=== PATIENT | male | born 1950 | race Caucasian/White ===

== ENCOUNTER 2020-04-11 11:45 | Outpatient (REF) | payer MEDICARE, MEDICAID, SELFPAY ==
[2020-04-11 12:30] LABS: Basophils Percent Auto 0.5 % (0-2); Eosinophils Absolute Auto 0.2 X10*3/uL (0.0-0.4); Eosinophils Percent Auto 2.4 % (0-4); Hematocrit 37.4 % (42-52); Hemoglobin 12.5 g/dl (14.0-18.0); Imm Gran Abs Auto 0.02 X10*3/uL (0.00-0.03); Imm Gran Pct Auto 0.2 % (0.0-0.4); Lymphocytes Absolute Auto 2.6 X10*3/uL (1.2-4.9); Lymphocytes Percent Auto 32.6 % (20-40); MANUAL DIFF FLAG NO; Mean Corpuscular HGB Conc 33.4 g/dl (31.0-36.0); Mean Corpuscular Hemoglobin 33.6 pg (27.0-33.0); Mean Corpuscular Volume 100.5 fL (80-98); Mean Platelet Volume 9.5 fL (9.4-12.4); Monocytes Percent Auto 12.5 % (2-11); Neutrophils Absolute Auto 4.2 X10*3/uL (2.0-8.3); Neutrophils Percent Auto 51.8 % (45-73); Platelet Count 375 X10*3/uL (160-400); Red Blood Count 3.72 X10*6/uL (4.60-5.80); White Blood Count 8.1 X10*3/uL (4.8-10.8)
[2020-04-11 12:36] LABS: Glucose Urine UA NEG (NEG); Leukocyte Esterase Urine NEG (NEG); Nitrite Urine NEG (NEG); Specific Gravity - Urine 1.015 (1.005-1.025); Urine Blood NEG (NEG); Urine Ketones NEG (NEG); Urine Protein TRACE MG/DL (NEG-TRACE)
[2020-04-11 12:46] LABS: Appearance Urine CLEAR; Color Urine YELLOW
[2020-04-11 13:17] LABS: Protein/Creatinine Ratio, Ur 0.09 (<0.2); Total Protein Urine Random 26 mg/dL (<12)
[2020-04-11 13:22] LABS: Albumin Level 4.5 g/dL (3.5-5.0); Anion Gap 14 (12-20); Blood Urea Nitrogen 27 mg/dL (9-16); Calcium 9.9 mg/dL (8.4-10.2); Chloride 103 mmol/L (96-108); Estimated Glomerular Filt Rate 31; Magnesium 1.7 mg/dL (1.6-2.6); Phosphorus 3.3 mg/dL (2.7-4.5); Potassium 4.8 mmol/l (3.3-5.1); Sodium 141 mmol/L (135-145)
[2020-04-11 13:24] LABS: Carbon Dioxide 29 mmol/L (22-29)
[2020-04-11 13:24] LABS: Creatinine Urine 276.47 mg/dL; Total Protein Urine Random 25 mg/dL (<12)
[2020-04-11 13:38] LABS: Vitamin D 25-OH Total 37.7 ng/mL (>30)
[2020-04-11 13:43] LABS: Microalbum/Creatinine Ratio Ur 35.8 ug/mg cr
[2020-04-11 13:45] LABS: Creatinine Urine 276.78 mg/dL
[2020-04-11 15:43] LABS: Renal w Reflex Lab Use Only Order verified
[2020-04-12 23:12] LABS: Calcium (PTHI) 9.8 mg/dL (8.6-10.3); PTHI 20 pg/mL (14-64)
== END 2020-04-11 11:46 | disposition home or self-care (01) ==
LOC: HO.LAB 11:45
PROVIDERS: PCP Emergency Medicine; Visit Provider Internal Medicine Nephrology
DX: I12.9 Hypertensive chronic kidney disease with stage 1 through stage 4 chronic kidney disease, or unspecified chronic kidney disease (principal); N18.30 Chronic kidney disease, stage 3 unspecified
CPT/HCPCS: 36415; 80051; 81003; 82040; 82043; 82306; 82310; 82565; 83735; 83970; 84100; 84156; 84520; 85025

== ENCOUNTER 2020-05-30 09:42 | Outpatient (REF) | payer MEDICARE, MEDICAID, SELFPAY | END 2020-05-30 09:43 | disposition home or self-care (01) | LOC: HO.HOSX 09:42 | PROVIDERS: Visit Provider Orthopaedic Surgery | DX: Z13.89 Encounter for screening for other disorder (principal) ==

== ENCOUNTER 2020-06-01 10:32 | Emergency (ER) | payer MEDICARE, MEDICAID, SELFPAY ==
[2020-06-01 11:19] VITALS: BP 110/64; PULSE 95; RESP 16; TEMP 36.9; O2SAT 99; BMI 21.7
--- NOTE | 2020-06-01 11:37 | ED.SKABFB ---
HPI - Skin/Abscess/Foreign Bdy General Chief complaint: Skin/Abscess/Foreign Body Stated complaint: rash Time Seen by Provider: 06/01/20 11:37 Source: patient Mode of arrival: ambulatory Limitations: no limitations History of Present Illness HPI narrative: 69 yo male presenting with itchy reddened rash to left buttock, back and right upper extremity that started about 1 week ago. He has been using Calamine lotion to the area but it spread from buttock to back to arm. He now noticed that the skin around the area on his right arm is reddened and warm. He denies fever, chills. No new detergents, lotions or creams. MD complaint: rash Onset (ago): week(s) (1) Tetanus up to date: yes Location: back, RUE and buttocks Severity: moderate Quality: burning and pruritic Pain Consistency: intermittent Relieving factors: cold therapy Exacerbating factors: palpation Context: none Associated symptoms: itching Treatments prior to arrival: none Related Data Previous Rx's Medication Instructions Recorded cephalexin [Keflex] 500 mg PO QID #28 cap 06/01/20 doxycycline monohydrate 100 mg PO BID #14 cap 06/01/20 mupirocin 1 appl TOPICAL BID #22 g 06/01/20 Allergies Allergy/AdvReac Type Severity Reaction Status Date / Time No Known Allergies Allergy Unverified 01/26/20 15:11 Review of Systems Review of Systems: Constitutional: No Fever, No Chills Cardiovascular: No Chest Pain, No SOB Respiratory: No Cough, No Sputum Gastrointestinal: No Nausea, No Vomiting Musculoskeletal: No joint pain, No Myalgias Skin: + Skin Lesions, N+rash Neuro: No Weakness, No Numbness, No Dizziness, No Headache Heme/Lymph: No Bruising, No Lymphadenopathy PMFSH Past Medical History Attestation statement: The following information was validated with the patient. Medical History High cholesterol HTN (hypertension) Macular degeneration Surgical History (Updated 06/01/20 @ 11:24 by Madhuri Kaba) History of lung surgery Social History Social History Smoking Status: Current every day smoker Smoked in Last 30 Days: Yes Use of substances other than those prescribed or required for medical reasons: No Advance Directives: No Advance Directives Information Provided: No Physical Exam Vital Signs: Vital Signs: Last Vital Signs Temp 98.4 F 06/01/20 11:19 Pulse 95 06/01/20 11:19 Resp 16 06/01/20 11:19 BP 110/64 06/01/20 11:19 Pulse Ox 99 06/01/20 11:19 Body Mass Index 21.7 Appearance: Alert. Oriented X3. No acute distress. Eyes: normal inspection ENT: Pharynx normal. No facial swelling Neck: Normal inspection. Respiratory: No respiratory distress. Breath sounds normal. Abdomen: Soft and nontender. +BS x4 Skin: Skin warm and dry. Normal skin color. Normal skin turgor. Ertythematous papular rash to right forearm with surroundign ertythema and warmth. No edema. Compartments are soft and compressible. NV intact distally. Central areas of yellowish crusting and bullae. Similar appearance in rash to left buttock without surrounging erythema. Small area also on left middle back. Extremities: No lower extremity edema. Neuro: Oriented X 3. Non-focal. Course Course Course Narrative: 69 y/o male presenting with rash to right arm, left buttock and back. Appears to be consistent with a dermatitis that is now infected. Arm is mildly cellulitic. Not septic appearing. Will treat with topical and oral antiobiotic regimen and have him follow up with his PCP next week. He was counseled on management and signs/symptoms to prompt return to the ER. Patient agrees with plan and is stable for dischaarge. MDM - Skin/Abscess/Foreign Bdy Differential Diagnosis Differential diagnosis: Likely abscess of skin or subcutaneous tissue, viral exanthem, urticaria, herpes zoster, allergic reaction to drug, cellulitis, eczema, impetigo and contact dermatitis Critical Care Time Critical Care Time Critical Care Time: No Discharge Plan Discharge Clinical Impression: Cellulitis Qualifiers: Site of cellulitis: extremity Site of cellulitis of extremity: upper extremity Laterality: right Qualified Code(s): L03.113 - Cellulitis of right upper limb Contact dermatitis Qualifiers: Contact dermatitis type: unspecified Contact dermatitis trigger: unspecified trigger Qualified Code(s): L25.9 - Unspecified contact dermatitis, unspecified cause Patient Disposition: Home, Self-Care Instructions: Cellulitis (ED), Dermatitis (ED) Additional Instructions: Take Benadryl as needed for itchin-50 mg every 6 hours. Use ice to the area to help with itching. Take the prescribed antibiotics and use the prescribed antibiotic ointment as directed. Follow up with your doctor next week. If you develop worsening redness, swelling, pain or fever come back to the ER for further evaluation. Prescriptions: New doxycycline monohydrate 100 mg capsule 100 mg PO BID Qty: 14 RF: 0 cephalexin [Keflex] 500 mg capsule 500 mg PO QID Qty: 28 RF: 0 mupirocin 2 % ointment 1 appl topical BID Qty: 22 RF: 0
== END 2020-06-01 11:59 | disposition home or self-care (01) ==
PROVIDERS: Emergency Provider Internal Medicine; PCP Internal Medicine
DX: L03.113 Cellulitis of right upper limb (principal); L25.9 Unspecified contact dermatitis, unspecified cause; I10 Essential (primary) hypertension; F17.200 Nicotine dependence, unspecified, uncomplicated
CPT/HCPCS: 99283

== ENCOUNTER 2020-07-02 09:00 | Outpatient (RCR) | payer MEDICARE, MEDICAID, SELFPAY | END 2020-07-04 09:04 | disposition other institution (70) | LOC: HO.OT 09:00 | PROVIDERS: PCP Registered Nurse Community Health; Visit Provider Registered Nurse Community Health | DX: M25.531 Pain in right wrist (principal) | CPT/HCPCS: 97110; 97165 ==

== ENCOUNTER 2020-07-11 06:42 | Emergency (ER) | payer MEDICARE, MEDICAID, SELFPAY ==
--- NOTE | ~2020-07-11 | CT_ITS ---
EXAMINATION: CT CHEST WITHOUT CONTRAST CLINICAL INFORMATION: Evaluate for mass. COMPARISON: Chest x-ray 11/03/2016 TECHNIQUE: Multidetector volumetric CT imaging of the chest was done. Axial MIP volume rendering provided. Sagittal and coronal reformatted images were obtained. This CT examination was performed using dose optimization techniques as appropriate, variously including the following: *Automated exposure control *Adjustment of mA and/or kV according to patient size (this includes techniques or standardized protocols for targeted exams where dose is matched to indication/reason for exam; i.e. 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 LUNGS: There is centrilobular emphysema without acute pneumonic process. There is mild left lower lobe bronchiectasis with fine interstitial thickening. Patchy groundglass changes as subpleural cystic parenchymal changes in both upper lobes anterior segment. Hyperinflated right upper lobe predominance right hemithorax with mild thickening of right lower major fissure. There is a right upper lobe posterior pleural-based partially calcified nodule measuring 1.6 x 1.4 x 0.9 cm. There are punctate 2 mm calcified granuloma right upper lobe, axial image 124/9. No noncalcified nodules seen. MEDIASTINUM: The heart size and the great vessels are normal caliber. There are coronary artery calcifications present. The thyroid lobes are symmetrical and normal. The central trachea and the bronchi widely patent. No pericardial effusion seen. PLEURA: There is no pleural effusion or thickening. Focal subpleural partially calcified lesion in the right upper lobe as described above. AXILLA: Small shotty lymph nodes are seen in bilateral axilla. UPPER ABDOMEN: Visualized liver, spleen, pancreas and bilateral adrenal glands are unremarkable. No radiopaque gallstones seen. OSSEOUS STRUCTURES: No lytic or sclerotic process seen. There are superior endplate deformities T11, L1 and inferior endplate T8 vertebra. CT/CT chest wo con IMPRESSION: Emphysema with subpleural cysts and fine interstitial subpleural thickening both upper lobes. The right upper lobe dominates the right hemithorax. There are chronic interstitial changes with bronchiectasis in the left lower lobe. There are scattered groundglass attenuation changes in both lungs. There is a right upper lobe pleural-based partially calcified nodular thickening measuring 1.6 cm. Differential diagnoses includes partially calcified pleural plaque or nodule. Recommend short-term 3-6 month follow-up.
[2020-07-11 06:49] VITALS: BP 157/72; PULSE 109; RESP 15; TEMP 36.5; O2SAT 100; BMI 21.5
--- NOTE | 2020-07-11 07:07 | ED_ITS ---
HPI - Skin/Abscess/Foreign Bdy General Chief complaint: Allergic Reaction Stated complaint: Rash Time Seen by Provider: 07/11/20 07:04 Source: patient Mode of arrival: ambulatory Limitations: no limitations History of Present Illness MD complaint: rash and lesion Onset (ago): month(s) (on and on May) Tetanus up to date: yes Location: back, LUE, RUE and buttocks Severity: moderate Quality: burning and pruritic Pain Consistency: constant Relieving factors: none Exacerbating factors: none Context: none Associated symptoms: denies other symptoms Treatments prior to arrival: corticosteroid and antibiotic Related Data Previous Rx's Medication Instructions Recorded cephalexin [Keflex] 500 mg PO QID #28 cap 06/01/20 doxycycline monohydrate 100 mg PO BID #14 cap 06/01/20 mupirocin 1 appl TOPICAL BID #22 g 06/01/20 mupirocin 1 appl TOPICAL BID 7 Days #15 g 07/11/20 prednisone 40 mg PO DAILY 4 Days #8 tab 07/11/20 valacyclovir 1,000 mg PO TID 10 Days #30 tab 07/11/20 Allergies Allergy/AdvReac Type Severity Reaction Status Date / Time No Known Allergies Allergy Unverified 01/26/20 15:11 Review of Systems Review of Systems: Constitutional : No Fever, No Chills ENT/Mouth : No sore throat, No Rhinorrhea Eyes: No Eye Pain, No Swelling, No Redness Cardiovascular : No Chest Pain, No SOB Respiratory : No Cough, No Sputum Gastrointestinal : No Nausea, No Vomiting, No Diarrhea, No abdominal Pain Genitourinary : No Dysuria, No Hematuria Musculoskeletal : No joint pain, No Myalgias, No Joint Swelling Skin : pos Skin Lesions, positive skin rash Neuro : No Weakness, No Numbness, No Headache Psych : No Anxiety, No Depression Heme/Lymph: No Bruising, No Bleeding,No Lymphadenopathy Endocrine : No Polyuria, No Polydipsia All other systems reviewed and are negative [facility] Past Medical History Attestation statement: The following information was validated with the patient. Medical History High cholesterol HTN (hypertension) Macular degeneration Surgical History History of lung surgery Social History Social History Smoking Status: Current every day smoker Advance Directives: Yes Advance Directives Information Provided: Yes Advance Directives on File: No Physical Exam Vital Signs: Vital Signs: Last Vital Signs Temp 97.7 F 07/11/20 06:49 Pulse 90 07/11/20 08:30 Resp 18 07/11/20 08:30 BP 137/67 07/11/20 08:30 Pulse Ox 99 07/11/20 08:30 Body Mass Index 21.5 Appearance: Alert. Oriented X3. No acute distress. Eyes: Pupils equal, round and reactive to light. ENT: Pharynx normal. Neck: Normal inspection. Neck supple. CVS: Normal heart rate and rhythm. Pulses normal. Respiratory: No respiratory distress. Breath sounds normal. Abdomen: Soft and nontender. Skin: Skin warm and dry. diffuse areas on forearms of red scaling patches no signs of cellulitis, R low back large raised scabbed patch no signs of infection, R buttock area more vesicular rash noted no abscess/no signs of infection Extremities: No lower extremity edema. No calf ttp Neuro: Oriented X 3. No motor deficit. No sensory deficit. Course Course Course Narrative: stable chest CT MDM - Skin/Abscess/Foreign Bdy MDM Narrative Medical decision making narrative: 69 yo male with hx of recurrent rash has tried oral antibiotics and topical steroids no relief, has not seen a vascular technologist - at this time looks like dermatitis vs shingles in one patch and that patch is burning, will start on oral prednisone, valacyclovir, mupirocin and refer to dermatology, he has a hx of lung cancer will obtain CT chest to make sure rash is not a paraneoplastic syndrome. Discharge Plan Discharge Clinical Impression: Contact dermatitis Qualifiers: Contact dermatitis type: unspecified Contact dermatitis trigger: unspecified trigger Qualified Code(s): L25.9 - Unspecified contact dermatitis, unspecified cause Shingles Qualifiers: Herpes zoster complications: without complications Qualified Code(s): B02.9 - Zoster without complications Patient Disposition: Home, Self-Care Instructions: Shingles (ED), Dermatitis (ED) Additional Instructions: Emphysema with subpleural cysts and fine interstitial subpleural thickening both upper lobes. The right upper lobe dominates the right hemithorax. There are chronic interstitial changes with bronchiectasis in the left lower lobe. There are scattered groundglass attenuation changes in both lungs. There is a right upper lobe pleural-based partially calcified nodular thickening measuring 1.6 cm. Differential diagnoses includes partially calcified pleural plaque or nodule. Recommend short-term 3-6 month follow-up. YOU NEED TO SEE A AERIAL SPRAYER Prescriptions: New prednisone 20 mg tablet 40 mg PO DAILY 4 Days Qty: 8 RF: 0 mupirocin 2 % ointment 1 appl topical BID 7 Days Qty: 15 RF: 0 valacyclovir 1 gram tablet 1,000 mg PO TID 10 Days Qty: 30 RF: 0 No Action doxycycline monohydrate 100 mg capsule 100 mg PO BID Qty: 14 RF: 0 cephalexin [Keflex] 500 mg capsule 500 mg PO QID Qty: 28 RF: 0 mupirocin 2 % ointment 1 appl topical BID Qty: 22 RF: 0 Referrals: Luis Tierney MD [Primary Care Provider] - 2 days
[2020-07-11] MEDS: predniSONE 20 MG TABLET 60 MG PO (07:16)
[2020-07-11 08:30] VITALS: BP 137/67; PULSE 90; RESP 18; O2SAT 99
== END 2020-07-11 10:13 | disposition home or self-care (01) ==
PROVIDERS: Emergency Provider Emergency Medicine; PCP Internal Medicine
DX: L25.9 Unspecified contact dermatitis, unspecified cause (principal); B02.9 Zoster without complications; F17.200 Nicotine dependence, unspecified, uncomplicated; Z71.6 Tobacco abuse counseling; Z79.899 Other long term (current) drug therapy
CPT/HCPCS: 71250; 99284

== ENCOUNTER 2020-10-09 12:44 | Outpatient (REF) | payer MEDICARE, MEDICAID, SELFPAY ==
[2020-10-09 13:28] LABS: MANUAL DIFF FLAG NO
[2020-10-09 13:36] LABS: Basophils Absolute Auto 0.1 X10*3/uL (0.0-0.2); Basophils Percent Auto 0.7 % (0-2); Eosinophils Absolute Auto 0.1 X10*3/uL (0.0-0.4); Eosinophils Percent Auto 1.3 % (0-4); Hematocrit 37.7 % (42-52); Hemoglobin 13.2 g/dl (14.0-18.0); Imm Gran Abs Auto 0.04 X10*3/uL (0.00-0.03); Imm Gran Pct Auto 0.4 % (0.0-0.4); Lymphocytes Absolute Auto 2.7 X10*3/uL (1.2-4.9); Lymphocytes Percent Auto 26.3 % (20-40); Mean Corpuscular Hemoglobin 33.4 pg (27.0-33.0); Mean Corpuscular Volume 95.4 fL (80-98); Mean Platelet Volume 9.8 fL (9.4-12.4); Monocytes Absolute Auto 1.2 X10*3/uL (0.1-1.2); Monocytes Percent Auto 11.8 % (2-11); Neutrophils Percent Auto 59.5 % (45-73); Platelet Count 368 X10*3/uL (160-400); Red Blood Count 3.95 X10*6/uL (4.60-5.80); Red Cell Distribution Width 13.1 % (11.0-16.0); White Blood Count 10.1 X10*3/uL (4.8-10.8)
[2020-10-09 13:39] LABS: Glucose Urine UA NEG (NEG); Leukocyte Esterase Urine NEG (NEG); Nitrite Urine NEG (NEG); Specific Gravity - Urine 1.015 (1.005-1.025); Urine Blood NEG (NEG); Urine Ketones 5 MG/DL (NEG); Urine Protein NEG (NEG-TRACE)
[2020-10-09 13:41] LABS: Appearance Urine CLEAR; Color Urine YELLOW
[2020-10-09 13:57] LABS: Creatinine Urine 252.03 mg/dL; Microalbum/Creatinine Ratio Ur 20.2 ug/mg cr; Protein/Creatinine Ratio, Ur 0.07 (<0.2); Total Protein Urine Random 18 mg/dL (<12)
[2020-10-09 14:04] LABS: Albumin Level 4.6 g/dL (3.5-5.0); Anion Gap 17 (12-20); Blood Urea Nitrogen 36 mg/dL (9-16); Calcium 10.5 mg/dL (8.4-10.2); Carbon Dioxide 25 mmol/L (22-29); Chloride 101 mmol/L (96-108); Estimated Glomerular Filt Rate 26; Magnesium 1.7 mg/dL (1.6-2.6); Phosphorus 3.7 mg/dL (2.7-4.5); Potassium 4.6 mmol/L (3.3-5.1); Sodium 138 mmol/L (135-145)
[2020-10-09 14:21] LABS: Vitamin D 25-OH Total 36.6 ng/mL (>30)
[2020-10-11 09:21] LABS: Calcium (PTHI) 10.2 mg/dL (8.6-10.3); PTHI 19 pg/mL (14-64)
== END 2020-10-09 12:45 | disposition home or self-care (01) ==
LOC: HO.LAB 12:44
PROVIDERS: Visit Provider Internal Medicine Nephrology
DX: I12.9 Hypertensive chronic kidney disease with stage 1 through stage 4 chronic kidney disease, or unspecified chronic kidney disease (principal); N18.30 Chronic kidney disease, stage 3 unspecified
CPT/HCPCS: 36415; 80051; 81003; 82040; 82043; 82306; 82310; 82565; 83735; 83970; 84100; 84156; 84520; 85025

== ENCOUNTER 2021-05-29 12:42 | Outpatient (REF) | payer MEDICARE, MEDICAID, SELFPAY ==
[2021-05-29 13:15] LABS: MANUAL DIFF FLAG NO
[2021-05-29 14:20] LABS: Basophils Absolute Auto 0.1 X10*3/uL (0.0-0.2); Basophils Percent Auto 0.6 % (0-2); Eosinophils Absolute Auto 0.2 X10*3/uL (0.0-0.4); Eosinophils Percent Auto 1.9 % (0-4); Hematocrit 36.3 % (42.0-52.0); Hemoglobin 12.4 g/dl (14.0-18.0); Imm Gran Abs Auto 0.02 X10*3/uL (0.00-0.03); Imm Gran Pct Auto 0.2 % (0.0-0.4); Lymphocytes Absolute Auto 2.7 X10*3/uL (1.2-4.9); Lymphocytes Percent Auto 26.4 % (20-40); Mean Corpuscular HGB Conc 34.2 g/dl (31.0-36.0); Mean Corpuscular Hemoglobin 33.4 pg (27.0-33.0); Mean Corpuscular Volume 97.8 fL (80.0-98.0); Mean Platelet Volume 10.3 fL (9.4-12.4); Monocytes Percent Auto 9.5 % (2-11); Neutrophils Absolute Auto 6.2 x10*3/uL (2.0-8.3); Neutrophils Percent Auto 61.4 % (45-73); Platelet Count 323 X10*3/uL (160-400); Red Blood Count 3.71 X10*6/uL (4.60-5.80); Red Cell Distribution Width 12.9 % (11.0-16.0)
[2021-05-29 14:23] LABS: Appearance Urine CLEAR; Color Urine YELLOW; Glucose Urine UA NEG (NEG); Leukocyte Esterase Urine NEG (NEG); Nitrite Urine NEG (NEG); Specific Gravity - Urine 1.015 (1.005-1.025); Urine Blood NEG (NEG); Urine Ketones NEG (NEG); Urine Protein NEG (NEG-TRACE)
[2021-05-29 14:43] LABS: Creatinine Urine 146.96 mg/dL; Microalbum/Creatinine Ratio Ur 7.4 ug/mg cr; Protein/Creatinine Ratio, Ur 0.05 (<0.2); Total Protein Urine Random 8 mg/dL (<12)
[2021-05-29 14:48] LABS: Albumin Level 4.4 g/dL (3.5-5.0); Anion Gap 16 (12-20); Blood Urea Nitrogen 28 mg/dL (9-16); Calcium 10.2 mg/dL (8.4-10.2); Carbon Dioxide 26 mmol/L (22-29); Chloride 103 mmol/L (96-108); Estimated Glomerular Filt Rate 30; Magnesium 1.6 mg/dL (1.6-2.6); Phosphorus 3.9 mg/dL (2.7-4.5); Potassium 4.8 mmol/L (3.3-5.1); Sodium 140 mmol/L (135-145)
[2021-05-29 14:48] LABS: RBC Urine 0 /HPF (0); WBC Urine 0 /HPF (0-4)
[2021-05-29 15:09] LABS: Vitamin D 25-OH Total 36.6 ng/mL (>30)
[2021-05-30 16:16] LABS: Calcium (PTHI) 10.1 mg/dL (8.6-10.3); PTHI 21 pg/mL (14-64)
== END 2021-05-29 12:43 | disposition home or self-care (01) ==
LOC: HO.LAB 12:42
PROVIDERS: Visit Provider Internal Medicine Nephrology
DX: I12.9 Hypertensive chronic kidney disease with stage 1 through stage 4 chronic kidney disease, or unspecified chronic kidney disease (principal); N18.4 Chronic kidney disease, stage 4 (severe); N25.0 Renal osteodystrophy
CPT/HCPCS: 36415; 80051; 81001; 82040; 82043; 82306; 82310; 82565; 83735; 83970; 84100; 84156; 84520; 85025; 87086

== ENCOUNTER 2022-02-03 10:42 | Outpatient (REF) | payer MEDICARE, MEDICAID, SELFPAY ==
[2022-02-03 10:57] LABS: MANUAL DIFF FLAG NO
[2022-02-03 11:39] LABS: Appearance Urine Clear; Color Urine Yellow; Glucose Urine UA Negative (Negative); Leukocyte Esterase Urine Negative (Negative); Nitrite Urine Negative (Negative); Urine Blood Negative (Negative); Urine Ketones Negative (Negative); Urine Protein Negative (Neg-Trace)
[2022-02-03 11:42] LABS: Bacteria Urine None Seen (None Seen); Hyaline Casts Urine 0-2 /LPF (0-2); RBC Urine 0-2 /HPF (0-2); Squamous Epithelial Cell Urine 0-2 /HPF (0-2); WBC Urine 0-5 /HPF (0-5)
[2022-02-03 12:19] LABS: Basophils Absolute Auto 0.1 X10*3/uL (0.0-0.2); Basophils Percent Auto 0.7 % (0-2); Eosinophils Absolute Auto 0.2 X10*3/uL (0.0-0.4); Eosinophils Percent Auto 2.3 % (0-4); Hematocrit 37.5 % (42.0-52.0); Hemoglobin 12.6 g/dl (14.0-18.0); Imm Gran Abs Auto 0.02 X10*3/uL (0.00-0.03); Imm Gran Pct Auto 0.2 % (0.0-0.4); Lymphocytes Percent Auto 33.8 % (20-40); Mean Corpuscular HGB Conc 33.6 g/dl (31.0-36.0); Mean Corpuscular Hemoglobin 32.7 pg (27.0-33.0); Mean Corpuscular Volume 97.4 fL (80.0-98.0); Monocytes Absolute Auto 1.1 X10*3/uL (0.1-1.2); Monocytes Percent Auto 12.3 % (2-11); Neutrophils Absolute Auto 4.4 x10*3/uL (2.0-8.3); Neutrophils Percent Auto 50.7 % (45-73); Platelet Count 347 X10*3/uL (160-400); Red Blood Count 3.85 X10*6/uL (4.60-5.80); Red Cell Distribution Width 13.3 % (11.0-16.0); White Blood Count 8.7 X10*3/uL (4.8-10.8)
[2022-02-03 12:45] LABS: Creatinine Urine 101.46 mg/dL; Microalbum/Creatinine Ratio Ur 34.4 ug/mg cr; Protein/Creatinine Ratio, Ur 0.09 (<0.2); Total Protein Urine Random 9 mg/dL (<12)
[2022-02-03 12:56] LABS: Albumin Level 4.6 g/dL (3.5-5.0); Anion Gap 19 (12-20); Blood Urea Nitrogen 33 mg/dL (9-16); Calcium 9.7 mg/dL (8.4-10.2); Carbon Dioxide 22 mmol/L (22-29); Chloride 103 mmol/L (96-108); Estimated Glomerular Filt Rate 30; Magnesium 1.8 mg/dL (1.6-2.6); Phosphorus 2.9 mg/dL (2.7-4.5); Potassium 4.6 mmol/L (3.3-5.1); Sodium 139 mmol/L (135-145)
[2022-02-03 13:06] LABS: Vitamin D 25-OH Total 41.9 ng/mL (>30)
[2022-02-04 11:02] LABS: Calcium (PTHI) 9.7 mg/dL (8.6-10.3); PTHI 50 pg/mL (16-77)
== END 2022-02-03 10:43 | disposition home or self-care (01) ==
LOC: HO.LAB 10:42
PROVIDERS: Visit Provider Internal Medicine Nephrology
DX: I12.9 Hypertensive chronic kidney disease with stage 1 through stage 4 chronic kidney disease, or unspecified chronic kidney disease (principal); N18.4 Chronic kidney disease, stage 4 (severe); N25.0 Renal osteodystrophy
CPT/HCPCS: 36415; 80051; 81001; 82040; 82043; 82306; 82310; 82565; 83735; 83970; 84100; 84156; 84520; 85025; 87086

== ENCOUNTER → 2022-02-07 07:47 | Outpatient (REF) | payer OTHER, SELFPAY ==
--- NOTE | ~2022-02-07 | NM_ITS ---
Lexiscan Myocardial perfusion study Indication: Chest pain, assess for coronary disease and ischemia Technique: The patient was brought in for a Lexiscan perfusion study on 02/07/2022 and was injected 0.4 mg of Lexiscan intravenously. Within a minute of this injection 25 mCi of sestamibi was given intravenously. Images were obtained using the SPECT gamma camera interlaced with the gating device. Images were obtained in supine position. Resting perfusion study was performed on 02/11/2022. Patient was administered 25 mCi of sestamibi intravenously at rest. Images were then obtained in supine position. Total DLP 73mGy-cm. Images were processed with the software and compared side to side in short axis, horizontal long axis and vertical long axis views. Findings: Raw acquisition reviewed. No significant perfusion abnormality. Both uncorrected as well as CT attenuation corrected images were reviewed. The stress perfusion study showed no significant perfusion abnormality. Both uncorrected as well as CT attenuation corrected images were reviewed. The gated study shows normal LV systolic function with calculated LVEF of 62%. LV cavity is normal in size. The gated study shows normal wall thickening and contraction of segments. Resting study shows no significant perfusion abnormality.. Gating at rest reveals normal wall motion with ejection fraction at 61%. The findings are consistent with no significant reversible or fixed perfusion defects. NM/NM stephanie perf SPECT rest & str Impression: 1. Myocardial perfusion imaging study shows normal myocardial perfusion. No evidence of any ischemia or infarction. 2. Gated LVEF is 62% during stress and 61% during rest. 3. Transient ischemic dilatation not present. EKG component of the test reported separately.
--- NOTE | 2022-02-07 07:51 | CA_ITS ---
Acquisition Time: 2022-02-07 08:07:01 Total Exercise Time: 00:02:00 Test Indications: Chest Pain Medications: ASA ATENOLOL ATORVASTATIN FOSINOPRIL AMLODIPINE Protocol: LEXISCAN Max HR: 110 BPM 72% of Pred: 151 BPM Max BP: 142/064 mmHG Max Work Load: 1.6 METS Pharmacological stress test with Lexiscan injection, while walking slow on treadmill, without anginal symptoms, with rare isolated PVC, with normotensive response to injection, with nondiagnostic EKG for ischemia. Nuclear images pending. Test reviewed with Dr Traylor Referred By: Arthur Segura Overread By: KENYA BENTON
== END ==
LOC: HO.CARD 07:47
PROVIDERS: Visit Provider Physician Assistant Medical
DX: I25.10 Atherosclerotic heart disease of native coronary artery without angina pectoris (principal)
CPT/HCPCS: 78452; 93017; A9500; J0280; J2785

== ENCOUNTER 2022-04-07 05:42 | Emergency (ER) | payer MEDICARE, MEDICAID, SELFPAY ==
[2022-04-07 05:44] VITALS: BP 145/62; PULSE 67; RESP 18; TEMP 36.6; O2SAT 100; BMI 22.4
--- NOTE | 2022-04-07 06:35 | PC.NURSE ---
Patient c/o swelling of L eye accompanied by itching, source unknown. L eye discomfort began yesterday evening. Patient states eye has continued to itch and swell as time has gone by.
--- NOTE | 2022-04-07 06:47 | ED.GENADULT ---
HPI - General Adult General Chief complaint: Extremity Problem Stated complaint: swollen eye Time Seen by Provider: 04/07/22 06:47 Source: patient Limitations: no limitations History of Present Illness HPI narrative: yesterday noticed that his eye was irritated with slight drainage now with swollen left eye. This morning his eye was swollen shut. Denies trauma or fever, does not wear contacts. No change in vision Onset (ago): day(s) Location: eyes (left ) Severity: moderate Relieving factors: none Associated symptoms: denies other symptoms Related Data Previous Rx's Medication Instructions Recorded cephalexin 500 mg capsule (Keflex) 500 mg PO QID #28 caps 06/01/20 doxycycline monohydrate 100 mg 100 mg PO BID #14 caps 06/01/20 capsule mupirocin 2 % topical ointment 1 appl topical BID #22 grams 06/01/20 mupirocin 2 % topical ointment 1 appl topical BID 7 days #15 grams 07/11/20 prednisone 20 mg tablet 40 mg PO DAILY 4 days #8 tabs 07/11/20 valacyclovir 1 gram tablet 1,000 mg PO TID 10 days #30 tabs 07/11/20 besifloxacin 0.6 % eye 1 drp ophthalmic-Left TID 7 days 04/07/22 drops,suspension (Besivance) #5 mL cephalexin 500 mg capsule 500 mg PO Q6H 10 days #40 caps 04/07/22 Allergies Allergy/AdvReac Type Severity Reaction Status Date / Time No Known Allergies Allergy Unverified 01/26/20 15:11 Review of Systems Review of Systems: Yes all other systems are reviewed and are negative PMFSH Past Medical History Medical History High cholesterol HTN (hypertension) Macular degeneration Surgical History History of lung surgery Social History Social History Smoked in Last 30 Days: Yes Use of substances other than those prescribed or required for medical reasons: No Advance Directives: No Advance Directives Information Provided: Yes Physical Exam ED Vital Signs: Vital Signs - 24 hr 04/07/22 05:44 Temperature 97.8 F Pulse Rate 67 Respiratory Rate 18 Blood Pressure 145/62 H Pulse Oximetry 100 Oxygen Delivery Method Room Air BMI result Body Mass Index 22.4 Const General: healthy appearing Nutritional Appearance: average body habitus Orientation/consciousness: oriented to person and patient oriented x3 Limitations: no limitations HENMT Head: Yes normal to inspection Ears: external ears normal General nose exam: Normal external nose present Mouth: Normal oral and palatal mucosa present and oropharynx normal Throat: Yes posterior oropharynx normal Eyes Other: slight left eye injection, no pain with range of motion, periorbital cellulitis Neck Neck: Yes normal visual inspection Chest Chest palpation & inspection: normal inspection of the chest Resp Auscultation: clear to auscultation bilaterally Cardio Jugular venous distension: no JVD Rate: regular rate Rhythm: regular rhythm Heart sounds: S1 normal heart sound present and S2 normal heart sound present GI Inspection: Yes normal to inspection Palpation (GI): Soft to palpation, nontender and No hepatosplenomegaly present Auscultation: normal bowel sounds General: Yes no CVA tenderness Back/Spine/Pelvis Back: no CVA tenderness Skin Other: periorbital erythema, no lesions on his skin consistent with shingles Neuro General: oriented to person and patient oriented x3 Cranial nerves: Yes CN's II-XII intact bilaterally Motor exam (neuro): 5/5 motor strength present throughout Extrem General: Yes normal to inspection Psych Appearance: grossly normal Course Reevaluation(s) Reevaluation #1: will place patient on besivance for the eye, and keflex for the surrounding cellulitis Time: 06:54 Discharge Plan Discharge Clinical Impression: Cellulitis, periorbital, Conjunctivitis Patient Disposition: Home, Self-Care Instructions: Periorbital Cellulitis in Adults (ED), Conjunctivitis (ED) Prescriptions: New cephalexin 500 mg capsule 500 mg PO Q6H 10 Days Qty: 40 0RF Besivance 0.6 % drops,suspension 1 drp ophthalmic-Left TID 7 Days Qty: 5 0RF Rx Instructions: administer doses at least 4 hours apart No Action prednisone 20 mg tablet 40 mg PO DAILY 4 Days Qty: 8 0RF mupirocin 2 % ointment 1 appl topical BID 7 Days Qty: 15 0RF valacyclovir 1 gram tablet 1,000 mg PO TID 10 Days Qty: 30 0RF doxycycline monohydrate 100 mg capsule 100 mg PO BID Qty: 14 0RF cephalexin [Keflex] 500 mg capsule 500 mg PO QID Qty: 28 0RF mupirocin 2 % ointment 1 appl topical BID Qty: 22 0RF Referrals: Physician,Nonstaff [Primary Care Provider] - 5 days
== END 2022-04-07 07:07 | disposition home or self-care (01) ==
PROVIDERS: Emergency Provider Emergency Medicine
DX: L03.213 Periorbital cellulitis (principal); H10.89 Other conjunctivitis
CPT/HCPCS: 99283; 99284

== ENCOUNTER 2022-11-04 07:46 | Outpatient (REF) | payer MEDICARE, MEDICAID, SELFPAY ==
[2022-11-04 08:03] LABS: MANUAL DIFF FLAG NO
[2022-11-04 08:17] LABS: Basophils Absolute Auto 0.1 X10*3/uL (0.0-0.2); Basophils Percent Auto 0.7 % (0-2); Eosinophils Absolute Auto 0.2 X10*3/uL (0.0-0.4); Eosinophils Percent Auto 2.8 % (0-4); Hematocrit 35.1 % (42.0-52.0); Hemoglobin 11.8 g/dl (14.0-18.0); Imm Gran Abs Auto 0.03 X10*3/uL (0.00-0.03); Imm Gran Pct Auto 0.4 % (0.0-0.4); Lymphocytes Absolute Auto 2.5 X10*3/uL (1.2-4.9); Lymphocytes Percent Auto 29.9 % (20-40); Mean Corpuscular HGB Conc 33.6 g/dl (31.0-36.0); Mean Corpuscular Hemoglobin 31.7 pg (27.0-33.0); Mean Corpuscular Volume 94.4 fL (80.0-98.0); Mean Platelet Volume 9.5 fL (9.4-12.4); Monocytes Absolute Auto 0.9 X10*3/uL (0.1-1.2); Monocytes Percent Auto 11.2 % (2-11); Neutrophils Absolute Auto 4.6 x10*3/uL (2.0-8.3); Platelet Count 374 X10*3/uL (160-400); Red Blood Count 3.72 X10*6/uL (4.60-5.80); White Blood Count 8.3 X10*3/uL (4.8-10.8)
[2022-11-04 09:04] LABS: Appearance Urine Clear; Color Urine Yellow; Glucose Urine UA Negative (Negative); Leukocyte Esterase Urine Negative (Negative); Nitrite Urine Negative (Negative); Specific Gravity - Urine 1.015 (1.005-1.025); Urine Blood Negative (Negative); Urine Ketones Negative (Negative); Urine Protein Negative (Neg-Trace)
[2022-11-04 09:20] LABS: Albumin Level 4.3 g/dL (3.5-5.0); Anion Gap 14 (12-20); Blood Urea Nitrogen 31 mg/dL (9-16); Calcium 9.5 mg/dL (8.4-10.2); Carbon Dioxide 21 mmol/L (22-29); Chloride 107 mmol/L (96-108); Estimated Glomerular Filt Rate 25; Magnesium 1.9 mg/dL (1.6-2.6); Phosphorus 3.3 mg/dL (2.7-4.5); Sodium 137 mmol/L (135-145)
[2022-11-04 09:29] LABS: Vitamin D 25-OH Total 39.7 ng/mL (>30)
[2022-11-04 09:57] LABS: Creatinine Urine 128.84 mg/dL; Microalbum/Creatinine Ratio Ur 8.5 ug/mg cr; Protein/Creatinine Ratio, Ur 0.07 (<0.2); Total Protein Urine Random 9 mg/dL (<12)
[2022-11-05 16:29] LABS: Calcium (PTHI) 9.1 mg/dL (8.6-10.3); PTHI 86 pg/mL (16-77)
== END 2022-11-04 07:47 | disposition home or self-care (01) ==
LOC: HO.LAB 07:46
PROVIDERS: Visit Provider Internal Medicine Nephrology
DX: I12.9 Hypertensive chronic kidney disease with stage 1 through stage 4 chronic kidney disease, or unspecified chronic kidney disease (principal); N18.4 Chronic kidney disease, stage 4 (severe); N25.0 Renal osteodystrophy
CPT/HCPCS: 36415; 80051; 81003; 82040; 82043; 82306; 82310; 82565; 83735; 83970; 84100; 84156; 84520; 85025; 87086

== ENCOUNTER 2022-12-08 09:45 | Emergency (ER) | payer MEDICARE, MEDICAID, SELFPAY ==
--- NOTE | ~2022-12-08 | XR_ITS ---
EXAMINATION: XR KNEE, LEFT CLINICAL INFORMATION: Left knee pain COMPARISON: March 2019. TECHNIQUE: Four views of the left knee. FINDINGS: There is an old healed fracture of the proximal left fibula. No evidence for acute fracture or dislocation. No osteochondral lesions or erosions seen. There is no significant joint effusion. XR/XR knee LT 3V IMPRESSION: No acute process. Old healed fracture of the proximal left fibula.
[2022-12-08 09:53] VITALS: BP 138/59; PULSE 67; RESP 16; TEMP 36.6; O2SAT 99; BMI 22.6
--- NOTE | 2022-12-08 10:12 | ED.LOWEXIN ---
HPI - Extremity Injury (Lower) General Chief Complaint: Extremity Injury, Lower Stated Complaint: l leg pain Time Seen by Provider: 12/08/22 09:55 Source: patient, RN notes reviewed and old records reviewed Mode of arrival: ambulatory History of Present Illness HPI Narrative: 72-year-old male with a past medical history of HLD, HTN, macular degeneration, presenting to the ED complaining of left leg pain > left knee x2 weeks. Denies known injury/trauma or fall. Reports intermittent paresthesias. Reports pain worse with ambulation/movement. Denies neck/back pain, weakness, urinary incontinence/retention, fever, swelling. Has been taking Tylenol without relief Related Data Previous Rx's Medication Instructions Recorded cephalexin 500 mg capsule (Keflex) 500 mg PO QID #28 caps 06/01/20 doxycycline monohydrate 100 mg 100 mg PO BID #14 caps 06/01/20 capsule mupirocin 2 % topical ointment 1 appl topical BID #22 grams 06/01/20 mupirocin 2 % topical ointment 1 appl topical BID 7 days #15 grams 07/11/20 prednisone 20 mg tablet 40 mg PO DAILY 4 days #8 tabs 07/11/20 valacyclovir 1 gram tablet 1,000 mg PO TID 10 days #30 tabs 07/11/20 besifloxacin 0.6 % eye 1 drp ophthalmic-Left TID 7 days 04/07/22 drops,suspension (Besivance) #5 mL cephalexin 500 mg capsule 500 mg PO Q6H 10 days #40 caps 04/07/22 diclofenac sodium 1 % topical gel 4 g topical QID #100 grams 12/08/22 (Arthritis Pain (diclofenac)) Allergies Allergy/AdvReac Type Severity Reaction Status Date / Time No Known Allergies Allergy Unverified 01/26/20 15:11 Review of Systems Review of Systems: Constitutional: No Fever, No Chills ENT/Mouth: No Ear Pain, No Nasal Congestion, No sore throat, No Rhinorrhea, No Swallowing Difficulty Cardiovascular: No Chest Pain, No SOB Respiratory: No Cough, No Sputum, No Wheezing Gastrointestinal: No Nausea, No Vomiting, No Abdominal pain Genitourinary: No Urinary Incontinence/retention, No Urgency, No Flank Pain Musculoskeletal: + joint pain, No Myalgias, No Joint Swelling Skin: No Skin Lesions, No rash Neuro: No Weakness, No Numbness, + Paresthesias Yes all other systems are reviewed and are negative Constitutional: Constitutional: Reports as per [facility] Past Medical History Attestation statement: The following information was validated with the patient. Source: old records reviewed Medical History High cholesterol HTN (hypertension) Macular degeneration Surgical History History of lung surgery Social History Social History Advance Directives: No Advance Directives Information Provided: No Physical Exam Vital Signs: Vital Signs: Last Vital Signs Temp 98 F 12/08/22 09:53 Pulse 67 12/08/22 09:53 Resp 16 12/08/22 09:53 BP 138/59 L 12/08/22 09:53 Pulse Ox 99 12/08/22 09:53 BMI result Body Mass Index 22.6 Const: General: cooperative, healthy appearing and no acute distress Orientation/consciousness: patient oriented x3 Limitations: no limitations HEENT: Head: Yes normal to inspection and Yes atraumatic Ears: hearing grossly normal bilaterally General nose exam: Normal external nose present Face and sinus: Yes normal facial exam Eyes: General: appearance normal, both eyes and all related structures EOM: EOMs intact bilaterally Neck: Neck: Yes normal visual inspection and Yes no meningeal signs Resp: Effort & Inspection: normal respiratory effort and no respiratory distress Cardio: Rate: regular rate Peripheral pulses: Peripheral pulses 2+ throughout Back/Spine/Pelvis: Other: No midline cervical/thoracic/lumbar spinous tenderness/step-off or deformity Skin: Rashes: no rashes Wounds: no wounds Neuro: General: patient oriented x3, gait normal (Baseline with walker, antalgic ), tone normal, moves all extremities, no meningeal signs and no focal motor deficits Gait exam (Neuro): Normal gait present Motor exam (neuro): 5/5 motor strength present throughout Extrem: Other: Left knee without noted deformity, no erythema/swelling. Mild tenderness to bilateral lateral aspects. No pitting edema. Thigh/tib-fib/ankle and foot nontender with full range of motion intact. Pelvis stable General: Yes normal to inspection Course Course Course Narrative: XR knee LT 3V IMPRESSION: No acute process. Old healed fracture of the proximal left fibula. > Results discussed with patient including worrisome signs and symptoms and strict return precautions, and when to return to the emergency department. They verbalized understanding and feel safe for discharge at this time. Medications Administered Discontinued Medications Generic Name Dose Route Start Last Admin Trade Name Demarco PRN Reason Stop Dose Admin Ketorolac Tromethamine 30 mg 12/08/22 11:21 12/08/22 11:33 Ketorolac Tromethamine 30 Mg/Ml Vial IM 12/08/22 11:22 Not Given ONCE ONE Medical Decision Making Medical Decision Making MDM Narrative: 72-year-old male with a past medical history of HLD, HTN, macular degeneration, presenting to the ED complaining of left leg pain > left knee x2 weeks. On exam vital signs stable, NAD, nontoxic appearing, physical exam as noted above. No midline spinous tenderness or red flag symptoms, ambulating at baseline with walker with antalgic gait. Concern for tendon/ligamental vs meniscal injury vs osteoporosis/arthritic flare vs occult fracture. Low suspicion for DVT, no evidence of septic joint/arthritis, unlikely sciatica Plan: X-ray Please refer to course for remaining clinical decision making, interpretation of labs/imaging results, and discussions with consultants and/or family members. Differential Diagnosis Differential Diagnoses: The differential diagnosis associated with the presentation includes As above Independent Interpretation I performed an independent interpretation of an: Plain X-Ray Radiology Impression Discussion of test interpretation with radiology: I have reviewed the radiologist's reading. External Record Review External record reviewed: Inpatient record, Office record, Outpatient record, Prior outpatient labs, Prior outpatient radiology, Primary care record and Outside ED record Tests considered The following testing was considered but not selected: As above Prescription Management I considered prescription management with: Pain Medication Discharge Plan Discharge Clinical Impression: Left knee pain Patient Disposition: Home, Self-Care Instructions: Knee Pain (ED) Additional Instructions: Your x-ray did not show any new injury or fracture continue to wear brace for stability/comfort Take Tylenol, in addition use topical diclofenac which is an anti-inflammatory/pain gel Please follow-up with her doctor and Orthopedics as needed If pain persist or worsen/becomes unbearable return to the emergency department Pruitt radiograf?a no mostr? ninguna lesi?n o fractura nueva Contin?e usando el aparato ortop?dico para mayor estabilidad/comodidad. Gaines Tylenol, adem?s use diclofenaco t?bernard que es un gel antiinflamatorio/analg?sico Lisbet un seguimiento con pruitt m?dico y ortopedia seg?n sea necesario. Si el dolor persiste o empeora/se vuelve insoportable, regrese al servicio de urgencias. Prescriptions: New diclofenac sodium [Arthritis Pain (diclofenac)] 1 % gel 4 g topical QID Qty: 100 0RF Rx Instructions: apply to single knee, ankle, foot; for foot includes sole/toes/top of foot No Action prednisone 20 mg tablet 40 mg PO DAILY 4 Days Qty: 8 0RF mupirocin 2 % ointment 1 appl topical BID 7 Days Qty: 15 0RF valacyclovir 1 gram tablet 1,000 mg PO TID 10 Days Qty: 30 0RF doxycycline monohydrate 100 mg capsule 100 mg PO BID Qty: 14 0RF cephalexin [Keflex] 500 mg capsule 500 mg PO QID Qty: 28 0RF mupirocin 2 % ointment 1 appl topical BID Qty: 22 0RF cephalexin 500 mg capsule 500 mg PO Q6H 10 Days Qty: 40 0RF Besivance 0.6 % drops,suspension 1 drp ophthalmic-Left TID 7 Days Qty: 5 0RF Rx Instructions: administer doses at least 4 hours apart [place] [facility] [place] [place] [facility] [place]Provider Group] Physician,Unknown J [Primary Care Provider] - 5 days Interventions: ED Discharge Assessment Last Done: 12/08/22 12:34 Discharge Date/Time: 12/08/22 12:35
== END 2022-12-08 12:35 | disposition home or self-care (01) ==
PROVIDERS: Emergency Provider Emergency Medicine
DX: M25.562 Pain in left knee (principal); I10 Essential (primary) hypertension; E78.5 Hyperlipidemia, unspecified; Z79.899 Other long term (current) drug therapy
CPT/HCPCS: 73562; 99282; 99283

== ENCOUNTER 2023-01-02 06:44 | Day surgery (SDC) | payer OTHER, SELFPAY ==
--- NOTE | 2023-01-01 09:00 | HO.ANESPROP2 ---
Documented by User: Mandi Orozco NP 01/01/23 09:03 HPI - Anesthesia Eval Consult details Narrative: 72yo M for Colonoscopy Renal disease with last creat = 2.55 10/2022 [facility] Past Medical History Medical History High cholesterol HTN (hypertension) Kidney disease Macular degeneration Stroke Surgical History Surgical History History of lobectomy of lung History of lung surgery Social History Social History Are you a primary healthcare administrative assistant to a significant other at home: No Do you presently have visiting nurse or other home services: No Patient Tobacco Use Status: Current everyday Tobacco user Tobacco use type: Cigar Cigarettes Per Day: 2 Years Smoked: 40 Have you been hit, kicked, punched, or otherwise hurt by someone within the past year? If so, by whom?: No Are you DNR?: No Advance Directives: No Advance Directives Information Provided: Yes Recently lost weight without trying: No Eating poorly because of decreased appetite: No Nutrition Risks: No Nutritional Risk Poor oral hygiene: No Meds Allergies Allergy/AdvReac Type Severity Reaction Status Date / Time No Known Allergies Allergy Unverified 01/26/20 15:11 Exam Exam Date and Time: January 01, 2023 0900 Pertinent Lab Results Pertinent Lab Results: Laboratory Tests 11/04/22 11/04/22 08:01 08:01 WBC 8.3 Hgb 11.8 L Hct 35.1 L Plt Count 374 Sodium 137 Potassium 5.0 Chloride 107 Carbon Dioxide 21 L BUN 31 H Creatinine 2.55 H Narrative Narrative: NM stephanie perf SPECT rest & str 2021 Impression: ? 1.? Myocardial perfusion imaging study shows normal myocardial perfusion. No evidence of any ischemia or infarction. 2.? Gated LVEF is 62% during stress and 61% during rest. 3. Transient ischemic dilatation not present. ? EKG component of the test reported separately. Documented by User: Paco Sorenson MD 01/02/23 07:34 [facility] [place] Past Medical History Medical History High cholesterol HTN (hypertension) Kidney disease Macular degeneration Stroke Family History Family history of problems with anesthesia: No Surgical History Surgical History History of lobectomy of lung History of lung surgery History of Problems with Anesthesia: No Social History Social History Are you a primary healthcare administrative assistant to a significant other at home: No Do you presently have visiting nurse or other home services: No Patient Tobacco Use Status: Current everyday Tobacco user Tobacco use type: Cigar Cigarettes Per Day: 2 Years Smoked: 40 Have you been hit, kicked, punched, or otherwise hurt by someone within the past year? If so, by whom?: No Are you DNR?: No Advance Directives: No Advance Directives Information Provided: Yes Recently lost weight without trying: No Eating poorly because of decreased appetite: No Nutrition Risks: No Nutritional Risk Poor oral hygiene: No Meds Allergies Allergy/AdvReac Type Severity Reaction Status Date / Time No Known Allergies Allergy Unverified 01/26/20 15:11 Exam Airway Mallampati Class: II TM Dist: >3cm Neck ROM: Limited Heart: rrr Lungs: scattered wheezing Assessment and Plan Assessment Anesthesia Assessment: Anesthesia Plan Discussed and Chart Reviewed Final Anesthetic Review Family History of Problems with Anesthesia: No History of Problems with Anesthesia: No NPO: Yes ASA Class: IV Final Preanesthetic Review: No Changes in Pt Med Stat, Meds/Allgs Chart Reviewed, Consent Obtained/Reviewed and Anes Risks/Benef Reviewed Patient Risk: High Procedure Risk: Low Anesthetic Plan Anesthetic Plan: MAC: and Agree w/ Assess. and Plan Disposition: Standard PACU
[2023-01-02 06:50] VITALS: BMI 23.0
[2023-01-02 08:01] LABS: INTERNATIONAL NORM RATIO 1.1 (0.9-1.1); Prothrombin Time 13.2 SEC (11.1-13.3)
[2023-01-02 08:15] VITALS: BP 138/60; PULSE 80; RESP 18; TEMP 36.9; O2SAT 100
[2023-01-02 08:29] LABS: Blood Urea Nitrogen 29 mg/dL (9-16); Creatinine Clr Calc Pharmacy 33.2; Estimated Glomerular Filt Rate 28
[2023-01-02] MEDS: 0.9 % Sodium Chloride 1,000 ML 100 ML IVCONT (08:43)
[2023-01-02 09:45] VITALS: BP 100/45; PULSE 72; RESP 12; TEMP 36.4; O2SAT 99
--- NOTE | 2023-01-02 09:45 | PM.OP ---
Brief Operative Note Date of Service: 01/02/23 Pre-op diagnosis: Screening Post-op diagnosis: other (Colon polyp) Procedure: Colonoscopy to the cecum and TI with cold snare polypectomy Surgeon: Narciso Rose Anesthesia: MAC Was an Electrical Assembly Supervisor used for this Procedure?: No Estimated blood loss (mL): 2.0 Pathology: other (A. Polyp at 40cm) Condition: stable Disposition: PACU
[2023-01-02 09:59] VITALS: BP 113/55; PULSE 70; RESP 16; TEMP 36.4; O2SAT 99
--- NOTE | 2023-01-02 10:51 | OP_ITS ---
DATE OF SERVICE: 01/02/2023 SURGEON: Narciso Rose MD INDICATIONS: The patient presents for evaluation of personal history of colon polyps and colorectal cancer screening. Full consent has been obtained from him for this, including risks of bleeding and perforation. PREOPERATIVE DIAGNOSIS: POSTOPERATIVE DIAGNOSIS: PROCEDURE PERFORMED: Colonoscopy to cecum and terminal ileum with cold snare polypectomy x1. ESTIMATED BLOOD LOSS: COMPLICATIONS: ANESTHESIA: Monitored anesthesia care. ASSISTANTS: SPECIMENS: PREOPERATIVE DIAGNOSES: Personal history of colon polyps and colorectal cancer screening. POSTOPERATIVE DIAGNOSES: Personal history of colon polyps and colorectal cancer screening, colon polyp, diverticulosis, and internal hemorrhoids. DESCRIPTION OF PROCEDURE: The patient was placed in the left lateral decubitus position. The digital rectal exam revealed no abnormalities. The Olympus video pediatric colonoscope was entered into the rectum and advanced easily to the cecum. Once in the cecum, I did identify normal-appearing cecal pouch with appendiceal orifice and a normal-appearing ileocecal valve. The terminal ileum was cannulated and appeared normal. The scope was withdrawn back in the colon. The entire cecum and ileocecal valve appeared normal. The scope was slowly withdrawn assessing all mucosal surfaces carefully. Preparation was excellent. At 40 cm was an approximately 5 mm polyp noted, which was removed by cold snare polypectomy and recovered by suction. The polypectomy site appeared clean, without any sign of residual polyp nor significant bleeding. I did not visualize any other polyps, colitis, nor angiodysplasia. There was a mild amount of diverticulosis in the ascending colon and a moderate amount of diverticulosis in the descending and sigmoid colon. In the rectum, scope was retroflexed visualizing internal hemorrhoids, but no other pathology. The rectal mucosa appeared normal. Scope was straightened and withdrawn from the patient. He tolerated the procedure well and was returned to the recovery area in stable condition. IMPRESSION: 1. Colon polyp. 2. Diverticulosis. 3. Internal hemorrhoids. PLAN: The results of the pathology will be checked. I would recommend a repeat colonoscopy in 5 years for further screening. He was advised not to use any aspirin or NSAIDs for 1 week. MD VERONICA Martins/GARTH / [phone] MTDEricka
== END 2023-01-02 10:42 | disposition home or self-care (01) ==
PROVIDERS: Nurse Practitioner; Visit Provider Internal Medicine
PROC: 0DJD8ZZ Inspection of Lower Intestinal Tract, Via Natural or Artificial Opening Endoscopic (ICD-10-PCS; CPT 45378; principal; 2023-01-02 08:30)
DX: Z12.11 Encounter for screening for malignant neoplasm of colon (principal); Z86.010 Personal history of colon polyps; D12.4 Benign neoplasm of descending colon; K57.30 Diverticulosis of large intestine without perforation or abscess without bleeding; K64.8 Other hemorrhoids; E78.00 Pure hypercholesterolemia, unspecified; N28.9 Disorder of kidney and ureter, unspecified; I10 Essential (primary) hypertension; Z86.73 Personal history of transient ischemic attack (TIA), and cerebral infarction without residual deficits; Z79.899 Other long term (current) drug therapy; F17.290 Nicotine dependence, other tobacco product, uncomplicated
CPT/HCPCS: 45385; 36415; 82565; 84520; 85610; 88305

== ENCOUNTER 2023-01-20 09:47 | Outpatient (AMB) | payer MEDICARE, MEDICAID, SELFPAY ==
--- NOTE | 2023-01-20 10:05 | A.OFFVIS_ITS ---
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 Patient states he recalls he fractured his wrist about 2x as a child. Reports no surgery was needed. Currently states he is having pain by base of thumb with writing and pinching. Denies numbness or tingling in hands. Hx of O.A. Patient Recalls he has a cortisone many years ago in his right hand. 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 ?At the time he made the appointment he was having pain by base of his right thumb with writing and pinching.? He is demonstrating radial sided wrist pain extending from the thumb down to the radial forearm.? Again, he says this has resolved.?? He denies numbness or tingling in hands.? ?He recalls having a cortisone many years ago in his right hand. He has a wrist brace at home. He states that his pain in the hand resolved when his knee pain started. He states that he recalls he fractured his wrist about two times, once as a child in once about 10-15 years ago. He reports surgery was recommended for his last fracture, but he declined. Sounds like all in all he has done pretty well with his wrist since then. [facility] Medical History (Updated 01/20/23 @ 11:45 by Vivienne Mendez MD) Kidney disease Stroke Macular degeneration High cholesterol HTN (hypertension) Surgical History History of lobectomy of lung History of lung surgery Social History (Updated 01/20/23 @ 10:12 by HÉCTOR Solitario) Are you a primary wound care nurse to a significant other at home: No Do you presently have visiting nurse or other home services: No Patient Tobacco Use Status: Current everyday Tobacco user Tobacco use type: Cigar Cigarettes Per Day: 2 Years Smoked: 40 Current occupational status: 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 Review of Systems Const All systems reviewed & are unremarkable except as noted in HPI and below Physical Exam Vital Signs: BMI result Body Mass Index 23.0 Const General: cooperative, healthy appearing and no acute distress Orientation/consciousness: patient oriented x3 HEENT Head: Yes normocephalic and Yes atraumatic Eyes EOM: EOMs intact bilaterally Resp Effort & Inspection: normal respiratory effort and able to speak in complete sentences Cardio Jugular venous distension: no JVD Skin General skin exam: turgor normal, ecchymosis (No) and erythema (No) Rashes: no rashes Trauma: no lacerations or abrasions Neuro Other: Vascular: Cap refill brisk General: patient oriented x3 Extrem Other: Evaluation of right Upper Extremity: Neuro: Median, ulnar, radial nerves motor and sensory grossly intact. Vascular: Cap refill brisk. ROM: Can bring fingers closed to a fist and back out to full or nearly full extension. Can oppose thumb to fingertips Skin: No lacerations or abrasions. General: No eccymosis. No erythema or evidence of infection. He does have a bit of a right wrist deformity with some radial deviation and ext ension. His right wrist is nontender to palpation today. He has nearly symmetrical prono-supination. Right wrist extension of about 65-70 degrees. Right wrist flexion to about 50 degrees Radiographs: Three views of the right hand were reviewed today by me in clinic. The radiographs show a right distal radial malunion with some shortening and loss of inclination. He is at about 10-15 degrees of dorsal tilt on the lateral view. He also appears to possibly have some abutment against the distal ulna, and has significant radioscaphoid arthritis with narrowing of the joint space. The basal joint of the thumb actually looks like it is in pretty good condition with only mild joint space narrowing. Psych Appearance: grossly normal Affect: normal affect Attitude: cooperative Assessment & Plan Assessment & Plan (1) Fracture of distal end of right radius with malunion: Code(s): S52.501P - Unspecified fracture of the lower end of right radius, subsequent encounter for closed fracture with malunion (2) Post-traumatic arthritis of right wrist: Code(s): M19.131 - Post-traumatic osteoarthritis, right wrist Plan Assessment and plan: 1. Right distal radius malunion He had a childhood wrist fracture, as well as a fracture 10-15 years ago where he declined surgery. Despite a mild wrist deformity, he appears to be doing quite well. No pain today. Very good right wrist range of motion without discomfort. 2. Right radioscaphoid arthritic changes 3. He has got some possible right ulnar abutment secondary to the shortening of the radius. I educated him about his condition. Fortunately, his wrist and hand are not painful today. I did talked about steroid injections. He has had 1 in the past. If he develops some persistent wrist pain, we may want to consider steroid injection for his right wrist arthritis. I do not see much in the way of basal joint arthritis at this point. Scribed for Dr. Vivienne Mendez by Luis Gustafson, medical health researcher, on 01/20/2023. I, Dr. Vivienne Mendez, have personally reviewed and agree with the information entered by the scribe. Orders: Orders XR hand RT min 3V Today M79.641 - Pain in right hand Coding Level of Care Code New Pt Level 3 (05044) Diagnoses Fracture of distal end of right radius with malunion S52.501P Post-traumatic arthritis of right wrist M19.131
[2023-01-20 10:06] VITALS: BMI 23.0
== END 2023-01-20 11:05 | disposition home or self-care (01) ==
PROVIDERS: Visit Provider Orthopaedic Surgery
DX: M19.131 Post-traumatic osteoarthritis, right wrist (principal); S52.501P Unspecified fracture of the lower end of right radius, subsequent encounter for closed fracture with malunion
CPT/HCPCS: 99203

== ENCOUNTER 2023-01-20 09:47 | Outpatient (REF) | payer MEDICARE, MEDICAID, SELFPAY ==
--- NOTE | ~2023-01-20 | XR_ITS ---
EXAMINATION: XR HAND, RIGHT CLINICAL INFORMATION: Right hand pain. COMPARISON: X-ray 05/20/2022. TECHNIQUE: 5 views of the right hand. FINDINGS: Severe radiocarpal arthritis, marked joint space loss, osteophytes. There is ulnar positive variance. There is ulnocarpal arthritis. There are cystic changes in the distal ulna. Severe triscaphe joint arthritis. Severe 1st CMC arthritis. There is intercarpal joint space loss and CMC joint space loss. Mild arthritis in the 1st MCP joint. No acute fracture or dislocation. No erosions. No abnormal soft tissue calcification. XR/XR hand RT min 3V IMPRESSION: Prominent arthritic changes as detailed above. This includes severe radiocarpal and triscaphe joint arthritis.
== END 2023-01-20 09:48 | disposition home or self-care (01) ==
LOC: HO.HOSX 09:47
PROVIDERS: Visit Provider Orthopaedic Surgery
DX: M19.131 Post-traumatic osteoarthritis, right wrist (principal); S52.501P Unspecified fracture of the lower end of right radius, subsequent encounter for closed fracture with malunion; X58.XXXD Exposure to other specified factors, subsequent encounter
CPT/HCPCS: 73130

== ENCOUNTER 2023-03-10 10:48 | Outpatient (REF) | payer MEDICARE, MEDICAID, SELFPAY ==
[2023-03-10 11:10] LABS: MANUAL DIFF FLAG NO
[2023-03-10 11:55] LABS: Basophils Absolute Auto 0.1 X10*3/uL (0.0-0.2); Basophils Percent Auto 0.9 % (0-2); Eosinophils Absolute Auto 0.3 X10*3/uL (0.0-0.4); Eosinophils Percent Auto 3.2 % (0-4); Hematocrit 29.7 % (42.0-52.0); Hemoglobin 9.5 g/dl (14.0-18.0); Imm Gran Abs Auto 0.02 X10*3/uL (0.00-0.03); Imm Gran Pct Auto 0.2 % (0.0-0.4); Lymphocytes Absolute Auto 2.2 X10*3/uL (1.2-4.9); Lymphocytes Percent Auto 24.8 % (20-40); Mean Corpuscular Hemoglobin 30.1 pg (27.0-33.0); Mean Platelet Volume 9.5 fL (9.4-12.4); Monocytes Absolute Auto 1.1 X10*3/uL (0.1-1.2); Neutrophils Absolute Auto 5.3 x10*3/uL (2.0-8.3); Neutrophils Percent Auto 58.9 % (45-73); Platelet Count 508 X10*3/uL (160-400); Red Blood Count 3.16 X10*6/uL (4.60-5.80); Red Cell Distribution Width 14.8 % (11.0-16.0)
[2023-03-10 12:00] LABS: Appearance Urine Clear; Color Urine Yellow; Glucose Urine UA Negative (Negative); Leukocyte Esterase Urine Negative (Negative); Nitrite Urine Negative (Negative); Specific Gravity - Urine 1.015 (1.005-1.025); UMIC TRIGGER UA YES; Urine Blood Negative (Negative); Urine Ketones Negative (Negative); Urine Protein 30 (1+) mg/dL (Neg-Trace)
[2023-03-10 12:06] LABS: Bacteria Urine None Seen (None Seen); Hyaline Casts Urine 0-2 /LPF (0-2); RBC Urine 0-2 /HPF (0-2); Squamous Epithelial Cell Urine 0-2 /HPF (0-2); WBC Urine 0-5 /HPF (0-5)
[2023-03-10 12:32] LABS: Albumin Level 4.1 g/dL (3.5-5.0); Anion Gap 16 (12-20); Blood Urea Nitrogen 24 mg/dL (9-16); Calcium 9.6 mg/dL (8.4-10.2); Carbon Dioxide 22 mmol/L (22-29); Chloride 105 mmol/L (96-108); Estimated Glomerular Filt Rate 29; Magnesium 1.6 mg/dL (1.6-2.6); Sodium 138 mmol/L (135-145)
[2023-03-10 12:38] LABS: Creatinine Urine 192.46 mg/dL; Microalbum/Creatinine Ratio Ur 49.3 ug/mg cr (<30)
[2023-03-10 12:54] LABS: Vitamin D 25-OH Total 37.3 ng/mL (>30)
[2023-03-11 16:39] LABS: Calcium (PTHI) 9.1 mg/dL (8.6-10.3); PTHI 50 pg/mL (16-77)
== END 2023-03-10 10:49 | disposition home or self-care (01) ==
LOC: HO.LAB 10:48
PROVIDERS: Visit Provider Internal Medicine Nephrology
DX: I12.9 Hypertensive chronic kidney disease with stage 1 through stage 4 chronic kidney disease, or unspecified chronic kidney disease (principal); N18.4 Chronic kidney disease, stage 4 (severe); N25.0 Renal osteodystrophy
CPT/HCPCS: 36415; 80051; 81001; 82040; 82043; 82306; 82310; 82565; 82570; 83735; 83970; 84100; 84520; 85025

== ENCOUNTER 2023-05-25 08:19 | Inpatient (IN) | payer OTHER, MEDICARE, MEDICAID, SELFPAY ==
[2023-05-25] VITALS (23 sets, daily range): BP systolic 107–162; BP diastolic 34–72; PULSE 83–100; RESP 14–22; TEMP 36.4–36.7; O2SAT 94–100; BMI 21.4
--- NOTE | ~2023-05-25 | US_ITS ---
EXAMINATION: US ABDOMEN LIMITED CLINICAL INFORMATION: Ascites check. COMPARISON: CT abdomen and pelvis 05/27/2013. TECHNIQUE: Real-time imaging of all 4 quadrants of the abdomen. FINDINGS: Evaluation performed possible ascites. 4 quadrant evaluated and revealed no evidence of ascites. Partially visualized gallbladder with multiple small stones. US/US abdomen limited IMPRESSION: No evidence of ascites
--- NOTE | ~2023-05-25 | CT_ITS ---
EXAMINATION: CT ABDOMEN AND PELVIS WITHOUT CONTRAST CLINICAL INFORMATION: Seizure abdominal pain. Diastases. Question perforation. COMPARISON: CT chest 331 07/11/2020 TECHNIQUE: Multidetector volumetric imaging was performed from the superior aspect of the liver through the pubic symphysis. Sagittal and coronal reformatted images were obtained on the technologist's workstation. This CT examination was performed using dose optimization techniques as appropriate, variously including the following: *Automated exposure control *Adjustment of mA and/or kV according to patient size (this includes techniques or standardized protocols for targeted exams where dose is matched to indication/reason for exam; i.e. extremities or head) *Use of iterative reconstruction technique DLP: 451 mGy-cm FINDINGS: LUNG BASES: Focal linear atelectasis right lung base. Heart size is normal. Moderate atherosclerotic valvular calcifications. No pericardial effusion. LIVER, GALLBLADDER, AND BILIARY TREE: There is a soft tissue mass abutting the left hepatic lobe and kelli hepatis new since the previous study. Question enlarged caudate and quadrate lobes versus extrinsic masses such as lymph nodes or pancreas. There is small hypodense area in the right hepatic lobe posterior segment, indeterminate measuring 2.1 cm axial image 28/3. There is hyperdense sludge or small radiopaque calculi in the dependent segment. No gallbladder wall thickening. There is mild right perihepatic fluid collection and haziness. There is punctate free gas seen in the right upper quadrant and epigastric region. PANCREAS: Visualized body and the tail of pancreas is unremarkable. The head of the pancreas is not visualized. A soft tissue mass seen inferior to the margin of liver could be arising from proximal body and the head of the pancreas as these are not distinctively visualized. There is small calcification or calculi in the uncinate process of the pancreas SPLEEN: Unremarkable. ADRENAL GLANDS: Unremarkable. KIDNEYS AND URETERS: The kidneys are normal in size, shape, and attenuation. No hydronephrosis, hydroureter, or calculi seen. No perinephric stranding. Multiple hypodense bilateral renal lesions probable cyst. Punctate calcification is seen in the midpole right kidney. Lack of a IV contrast restricts evaluation. BLADDER: Unremarkable. GASTROINTESTINAL TRACT: There is scattered stool, gas and extensive diverticula seen throughout the colon without distention. There is mild mural thickening and pericolic fat stranding ascending colon suspicious for diverticulitis and likely perforation resulting in punctate free air in the upper abdomen. ABDOMINAL WALL: No significant hernia is appreciated. LYMPH NODES: Normal. VASCULAR: Unremarkable. PELVIC VISCERA: There is small amount of free fluid in the pelvis. The prostate gland is normal size. No abnormal pelvic or inguinal lymph nodes seen.. OSSEOUS STRUCTURES: Mild degenerative disc changes L5-S1 disc level. No aggressive lytic or sclerotic process seen. CT/CT abdomen pelvis wo IV con IMPRESSION: Bilobed soft tissue mass arising from the inferior margin of left hepatic lobe and extending to the kelli hepatis. Differential diagnosis includes a caudate/quadrant lobe mass, pancreatic head and body mass or metastatic lymphadenopathy. Gallstones or hyperdense gravel. 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 The mass inferior to the left hepatic lobe is most likely metastatic lymph nodes. There is free gas seen in the right upper quadrant and epigastric region. Exact etiology is not known. However there is diverticuli, mild mural thickening of ascending colon and pericolic fat stranding. This could represent acute diverticulitis of ascending colon has punctate free gas. The free gas could also be from surgical intervention or biopsy. Correlate with clinical exam. Colonic diverticulosis without diverticulitis Small amount of free fluid in the right perihepatic space and pelvis. Bilateral renal hypodense lesions question complex and simple cysts. There is a punctate calcification in the midpole right kidney as well. Lack of IV contrast restricts evaluation. Fleischner guidelines were followed.
--- NOTE | ~2023-05-25 | XR_ITS ---
EXAMINATION: XR CHEST CLINICAL INFORMATION: Nasogastric tube insertion COMPARISON: CT chest from 07/11/2020, chest radiograph from 06/05/2016 TECHNIQUE: Frontal view of the chest was obtained. FINDINGS: Bilateral lung apices are not included in the [id number] limiting evaluation. Single lumen chest port with its distal tip terminating at the atrial caval junction. Enteric tube courses below left hemidiaphragm entering the stomach, with its distal tip out of the [id number]. Bilateral low lung volumes. Elevation the right hemidiaphragm. Right basilar atelectasis versus scarring. Interstitial prominence. No pneumothorax though evaluation is limited secondary to the [id number]. Trachea is midline. Cardiac mediastinal silhouette is not enlarged. No large pleural effusion. Osseous structures are intact. Soft tissues are unremarkable. XR/XR chest 1V IMPRESSION: 1. Bilateral lung apices are not included in the [id number] limiting evaluation. 2. Single lumen chest port with its distal tip terminating at the atrial caval junction. 3. Enteric tube courses below left hemidiaphragm entering the stomach, with its distal tip out of the [id number]. 4. Bilateral low lung volumes. 5. Elevation the right hemidiaphragm. 6. Right basilar atelectasis versus scarring. 7. Interstitial prominence.
--- NOTE | ~2023-05-25 | CT_ITS ---
EXAMINATION: CT ABDOMEN AND PELVIS WITHOUT CONTRAST CLINICAL INFORMATION: Follow-up perforated ulcer repair COMPARISON: 03/25/2024 TECHNIQUE: Multidetector volumetric imaging was performed from the superior aspect of the liver through the pubic symphysis. Sagittal and coronal reformatted images were obtained on the technologist's workstation. This CT examination was performed using dose optimization techniques as appropriate, variously including the following: *Automated exposure control *Adjustment of mA and/or kV according to patient size (this includes techniques or standardized protocols for targeted exams where dose is matched to indication/reason for exam; i.e. 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 Interval anterior abdominal surgical skin nicholas. Vascular calcifications. L5-S1 disc space narrowing. LUNG BASES: Increasing by basilar atelectasis and development of small pleural effusions. Nonenlarged heart. No pericardial effusion. LIVER, GALLBLADDER, AND BILIARY TREE: Large ill-defined mass(es) with central hypodensity again identified in the region of the left hepatic and caudate lobes extending into the kelli hepatis. Gallbladder is distended with dependent layering gallstones. No wall thickening or pericholecystic fluid. PANCREAS: Pancreatic head cannot be adequately evaluated due to large right upper abdominal mass. Possible pancreatic calcifications indicative of previous pancreatitis. No ductal dilatation. SPLEEN: Unremarkable. ADRENAL GLANDS: No change, no definite lesions. KIDNEYS AND URETERS: Nonspecific perinephric stranding. No hydronephrosis, hydroureter, renal or ureteral calculi. No change hypo and hyper dense renal lesions, likely complex and simple cysts. BLADDER: Well distended with air, likely due to recent instrumentation. GASTROINTESTINAL TRACT: NG tube identified within the proximal stomach. Mildly prominent air-filled small bowel loops. Diverticulosis. ABDOMINAL WALL: Postsurgical changes. Fat filled left inguinal hernia. Small air droplets left anterior abdominal soft tissues. PERITONEUM: Small amount of subdiaphragmatic free air, overall free air in the right upper quadrant has decreased since previous study. A drainage catheter is now in place with tip in the epigastrium. Slight increase in free fluid in the left upper quadrant from previous. Stable to decreasing free pelvic fluid. LYMPH NODES: Multiple pathologically enlarged para-aortic/retroperitoneal lymph nodes. Possible perigastric/peripancreatic lymph nodes. VASCULAR: Atherosclerotic calcifications nonaneurysmal aorta. Normal caliber inferior vena cava. PELVIC VISCERA: Unremarkable. OSSEOUS/SOFT TISSUE STRUCTURES: Gynecomastia. Stable compression deformities T11 and L1. Stable degenerative type changes and L5-S1 disc space narrowing. CT/CT abdomen pelvis wo IV con IMPRESSION: Anticipated postsurgical changes associated with perforated ulcer repair. No change large upper abdominal/epigastric mass(es) in intimate association/involvement with the liver, exact origin unclear as study is limited due to lack of IV and oral contrast. Associated pathologic retroperitoneal and possibly epigastric lymphadenopathy. 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 Cholelithiasis without other sonographic evidence of acute cholecystitis. Diverticulosis without diverticulitis. Increasing bibasilar atelectasis and development of small bilateral pleural effusions.
--- NOTE | ~2023-05-25 | FL_ITS ---
EXAMINATION: FLUOROSCOPY UPPER GI CLINICAL INFORMATION: Status post duodenal ulcer repair. Evaluate for leak . COMPARISON: Correlation made with CT abdomen and pelvis 05/27/2023. TECHNIQUE: Dilute Gastrografin was administered through the nasogastric tube. Numerous spot images were obtained. FINDINGS: A nasogastric tube is present in the stomach. A total of 120 mL of dilute Gastrografin was administered via the nasogastric tube. Contrast flows freely into the duodenal bulb and into the duodenal sweep. There is a small pooling of contrast in the second/third portion of the duodenum that continuously empties and fills. This likely represents a duodenal diverticulum. No extravasation of contrast contrast is noted. Contrast passes into the proximal jejunum. FLUOROSCOPY TIME: 7 minutes 18 seconds Number of Spot Images: 16 Number of Cine: 5 DOSE AREA PRODUCT: 5144 uGy-m2 (microgray-meter squared) FL/FL upper GI w gastrografin IMPRESSION: 1. Small pooling of contrast in the second/third portion of the duodenum that continuously empties and fills. If this portion of the duodenum was not the site of perforation, this likely represents a duodenal diverticulum. This procedure was performed by Olvin Holland PA-C, and supervised by Dr. Villela
--- NOTE | ~2023-05-25 | XR_ITS ---
EXAMINATION: XR CHEST CLINICAL INFORMATION: Tachypnea. COMPARISON: Chest 05/25/2023 TECHNIQUE: Frontal view of the chest was obtained. FINDINGS: The lungs are hypoexpanded but clear of acute process. The heart size and pulmonary vascularity is normal. There is a right central venous port with its tip in the distal SVC. No gross bony abnormality seen. XR/XR chest 1V IMPRESSION: Hypoexpanded lungs without acute process. No change in right central venous port.
--- NOTE | 2023-05-25 08:53 | ED_ITS ---
HPI - General Adult General Chief complaint: Abdominal Pain Stated complaint: ABD PAIN,CA NECK & ABD PER EMS Time Seen by Provider: 05/25/23 08:32 Source: patient, family (Sister) and EMS Mode of arrival: EMS Limitations: no limitations History of Present Illness HPI narrative: A 72-year-old male came in by ambulance for evaluation of abdominal pain. Pain started 3-4 days ago but becoming very severe since 06:00, last bowel movement was 3 days ago, passing flatus, no fever, no chills. Never had intra- abdominal surgery in the past, patient is a limited historian stated that he was recently diagnosed with metastatic disease at [facility] patient do not have enough information about the record was requested from [facility]. 10 am: Record from [facility] is now available patient with history of lung cancer s/p right lobectomy, patient had a PET scan on 02/19/2023 which showed involvement of multiple lymph nodes in the neck, chest, abdomen, patient had a port a cath placement on the right chest preparing for chemotherapy that will start next week. Related Data Previous Rx's Medication Instructions Recorded mupirocin 2 % topical ointment 1 appl topical BID #22 grams 06/01/20 mupirocin 2 % topical ointment 1 appl topical BID 7 days #15 grams 07/11/20 valacyclovir 1 gram tablet 1,000 mg PO TID 10 days #30 tabs 07/11/20 besifloxacin 0.6 % eye 1 drp ophthalmic-Left TID 7 days 04/07/22 drops,suspension ([place]) #5 mL diclofenac sodium 1 % topical gel 4 g topical QID #100 grams 12/08/22 (Arthritis Pain (diclofenac)) Allergies Allergy/AdvReac Type Severity Reaction Status Date / Time No Known Allergies Allergy Unverified 01/20/23 10:11 Review of Systems 2 Review of Systems: All other systems are reviewed and are negative Constitutional: Reports as per HPI and Reports no additional constitutional complaints Eyes: Reports as per HPI and Reports no additional eye complaints Reports system reviewed and no additional complaints, except as documented Cardiovascular: Reports as per HPI and Reports no additional cardiovascular complaints Respiratory: Reports as per HPI and Reports no additional respiratory complaints Gastrointestinal: Reports as per HPI and Reports no additional gastrointestinal complaints Genitourinary: Reports no additional female genitourinary complaints Musculoskeletal: Reports no additional musculoskeletal complaints Skin/Breast: Reports system reviewed and no additional complaints, except as docu Psychiatric: Reports no additional psychiatric complaints Endocrine: Reports no additional endocrine complaints Hematologic/Lymphatic: Reports no additional hematologic/lymphatic complaints Allergic/Immunologic: Reports no additional allergic/immunologic complaints Reports system reviewed and no additional complaints, except as documented and Reports Abnormal speech present PMFSH Past Medical History Onset Date is defined in the Problem List Problems that require an onset date and time if occurred within 24 hrs of arrival to the ED Aortic Dissection and Rupture; Neurologic impairment; Cardiopulmonary Arrest; Endotracheal Intubation; Insertion or Replacement of Mechanical Circulatory Assist Device Medical History Kidney disease Stroke Macular degeneration High cholesterol HTN (hypertension) Surgical History History of lobectomy of lung History of lung surgery Social History Social History Are you a primary physician assistant primary care to a significant other at home: No Do you presently have visiting nurse or other home services: No Patient Tobacco Use Status: Current everyday Tobacco user Tobacco use type: Cigar Cigarettes Per Day: 2 Years Smoked: 40 Advance Directives: No 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 Blood pressure elevated. Heart rate normal. Respiratory rate normal. Temperature normal. Oxygen saturation normal. Appearance: Alert. Oriented X3. No acute distress. Head: Normal external exam. Normocephalic. Atraumatic. No Gama signs noted. No raccoon eyes noted Eyes: PERRLA. EOMI. Conjunctiva and sclera normal. Eyelids normal. ENT: TM's Normal. Pharynx normal. Uvula midline. Moist mucous membranes. No trismus noted. No drooling noted. No muffled voice noted. Neck: Normal inspection. Neck supple. FROM. No adenopathy. Thyroid Normal. No meningeal signs. No neck mass noted. CVS: Normal heart rate and rhythm. Heart sound normal. No murmurs noted. Pulses normal throughout. Respiratory: No respiratory distress. Painless inspiration. Breath sounds normal. No wheezes/rales/rhonchi noted. Chest nontender. No accessory muscle usage noted or decreased air movement noted. Abdomen: Soft and nontender. Bowel sounds normal in all 4 quadrants. No distention noted. No organomegaly noted. No visible injury noted. Back: No CVA tenderness. Full range of motion noted. Skin: Skin warm and dry. Normal skin color. Normal skin turgor. No rashes/lesions/lacerations noted. Extremities: No lower extremity edema. Extremities exhibit normal range of motion. Extremities nontender. Neuro: Oriented X 3. Cranial nerve exam: II-XII are grossly intact No motor deficit. No sensory deficit. Reflexes normal. Course Reevaluation(s) Reevaluation #1: A 72-year-old male with past history is significant for metastatic lung disease came in with severe abdominal pain, CT is showing perforated viscus indefinite if is due to diverticular disease, the case was discussed with Dr. Ken who reviewed the CT and examined the patient patient will need to go for emergency surgery, patient found to be anemic will transfuse a unit of blood pre OR. Time: 10:44 Medications Administered Discontinued Medications Generic Name Dose Route Start Last Admin Trade Name Freq PRN Reason Stop Dose Admin Hydromorphone HCl 1 mg 05/25/23 08:49 05/25/23 09:15 Hydromorphone Hcl 1 Mg/Ml Syringe IVPUSH 05/25/23 08:50 1 mg ONCE ONE Administration Protocol Hydromorphone HCl 1 mg 05/25/23 10:01 05/25/23 10:08 Hydromorphone Hcl 1 Mg/Ml Syringe IVPUSH 05/25/23 10:02 1 mg ONCE ONE Administration Protocol Sodium Chloride 1,000 mls @ 999 mls/hr 05/25/23 08:49 05/25/23 10:15 Ns IV 05/25/23 09:49 Infused .Q1H1M ONE Infusion Medical Decision Making Differential Diagnosis Differential Diagnoses: The differential diagnosis associated with the presentation includes (Perforated viscus, colitis, diverticulitis, small-bowel obstruction, severe anemia, electrolyte abnormality.) Admission/Observation Consideration of admission/observation: Escalation of care including admission/observation considered Consult Healthcare Provider Management of the patient was discussed with: Sports Equipment Supervisor (Dr. Ken) Lab Data MDM Lab Attestation statement: I reviewed the patient's lab results. 05/25/23 09:19 05/25/23 09:19 Labs: Lab Results 05/25/23 05/25/23 Range/Units 09:19 10:02 WBC 13.7 H (4.8-10.8) X10*3/uL RBC 2.81 L (4.60-5.80) X10*6/uL Hgb 7.9 L (14.0-18.0) g/dl Hct 24.7 L (42.0-52.0) % MCV 87.9 (80.0-98.0) fL MCH 28.1 (27.0-33.0) pg MCHC 32.0 (31.0-36.0) g/dl RDW 14.7 (11.0-16.0) % Plt Count 742 H D (160-400) X10*3/uL MPV 8.5 L (9.4-12.4) fL Immature Gran % (Auto) 0.7 H (0.0-0.4) % Neut % (Auto) 78.7 H (45-73) % Lymph % (Auto) 10.6 L (20-40) % Mayes % (Auto) 9.3 (2-11) % Eos % (Auto) 0.4 (0-4) % Baso % (Auto) 0.3 (0-2) % Lymph # (Auto) 1.5 (1.2-4.9) X10*3/uL Mayes # (Auto) 1.3 H (0.1-1.2) X10*3/uL Eos # (Auto) 0.1 (0.0-0.4) X10*3/uL Baso # (Auto) 0.0 (0.0-0.2) X10*3/uL Abs Immat Gran (auto) 0.10 H (0.00-0.03) X10*3/uL Absolute Neuts (auto) 10.8 H (2.0-8.3) x10*3/uL Absolute Nucleated RBC 0.000 (0.0-0.012) X10*3/uL Nucleated RBC % (auto) 0.0 (0.0-0.2) /100WBC Sodium 132 L (135-145) mmol/L Potassium 5.1 (3.3-5.1) mmol/L Chloride 105 (96-108) mmol/L Carbon Dioxide 15 L (22-29) mmol/L Anion Gap 17 (12-20) BUN 48 H (9-16) mg/dL Creatinine 2.59 H (0.5-1.4) mg/dL Estim Creat Clear Calc 27.6 Estimated GFR 25 Random Glucose 111 (60-115) mg/dL Lactic Acid 1.2 (0.5-2.0) mmol/L Calcium 8.8 D (8.4-10.2) mg/dL Total Bilirubin 0.4 (0.0-1.0) mg/dL Direct Bilirubin 0.3 (0.0-0.5) mg/dL AST 37 (5-37) U/L ALT 31 (0-40) U/L Alkaline Phosphatase 707 H (39-117) U/L Troponin I High Sens < 2.7 (<3.5-35.0) ng/L B-Natriuretic Peptide 127 H (<100) pg/mL Total Protein 7.4 (6.5-8.0) g/dL Albumin 3.5 (3.5-5.0) g/dL Lipase 33 (8-78) U/L COVID-19 ([facility]) Negative (Negative) COVID-19 Clin Com See Note Independent Interpretation I performed an independent interpretation of an: CT Scan (Abdomen and pelvis:Bilobed soft tissue mass arising from the inferior margin of left hepatic lobe and extending to the kelli hepatis. Differential diagnosis includes a caudate/quadrant lobe mass, pancreatic head and body mass or metastatic lymphadenopathy. Gallstones or hyperdense gravel. Accordingl) Radiology Impression Discussion of test interpretation with radiology: I have reviewed the radiologist's reading. (Bilobed soft tissue mass arising from the inferior margin of left hepatic lobe and extending to the kelli hepatis. Differential diagnosis includes a caudate/quadrant lobe mass, pancreatic head and body mass or metastatic lymphadenopathy. Gallstones or hyperdense gravel. Accordingly to latest history) Chronic Conditions Patient?s care impacted by: Cancer Critical Care Time Critical Care Time Critical Care Time: Yes Total Critical Care Time: 60 Attestation: I spent 60 minutes providing critical care service to the patient, this including time spent at the bedside to evaluate the patient, reassess the patient, monitoring vital signs, review labs, and radiographic studies, counseling the patient/family, discussing the case with consultants, disposition the patient. Discharge Plan Discharge Clinical Impression: Perforated abdominal viscus, Anemia, CKD (chronic kidney disease) Patient Disposition: Admitted As Inpatient
[2023-05-25] MEDS: HYDROmorphone HCl 1 MG/ML SYRINGE IVPUSH ×2 (09:15→10:08)
[2023-05-25] MEDS: 0.9 % Sodium Chloride 1,000 ML 999 ML IV (09:16)
[2023-05-25 09:24] LABS: MANUAL DIFF FLAG NO
[2023-05-25 09:27] LABS: Basophils Percent Auto 0.3 % (0-2); Eosinophils Absolute Auto 0.1 X10*3/uL (0.0-0.4); Eosinophils Percent Auto 0.4 % (0-4); Hematocrit 24.7 % (42.0-52.0); Hemoglobin 7.9 g/dl (14.0-18.0); Imm Gran Pct Auto 0.7 % (0.0-0.4); Lymphocytes Absolute Auto 1.5 X10*3/uL (1.2-4.9); Lymphocytes Percent Auto 10.6 % (20-40); Mean Corpuscular Hemoglobin 28.1 pg (27.0-33.0); Mean Corpuscular Volume 87.9 fL (80.0-98.0); Mean Platelet Volume 8.5 fL (9.4-12.4); Monocytes Absolute Auto 1.3 X10*3/uL (0.1-1.2); Monocytes Percent Auto 9.3 % (2-11); Neutrophils Absolute Auto 10.8 x10*3/uL (2.0-8.3); Neutrophils Percent Auto 78.7 % (45-73); Platelet Count 742 X10*3/uL (160-400); Red Blood Count 2.81 X10*6/uL (4.60-5.80); Red Cell Distribution Width 14.7 % (11.0-16.0); White Blood Count 13.7 X10*3/uL (4.8-10.8)
[2023-05-25 09:46] LABS: Alanine Aminotransferase 31 U/L (0-40); Albumin Level 3.5 g/dL (3.5-5.0); Alkaline Phosphatase 707 U/L (39-117); Anion Gap 17 (12-20); Aspartate Amino Transferase 37 U/L (5-37); Bilirubin Direct 0.3 mg/dL (0.0-0.5); Bilirubin Total 0.4 mg/dL (0.0-1.0); Blood Urea Nitrogen 48 mg/dL (9-16); Calcium 8.8 mg/dL (8.4-10.2); Carbon Dioxide 15 mmol/L (22-29); Chloride 105 mmol/L (96-108); Creatinine Clr Calc Pharmacy 27.6; Estimated Glomerular Filt Rate 25; Glucose Random 111 mg/dL (60-115); Lipase 33 U/L (8-78); Potassium 5.1 mmol/L (3.3-5.1); Sodium 132 mmol/L (135-145); Total Protein 7.4 g/dL (6.5-8.0)
[2023-05-25 09:48] LABS: B Type Natriuretic Peptide 127 pg/mL (<100)
[2023-05-25 09:53] LABS: Troponin-I High Sensitivity < 2.7 ng/L (<3.5-35.0)
[2023-05-25 10:19] LABS: Lactic Acid 1.2 mmol/L (0.5-2.0)
[2023-05-25 10:21] LABS: COVID-19 Test Negative (Negative); IDNOW Serial# 152EDE1D
[2023-05-25] MEDS: Piperacillin Sodium/Tazobactam 3.375 GM in 0.9 % Sodium Chloride 50 ML IV ×3 (10:54→22:57)
--- NOTE | 2023-05-25 10:55 | PM.HPGS ---
History of Present Illness History of Present Illness Date of Service: 05/26/23 Chief complaint: Perforated viscus Narrative: Oleksandr Martell is a 72 year old male here in the ED severe abdominal pain. He said this started about 06:00 o'clock in the morning. This persisted so he went to the emergency room. He did mention that he has had some low grade epigastric pain for severeal weeks now on and off. He continues to have severe pain although this to have eased up a little bit with pain medications. He has a history of lung cancer and had undergone right lower lobe lobectomy about 16 years ago in [facility]. He said he had been doing well since then. He is being followed in [facility] and apparently had a PET scan recently showing multiple lymph nodes in the neck, chest and abdomen. He describes some constipation as well. He denies any diarrhea. He denies any nausea or vomiting. He mentions that he is supposed to start chemotherapy in [facility] this week. Review of Systems Constitutional: Constitutional: Denies chills and Denies fever(s) Cardiovascular: Cardiovascular: Denies chest pain, Denies dyspnea and Denies dyspnea on exertion Respiratory: Respiratory: Denies cough, Denies dyspnea and Denies dyspnea on exertion Gastrointestinal: Gastrointestinal: Denies hematochezia and Denies change in bowel habits Genitourinary: Genitourinary: Denies hematuria and Denies difficulty urinating Musculoskeletal: Musculoskeletal: Denies back pain and Denies limited range of motion Neurologic: Denies focal weakness and Denies convulsions Psychiatric: Psychiatric: Denies depression and Denies mood swings PMFSH Past Medical History Medical History History of lung cancer Kidney disease Stroke Macular degeneration High cholesterol HTN (hypertension) Surgical History Surgical History History of lobectomy of lung History of lung surgery Social History Social History Household Members: None Housing: House Are you a primary healthcare corporate account director to a significant other at home: No Do you presently have visiting nurse or other home services: No Patient Tobacco Use Status: Former Tobacco user Quit Date: 1 month ago Tobacco use type: Cigarette Cigarettes Per Day: 2 Years Smoked: 40 Smoked in Last 30 Days: No Use of substances other than those prescribed or required for medical reasons: No Currently Displaying Signs/Symptoms of Drug Intoxication Withdrawal: No Have you been hit, kicked, punched, or otherwise hurt by someone within the past year? If so, by whom?: No Do you feel safe in your current relationship?: No Current Relationship Is there a partner from a previous relationship who is making you feel unsafe now?: No Are you made to feel afraid or neglected: No Are you DNR?: No Advance Directives: No Advance Directives Information Provided: No (declined) Advance Directives on File: No Do you have thoughts of harming others: None Do you have a plan to hurt others: No Plan Recently lost weight without trying: Yes How much weight loss: Unsure Eating poorly because of decreased appetite: Yes Nutrition screen score: 5 Nutrition Risks: No Nutritional Risk Poor oral hygiene: No service: Yes Current occupational status: 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 Meds Allergies Allergy/AdvReac Type Severity Reaction Status Date / Time No Known Allergies Allergy Unverified 01/20/23 10:11 Active Medications: Current Medications Piperacillin Sod/Tazobactam (Sod 3.375 gm/ Sodium Chloride) 50 mls @ 100 mls/hr IV ONCE ONE Stop: 05/25/23 11:01 Last Admin: 05/25/23 10:54 Dose: 100 mls/hr Sodium Chloride (Ns) 100 mls @ 100 mls/hr IV ONCE ONE Stop: 05/25/23 11:40 Home Medications Medication Instructions Recorded Confirmed Last Taken Type amlodipine 2.5 mg tablet 2.5 mg PO DAILY 05/25/23 05/25/23 Unknown History atenolol 25 mg tablet 25 mg PO DAILY 05/25/23 05/25/23 Unknown History atorvastatin 40 mg tablet 20 mg PO BEDTIME 05/25/23 05/25/23 Unknown History calcium carbonate 500 mg calcium 1,000 mg PO DAILY 05/25/23 05/25/23 Unknown History (1,250 mg) tablet cholecalciferol (vitamin D3) 25 12.5 mcg PO DAILY 05/25/23 05/25/23 Unknown History mcg (1,000 unit) tablet cyanocobalamin (vitamin B-12) 500 500 mcg PO DAILY 05/25/23 05/25/23 Unknown History mcg tablet ferrous sulfate 325 mg (65 mg 325 mg PO DAILY 05/25/23 05/25/23 Unknown History iron) tablet fosinopril 10 mg tablet 10 mg PO DAILY 05/25/23 05/25/23 Unknown History lidocaine-prilocaine 2.5 %-2.5 % 1 appl topical DAILY PRN Pain 05/25/23 05/25/23 Unknown History topical cream multivitamin 1 tab PO DAILY 05/25/23 05/25/23 Unknown History ondansetron 4 mg disintegrating 4 mg PO Q8H PRN Nausea 05/25/23 05/25/23 Unknown History tablet prochlorperazine maleate 5 mg 5 mg PO QID PRN nasuea 05/25/23 05/25/23 Unknown History tablet thiamine HCl (vitamin B1) 100 mg 100 mg PO DAILY 05/25/23 05/25/23 Unknown History tablet triamcinolone acetonide 0.5 % 1 appl topical TID PRN Rash 05/25/23 05/25/23 Unknown History topical cream Physical Exam Vital Signs: Vital Signs: Last Vital Signs Temp 97.5 F 05/25/23 08:28 Pulse 100 05/25/23 08:28 Resp 16 05/25/23 08:28 BP 107/34 L 05/25/23 08:28 Pulse Ox 100 05/25/23 08:28 O2 Del Method Room Air 05/25/23 08:28 BMI result Body Mass Index 21.4 Const: General: comfortable and no acute distress Orientation/consciousness: patient oriented x3 Neck: Neck: Yes no lymphadenopathy Resp: Auscultation: clear to auscultation bilaterally Cardio: Rhythm: regular rhythm GI: Other: Very tender mostly on the right side with a little bit of guarding Palpation (GI): Soft to palpation, Tenderness to palpation present (GI) and no guarding Neuro: General: patient oriented x3 Results Results Labs: Short CBC 05/25/23 Range/Units 09:19 WBC 13.7 H (4.8-10.8) X10*3/uL Hgb 7.9 L (14.0-18.0) g/dl Hct 24.7 L (42.0-52.0) % Plt Count 742 H D (160-400) X10*3/uL BMP 05/25/23 09:19 Sodium 132 L Potassium 5.1 Chloride 105 Carbon Dioxide 15 L BUN 48 H Creatinine 2.59 H Calcium 8.8 D Liver Function 05/25/23 Range/Units 09:19 Total Bilirubin 0.4 (0.0-1.0) mg/dL Direct Bilirubin 0.3 (0.0-0.5) mg/dL AST 37 (5-37) U/L ALT 31 (0-40) U/L Alkaline Phosphatase 707 H (39-117) U/L Albumin 3.5 (3.5-5.0) g/dL Laboratory Results WBC 13.7 X10*3/uL (4.8-10.8) H 05/25/23 09:19 RBC 2.81 X10*6/uL (4.60-5.80) L 05/25/23 09:19 Hgb 7.9 g/dl (14.0-18.0) L 05/25/23 09:19 Hct 24.7 % (42.0-52.0) L 05/25/23 09:19 MCV 87.9 fL (80.0-98.0) 05/25/23 09:19 MCH 28.1 pg (27.0-33.0) 05/25/23 09:19 MCHC 32.0 g/dl (31.0-36.0) 05/25/23 09:19 RDW 14.7 % (11.0-16.0) 05/25/23 09:19 Plt Count 742 X10*3/uL (160-400) H D 05/25/23 09:19 MPV 8.5 fL (9.4-12.4) L 05/25/23 09:19 Immature Gran % (Auto) 0.7 % (0.0-0.4) H 05/25/23 09:19 Neut % (Auto) 78.7 % (45-73) H 05/25/23 09:19 Lymph % (Auto) 10.6 % (20-40) L 05/25/23 09:19 Loving % (Auto) 9.3 % (2-11) 05/25/23 09:19 Eos % (Auto) 0.4 % (0-4) 05/25/23 09:19 Baso % (Auto) 0.3 % (0-2) 05/25/23 09:19 Lymph # (Auto) 1.5 X10*3/uL (1.2-4.9) 05/25/23 09:19 Loving # (Auto) 1.3 X10*3/uL (0.1-1.2) H 05/25/23 09:19 Eos # (Auto) 0.1 X10*3/uL (0.0-0.4) 05/25/23 09:19 Baso # (Auto) 0.0 X10*3/uL (0.0-0.2) 05/25/23 09:19 Abs Immat Gran (auto) 0.10 X10*3/uL (0.00-0.03) H 05/25/23 09:19 Absolute Neuts (auto) 10.8 x10*3/uL (2.0-8.3) H 05/25/23 09:19 Absolute Nucleated RBC 0.000 X10*3/uL (0.0-0.012) 05/25/23 09:19 Nucleated RBC % (auto) 0.0 /100WBC (0.0-0.2) 05/25/23 09:19 Sodium 132 mmol/L (135-145) L 05/25/23 09:19 Potassium 5.1 mmol/L (3.3-5.1) 05/25/23 09:19 Chloride 105 mmol/L (96-108) 05/25/23 09:19 Carbon Dioxide 15 mmol/L (22-29) L 05/25/23 09:19 Anion Gap 17 (12-20) 05/25/23 09:19 BUN 48 mg/dL (9-16) H 05/25/23 09:19 Creatinine 2.59 mg/dL (0.5-1.4) H 05/25/23 09:19 Estim Creat Clear Calc 27.6 05/25/23 09:19 Estimated GFR 25 05/25/23 09:19 Random Glucose 111 mg/dL (60-115) 05/25/23 09:19 Lactic Acid 1.2 mmol/L (0.5-2.0) 05/25/23 10:02 Calcium 8.8 mg/dL (8.4-10.2) D 05/25/23 09:19 Total Bilirubin 0.4 mg/dL (0.0-1.0) 05/25/23 09:19 Direct Bilirubin 0.3 mg/dL (0.0-0.5) 05/25/23 09:19 AST 37 U/L (5-37) 05/25/23 09:19 ALT 31 U/L (0-40) 05/25/23 09:19 Alkaline Phosphatase 707 U/L (39-117) H 05/25/23 09:19 Troponin I High Sens < 2.7 ng/L (<3.5-35.0) 05/25/23 09:19 B-Natriuretic Peptide 127 pg/mL (<100) H 05/25/23 09:19 Total Protein 7.4 g/dL (6.5-8.0) 05/25/23 09:19 Albumin 3.5 g/dL (3.5-5.0) 05/25/23 09:19 Lipase 33 U/L (8-78) 05/25/23 09:19 COVID-19 ([facility]) Negative (Negative) 05/25/23 10:02 COVID-19 Clin Com See Note 05/25/23 10:02 Impressions Abdomen/Pelvis CT 05/25/23 09:38 IMPRESSION: Bilobed soft tissue mass arising from the inferior margin of left hepatic lobe and extending to the kelli hepatis. Differential diagnosis includes a caudate/quadrant lobe mass, pancreatic head and body mass or metastatic lymphadenopathy. Gallstones or hyperdense gravel. 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 The mass inferior to the left hepatic lobe is most likely metastatic lymph nodes. There is free gas seen in the right upper quadrant and epigastric region. Exact etiology is not known. However there is diverticuli, mild mural thickening of ascending colon and pericolic fat stranding. This could represent acute diverticulitis of ascending colon has punctate free gas. The free gas could also be from surgical intervention or biopsy. Correlate with clinical exam. Colonic diverticulosis without diverticulitis Small amount of free fluid in the right perihepatic space and pelvis. Bilateral renal hypodense lesions question complex and simple cysts. There is a punctate calcification in the midpole right kidney as well. Lack of IV contrast restricts evaluation. Fleischner guidelines were followed. Assessment and Plan (1) Perforated abdominal viscus: Status: Acute He has had severe abdominal pain mostly on the right side since 06:00 o'clock this morning. His CAT scan shows free air mostly on this area as well with note of inflammatory changes in the right colon. It appears he may have a mass as well in the liver and the into the kelli hepatis. This could represent lymph nodes from metastatic disease or a neoplastic process. He does have a history of lung cancer and a recent PET scan from [facility] she suggest metastatic disease in the lungs as well as the abdomen. He is tender to touch. I told him it will be best to proceed with laparotomy, likely bowel resection and stoma creation depending on intraop findings. I reviewed with him the technique of this procedure. I discussed the risks including but not limited to bleeding, infections, bowel injury, injury to other organs, respiratory failure, blood clots, pneumonia, as well as the benefits and alternatives. He has given consent His sister and brother in law were at bedside and they understand the planned procedure as well. He will be given packed RBC as well because of anemia. He has been anemic on previous blood tests as well. His anemia may be secondary to his chronic illness, and there is no evidence of acute blood loss at this time. His sister Haylee states he had a biopsy of the mass in the liver, and the LN in the neck which revealed metastates . He was scheduled to udnergo chemotherrapy starting this week. He had a port placed on the right chest 2 weeks ago. Quality Stroke Does the patient have a stroke diagnosis?: No VTE Prior VTE?: No VTE Risk Level:: Medical - moderate - high VTE Device Contraindication: N/A - Device Ordered VTE Drug Contraindication: Treatment Not Indicated Procedures Date of Service Date of Service: 05/26/23
--- NOTE | 2023-05-25 12:12 | P.CONAN_ITS ---
[facility] Active Problems Active Problems: All Active Problems (Updated 05/25/23 @ 10:58 by Saravanan Ken MD) History of lung cancer (Acute) CKD (chronic kidney disease) (Acute) Anemia (Acute) Perforated abdominal viscus (Acute) Post-traumatic arthritis of right wrist (Acute) Fracture of distal end of right radius with malunion (Acute) Past Medical History Medical History (Updated 05/25/23 @ 10:58 by Saravanan Ken MD) History of lung cancer Kidney disease Stroke Macular degeneration High cholesterol HTN (hypertension) Family History Family history of problems with anesthesia: No Surgical History Surgical History History of lobectomy of lung History of lung surgery History of Problems with Anesthesia: No Social History Social History Are you a primary home care nurse to a significant other at home: No Do you presently have visiting nurse or other home services: No Patient Tobacco Use Status: Former Tobacco user Quit Date: 1 month ago Tobacco use type: Cigarette Cigarettes Per Day: 2 Years Smoked: 40 Smoked in Last 30 Days: No Use of substances other than those prescribed or required for medical reasons: No Are you DNR?: No Advance Directives: No Advance Directives Information Provided: No (declined) Advance Directives on File: No 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 occupational status: 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 Allergies Allergy/AdvReac Type Severity Reaction Status Date / Time No Known Allergies Allergy Unverified 01/20/23 10:11 Active Medications: Current Medications Sodium Chloride (0.9 % Sodium Chloride Flush 3 Ml Syringe) 3 ml IVFLUSH QSHIFT CHEO Exam Height,Weight and Vital Signs: Height 6 ft 1 in Weight 73.6 kg Last Vital Signs Temp 97.9 F 05/25/23 11:58 Pulse 87 05/25/23 11:58 Resp 19 05/25/23 11:58 BP 117/50 L 05/25/23 11:58 Pulse Ox 97 05/25/23 11:01 O2 Del Method Room Air 05/25/23 11:01 Pertinent Lab Results Pertinent Lab Results: Laboratory Tests 05/25/23 05/25/23 05/25/23 09:19 10:02 10:57 WBC 13.7 H RBC 2.81 L Hgb 7.9 L Hct 24.7 L MCV 87.9 MCH 28.1 MCHC 32.0 RDW 14.7 Plt Count 742 H D MPV 8.5 L Immature Gran % (Auto) 0.7 H Neut % (Auto) 78.7 H Lymph % (Auto) 10.6 L Haines % (Auto) 9.3 Eos % (Auto) 0.4 Baso % (Auto) 0.3 Lymph # (Auto) 1.5 Haines # (Auto) 1.3 H Eos # (Auto) 0.1 Baso # (Auto) 0.0 Abs Immat Gran (auto) 0.10 H Absolute Neuts (auto) 10.8 H Absolute Nucleated RBC 0.000 Nucleated RBC % (auto) 0.0 Sodium 132 L Potassium 5.1 Chloride 105 Carbon Dioxide 15 L Anion Gap 17 BUN 48 H Creatinine 2.59 H Estim Creat Clear Calc 27.6 Estimated GFR 25 Random Glucose 111 Lactic Acid 1.2 Calcium 8.8 D Total Bilirubin 0.4 Direct Bilirubin 0.3 AST 37 ALT 31 Alkaline Phosphatase 707 H Troponin I High Sens < 2.7 B-Natriuretic Peptide 127 H Total Protein 7.4 Albumin 3.5 Lipase 33 COVID-19 ([facility]) Negative COVID-19 Clin Com See Note Blood Type A Positive Antibody Screen NEGATIVE Crossmatch See Detail Airway Mallampati Class: II TM Dist: >3cm Neck ROM: Limited Loose/Missing/Broken Teeth: Yes, Upper and Lower Heart: RRR Lungs: CTA Assessment and Plan Final Anesthetic Review Family History of Problems with Anesthesia: No History of Problems with Anesthesia: No NPO: Yes ASA Class: III and Emergency Final Preanesthetic Review: Meds/Allgs Chart Reviewed, Consent Obtained/Reviewed and Anes Risks/Benef Reviewed Patient Risk: High Procedure Risk: Intermediate Anesthetic Plan Anesthetic Plan: GA Disposition: Standard PACU
--- NOTE | 2023-05-25 12:13 | PC.NURSE ---
patient brought to OR at 1204, RN transported with OR tech
--- NOTE | 2023-05-25 14:20 | W.PM.OPN ---
Operative Note Operative Note Date of Service: 05/25/23 Narrative: Preop Diagnosis: Perforated viscus Postop diagnosis: Duodenal perforation Procedure: Laparotomy, mobilization of the hepatic flexure, omental patching of a perforated ulcer Surgeon: Saravanan Ken MD recruitment and outreach assistant: BRANNON Ayala The patient is a 72-year-old male admitted because of severe abdominal pain starting early this morning. A CT scan in the ER showed free air mostly on the right upper quadrant. There was note of inflammatory changes on the hepatic flexure. In view of the presence of free air, and significant tenderness, I explained to him it would be best to proceed with laparotomy to look for the perforation. I did explain to him that there has a possibility of bowel resection if the perforation was in the right colon He understood the planned procedure as well as the risks, benefits, and alternatives He was brought to the operating room. He was placed supine under general anesthesia via endotracheal tube. A Staton catheter was inserted. The abdomen was prepped and draped in the usual sterile fashion. A surgical time-out had been done. The patient received IV Zosyn earlier I made an incision on the skin starting from just the epigastric area to the infraumbilical level using blade 10. This carried down with electrocautery through the full-thickness of the skin subcutaneous fat down to the fascia. The fascia was incised. The peritoneum was entered. I proceeded to incise the fascia some more with electrocautery to optimize the length of the skin incision. Oleksandr retractors were then placed The abdomen was examined. There was no signs of any stool spillage. The omentum appeared to be stuck towards the right upper quadrant away from the hepatic flexure going towards the area under the liver. Furthermore, there was note of some inflammatory changes in the right colon. There were some noninflamed diverticula in the right colon. However, no obvious perforation was seen in the right colon. Since the omentum was ring the hepatic flexure, I decided to proceed with excision of this by dividing the omentum this area. I did this serially using the LigaSure. This took a little bit of time until was able to clearly see the entire hepatic flexure. I had to mobilize part of the happens flexure to allow this to move away from the right upper quadrant and the subhepatic space. I was doing so, I was able to eventually visualize the entire gallbladder as well as the subhepatic space. It was here that we noted murky fluid so I retracted the hepatic flexure and the transverse colon inferiorly to allow me to visualize the subhepatic space. I was able to see the duodenum and there was note of a perforation, probably about 5 mm in size, with inflammatory changes of the surrounding wall. This surrounding all appeared indurated. It therefore appeared that the etiology of his free air was this perforated duodenal ulcer with sympathetic inflammation of the adjacent hepatic flexure I proceeded to then expose this area of the perforation. I applied four rows of full-thickness Prolene 2-0 sutures from 1 side of the perforation to the other. I positioned the omentum as a patch entire area of the perforation. I tightened the Prolene 2 sutures create the omental patch on the area of the perforation. There were 4 of these to secure the omentum to the perforation itself . This appeared to have adequate coverage of the entire area of the perforation as a patch I copiously irrigated. I positioned a MACY drain in the subhepatic space adjacent to the area of the omental patch . This drain was brought out through a small stab incision on the lateral right upper quadrant and was secured to the skin with nylon 3-0 sutures. It did not appear that there were any other areas of inflammation I therefore released all the retractors. I closed the fascia with a running Maxon wants stitch. Skin closure was achieved with skin nicholas. The patient had undergone a VALERIANO block earlier with the anesthesiologist. Dressings were applied. The procedure was then completed. NG tube was inserted. The patient tolerated procedure well. There were no immediate complications. Initial and final counts of sponges and instruments were correct. Estimated blood loss was about 25 cc . The patient was extubated without difficulty and transferred to the recovery room with stable vital signs
[2023-05-25] MEDS: HYDROmorphone HCl 0.5 MG/0.5 ML SYRINGE IVPUSH (14:50)
--- NOTE | 2023-05-25 15:22 | P.CONHOSP_ITS ---
History of Present Illness Data of Consult Service Date: 05/25/23 Requesting physician: Saravanan Ken Primary Care Provider: Unknown Physician HPI Reason for consult: medical management 72 year old male with history of Rsided lung cancer s/p RLL resection and chemotherapy, ckd stage 4, htn, hld, hx cva, and macular degeneration admitted for general surgery for management of duodenal performation s/o laparotomy with omental patching of a perforated ulcer with consult placed to hospitalist service for medical management. In the ED, pt was acutely anemic with h/h 7.9/24.7%. He was transfused 1 unit packed red blood cells and taken to the OR. He is currently resting comfortably in bed. Still reports some epigastric pain, worse with movement. Has ng tube in place. No n/v. No sob, cp. He is a former cigarette smoker (quit one month ago). no etoh use or illicit drug use. Review of Systems 2 Review of Systems: General: No fevers, malaise, unintentional weight loss HEENT: No blurred vision, diplopia. No sore throat, nasal congestion, rhinorrhea, sinus pain, ear pain Cardiovascular: No chest pain, palpitations, or leg edema Respiratory: No shortness of breath, wheezing, cough GI: +epigastric pain. No nausea, vomiting, diarrhea, constipation, melena, hematochezia : No dysuria, hematuria, increased urinary frequency, decreased urinary output MSK: No myalgia, back pain Neuro: No headaches, weakness, paresthesias Skin: No rashes or lesions [facility] Medical History History of lung cancer Kidney disease Stroke Macular degeneration High cholesterol HTN (hypertension) Surgical History History of lobectomy of lung History of lung surgery Social History Household Members: None Housing: House Are you a primary out of school hours care worker to a significant other at home: No Do you presently have visiting nurse or other home services: No Patient Tobacco Use Status: Former Tobacco user Quit Date: 1 month ago Tobacco use type: Cigarette Cigarettes Per Day: 2 Years Smoked: 40 Smoked in Last 30 Days: No Use of substances other than those prescribed or required for medical reasons: No Have you been hit, kicked, punched, or otherwise hurt by someone within the past year? If so, by whom?: No Do you feel safe in your current relationship?: No Current Relationship Is there a partner from a previous relationship who is making you feel unsafe now?: No Are you made to feel afraid or neglected: No Are you DNR?: No Advance Directives: No Advance Directives Information Provided: No (declined) Advance Directives on File: No Do you have thoughts of harming others: None Do you have a plan to hurt others: No Plan Recently lost weight without trying: Yes How much weight loss: Unsure Eating poorly because of decreased appetite: Yes Nutrition screen score: 5 Nutrition Risks: No Nutritional Risk Poor oral hygiene: No 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 occupational status: 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 Allergies Allergy/AdvReac Type Severity Reaction Status Date / Time No Known Allergies Allergy Unverified 01/20/23 10:11 Active Medications: Current Medications Albuterol Sulfate (Albuterol Sulfate (0.083%) 2.5 Mg/3 Ml Vial.Neb) 2.5 mg INHALE ONCE PRN PRN Reason: Wheezing Fentanyl (Fentanyl Citrate/Pf 100 Mcg/2 Ml Vial) 50 mcg IVPUSH Q5M PRN; Protocol PRN Reason: Pain, Severe (Pain Scale 7-10) Fentanyl (Fentanyl Citrate/Pf 100 Mcg/2 Ml Vial) 25 mcg IVPUSH Q5M PRN; Protocol PRN Reason: Pain, Moderate(Pain Scale 4-6) Heparin Sodium (Porcine) (Heparin Sodium,Porcine 5,000 Unit/Ml Vial) 5,000 unit SUBCUT Q8H CHEO Hydromorphone HCl (Hydromorphone Hcl 0.5 Mg/0.5 Ml Syringe) 0.5 mg IVPUSH Q5M PRN; Protocol PRN Reason: Pain, Severe (Pain Scale 7-10) Last Admin: 05/25/23 14:50 Dose: 0.5 mg Hydromorphone HCl (Hydromorphone Hcl 0.5 Mg/0.5 Ml Syringe) 0.25 mg IVPUSH Q5M PRN; Protocol PRN Reason: Pain, Severe (Pain Scale 7-10) Sodium Chloride (Ns) 1,000 mls @ 80 mls/hr IVCONT .[id number] [facility] Piperacillin Sod/Tazobactam (Sod 3.375 gm/ Sodium Chloride) 50 mls @ 100 mls/hr IV Q6H [facility] Acetaminophen (Ofirmev) 1,000 mg in 100 mls @ 400 mls/hr IV Q6H [facility] Morphine Sulfate (Morphine Sulfate 2 Mg/Ml Cartridge) 4 mg IVPUSH Q3H PRN; Protocol PRN Reason: Pain, Severe (Pain Scale 7-10) Ondansetron HCl (Ondansetron Hcl 4 Mg/2 Ml Vial) 4 mg IVPUSH Q8H PRN PRN Reason: Nausea and Vomiting Ondansetron HCl (Ondansetron Hcl 4 Mg/2 Ml Vial) 4 mg IVPUSH ONCE PRN PRN Reason: Nausea and Vomiting Pantoprazole Sodium (Pantoprazole Sodium 40 Mg/10 Ml Vial) 40 mg IVPUSH BID@0630,1630 [facility] Sodium Chloride (0.9 % Sodium Chloride Flush 3 Ml Syringe) 3 ml IVFLUSH QSHIFT [facility] Physical Exam 2 Vital Signs and Narrative: Vital Signs: Last Vital Signs Temp 98 F 05/25/23 14:36 Pulse 89 05/25/23 15:20 Resp 15 05/25/23 15:20 BP 135/58 L 05/25/23 15:20 Pulse Ox 95 05/25/23 15:20 O2 Del Method Nasal Cannula wit h Capnography 05/25/23 15:20 O2 Flow Rate 0 05/25/23 15:20 BMI result Body Mass Index 21.4 Constitutional - Awake and Alert, No apparent distress Eyes - PERRLA, EOMI Cardiovascular - S1S2, RRR, No edema Respiratory - Normal lung expansion, Normal respiratory effort, No respiratory distress, CTA bilaterally Gastrointestinal - NT / ND; +BS; No rebound or guarding. NG tube in place with serous brown/sanguinous drainage. MACY drain in place Extremities - no calf tenderness bilaterally, no swelling Skin - Warm/Dry Neurological - Alert & oriented x3 Psychological - Appropriate affect Results Labs 05/25/23 09:19 05/25/23 09:19 Labs: Laboratory Results - last 24 hr 05/25/23 05/25/23 05/25/23 09:19 10:02 10:57 MCV 87.9 MCH 28.1 MCHC 32.0 RDW 14.7 Plt Count 742 H D MPV 8.5 L Immature Gran % (Auto) 0.7 H Neut % (Auto) 78.7 H Lymph % (Auto) 10.6 L Holt % (Auto) 9.3 Eos % (Auto) 0.4 Baso % (Auto) 0.3 Lymph # (Auto) 1.5 Holt # (Auto) 1.3 H Eos # (Auto) 0.1 Baso # (Auto) 0.0 Abs Immat Gran (auto) 0.10 H Absolute Neuts (auto) 10.8 H Absolute Nucleated RBC 0.000 Nucleated RBC % (auto) 0.0 Anion Gap 17 Estim Creat Clear Calc 27.6 Estimated GFR 25 Random Glucose 111 Lactic Acid 1.2 Calcium 8.8 D Total Bilirubin 0.4 Direct Bilirubin 0.3 AST 37 ALT 31 Alkaline Phosphatase 707 H B-Natriuretic Peptide 127 H Total Protein 7.4 Albumin 3.5 Lipase 33 COVID-19 ([facility]) Negative COVID-19 Clin Com See Note Blood Type A Positive Antibody Screen NEGATIVE Crossmatch See Detail Imaging Radiologist's Impressions: Impressions Abdomen/Pelvis CT 05/25/23 09:38 IMPRESSION: Bilobed soft tissue mass arising from the inferior margin of left hepatic lobe and extending to the kelli hepatis. Differential diagnosis includes a caudate/quadrant lobe mass, pancreatic head and body mass or metastatic lymphadenopathy. Gallstones or hyperdense gravel. 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 The mass inferior to the left hepatic lobe is most likely metastatic lymph nodes. There is free gas seen in the right upper quadrant and epigastric region. Exact etiology is not known. However there is diverticuli, mild mural thickening of ascending colon and pericolic fat stranding. This could represent acute diverticulitis of ascending colon has punctate free gas. The free gas could also be from surgical intervention or biopsy. Correlate with clinical exam. Colonic diverticulosis without diverticulitis Small amount of free fluid in the right perihepatic space and pelvis. Bilateral renal hypodense lesions question complex and simple cysts. There is a punctate calcification in the midpole right kidney as well. Lack of IV contrast restricts evaluation. Fleischner guidelines were followed. Assessment and Plan (1) Perforated abdominal viscus: Status: Acute (2) Anemia: Status: Acute Plan 72 year old male with history of Rsided lung cancer s/p RLL resection and chemotherapy, ckd stage 4, htn, hld, hx cva, and macular degeneration admitted for general surgery for management of duodenal performation s/o laparotomy with omental patching of a perforated ulcer with consult placed to hospitalist service for medical management. #Perforated duodenal ulcer s/p li patch -ng tube in place -plan per general surgery -advancement of diet per general surgery -iv ppi, zosyn #acute blood blood anemia -2/2 above -transfused 1 unit prbc -follow h/h #HTN -bp reasonably controlled -not on home antihypertensives, montior bp #CKD stage 4 -renal function baseline -monitor #Hx lung cancer -s/p RLL resection, chemotherapy -follows with [facility] onc. Recent PET scan showed multiple lymph nodes in neck, chest, and abd -outpt follow up Thank you for allowing me to participate in this consult. Signing off at this time. Please do not hesitate to call for further questions or for any acute medical issues.
--- NOTE | 2023-05-25 15:55 | PM.EVENT ---
Event Note Date of Service: 05/26/23 Event Note: seen postop s/p omental patch for duodenal perf c/o incisional pain stable VS abd soft MACY - small amount of serosanguinous output NGT - CXR shows this to be in stomach pain mgt PPI NGT incentive spirometry Hospitalist consult Time Spent With Patient Time: Total time managing care of this patient today ____ minutes.
[2023-05-25] MEDS: 0.9 % Sodium Chloride 1,000 ML 80 ML IVCONT (16:56)
[2023-05-25] MEDS: Pantoprazole Sodium 40 MG/10 ML VIAL IVPUSH (16:57)
--- NOTE | 2023-05-25 19:57 | PHA.MEDREC ---
Pharmacy Consult ? Medication Reconciliation Pharmacy has completed the medication reconciliation. Patient reported sister brought home list of medications. Sister did not have list on here. [facility] Sister may bring in list tomorrow. Will update and inform the provider if list has any changes. Sheila Haynes, PharmD
[2023-05-25] MEDS: Acetaminophen 1,000 MG/100 ML PIGGYBACK 400 MG IV (20:32)
[2023-05-25] MEDS: Morphine Sulfate 2 MG/ML CARTRIDGE 4 MG IVPUSH (23:01)
[2023-05-26] VITALS (7 sets, daily range): BP systolic 129–147; BP diastolic 60–70; PULSE 82–95; RESP 14–20; TEMP 36.8–37.3; O2SAT 96–97
[2023-05-26] MEDS: Acetaminophen 1,000 MG/100 ML PIGGYBACK 400 MG IV ×4 (02:24→20:33)
[2023-05-26] MEDS: Morphine Sulfate 2 MG/ML CARTRIDGE 4 MG IVPUSH ×3 (02:40→13:51)
[2023-05-26] MEDS: Piperacillin Sodium/Tazobactam 3.375 GM in 0.9 % Sodium Chloride 50 ML IV ×4 (04:54→22:57)
[2023-05-26] MEDS: 0.9 % Sodium Chloride 1,000 ML 80 ML IVCONT ×2 (04:56→16:00)
[2023-05-26 05:36] LABS: MANUAL DIFF FLAG NO
[2023-05-26 05:44] LABS: Basophils Absolute Auto 0.1 X10*3/uL (0.0-0.2); Basophils Percent Auto 0.3 % (0-2); Hematocrit 24.6 % (42.0-52.0); Hemoglobin 8.1 g/dl (14.0-18.0); Imm Gran Abs Auto 0.17 X10*3/uL (0.00-0.03); Lymphocytes Absolute Auto 1.3 X10*3/uL (1.2-4.9); Lymphocytes Percent Auto 7.3 % (20-40); Mean Corpuscular HGB Conc 32.9 g/dl (31.0-36.0); Mean Corpuscular Hemoglobin 29.1 pg (27.0-33.0); Mean Corpuscular Volume 88.5 fL (80.0-98.0); Monocytes Percent Auto 5.8 % (2-11); Neutrophils Absolute Auto 14.8 x10*3/uL (2.0-8.3); Neutrophils Percent Auto 85.6 % (45-73); Platelet Count 696 X10*3/uL (160-400); Red Blood Count 2.78 X10*6/uL (4.60-5.80); Red Cell Distribution Width 14.8 % (11.0-16.0); White Blood Count 17.3 X10*3/uL (4.8-10.8)
[2023-05-26 05:57] LABS: Anion Gap 17 (12-20); Blood Urea Nitrogen 44 mg/dL (9-16); Calcium 8.6 mg/dL (8.4-10.2); Carbon Dioxide 13 mmol/L (22-29); Chloride 110 mmol/L (96-108); Creatinine Clr Calc Pharmacy 31.9; Estimated Glomerular Filt Rate 29; Glucose Random 100 mg/dL (60-115); Potassium 5.7 mmol/L (3.3-5.1); Sodium 134 mmol/L (135-145)
[2023-05-26] MEDS: Pantoprazole Sodium 40 MG/10 ML VIAL IVPUSH ×2 (06:02→16:06)
[2023-05-26] MEDS: 0.9 % Sodium Chloride Flush 3 ML SYRINGE IVFLUSH ×2 (07:45→16:03)
--- NOTE | 2023-05-26 09:52 | MHC.CM.PN ---
IMM DELIVERED. PT LIVES ALONE. USES [facility] FOR MOBILITY. PT DUE TO START CHEMOTHERAPY THIS WEEK AT [facility]. + HCP PCP AT THE [facility] (DR. DELGADILLO) DP: HOME, PT IS NOT EXPECTING HOME SERVICES UNLESS RECOMMENDED. PT NOT INTERESTED IN STR. PT HAS OWN RIDE HOME. CM WILL CONTINUE TO FOLLOW FOR ANY CHANGE IN DC PLAN/NEEDS.
--- NOTE | 2023-05-26 10:18 | PM.PNGS ---
Subjective Subjective Date of Service: 05/26/23 <Jena Ayala PA-C - Last Filed: 05/26/23 10:35> 05/26/23 <Saravanan Ken MD - Last Filed: 05/26/23 13:50> Interval history: Feels overall better. Having incisional pain that feels better with pain medication. he feels like it wears off quickly. Has been passing flatus but has not had a bowel movement. <Jena Ayala PA-C - Last Filed: 05/26/23 10:35> Physical Exam Vital Signs: Vital Signs: Last Vital Signs Temp 98.3 F 05/26/23 07:31 Pulse 84 05/26/23 07:31 Resp 20 05/26/23 07:45 BP 144/65 H 05/26/23 07:31 Pulse Ox 97 05/26/23 07:31 O2 Del Method Room Air 05/26/23 07:31 O2 Flow Rate 2 05/25/23 17:10 BMI result Body Mass Index 21.4 <Jena Ayala PA-C - Last Filed: 05/26/23 10:35> Const: General: cooperative, comfortable, no acute distress, alert and awake <Jena Ayala PA-C - Last Filed: 05/26/23 10:35> Orientation/consciousness: patient oriented x3 <NYDIA Antoine Last Filed: 05/26/23 10:35> HEENT: Other: NG tube in left nare. <Jena Ayala PA-C - Last Filed: 05/26/23 10:35> GI: Other: MACY drain with serosanguineous output. <Jena Ayala PA-C - Last Filed: 05/26/23 10:35> Inspection: No distended and Yes incision (clear dry and intact) <NYDIA Antoine Last Filed: 05/26/23 10:35> Palpation (GI): Tenderness to palpation present (GI) (mild, incisional) <NYDIA Antoine Last Filed: 05/26/23 10:35> Skin: General skin exam: no rashes or lesions noted <NYDIA Antoine Last Filed: 05/26/23 10:35> Neuro: General: patient oriented x3 <Jena Ayala PA-C - Last Filed: 05/26/23 10:35> Objective Data Active Medications Albuterol Sulfate (Albuterol Sulfate (0.083%) 2.5 Mg/3 Ml Vial.Neb) 2.5 mg INHALE ONCE PRN PRN Reason: Wheezing Fentanyl (Fentanyl Citrate/Pf 100 Mcg/2 Ml Vial) 50 mcg IVPUSH Q5M PRN; Protocol PRN Reason: Pain, Severe (Pain Scale 7-10) Fentanyl (Fentanyl Citrate/Pf 100 Mcg/2 Ml Vial) 25 mcg IVPUSH Q5M PRN; Protocol PRN Reason: Pain, Moderate(Pain Scale 4-6) Heparin Sodium (Porcine) (Heparin Sodium,Porcine 5,000 Unit/Ml Vial) 5,000 unit SUBCUT Q8H [facility] Hydromorphone HCl (Hydromorphone Hcl 0.5 Mg/0.5 Ml Syringe) 0.5 mg IVPUSH Q5M PRN; Protocol PRN Reason: Pain, Severe (Pain Scale 7-10) Last Admin: 05/25/23 14:50 Dose: 0.5 mg Documented By: JUAN Hydromorphone HCl (Hydromorphone Hcl 0.5 Mg/0.5 Ml Syringe) 0.25 mg IVPUSH Q5M PRN; Protocol PRN Reason: Pain, Severe (Pain Scale 7-10) Sodium Chloride (Ns) 1,000 mls @ 80 mls/hr IVCONT .[id number] [facility] Last Admin: 05/26/23 04:56 Dose: 80 mls/hr Documented By: JORY Piperacillin Sod/Tazobactam (Sod 3.375 gm/ Sodium Chloride) 50 mls @ 100 mls/hr IV Q6H [facility] Last Infusion: 05/26/23 05:33 Dose: Infused Documented By: JORY Acetaminophen (Ofirmev) 1,000 mg in 100 mls @ 400 mls/hr IV Q6H [facility] Last Infusion: 05/26/23 08:37 Dose: Infused Documented By: MICHELLE Morphine Sulfate (Morphine Sulfate 2 Mg/Ml Cartridge) 4 mg IVPUSH Q3H PRN; Protocol PRN Reason: Pain, Severe (Pain Scale 7-10) Last Admin: 05/26/23 07:45 Dose: 4 mg Documented By: MICHELLE Ondansetron HCl (Ondansetron Hcl 4 Mg/2 Ml Vial) 4 mg IVPUSH Q8H PRN PRN Reason: Nausea and Vomiting Ondansetron HCl (Ondansetron Hcl 4 Mg/2 Ml Vial) 4 mg IVPUSH ONCE PRN PRN Reason: Nausea and Vomiting Pantoprazole Sodium (Pantoprazole Sodium 40 Mg/10 Ml Vial) 40 mg IVPUSH BID@0630,1630 [facility] Last Admin: 05/26/23 06:02 Dose: 40 mg Documented By: JORY Sodium Chloride (0.9 % Sodium Chloride Flush 3 Ml Syringe) 3 ml IVFLUSH QSHIFT [facility] Last Admin: 05/26/23 07:45 Dose: 3 ml Documented By: MICHELLE <Jena Ayala PA-C - Last Filed: 05/26/23 10:35> Labs CBC & Chem 7: 05/26/23 04:47 05/26/23 04:47 <Jena Ayala PA-C - Last Filed: 05/26/23 10:35> Labs: Laboratory Results - last 24 hr 05/25/23 05/25/23 05/25/23 10:02 10:57 11:11 MCV MCH MCHC RDW Plt Count MPV Immature Gran % (Auto) Neut % (Auto) Lymph % (Auto) [place] % (Auto) Eos % (Auto) Baso % (Auto) Lymph # (Auto) [place] # (Auto) Eos # (Auto) Baso # (Auto) Abs Immat Gran (auto) Absolute Neuts (auto) Absolute Nucleated RBC Nucleated RBC % (auto) PT Cancelled INR Cancelled APTT Cancelled Coag Specimen Comment Cancelled Anion Gap Estim Creat Clear Calc Estimated GFR Random Glucose Lactic Acid 1.2 Calcium COVID-19 ([place]) Negative COVID-19 Clin Com See Note Blood Type A Positive Antibody Screen NEGATIVE Crossmatch See Detail 05/26/23 04:47 MCV 88.5 MCH 29.1 MCHC 32.9 RDW 14.8 Plt Count 696 H MPV 9.0 L Immature Gran % (Auto) 1.0 H Neut % (Auto) 85.6 H Lymph % (Auto) 7.3 L [place] % (Auto) 5.8 Eos % (Auto) 0.0 Baso % (Auto) 0.3 Lymph # (Auto) 1.3 [place] # (Auto) 1.0 Eos # (Auto) 0.0 Baso # (Auto) 0.1 Abs Immat Gran (auto) 0.17 H Absolute Neuts (auto) 14.8 H Absolute Nucleated RBC 0.000 Nucleated RBC % (auto) 0.0 PT INR APTT Coag Specimen Comment Anion Gap 17 Estim Creat Clear Calc 31.9 Estimated GFR 29 Random Glucose 100 Lactic Acid Calcium 8.6 COVID-19 ([place]) COVID-19 Clin Com Blood Type Antibody Screen Crossmatch <Jena Ayala PA-C - Last Filed: 05/26/23 10:35> Procedures Date of Service Date of Service: 05/26/23 <Jena Ayala PA-C - Last Filed: 05/26/23 10:35> 05/26/23 <Saravanan Ken MD - Last Filed: 05/26/23 13:50> Progress Note: A&P Assessment and plan (1) Perforated duodenal bulb ulcer: Status: Acute <Jena Ayala PA-C - Last Filed: 05/26/23 10:35> Assessment and Plan: Complains of incisional pain, appropriate to postop course Abdominal exam benign Good urine output Okay to DC [place] Incentive spirometry Pain management PPI NG tube in place Seen and examined independently <Saravanan Ken MD - Last Filed: 05/26/23 13:50> (2) CKD (chronic kidney disease): Status: Acute <Jena Ayala PA-C - Last Filed: 05/26/23 10:35> (3) Anemia: Status: Acute <Jena Ayala PA-C - Last Filed: 05/26/23 10:35> Assessment and Plan: POD #1 s/p Laparotomy, mobilization of the hepatic flexure, omental patching of a perforated ulcer. He is doing fairly well from surgical standpoint. Pain is controlled well. Abd is benign and MACY with nonbilious output. NGT with low output, will keep in place for now. [place] catheter was removed. patient will be given a reclining chair and encouraged to ambulate. AM labs reviewed- leukocytosis likely from surgery. Will repeat in AM. Cont IVF, IV abx and PPI therapy. <Jena Ayala PA-C - Last Filed: 05/26/23 10:35> Time Spent With Patient Time: Total time managing care of this patient today ____ minutes. <Jena Ayala PA-C - Last Filed: 05/26/23 10:35> Quality Stroke Does the patient have a stroke diagnosis?: No <NYDIA Antoine Last Filed: 05/26/23 10:35> VTE Prior VTE?: No <Jena Ayala PA-C - Last Filed: 05/26/23 10:35> VTE Risk Level:: Medical - moderate - high <NYDIA Antoine Last Filed: 05/26/23 10:35> VTE Device Contraindication: N/A - Device Ordered <NYDIA Antoine Last Filed: 05/26/23 10:35> VTE Drug Contraindication: Treatment Not Indicated <NYDIA Antoine Last Filed: 05/26/23 10:35>
--- NOTE | 2023-05-26 12:04 | HO.POSTANES ---
Post Anesthesia Evaluation Post Anesthesia Evaluation Date of Service: 05/26/23 Vital Signs: Vital Signs Temp Pulse Resp BP Pulse Ox O2 Del Method 05/26/23 07:45 20 05/26/23 07:31 98.3 F 84 16 144/65 H 97 Room Air 05/26/23 03:17 99.2 F 82 14 129/60 96 Room Air Anesthesia: Nerve Block (tap block) and General Endotracheal-GETA Mental Status: Awake Pain Control: Satisfactory Nausea/Vomiting: None Hydration: Adequate Anesthesia-Related Issues: No Anes. Related Issues
[2023-05-26] MEDS: Heparin Sodium,Porcine 5,000 UNIT/ML VIAL 5000 UNIT SUBCUT ×2 (15:57→22:56)
[2023-05-26] MEDS: LORazepam 1 MG TABLET PO (21:54)
[2023-05-27] MEDS: Acetaminophen 1,000 MG/100 ML PIGGYBACK 400 MG IV ×4 (02:27→19:27)
[2023-05-27] MEDS: Morphine Sulfate 2 MG/ML CARTRIDGE 4 MG IVPUSH (02:33)
[2023-05-27 04:00] VITALS: BP 136/63; PULSE 72; RESP 16; TEMP 36.3; O2SAT 98
[2023-05-27] MEDS: Piperacillin Sodium/Tazobactam 3.375 GM in 0.9 % Sodium Chloride 50 ML IV ×3 (04:46→17:28)
[2023-05-27] MEDS: 0.9 % Sodium Chloride 1,000 ML 80 ML IVCONT ×2 (04:49→18:31)
[2023-05-27] MEDS: Pantoprazole Sodium 40 MG/10 ML VIAL IVPUSH ×2 (06:17→17:23)
[2023-05-27] MEDS: Heparin Sodium,Porcine 5,000 UNIT/ML VIAL 5000 UNIT SUBCUT ×2 (06:17→14:37)
[2023-05-27 07:15] VITALS: BP 150/63; PULSE 76; RESP 18; TEMP 36.1; O2SAT 99
[2023-05-27] MEDS: 0.9 % Sodium Chloride Flush 3 ML SYRINGE IVFLUSH ×2 (08:02→17:24)
[2023-05-27] MEDS: HYDROmorphone HCl 0.5 MG/0.5 ML SYRINGE IVPUSH ×2 (08:06→12:07)
--- NOTE | 2023-05-27 09:20 | P.PNGS_ITS ---
Subjective Subjective Date of Service: 05/27/23 Interval history: Reports significant pain night as well as early this morning He says that this happens whenever he is moving MACY drain serous, not bilious No fever Comfortable now Physical Exam 2 Vital Signs: Vital Signs: Last Vital Signs Temp 96.9 F 05/27/23 07:15 Pulse 76 05/27/23 07:15 Resp 18 05/27/23 07:15 BP 150/63 H 05/27/23 07:15 Pulse Ox 99 05/27/23 07:15 O2 Del Method Room Air 05/27/23 07:15 O2 Flow Rate 2 05/25/23 17:10 BMI result Body Mass Index 21.4 Const: General: comfortable and no acute distress Resp: Effort & Inspection: normal respiratory effort Cardio: Rate: regular rate GI: Other: MACY drain serosanguineous NG tube output not high Palpation (GI): Soft to palpation, not firm and Tenderness to palpation present (GI) Objective Data Active Medications Albuterol Sulfate (Albuterol Sulfate (0.083%) 2.5 Mg/3 Ml Vial.Neb) 2.5 mg INHALE ONCE PRN PRN Reason: Wheezing Fentanyl (Fentanyl Citrate/Pf 100 Mcg/2 Ml Vial) 50 mcg IVPUSH Q5M PRN; Protocol PRN Reason: Pain, Severe (Pain Scale 7-10) Fentanyl (Fentanyl Citrate/Pf 100 Mcg/2 Ml Vial) 25 mcg IVPUSH Q5M PRN; Protocol PRN Reason: Pain, Moderate(Pain Scale 4-6) Heparin Sodium (Porcine) (Heparin Sodium,Porcine 5,000 Unit/Ml Vial) 5,000 unit SUBCUT Q8H [facility] Last Admin: 05/27/23 06:17 Dose: 5,000 unit Documented By: JORY Hydromorphone HCl (Hydromorphone Hcl 0.5 Mg/0.5 Ml Syringe) 0.5 mg IVPUSH Q5M PRN; Protocol PRN Reason: Pain, Severe (Pain Scale 7-10) Last Admin: 05/25/23 14:50 Dose: 0.5 mg Documented By: JUAN Hydromorphone HCl (Hydromorphone Hcl 0.5 Mg/0.5 Ml Syringe) 0.25 mg IVPUSH Q5M PRN; Protocol PRN Reason: Pain, Severe (Pain Scale 7-10) Hydromorphone HCl (Hydromorphone Hcl 0.5 Mg/0.5 Ml Syringe) 0.5 mg IVPUSH Q3H PRN; Protocol PRN Reason: Pain, Severe (Pain Scale 7-10) Last Admin: 05/27/23 08:06 Dose: 0.5 mg Documented By: MICHELLE Sodium Chloride (Ns) 1,000 mls @ 80 mls/hr IVCONT .[id number] [facility] Last Admin: 05/27/23 04:49 Dose: 80 mls/hr Documented By: JORY Piperacillin Sod/Tazobactam (Sod 3.375 gm/ Sodium Chloride) 50 mls @ 100 mls/hr IV Q6H [facility] Last Infusion: 05/27/23 05:26 Dose: Infused Documented By: JORY Acetaminophen (Ofirmev) 1,000 mg in 100 mls @ 400 mls/hr IV Q6H [facility] Last Infusion: 05/27/23 08:48 Dose: Infused Documented By: MICHELLE Lorazepam (Lorazepam 1 Mg Tablet) 1 mg PO BEDTIME PRN PRN Reason: Sleep Last Admin: 05/26/23 21:54 Dose: 1 mg Documented By: JORY Ondansetron HCl (Ondansetron Hcl 4 Mg/2 Ml Vial) 4 mg IVPUSH Q8H PRN PRN Reason: Nausea and Vomiting Ondansetron HCl (Ondansetron Hcl 4 Mg/2 Ml Vial) 4 mg IVPUSH ONCE PRN PRN Reason: Nausea and Vomiting Pantoprazole Sodium (Pantoprazole Sodium 40 Mg/10 Ml Vial) 40 mg IVPUSH BID@0630,1630 [facility] Last Admin: 05/27/23 06:17 Dose: 40 mg Documented By: JORY Sodium Chloride (0.9 % Sodium Chloride Flush 3 Ml Syringe) 3 ml IVFLUSH QSHIFT [facility] Last Admin: 05/27/23 08:02 Dose: 3 ml Documented By: MICHELLE Labs 05/26/23 04:47 05/26/23 04:47 Microbiology Microbiology Results: Microbiology 05/25/23 10:27 Blood Culture - Preliminary Blood - Venous No growth after 24 hours. 05/25/23 10:02 Blood Culture - Preliminary Blood - Venous No growth after 24 hours. Procedures Date of Service Date of Service: 05/27/23 Progress Note: A&P Assessment and plan (1) Perforated duodenal bulb ulcer: Status: Acute Assessment and Plan: Status post omental patch repair He had what he described as this can pain last night and early this morning Currently more comfortable Follow-up CT ordered Keep MACY drain and NG tube in place Pain management Stable vital sign Labs pending Time Spent With Patient Time: Total time managing care of this patient today ____ minutes. Quality Stroke Does the patient have a stroke diagnosis?: No VTE Prior VTE?: No VTE Risk Level:: Medical - moderate - high VTE Device Contraindication: N/A - Device Ordered VTE Drug Contraindication: Treatment Not Indicated
[2023-05-27 09:43] LABS: Basophils Percent Auto 0.1 % (0-2); Eosinophils Percent Auto 0.1 % (0-4); Hematocrit 25.6 % (42.0-52.0); Hemoglobin 8.3 g/dl (14.0-18.0); Imm Gran Abs Auto 0.13 X10*3/uL (0.00-0.03); Imm Gran Pct Auto 0.7 % (0.0-0.4); Lymphocytes Percent Auto 11.3 % (20-40); MANUAL DIFF FLAG SCAN; Mean Corpuscular HGB Conc 32.4 g/dl (31.0-36.0); Mean Corpuscular Hemoglobin 29.4 pg (27.0-33.0); Mean Corpuscular Volume 90.8 fL (80.0-98.0); Mean Platelet Volume 8.5 fL (9.4-12.4); Monocytes Absolute Auto 1.7 X10*3/uL (0.1-1.2); Monocytes Percent Auto 9.6 % (2-11); Neutrophils Absolute Auto 13.7 x10*3/uL (2.0-8.3); Neutrophils Percent Auto 78.2 % (45-73); Platelet Count 721 X10*3/uL (160-400); Red Blood Count 2.82 X10*6/uL (4.60-5.80); Red Cell Distribution Width 15.6 % (11.0-16.0); SCAN SMEAR FLAG 1; White Blood Count 17.5 X10*3/uL (4.8-10.8)
[2023-05-27 09:55] LABS: Anion Gap 17 (12-20); Blood Urea Nitrogen 39 mg/dL (9-16); Calcium 8.7 mg/dL (8.4-10.2); Carbon Dioxide 13 mmol/L (22-29); Chloride 110 mmol/L (96-108); Creatinine Clr Calc Pharmacy 27.3; Estimated Glomerular Filt Rate 24; Glucose Fasting 81 mg/dL (60-99); Potassium 5.3 mmol/L (3.3-5.1); Sodium 135 mmol/L (135-145)
[2023-05-27 10:28] LABS: SLIDE REVIEW VERIFIED
[2023-05-27 12:07] VITALS: RESP 20
--- NOTE | 2023-05-27 13:41 | MHC.CM.PN ---
Per MD rounds no discharge today. Patient continues NPO with NG tube. DP Home patient has arranged for transportation.
[2023-05-27 14:00] VITALS: O2SAT 97
--- NOTE | 2023-05-27 14:01 | PM.EVENT ---
Event Note Date of Service: 05/29/23 Event Note: Re-examined a few times today He seems to be much more comfortable and has better pain control Abdomen remained soft although tender on the incision Drain with sanguinous output Stable vital signs, no fever I have reviewed his CAT scan - no new fluid collection, inflammatory changes appear improved Continue current care IV antibiotics NG tube in place Patient and family at bedside updated Time Spent With Patient Time: Total time managing care of this patient today ____ minutes.
[2023-05-27 15:16] VITALS: BP 148/65; PULSE 80; RESP 18; TEMP 36.4; O2SAT 99
[2023-05-27 19:21] VITALS: BP 141/66; PULSE 87; RESP 18; TEMP 36.3; O2SAT 98
[2023-05-28] MEDS: Heparin Sodium,Porcine 5,000 UNIT/ML VIAL 5000 UNIT SUBCUT ×4 (00:12→22:52)
[2023-05-28] MEDS: Piperacillin Sodium/Tazobactam 3.375 GM in 0.9 % Sodium Chloride 50 ML IV ×5 (00:12→22:52)
[2023-05-28] MEDS: 0.9 % Sodium Chloride Flush 3 ML SYRINGE IVFLUSH ×2 (00:12→19:30)
[2023-05-28] MEDS: Acetaminophen 1,000 MG/100 ML PIGGYBACK 400 MG IV ×4 (02:04→19:27)
[2023-05-28] MEDS: HYDROmorphone HCl 0.5 MG/0.5 ML SYRINGE IVPUSH ×3 (02:04→09:51)
[2023-05-28 04:00] VITALS: BP 159/70; PULSE 85; RESP 18; TEMP 36.4; O2SAT 98
[2023-05-28] MEDS: Pantoprazole Sodium 40 MG/10 ML VIAL IVPUSH ×2 (04:57→16:57)
[2023-05-28] MEDS: 0.9 % Sodium Chloride 1,000 ML 80 ML IVCONT ×2 (04:58→16:57)
[2023-05-28 06:21] LABS: MANUAL DIFF FLAG NO
[2023-05-28 06:43] LABS: Basophils Percent Auto 0.1 % (0-2); Eosinophils Absolute Auto 0.1 X10*3/uL (0.0-0.4); Eosinophils Percent Auto 0.7 % (0-4); Hematocrit 26.4 % (42.0-52.0); Hemoglobin 8.1 g/dl (14.0-18.0); Imm Gran Abs Auto 0.07 X10*3/uL (0.00-0.03); Imm Gran Pct Auto 0.5 % (0.0-0.4); Lymphocytes Absolute Auto 1.3 X10*3/uL (1.2-4.9); Lymphocytes Percent Auto 8.3 % (20-40); Mean Corpuscular HGB Conc 30.7 g/dl (31.0-36.0); Mean Corpuscular Hemoglobin 28.1 pg (27.0-33.0); Mean Corpuscular Volume 91.7 fL (80.0-98.0); Mean Platelet Volume 8.4 fL (9.4-12.4); Monocytes Absolute Auto 1.4 X10*3/uL (0.1-1.2); Monocytes Percent Auto 9.5 % (2-11); Neutrophils Absolute Auto 12.3 x10*3/uL (2.0-8.3); Neutrophils Percent Auto 80.9 % (45-73); Platelet Count 705 X10*3/uL (160-400); Red Blood Count 2.88 X10*6/uL (4.60-5.80); Red Cell Distribution Width 15.8 % (11.0-16.0); White Blood Count 15.2 X10*3/uL (4.8-10.8)
[2023-05-28 07:27] VITALS: BP 135/61; PULSE 90; RESP 18; TEMP 36.5; O2SAT 99
--- NOTE | 2023-05-28 07:45 | P.PNGS_ITS ---
Subjective Subjective Date of Service: 05/28/23 <Jena Ayala PA-C - Last Filed: 05/28/23 07:49> 05/29/23 <Saravanan Ken MD - Last Filed: 05/29/23 13:31> Interval history: Continues to c/o pain but overall better. Was OOB to recliner once and then refused due to pain. Denies nausea, bloating, flatus. <Jena Ayala PA-C - Last Filed: 05/28/23 07:49> Physical Exam 2 Vital Signs: Vital Signs: Last Vital Signs Temp 97.7 F 05/28/23 07:27 Pulse 90 05/28/23 07:27 Resp 18 05/28/23 07:27 BP 135/61 05/28/23 07:27 Pulse Ox 99 05/28/23 07:27 O2 Del Method Room Air 05/28/23 07:27 O2 Flow Rate 2 05/25/23 17:10 BMI result Body Mass Index 21.4 <Jena Ayala PA-C - Last Filed: 05/28/23 07:49> Const: General: comfortable, no acute distress and alert <Jena Ayala PA-C - Last Filed: 05/28/23 07:49> Orientation/consciousness: patient oriented x3 <NYDIA Antoine Last Filed: 05/28/23 07:49> HEENT: Other: NGT in place, scant output <NYDIA Antoine Last Filed: 05/28/23 07:49> Resp: Effort & Inspection: normal respiratory effort <NYDIA Antoine Last Filed: 05/28/23 07:49> GI: Other: incision clean MACY with serosanguineous output <NYDIA Antoine Last Filed: 05/28/23 07:49> Inspection: Yes distended <NYDIA Antoine Last Filed: 05/28/23 07:49> Palpation (GI): Soft to palpation, Tenderness to palpation present (GI) (incisional) and no guarding <NYDIA Antoine Last Filed: 05/28/23 07:49> Skin: General skin exam: no rashes or lesions noted <Jena Ayala PA-C - Last Filed: 05/28/23 07:49> Neuro: General: patient oriented x3 and moves all extremities <Jena Ayala PA-C - Last Filed: 05/28/23 07:49> Objective Data Active Medications Albuterol Sulfate (Albuterol Sulfate (0.083%) 2.5 Mg/3 Ml Vial.Neb) 2.5 mg INHALE ONCE PRN PRN Reason: Wheezing Amlodipine Besylate (Amlodipine Besylate 2.5 Mg Tablet) 2.5 mg PO DAILY [facility]; Protocol Atenolol (Atenolol 25 Mg Tablet) 25 mg PO DAILY [facility]; Protocol Fentanyl (Fentanyl Citrate/Pf 100 Mcg/2 Ml Vial) 50 mcg IVPUSH Q5M PRN; Protocol PRN Reason: Pain, Severe (Pain Scale 7-10) Fentanyl (Fentanyl Citrate/Pf 100 Mcg/2 Ml Vial) 25 mcg IVPUSH Q5M PRN; Protocol PRN Reason: Pain, Moderate(Pain Scale 4-6) Heparin Sodium (Porcine) (Heparin Sodium,Porcine 5,000 Unit/Ml Vial) 5,000 unit SUBCUT Q8H [facility] Last Admin: 05/28/23 06:06 Dose: 5,000 unit Documented By: MALDONADO Hydromorphone HCl (Hydromorphone Hcl 0.5 Mg/0.5 Ml Syringe) 0.5 mg IVPUSH Q5M PRN; Protocol PRN Reason: Pain, Severe (Pain Scale 7-10) Last Admin: 05/25/23 14:50 Dose: 0.5 mg Documented By: JUAN Hydromorphone HCl (Hydromorphone Hcl 0.5 Mg/0.5 Ml Syringe) 0.25 mg IVPUSH Q5M PRN; Protocol PRN Reason: Pain, Severe (Pain Scale 7-10) Hydromorphone HCl (Hydromorphone Hcl 0.5 Mg/0.5 Ml Syringe) 0.5 mg IVPUSH Q3H PRN; Protocol PRN Reason: Pain, Severe (Pain Scale 7-10) Last Admin: 05/28/23 04:58 Dose: 0.5 mg Documented By: MALDONADO Sodium Chloride (Ns) 1,000 mls @ 80 mls/hr IVCONT .[id number] [facility] Last Admin: 05/28/23 04:58 Dose: 80 mls/hr Documented By: MALDONADO Piperacillin Sod/Tazobactam (Sod 3.375 gm/ Sodium Chloride) 50 mls @ 100 mls/hr IV Q6H [facility] Last Infusion: 05/28/23 05:42 Dose: Infused Documented By: MALDONADO Acetaminophen (Ofirmev) 1,000 mg in 100 mls @ 400 mls/hr IV Q6H [facility] Last Infusion: 05/28/23 02:25 Dose: Infused Documented By: MALDONADO Lisinopril (Lisinopril 10 Mg Tablet) 10 mg PO DAILY [facility] Lorazepam (Lorazepam 1 Mg Tablet) 1 mg PO BEDTIME PRN PRN Reason: Sleep Last Admin: 05/26/23 21:54 Dose: 1 mg Documented By: JORY Ondansetron HCl (Ondansetron Hcl 4 Mg/2 Ml Vial) 4 mg IVPUSH Q8H PRN PRN Reason: Nausea and Vomiting Ondansetron HCl (Ondansetron Hcl 4 Mg/2 Ml Vial) 4 mg IVPUSH ONCE PRN PRN Reason: Nausea and Vomiting Pantoprazole Sodium (Pantoprazole Sodium 40 Mg/10 Ml Vial) 40 mg IVPUSH BID@0630,1630 [facility] Last Admin: 05/28/23 04:57 Dose: 40 mg Documented By: MALDONADO Sodium Chloride (0.9 % Sodium Chloride Flush 3 Ml Syringe) 3 ml IVFLUSH QSHIFT [facility] Last Admin: 05/28/23 00:12 Dose: 3 ml Documented By: MALDONADO Thiamine HCl (Thiamine Hcl 100 Mg Tablet) 100 mg PO DAILY [facility] <Jena Ayala PA-C - Last Filed: 05/28/23 07:49> Labs CBC & Chem 7: 05/28/23 05:27 05/27/23 09:00 <Jena Ayala PA-C - Last Filed: 05/28/23 07:49> Labs: Laboratory Results - last 24 hr 05/27/23 05/28/23 09:00 05:27 MCV 90.8 91.7 MCH 29.4 28.1 MCHC 32.4 30.7 L RDW 15.6 15.8 Plt Count 721 H 705 H MPV 8.5 L 8.4 L Immature Gran % (Auto) 0.7 H 0.5 H Neut % (Auto) 78.2 H 80.9 H Lymph % (Auto) 11.3 L 8.3 L [place] % (Auto) 9.6 9.5 Eos % (Auto) 0.1 0.7 Baso % (Auto) 0.1 0.1 Lymph # (Auto) 2.0 1.3 [place] # (Auto) 1.7 H 1.4 H Eos # (Auto) 0.0 0.1 Baso # (Auto) 0.0 0.0 Abs Immat Gran (auto) 0.13 H 0.07 H Absolute Neuts (auto) 13.7 H 12.3 H Absolute Nucleated RBC 0.000 0.000 Nucleated RBC % (auto) 0.0 0.0 Smear Tech's Comments VERIFIED Anion Gap 17 Estim Creat Clear Calc 27.3 Estimated GFR 24 Fasting Glucose 81 Calcium 8.7 <Jena Ayala PA-C - Last Filed: 05/28/23 07:49> Microbiology Microbiology Results: Microbiology 05/25/23 10:27 Blood Culture - Preliminary Blood - Venous No growth after 48 hours. 05/25/23 10:02 Blood Culture - Preliminary Blood - Venous No growth after 48 hours. <Jena Ayala PA-C - Last Filed: 05/28/23 07:49> Procedures Date of Service Date of Service: 05/28/23 <Jena Ayala PA-C - Last Filed: 05/28/23 07:49> 05/29/23 <Saravanan Ken MD - Last Filed: 05/29/23 13:31> Progress Note: A&P Assessment and plan (1) Perforated duodenal bulb ulcer: Status: Acute <Jena Ayala PA-C - Last Filed: 05/28/23 07:49> Assessment and Plan: looks more comfortable no events reported abd soft MACY drain - serosanguinous minimal NGT output check contrast study prior to removal of NGT OOB pain mgt seen and examined independently <Saravanan Ken MD - Last Filed: 05/29/23 13:31> Assessment and Plan: POD #3 s/p Laparotomy, mobilization of the hepatic flexure, omental patching of a perforated ulcer. Slowly recovering, pain improving. Abd more soft today but slightly distended, incision clean. NGT with scant output and MACY remains nonbilious. Cont IVF, IV abx and PPI therapy. WBC downtrending. Will obtain upper GI with gastrograffin through NGT prior to NGT removal. Strongly encouraged OOB and ambulation and to at least sit up at the side of bed and dangle legs today. <Jena Ayala PA-C - Last Filed: 05/28/23 07:49> Time Spent With Patient Time: Total time managing care of this patient today ____ minutes. <Jena Ayala PA-C - Last Filed: 05/28/23 07:49> Quality Stroke Does the patient have a stroke diagnosis?: No <Jena Ayala PA-C - Last Filed: 05/28/23 07:49> VTE Prior VTE?: No <Jena Ayala PA-C - Last Filed: 05/28/23 07:49> VTE Risk Level:: Medical - moderate - high <Jena Ayala PA-C - Last Filed: 05/28/23 07:49> VTE Device Contraindication: N/A - Device Ordered <Jena Ayala PA-C - Last Filed: 05/28/23 07:49> VTE Drug Contraindication: Treatment Not Indicated <NYDIA Antoine Last Filed: 05/28/23 07:49>
--- NOTE | 2023-05-28 08:45 | P.CDIM_ITS ---
PROVIDER RESPONSE TEXT: To clarify, the appropriate diagnosis supported by the clinical indicators: Hyperkalemia QUERY TEXT: PHYSICIAN'S DOCUMENTATION REQUEST Date of Query: 05/27/2023 07:23 AM EST Patient Name: Oleksandr Martell Admit Date: 05/25/2023 Dear Saravanan Ken, A review of the medical record indicates additional documentation may be needed. Please review below and update the documentation accordingly. Clinical Indicators: LAB FINDINGS: 05/26 - potassium 5.7 H Based on the above, is there a diagnosis that correlates with these lab findings: Hyperkalemia Labs indicate a diagnosis of (please specify) Other (explain) Clinically unable to determine (explain) Thank you, Esme Milner, CCS, CDIS Use of terms such as suspected, likely, concern for, or probable (associated with a specific diagnosi s that is being evaluated, monitored, or treated as if it exists) are acceptable and can be coded in the inpatient se tting, when documented at the time of discharge. Please use your independent medical judgment in providing your response. THIS QUERY IS PART OF THE PERMANENT MEDICAL RECORD
[2023-05-28] MEDS: amLODIPine Besylate 2.5 MG TABLET PO (09:50)
[2023-05-28] MEDS: lisinopriL 10 MG TABLET PO (09:50)
[2023-05-28] MEDS: atenoloL 25 MG TABLET PO (09:50)
[2023-05-28] MEDS: Thiamine HCL 100 MG TABLET PO (09:50)
--- NOTE | 2023-05-28 12:20 | HO.WOUND ---
Wound Consult: Initial 72yr old M admitted to [facility] on [place]23 - See progress notes and H&P for detailed history.? Wound consult placed for Right diabetic foot wound.? Patient agreeable to assessment and photo documentation.? Pt denies wound - bilateral feet and heels assessed no wounds observed chart review does not reveal Diabetic baseline. Will discontinue wound consult order. Spoke to direct care team to reconsult should wound develop and no current wound noted.
[2023-05-28 14:00] VITALS: O2SAT 98
[2023-05-28 16:00] VITALS: BP 138/65; PULSE 84; RESP 18; TEMP 36.6; O2SAT 99
[2023-05-28 19:15] VITALS: BP 133/63; PULSE 73; RESP 16; TEMP 36.3; O2SAT 98
[2023-05-28] MEDS: LORazepam 1 MG TABLET PO (21:47)
[2023-05-29] VITALS (7 sets, daily range): BP systolic 108–153; BP diastolic 53–68; PULSE 68–91; RESP 16–18; TEMP 36–36.6; O2SAT 97–100
[2023-05-29] MEDS: Acetaminophen 1,000 MG/100 ML PIGGYBACK 400 MG IV ×4 (02:20→19:52)
[2023-05-29] MEDS: 0.9 % Sodium Chloride 1,000 ML 80 ML IVCONT ×2 (04:56→17:41)
[2023-05-29] MEDS: Piperacillin Sodium/Tazobactam 3.375 GM in 0.9 % Sodium Chloride 50 ML IV ×4 (04:56→22:53)
[2023-05-29] MEDS: Pantoprazole Sodium 40 MG/10 ML VIAL IVPUSH ×2 (06:15→17:33)
[2023-05-29] MEDS: Heparin Sodium,Porcine 5,000 UNIT/ML VIAL 5000 UNIT SUBCUT ×3 (06:15→22:53)
--- NOTE | 2023-05-29 08:36 | PM.PNGS ---
Subjective Subjective Date of Service: 05/29/23 <Jena Ayala PA-C - Last Filed: 05/29/23 08:39> 05/29/23 <Saravanan Ken MD - Last Filed: 05/29/23 13:31> Interval history: Feels better, pain improving. Denies nausea, vomiting. Had multiple BM yesterday. <Jena Ayala PA-C - Last Filed: 05/29/23 08:39> Physical Exam Vital Signs: Vital Signs: Last Vital Signs Temp 97.5 F 05/29/23 07:50 Pulse 91 05/29/23 07:50 Resp 18 05/29/23 07:50 BP 130/60 05/29/23 07:50 Pulse Ox 99 05/29/23 07:50 O2 Del Method Room Air 05/29/23 07:50 O2 Flow Rate 2 05/25/23 17:10 BMI result Body Mass Index 21.4 <Jena Ayala PA-C - Last Filed: 05/29/23 08:39> Const: General: comfortable and no acute distress <Jena Ayala PA-C - Last Filed: 05/29/23 08:39> Orientation/consciousness: patient oriented x3 <NYDIA Antoine Last Filed: 05/29/23 08:39> Resp: Effort & Inspection: normal respiratory effort <NYDIA Antoine Last Filed: 05/29/23 08:39> GI: Other: MACY with serosanguineous output <NYDIA Antoine Last Filed: 05/29/23 08:39> Inspection: Yes distended (mild) and Yes incision (clean) <NYDIA Antoine Last Filed: 05/29/23 08:39> Palpation (GI): Soft to palpation, Tenderness to palpation present (GI) (incisional), no guarding and not rigid <NYDIA Antoine Last Filed: 05/29/23 08:39> Skin: General skin exam: no rashes or lesions noted <NYDIA Antoine Last Filed: 05/29/23 08:39> Neuro: General: patient oriented x3 and moves all extremities <Jena Ayala PA-C - Last Filed: 05/29/23 08:39> Objective Data Active Medications Albuterol Sulfate (Albuterol Sulfate (0.083%) 2.5 Mg/3 Ml Vial.Neb) 2.5 mg INHALE ONCE PRN PRN Reason: Wheezing Amlodipine Besylate (Amlodipine Besylate 2.5 Mg Tablet) 2.5 mg PO DAILY [facility]; Protocol Last Admin: 05/28/23 09:50 Dose: 2.5 mg Documented By: LEXY Atenolol (Atenolol 25 Mg Tablet) 25 mg PO DAILY [facility]; Protocol Last Admin: 05/28/23 09:50 Dose: 25 mg Documented By: LEXY Fentanyl (Fentanyl Citrate/Pf 100 Mcg/2 Ml Vial) 50 mcg IVPUSH Q5M PRN; Protocol PRN Reason: Pain, Severe (Pain Scale 7-10) Fentanyl (Fentanyl Citrate/Pf 100 Mcg/2 Ml Vial) 25 mcg IVPUSH Q5M PRN; Protocol PRN Reason: Pain, Moderate(Pain Scale 4-6) Heparin Sodium (Porcine) (Heparin Sodium,Porcine 5,000 Unit/Ml Vial) 5,000 unit SUBCUT Q8H [facility] Last Admin: 05/29/23 06:15 Dose: 5,000 unit Documented By: EVONNE Hydromorphone HCl (Hydromorphone Hcl 0.5 Mg/0.5 Ml Syringe) 0.5 mg IVPUSH Q5M PRN; Protocol PRN Reason: Pain, Severe (Pain Scale 7-10) Last Admin: 05/25/23 14:50 Dose: 0.5 mg Documented By: JUAN Hydromorphone HCl (Hydromorphone Hcl 0.5 Mg/0.5 Ml Syringe) 0.25 mg IVPUSH Q5M PRN; Protocol PRN Reason: Pain, Severe (Pain Scale 7-10) Hydromorphone HCl (Hydromorphone Hcl 0.5 Mg/0.5 Ml Syringe) 0.5 mg IVPUSH Q3H PRN; Protocol PRN Reason: Pain, Severe (Pain Scale 7-10) Last Admin: 05/28/23 09:51 Dose: 0.5 mg Documented By: LEXY Sodium Chloride (Ns) 1,000 mls @ 80 mls/hr IVCONT .[id number] [facility] Last Admin: 05/29/23 04:56 Dose: 80 mls/hr Documented By: EVONNE Piperacillin Sod/Tazobactam (Sod 3.375 gm/ Sodium Chloride) 50 mls @ 100 mls/hr IV Q6H [facility] Last Infusion: 05/29/23 05:53 Dose: Infused Documented By: EVONNE Acetaminophen (Ofirmev) 1,000 mg in 100 mls @ 400 mls/hr IV Q6H [facility] Last Infusion: 05/29/23 02:40 Dose: Infused Documented By: EVONNE Lisinopril (Lisinopril 10 Mg Tablet) 10 mg PO DAILY [facility] Last Admin: 05/28/23 09:50 Dose: 10 mg Documented By: LEXY Lorazepam (Lorazepam 1 Mg Tablet) 1 mg PO BEDTIME PRN PRN Reason: Sleep Last Admin: 05/28/23 21:47 Dose: 1 mg Documented By: EVONNE Ondansetron HCl (Ondansetron Hcl 4 Mg/2 Ml Vial) 4 mg IVPUSH Q8H PRN PRN Reason: Nausea and Vomiting Ondansetron HCl (Ondansetron Hcl 4 Mg/2 Ml Vial) 4 mg IVPUSH ONCE PRN PRN Reason: Nausea and Vomiting Pantoprazole Sodium (Pantoprazole Sodium 40 Mg/10 Ml Vial) 40 mg IVPUSH BID@0630,1630 [facility] Last Admin: 05/29/23 06:15 Dose: 40 mg Documented By: EVONNE Sodium Chloride (0.9 % Sodium Chloride Flush 3 Ml Syringe) 3 ml IVFLUSH QSHIFT [facility] Last Admin: 05/28/23 19:30 Dose: 3 ml Documented By: EVONNE Thiamine HCl (Thiamine Hcl 100 Mg Tablet) 100 mg PO DAILY [facility] Last Admin: 05/28/23 09:50 Dose: 100 mg Documented By: LEXY <Jena Ayala PA-C - Last Filed: 05/29/23 08:39> Labs CBC & Chem 7: 05/28/23 05:27 05/27/23 09:00 <NYDIA Antoine Last Filed: 05/29/23 08:39> Procedures Date of Service Date of Service: 05/29/23 <Jena Ayala PA-C - Last Filed: 05/29/23 08:39> 05/29/23 <Saravanan Ken MD - Last Filed: 05/29/23 13:31> Progress Note: A&P Assessment and plan (1) Perforated duodenal bulb ulcer: Status: Acute <Jena Ayala PA-C - Last Filed: 05/29/23 08:39> Assessment and Plan: seen multiple times earlier today says he feels more comfortable hungry abd soft tumbler tender on incision MACY - serosanguinous, scanty contrast study reviewed with radiology yesterday - no leak looks well seen and examined independently <Saravanan Ken MD - Last Filed: 05/29/23 13:31> Assessment and Plan: POD #4 s/p Laparotomy, mobilization of the hepatic flexure, omental patching of a perforated ulcer. Doing well post op. Contrast study yesterday showed no extravasation of contrast so NGT therefore removed. MACY continues without bilious output. Will advance to clears. Encouraged OOB/ambulation. <Jena Ayala PA-C - Last Filed: 05/29/23 08:39> Time Spent With Patient Time: Total time managing care of this patient today ____ minutes. <Jena Ayala PA-C - Last Filed: 05/29/23 08:39> Quality Stroke Does the patient have a stroke diagnosis?: No <Jena Ayala PA-C - Last Filed: 05/29/23 08:39> VTE Prior VTE?: No <Jena Ayala PA-C - Last Filed: 05/29/23 08:39> VTE Risk Level:: Medical - moderate - high <Jena Ayala PA-C - Last Filed: 05/29/23 08:39> VTE Device Contraindication: N/A - Device Ordered <Jena Ayala PA-C - Last Filed: 05/29/23 08:39> VTE Drug Contraindication: Treatment Not Indicated <Jena Ayala PA-C - Last Filed: 05/29/23 08:39>
[2023-05-29] MEDS: lisinopriL 10 MG TABLET PO (08:49)
[2023-05-29] MEDS: amLODIPine Besylate 2.5 MG TABLET PO (08:49)
[2023-05-29] MEDS: atenoloL 25 MG TABLET PO (08:49)
[2023-05-29] MEDS: Thiamine HCL 100 MG TABLET PO (08:49)
[2023-05-29] MEDS: 0.9 % Sodium Chloride Flush 3 ML SYRINGE IVFLUSH ×3 (08:49→19:27)
--- NOTE | 2023-05-29 12:18 | MHC.CM.PN ---
The patient has been started on a clear liquid diet. He is not medically cleared for discharge. DP home self care. [facility] for chemo. He has his own ride home.
--- NOTE | 2023-05-29 17:34 | PM.EVENT ---
Event Note Date of Service: 05/31/23 Event Note: he continues to feel well tolerating clear liquids able to ambulate MACY - serosanguinous, thin abd remains benign possible advance diet to full liquids tomorrow PPI Time Spent With Patient Time: Total time managing care of this patient today ____ minutes.
[2023-05-30] MEDS: Acetaminophen 1,000 MG/100 ML PIGGYBACK 400 MG IV ×4 (02:59→20:10)
[2023-05-30 03:40] VITALS: BP 116/57; PULSE 73; RESP 16; TEMP 36.2; O2SAT 98
[2023-05-30] MEDS: Pantoprazole Sodium 40 MG/10 ML VIAL IVPUSH ×2 (05:46→16:22)
[2023-05-30] MEDS: Piperacillin Sodium/Tazobactam 3.375 GM in 0.9 % Sodium Chloride 50 ML IV ×4 (05:46→23:59)
[2023-05-30] MEDS: 0.9 % Sodium Chloride 1,000 ML 80 ML IVCONT ×2 (06:21→17:37)
[2023-05-30 07:29] VITALS: BP 104/53; PULSE 71; RESP 18; TEMP 36.2; O2SAT 99
--- NOTE | 2023-05-30 07:46 | PC.NURSE ---
Assumed care 19:00 (05/29). A&Ox4. Midline abdominal incision with nicholas HAND TIRE TRIMMER. C/D/I without redness or drainage. Well approximated. RLQ MACY drain c/d/i. DSD c/d/i. Light, thin serosanguinous output. High output volumes from today reported in handoff were discussed with Dr. Ken. Pt reports pain well managed with IV tylenol. See shift assessment and EMAR for full details. Handoff report given 06:45.
[2023-05-30] MEDS: HYDROmorphone HCl 0.5 MG/0.5 ML SYRINGE IVPUSH ×2 (08:57→10:39)
[2023-05-30] MEDS: Heparin Sodium,Porcine 5,000 UNIT/ML VIAL 5000 UNIT SUBCUT ×3 (09:02→23:58)
--- NOTE | 2023-05-30 09:26 | PM.PNGS ---
Subjective Subjective Date of Service: 05/31/23 Interval history: still complains of pain able to ambulate no fever Physical Exam Vital Signs: Vital Signs: Last Vital Signs Temp 97.2 F 05/30/23 07:29 Pulse 71 05/30/23 07:29 Resp 18 05/30/23 07:29 BP 104/53 L 05/30/23 07:29 Pulse Ox 99 05/30/23 07:29 O2 Del Method Room Air 05/30/23 07:29 O2 Flow Rate 2 05/25/23 17:10 BMI result Body Mass Index 21.4 Const: General: no acute distress Resp: Effort & Inspection: normal respiratory effort Cardio: Rate: regular rate GI: Palpation (GI): Soft to palpation and Tenderness to palpation present (GI) (mostly on epig area around incision) Objective Data Active Medications Albuterol Sulfate (Albuterol Sulfate (0.083%) 2.5 Mg/3 Ml Vial.Neb) 2.5 mg INHALE ONCE PRN PRN Reason: Wheezing Amlodipine Besylate (Amlodipine Besylate 2.5 Mg Tablet) 2.5 mg PO DAILY [facility]; Protocol Last Admin: 05/29/23 08:49 Dose: 2.5 mg Documented By: YAMINI Atenolol (Atenolol 25 Mg Tablet) 25 mg PO DAILY [facility]; Protocol Last Admin: 05/29/23 08:49 Dose: 25 mg Documented By: YAMINI Fentanyl (Fentanyl Citrate/Pf 100 Mcg/2 Ml Vial) 50 mcg IVPUSH Q5M PRN; Protocol PRN Reason: Pain, Severe (Pain Scale 7-10) Fentanyl (Fentanyl Citrate/Pf 100 Mcg/2 Ml Vial) 25 mcg IVPUSH Q5M PRN; Protocol PRN Reason: Pain, Moderate(Pain Scale 4-6) Heparin Sodium (Porcine) (Heparin Sodium,Porcine 5,000 Unit/Ml Vial) 5,000 unit SUBCUT Q8H [facility] Last Admin: 05/30/23 09:02 Dose: 5,000 unit Documented By: TRUDY Hydromorphone HCl (Hydromorphone Hcl 0.5 Mg/0.5 Ml Syringe) 0.5 mg IVPUSH Q5M PRN; Protocol PRN Reason: Pain, Severe (Pain Scale 7-10) Last Admin: 05/25/23 14:50 Dose: 0.5 mg Documented By: JUAN Hydromorphone HCl (Hydromorphone Hcl 0.5 Mg/0.5 Ml Syringe) 0.25 mg IVPUSH Q5M PRN; Protocol PRN Reason: Pain, Severe (Pain Scale 7-10) Hydromorphone HCl (Hydromorphone Hcl 0.5 Mg/0.5 Ml Syringe) 0.5 mg IVPUSH Q3H PRN; Protocol PRN Reason: Pain, Severe (Pain Scale 7-10) Last Admin: 05/30/23 08:57 Dose: 0.5 mg Documented By: TRUDY Piperacillin Sod/Tazobactam (Sod 3.375 gm/ Sodium Chloride) 50 mls @ 100 mls/hr IV Q6H [facility] Last Infusion: 05/30/23 06:19 Dose: Infused Documented By: JESSICA Acetaminophen (Ofirmev) 1,000 mg in 100 mls @ 400 mls/hr IV Q6H [facility] Last Infusion: 05/30/23 09:18 Dose: Infused Documented By: TRUDY Lisinopril (Lisinopril 10 Mg Tablet) 10 mg PO DAILY [facility] Last Admin: 05/29/23 08:49 Dose: 10 mg Documented By: YAMINI Lorazepam (Lorazepam 1 Mg Tablet) 1 mg PO BEDTIME PRN PRN Reason: Sleep Last Admin: 05/28/23 21:47 Dose: 1 mg Documented By: EVONNE Ondansetron HCl (Ondansetron Hcl 4 Mg/2 Ml Vial) 4 mg IVPUSH Q8H PRN PRN Reason: Nausea and Vomiting Ondansetron HCl (Ondansetron Hcl 4 Mg/2 Ml Vial) 4 mg IVPUSH ONCE PRN PRN Reason: Nausea and Vomiting Pantoprazole Sodium (Pantoprazole Sodium 40 Mg/10 Ml Vial) 40 mg IVPUSH BID@0630,1630 [facility] Last Admin: 05/30/23 05:46 Dose: 40 mg Documented By: JESSICA Sodium Chloride (0.9 % Sodium Chloride Flush 3 Ml Syringe) 3 ml IVFLUSH QSHIFT [facility] Last Admin: 05/30/23 07:50 Dose: Not Given Documented By: TRUDY Non-Admin Reason: IV Running Thiamine HCl (Thiamine Hcl 100 Mg Tablet) 100 mg PO DAILY [facility] Last Admin: 05/29/23 08:49 Dose: 100 mg Documented By: YAMINI Castrejon 05/28/23 05:27 05/27/23 09:00 Procedures Date of Service Date of Service: 05/31/23 Progress Note: A&P Assessment and plan (1) Perforated duodenal bulb ulcer: Status: Acute Assessment and Plan: s/p omental patch still with pain issues CT, contrast study do not show leak MACY drain - clear, slightly serosanguinous, thin pain mgt will keep on sips, ice chips for now PPI Time Spent With Patient Time: Total time managing care of this patient today ____ minutes. Quality Stroke Does the patient have a stroke diagnosis?: No VTE Prior VTE?: No VTE Risk Level:: Medical - moderate - high VTE Device Contraindication: N/A - Device Ordered VTE Drug Contraindication: Treatment Not Indicated
[2023-05-30] MEDS: Thiamine HCL 100 MG TABLET PO (10:03)
[2023-05-30] MEDS: lisinopriL 10 MG TABLET PO (10:03)
[2023-05-30] MEDS: amLODIPine Besylate 2.5 MG TABLET PO (10:03)
[2023-05-30] MEDS: atenoloL 25 MG TABLET PO (10:03)
[2023-05-30 15:12] VITALS: BP 104/52; PULSE 73; RESP 18; TEMP 36.3; O2SAT 99
--- NOTE | 2023-05-30 16:36 | PM.EVENT ---
Event Note Date of Service: 06/02/23 Event Note: pain better controlled had BMs, flatus ambulated in room drain - thin, serous, cw ascites continue current care on sips of clears PPI Time Spent With Patient Time: Total time managing care of this patient today ____ minutes.
[2023-05-30 19:31] VITALS: BP 101/50; PULSE 68; RESP 18; TEMP 36.3; O2SAT 99
[2023-05-30] MEDS: 0.9 % Sodium Chloride Flush 3 ML SYRINGE IVFLUSH (20:12)
[2023-05-30 20:56] VITALS: RESP 16
[2023-05-31] VITALS (7 sets, daily range): BP systolic 95–108; BP diastolic 48–53; PULSE 61–73; RESP 16–18; TEMP 36.1–36.4; O2SAT 97–100
[2023-05-31] MEDS: HYDROmorphone HCl 0.5 MG/0.5 ML SYRINGE IVPUSH ×5 (00:48→22:38)
[2023-05-31] MEDS: Acetaminophen 1,000 MG/100 ML PIGGYBACK 400 MG IV (03:27)
[2023-05-31] MEDS: Piperacillin Sodium/Tazobactam 3.375 GM in 0.9 % Sodium Chloride 50 ML IV ×4 (05:37→22:38)
[2023-05-31] MEDS: 0.9 % Sodium Chloride 1,000 ML 80 ML IVCONT ×2 (05:37→16:06)
[2023-05-31] MEDS: Pantoprazole Sodium 40 MG/10 ML VIAL IVPUSH ×2 (05:37→16:03)
--- NOTE | 2023-05-31 06:57 | PC.NURSE ---
Assumed care of patient at 19:15 (05/30). Pt is A&ox4. VSS. Pt remains NPO with okay for ice chips per MD written order. Tolerating this without n/v. Continues on PPI. LBM 05/30. Midline incision remains [employer]ERNOR [employer]SEMBLER with nicholas, c/d/i. RLQ MACY drain with thin, light serosanguinous output to bulb sx. Achieving [id number] on IS. Pain well managed with IV tylenol and prn dilaudid x1 this shift. Handoff report given 06:45.
[2023-05-31] MEDS: Thiamine HCL 100 MG TABLET PO (08:30)
[2023-05-31] MEDS: lisinopriL 10 MG TABLET PO (08:30)
[2023-05-31] MEDS: atenoloL 25 MG TABLET PO (08:30)
[2023-05-31] MEDS: Heparin Sodium,Porcine 5,000 UNIT/ML VIAL 5000 UNIT SUBCUT ×3 (08:31→22:40)
--- NOTE | 2023-05-31 10:07 | P.PNGS_ITS ---
Subjective Subjective Date of Service: 05/31/23 Interval history: say he slept well asking for better food still asks for Dilaudid for pain periodically has been ambulating Physical Exam 2 Vital Signs: Vital Signs: Last Vital Signs Temp 97.0 F 05/31/23 07:56 Pulse 73 05/31/23 07:56 Resp 18 05/31/23 07:56 BP 98/53 L 05/31/23 07:56 Pulse Ox 100 05/31/23 07:56 O2 Del Method Room Air 05/31/23 07:56 O2 Flow Rate 2 05/25/23 17:10 BMI result Body Mass Index 21.4 Const: Other: looks well General: comfortable and no acute distress Resp: Effort & Inspection: normal respiratory effort Cardio: Rate: regular rate GI: Other: MACY drain - clear serosanguinous, ascitic looking, nonbilious Palpation (GI): Soft to palpation, not firm, Tenderness to palpation present (GI) (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 still operator mostly along incision) and no guarding Objective Data Active Medications Albuterol Sulfate (Albuterol Sulfate (0.083%) 2.5 Mg/3 Ml Vial.Neb) 2.5 mg INHALE ONCE PRN PRN Reason: Wheezing Amlodipine Besylate (Amlodipine Besylate 2.5 Mg Tablet) 2.5 mg PO DAILY [facility]; Protocol Last Admin: 05/31/23 08:28 Dose: Not Given Documented By: LEXY Non-Admin Reason: Decreased Blood Pressure Atenolol (Atenolol 25 Mg Tablet) 25 mg PO DAILY [facility]; Protocol Last Admin: 05/31/23 08:30 Dose: 25 mg Documented By: LEXY Heparin Sodium (Porcine) (Heparin Sodium,Porcine 5,000 Unit/Ml Vial) 5,000 unit SUBCUT Q8H [facility] Last Admin: 05/31/23 08:31 Dose: 5,000 unit Documented By: LEXY Hydromorphone HCl (Hydromorphone Hcl 0.5 Mg/0.5 Ml Syringe) 0.5 mg IVPUSH Q5M PRN; Protocol PRN Reason: Pain, Severe (Pain Scale 7-10) Last Admin: 05/25/23 14:50 Dose: 0.5 mg Documented By: JUAN Hydromorphone HCl (Hydromorphone Hcl 0.5 Mg/0.5 Ml Syringe) 0.25 mg IVPUSH Q5M PRN; Protocol PRN Reason: Pain, Severe (Pain Scale 7-10) Hydromorphone HCl (Hydromorphone Hcl 0.5 Mg/0.5 Ml Syringe) 0.5 mg IVPUSH Q3H PRN; Protocol PRN Reason: Pain, Severe (Pain Scale 7-10) Last Admin: 05/31/23 08:30 Dose: 0.5 mg Documented By: LEXY Piperacillin Sod/Tazobactam (Sod 3.375 gm/ Sodium Chloride) 50 mls @ 100 mls/hr IV Q6H [facility] Last Admin: 05/31/23 09:38 Dose: 100 mls/hr Documented By: LEXY Sodium Chloride (Ns) 1,000 mls @ 80 mls/hr IVCONT .[id number] [facility] Last Admin: 05/31/23 05:37 Dose: 80 mls/hr Documented By: JESSICA Lisinopril (Lisinopril 10 Mg Tablet) 10 mg PO DAILY [facility] Last Admin: 05/31/23 08:30 Dose: 10 mg Documented By: LEXY Lorazepam (Lorazepam 1 Mg Tablet) 1 mg PO BEDTIME PRN PRN Reason: Sleep Last Admin: 05/28/23 21:47 Dose: 1 mg Documented By: EVONNE Ondansetron HCl (Ondansetron Hcl 4 Mg/2 Ml Vial) 4 mg IVPUSH Q8H PRN PRN Reason: Nausea and Vomiting Ondansetron HCl (Ondansetron Hcl 4 Mg/2 Ml Vial) 4 mg IVPUSH ONCE PRN PRN Reason: Nausea and Vomiting Pantoprazole Sodium (Pantoprazole Sodium 40 Mg/10 Ml Vial) 40 mg IVPUSH BID@0630,1630 [facility] Last Admin: 05/31/23 05:37 Dose: 40 mg Documented By: JESSICA Sodium Chloride (0.9 % Sodium Chloride Flush 3 Ml Syringe) 3 ml IVFLUSH QSHIFT [facility] Last Admin: 05/31/23 08:31 Dose: Not Given Documented By: LEXY Non-Admin Reason: IV Running Thiamine HCl (Thiamine Hcl 100 Mg Tablet) 100 mg PO DAILY [facility] Last Admin: 05/31/23 08:30 Dose: 100 mg Documented By: FOGARTB Labs 05/28/23 05:27 05/27/23 09:00 Microbiology Microbiology Results: Microbiology 05/25/23 10:27 Blood Culture - Final Blood - Venous No growth after 5 days. 05/25/23 10:02 Blood Culture - Final Blood - Venous No growth after 5 days. Procedures Date of Service Date of Service: 05/31/23 Progress Note: A&P Assessment and plan (1) Perforated duodenal bulb ulcer: Status: Acute Assessment and Plan: s/p omental patch looks well no fever still gets Dilaudid - I asked him to see if he can slow down on this clear liquids MACY drain output appears ascitic, non bilious he has been ambulating, looks well PPI will see if we can advance diet tomorrow (POD 7 tomorrow) Time Spent With Patient Time: Total time managing care of this patient today ____ minutes. Quality Stroke Does the patient have a stroke diagnosis?: No VTE Prior VTE?: No VTE Risk Level:: Medical - moderate - high VTE Device Contraindication: N/A - Device Ordered VTE Drug Contraindication: Treatment Not Indicated
[2023-05-31] MEDS: LORazepam 1 MG TABLET PO (22:37)
[2023-06-01] VITALS (7 sets, daily range): BP systolic 98–120; BP diastolic 48–64; PULSE 64–77; RESP 17–18; TEMP 36–36.6; O2SAT 94–100
[2023-06-01 05:46] LABS: Hematocrit 26.5 % (42.0-52.0); Hemoglobin 8.2 g/dl (14.0-18.0); Mean Corpuscular HGB Conc 30.9 g/dl (31.0-36.0); Mean Corpuscular Hemoglobin 28.5 pg (27.0-33.0); NRBC Pct Auto 0.1 /100WBC (0.0-0.2); Platelet Count 526 X10*3/uL (160-400); Red Blood Count 2.88 X10*6/uL (4.60-5.80); Red Cell Distribution Width 16.5 % (11.0-16.0); White Blood Count 13.7 X10*3/uL (4.8-10.8)
[2023-06-01] MEDS: Piperacillin Sodium/Tazobactam 3.375 GM in 0.9 % Sodium Chloride 50 ML IV ×4 (05:47→22:29)
[2023-06-01] MEDS: Pantoprazole Sodium 40 MG/10 ML VIAL IVPUSH ×2 (05:48→15:41)
[2023-06-01 06:00] LABS: Anion Gap 19 (12-20); Blood Urea Nitrogen 35 mg/dL (9-16); Calcium 8.2 mg/dL (8.4-10.2); Carbon Dioxide 12 mmol/L (22-29); Chloride 110 mmol/L (96-108); Creatinine Clr Calc Pharmacy 19.6; Estimated Glomerular Filt Rate 17; Glucose Random 95 mg/dL (60-115); Potassium 4.6 mmol/L (3.3-5.1); Sodium 136 mmol/L (135-145)
[2023-06-01] MEDS: Heparin Sodium,Porcine 5,000 UNIT/ML VIAL 5000 UNIT SUBCUT ×3 (06:42→22:12)
--- NOTE | 2023-06-01 08:04 | PM.PNGS ---
Subjective Subjective Date of Service: 06/01/23 Interval history: no events reported Had been tolerating liquids Has bowel movements flatus Ambulating Feels better Physical Exam Vital Signs: Vital Signs: Last Vital Signs Temp 98 F 06/01/23 07:07 Pulse 64 06/01/23 07:07 Resp 17 06/01/23 07:07 BP 106/54 L 06/01/23 07:07 Pulse Ox 96 06/01/23 07:07 O2 Del Method Room Air 06/01/23 07:07 O2 Flow Rate 2 05/25/23 17:10 BMI result Body Mass Index 21.4 Const: General: comfortable and no acute distress Resp: Effort & Inspection: normal respiratory effort Cardio: Rate: regular rate GI: Other: drain- clear serous Palpation (GI): Soft to palpation, not firm and no guarding Objective Data Active Medications Albuterol Sulfate (Albuterol Sulfate (0.083%) 2.5 Mg/3 Ml Vial.Neb) 2.5 mg INHALE ONCE PRN PRN Reason: Wheezing Amlodipine Besylate (Amlodipine Besylate 2.5 Mg Tablet) 2.5 mg PO DAILY [facility]; Protocol Last Admin: 05/31/23 08:28 Dose: Not Given Documented By: LEXY Non-Admin Reason: Decreased Blood Pressure Atenolol (Atenolol 25 Mg Tablet) 25 mg PO DAILY [facility]; Protocol Last Admin: 05/31/23 08:30 Dose: 25 mg Documented By: LEXY Heparin Sodium (Porcine) (Heparin Sodium,Porcine 5,000 Unit/Ml Vial) 5,000 unit SUBCUT Q8H [facility] Last Admin: 06/01/23 06:42 Dose: 5,000 unit Documented By: KLARISSA Hydromorphone HCl (Hydromorphone Hcl 0.5 Mg/0.5 Ml Syringe) 0.5 mg IVPUSH Q5M PRN; Protocol PRN Reason: Pain, Severe (Pain Scale 7-10) Last Admin: 05/25/23 14:50 Dose: 0.5 mg Documented By: JUAN Hydromorphone HCl (Hydromorphone Hcl 0.5 Mg/0.5 Ml Syringe) 0.25 mg IVPUSH Q5M PRN; Protocol PRN Reason: Pain, Severe (Pain Scale 7-10) Hydromorphone HCl (Hydromorphone Hcl 0.5 Mg/0.5 Ml Syringe) 0.5 mg IVPUSH Q3H PRN; Protocol PRN Reason: Pain, Severe (Pain Scale 7-10) Last Admin: 05/31/23 22:38 Dose: 0.5 mg Documented By: KLARISSA Piperacillin Sod/Tazobactam (Sod 3.375 gm/ Sodium Chloride) 50 mls @ 100 mls/hr IV Q6H [facility] Last Infusion: 06/01/23 06:31 Dose: Infused Documented By: KLARISSA Sodium Chloride (Ns) 1,000 mls @ 80 mls/hr IVCONT .[id number] [facility] Last Infusion: 06/01/23 06:37 Dose: Infused Documented By: KLARISSA Lisinopril (Lisinopril 10 Mg Tablet) 10 mg PO DAILY [facility] Last Admin: 05/31/23 08:30 Dose: 10 mg Documented By: LEXY Lorazepam (Lorazepam 1 Mg Tablet) 1 mg PO BEDTIME PRN PRN Reason: Sleep Last Admin: 05/31/23 22:37 Dose: 1 mg Documented By: KLARISSA Ondansetron HCl (Ondansetron Hcl 4 Mg/2 Ml Vial) 4 mg IVPUSH Q8H PRN PRN Reason: Nausea and Vomiting Ondansetron HCl (Ondansetron Hcl 4 Mg/2 Ml Vial) 4 mg IVPUSH ONCE PRN PRN Reason: Nausea and Vomiting Pantoprazole Sodium (Pantoprazole Sodium 40 Mg/10 Ml Vial) 40 mg IVPUSH BID@0630,1630 [facility] Last Admin: 06/01/23 05:48 Dose: 40 mg Documented By: KLARISSA Sodium Chloride (0.9 % Sodium Chloride Flush 3 Ml Syringe) 3 ml IVFLUSH QSHIFT [facility] Last Admin: 06/01/23 07:29 Dose: Not Given Documented By: BERNIE Non-Admin Reason: IV Running Thiamine HCl (Thiamine Hcl 100 Mg Tablet) 100 mg PO DAILY [facility] Last Admin: 05/31/23 08:30 Dose: 100 mg Documented By: LEXY Labs 06/01/23 04:55 06/01/23 04:55 Labs: Laboratory Results - last 24 hr 01/22/24 04:55 MCV 92.0 MCH 28.5 MCHC 30.9 L RDW 16.5 H Plt Count 526 H D MPV 9.0 L Absolute Nucleated RBC 0.020 H Nucleated RBC % (auto) 0.1 Anion Gap 19 Estim Creat Clear Calc 19.6 Estimated GFR 17 Random Glucose 95 Calcium 8.2 L Procedures Date of Service Date of Service: 06/01/23 Progress Note: A&P Assessment and plan (1) Perforated duodenal bulb ulcer: Status: Acute Assessment and Plan: s/p repair creatinine rising, with subsequent low bicarb pt does have CKD await Hospitalist ffup full liquids diet WBC down Looks well MACY drain output ascitic, nonbilious Time Spent With Patient Time: Total time managing care of this patient today ____ minutes. Quality Stroke Does the patient have a stroke diagnosis?: No VTE Prior VTE?: No VTE Risk Level:: Medical - moderate - high VTE Device Contraindication: N/A - Device Ordered VTE Drug Contraindication: Treatment Not Indicated
[2023-06-01] MEDS: Thiamine HCL 100 MG TABLET PO (08:44)
[2023-06-01] MEDS: HYDROmorphone HCl 0.5 MG/0.5 ML SYRINGE IVPUSH ×3 (08:45→22:40)
[2023-06-01] MEDS: atenoloL 25 MG TABLET PO (08:45)
[2023-06-01] MEDS: 0.9 % Sodium Chloride 1,000 ML 80 ML IVCONT (08:47)
--- NOTE | 2023-06-01 08:49 | HO.PM.IMPN ---
Subjective Subjective Date of Service: 06/01/23 Interval History: [facility] Review of Systems Review of Systems: Yes all other systems are reviewed and are negative Physical Exam Vital Signs: Vital Signs: Last Vital Signs Temp 98 F 06/01/23 07:07 Pulse 64 06/01/23 07:07 Resp 17 06/01/23 07:07 BP 106/54 L 06/01/23 07:07 Pulse Ox 96 06/01/23 07:07 O2 Del Method Room Air 06/01/23 07:07 O2 Flow Rate 2 05/25/23 17:10 BMI result Body Mass Index 21.4 GI: Other: drain- clear serous Objective Data Active Medications Albuterol Sulfate (Albuterol Sulfate (0.083%) 2.5 Mg/3 Ml Vial.Neb) 2.5 mg INHALE ONCE PRN PRN Reason: Wheezing Amlodipine Besylate (Amlodipine Besylate 2.5 Mg Tablet) 2.5 mg PO DAILY [facility]; Protocol Last Admin: 05/31/23 08:28 Dose: Not Given Atenolol (Atenolol 25 Mg Tablet) 25 mg PO DAILY [facility]; Protocol Last Admin: 06/01/23 08:45 Dose: 25 mg Documented By: BERNIE Heparin Sodium (Porcine) (Heparin Sodium,Porcine 5,000 Unit/Ml Vial) 5,000 unit SUBCUT Q8H [facility] Last Admin: 06/01/23 06:42 Dose: 5,000 unit Documented By: KLARISSA Hydromorphone HCl (Hydromorphone Hcl 0.5 Mg/0.5 Ml Syringe) 0.5 mg IVPUSH Q5M PRN; Protocol PRN Reason: Pain, Severe (Pain Scale 7-10) Last Admin: 05/25/23 14:50 Dose: 0.5 mg Documented By: JUAN Hydromorphone HCl (Hydromorphone Hcl 0.5 Mg/0.5 Ml Syringe) 0.25 mg IVPUSH Q5M PRN; Protocol PRN Reason: Pain, Severe (Pain Scale 7-10) Hydromorphone HCl (Hydromorphone Hcl 0.5 Mg/0.5 Ml Syringe) 0.5 mg IVPUSH Q3H PRN; Protocol PRN Reason: Pain, Severe (Pain Scale 7-10) Last Admin: 06/01/23 08:45 Dose: 0.5 mg Documented By: BERNIE Piperacillin Sod/Tazobactam (Sod 3.375 gm/ Sodium Chloride) 50 mls @ 100 mls/hr IV Q6H [facility] Last Infusion: 06/01/23 06:31 Dose: Infused Documented By: KLARISSA Sodium Bicarbonate 150 meq/ (Dextrose) 1,000 mls @ 80 mls/hr IV .[id number] [facility] Lisinopril (Lisinopril 10 Mg Tablet) 10 mg PO DAILY [facility] Last Admin: 05/31/23 08:30 Dose: 10 mg Lorazepam (Lorazepam 1 Mg Tablet) 1 mg PO BEDTIME PRN PRN Reason: Sleep Last Admin: 05/31/23 22:37 Dose: 1 mg Documented By: KLARISSA Ondansetron HCl (Ondansetron Hcl 4 Mg/2 Ml Vial) 4 mg IVPUSH Q8H PRN PRN Reason: Nausea and Vomiting Ondansetron HCl (Ondansetron Hcl 4 Mg/2 Ml Vial) 4 mg IVPUSH ONCE PRN PRN Reason: Nausea and Vomiting Pantoprazole Sodium (Pantoprazole Sodium 40 Mg/10 Ml Vial) 40 mg IVPUSH BID@0630,1630 [facility] Last Admin: 06/01/23 05:48 Dose: 40 mg Documented By: KLARISSA Sodium Chloride (0.9 % Sodium Chloride Flush 3 Ml Syringe) 3 ml IVFLUSH QSHIFT [facility] Last Admin: 06/01/23 07:29 Dose: Not Given Documented By: BERNIE Non-Admin Reason: IV Running Thiamine HCl (Thiamine Hcl 100 Mg Tablet) 100 mg PO DAILY [facility] Last Admin: 06/01/23 08:44 Dose: 100 mg Documented By: BERNIE Labs 06/01/23 04:55 06/01/23 04:55 Labs: Laboratory Results - last 24 hr 06/01/23 04:55 MCV 92.0 MCH 28.5 MCHC 30.9 L RDW 16.5 H Plt Count 526 H D MPV 9.0 L Absolute Nucleated RBC 0.020 H Nucleated RBC % (auto) 0.1 Anion Gap 19 Estim Creat Clear Calc 19.6 Estimated GFR 17 Random Glucose 95 Calcium 8.2 L Assessment and Plan (1) GINA (acute kidney injury): Status: Acute Plan 72M PMH Right sided lung cancer s/p RLL resection and chemotherapy, ckd stage 4, htn, hld, hx cva, and macular degeneration admitted for general surgery for management of duodenal performation s/o laparotomy with omental patching of a perforated ulcer, now complicated by gina on ckd IV and acute metbaolic acidosis Perforated duodenal ulcer s/p li patch management per primary team gina on ckd IV baseline creatinine around 2-2.5, now 3.65 complicated by acute non anion gap metabolic hyperchloremic acidosis hold amlodipine and lisinopril (bp borderline low) change ns to d5w with 3 amp bicarb at 80cc/hr, monitor bmp HTN holding ccb and frandy continue beta elvis for now Hx lung cancer s/p RLL resection, chemotherapy follows with [facility] onc. Recent PET scan showed multiple lymph nodes in neck, chest, and abd outpt follow up Quality Stroke Does the patient have a stroke diagnosis?: No VTE Prior VTE?: No VTE Risk Level:: Medical - moderate - high VTE Device Contraindication: N/A - Device Ordered VTE Drug Contraindication: Treatment Not Indicated
[2023-06-01] MEDS: Sodium Bicarbonate 8.4% 150 MEQ in Dextrose 5 % 850 ML 80 MEQ IV (10:23)
--- NOTE | 2023-06-01 13:24 | MHC.CM.PN ---
Per MD rounds no discharge today. DP home selfcare, patient will arrange for transport home.
[2023-06-01] MEDS: 0.9 % Sodium Chloride Flush 3 ML SYRINGE IVFLUSH (15:42)
[2023-06-01] MEDS: LORazepam 1 MG TABLET PO (22:40)
[2023-06-02] VITALS (10 sets, daily range): BP systolic 92–135; BP diastolic 47–59; PULSE 56–93; RESP 14–20; TEMP 36.2–37.1; O2SAT 93–100
[2023-06-02] MEDS: Piperacillin Sodium/Tazobactam 3.375 GM in 0.9 % Sodium Chloride 50 ML IV ×4 (04:46→22:06)
[2023-06-02] MEDS: Sodium Bicarbonate 8.4% 150 MEQ in Dextrose 5 % 850 ML 80 MEQ IV ×2 (04:47→22:13)
[2023-06-02] MEDS: HYDROmorphone HCl 0.5 MG/0.5 ML SYRINGE IVPUSH ×4 (04:49→22:08)
[2023-06-02 05:47] LABS: Hematocrit 24.4 % (42.0-52.0); Hemoglobin 7.7 g/dl (14.0-18.0); Mean Corpuscular HGB Conc 31.6 g/dl (31.0-36.0); Mean Corpuscular Hemoglobin 29.1 pg (27.0-33.0); Mean Corpuscular Volume 92.1 fL (80.0-98.0); Mean Platelet Volume 9.7 fL (9.4-12.4); Platelet Count 396 X10*3/uL (160-400); Red Blood Count 2.65 X10*6/uL (4.60-5.80); Red Cell Distribution Width 16.8 % (11.0-16.0); White Blood Count 15.5 X10*3/uL (4.8-10.8)
[2023-06-02] MEDS: Heparin Sodium,Porcine 5,000 UNIT/ML VIAL 5000 UNIT SUBCUT ×3 (05:52→22:09)
[2023-06-02] MEDS: Pantoprazole Sodium 40 MG/10 ML VIAL IVPUSH (05:52)
[2023-06-02 06:07] LABS: Anion Gap 20 (12-20); Blood Urea Nitrogen 38 mg/dL (9-16); Carbon Dioxide 13 mmol/L (22-29); Chloride 107 mmol/L (96-108); Creatinine Clr Calc Pharmacy 17.9; Estimated Glomerular Filt Rate 15; Glucose Fasting 124 mg/dL (60-99); Potassium 4.2 mmol/L (3.3-5.1); Sodium 136 mmol/L (135-145)
[2023-06-02] MEDS: Thiamine HCL 100 MG TABLET PO (08:21)
[2023-06-02] MEDS: atenoloL 25 MG TABLET PO (08:22)
--- NOTE | 2023-06-02 09:34 | P.PNIM_ITS ---
Subjective Subjective Date of Service: 06/02/23 Interval History: in pain Physical Exam 2 Vital Signs: Vital Signs: Last Vital Signs Temp 98 F 06/02/23 07:02 Pulse 77 06/02/23 07:02 Resp 17 06/02/23 07:02 BP 106/52 L 06/02/23 07:02 Pulse Ox 99 06/02/23 07:02 O2 Del Method Room Air 06/02/23 07:02 O2 Flow Rate 2 05/25/23 17:10 BMI result Body Mass Index 21.4 GI: Other: drain- clear serous Objective Data Active Medications Amlodipine Besylate (Amlodipine Besylate 2.5 Mg Tablet) 2.5 mg PO DAILY [facility]; Protocol Last Admin: 05/31/23 08:28 Dose: Not Given Atenolol (Atenolol 25 Mg Tablet) 25 mg PO DAILY [facility]; Protocol Last Admin: 06/02/23 08:22 Dose: 25 mg Documented By: BERNIE Heparin Sodium (Porcine) (Heparin Sodium,Porcine 5,000 Unit/Ml Vial) 5,000 unit SUBCUT Q8H [facility] Last Admin: 06/02/23 05:52 Dose: 5,000 unit Documented By: RUBEN Hydromorphone HCl (Hydromorphone Hcl 0.5 Mg/0.5 Ml Syringe) 0.5 mg IVPUSH Q5M PRN; Protocol PRN Reason: Pain, Severe (Pain Scale 7-10) Last Admin: 05/25/23 14:50 Dose: 0.5 mg Documented By: JUAN Hydromorphone HCl (Hydromorphone Hcl 0.5 Mg/0.5 Ml Syringe) 0.25 mg IVPUSH Q5M PRN; Protocol PRN Reason: Pain, Severe (Pain Scale 7-10) Hydromorphone HCl (Hydromorphone Hcl 0.5 Mg/0.5 Ml Syringe) 0.5 mg IVPUSH Q3H PRN; Protocol PRN Reason: Pain, Severe (Pain Scale 7-10) Last Admin: 06/02/23 09:31 Dose: 0.5 mg Documented By: BERNIE Piperacillin Sod/Tazobactam (Sod 3.375 gm/ Sodium Chloride) 50 mls @ 100 mls/hr IV Q6H [facility] Last Infusion: 06/02/23 05:25 Dose: Infused Documented By: RUBEN Sodium Bicarbonate 150 meq/ (Dextrose) 1,000 mls @ 80 mls/hr IV .[id number] [facility] Last Admin: 06/02/23 04:47 Dose: 80 mls/hr Documented By: RUBEN Lisinopril (Lisinopril 10 Mg Tablet) 10 mg PO DAILY [facility] Last Admin: 05/31/23 08:30 Dose: 10 mg Lorazepam (Lorazepam 1 Mg Tablet) 1 mg PO BEDTIME PRN PRN Reason: Sleep Last Admin: 06/01/23 22:40 Dose: 1 mg Documented By: RUBEN Ondansetron HCl (Ondansetron Hcl 4 Mg/2 Ml Vial) 4 mg IVPUSH Q8H PRN PRN Reason: Nausea and Vomiting Ondansetron HCl (Ondansetron Hcl 4 Mg/2 Ml Vial) 4 mg IVPUSH ONCE PRN PRN Reason: Nausea and Vomiting Pantoprazole Sodium (Pantoprazole Sodium 40 Mg/10 Ml Vial) 40 mg IVPUSH BID@0630,1630 [facility] Last Admin: 06/02/23 05:52 Dose: 40 mg Documented By: RUBEN Sodium Chloride (0.9 % Sodium Chloride Flush 3 Ml Syringe) 3 ml IVFLUSH QSHIFT [facility] Last Admin: 06/02/23 08:15 Dose: Not Given Documented By: BERNIE Non-Admin Reason: IV Running Thiamine HCl (Thiamine Hcl 100 Mg Tablet) 100 mg PO DAILY [facility] Last Admin: 06/02/23 08:21 Dose: 100 mg Documented By: BERNIE Labs 06/02/23 04:56 06/02/23 04:56 Labs: Laboratory Results - last 24 hr 06/02/23 04:56 MCV 92.1 MCH 29.1 MCHC 31.6 RDW 16.8 H Plt Count 396 MPV 9.7 Absolute Nucleated RBC 0.000 Nucleated RBC % (auto) 0.0 Anion Gap 20 Estim Creat Clear Calc 17.9 Estimated GFR 15 Fasting Glucose 124 H Calcium 8.0 L Assessment and Plan (1) GINA (acute kidney injury): Status: Acute Plan 72M PMH Right sided lung cancer s/p RLL resection and chemotherapy, ckd stage 4, htn, hld, hx cva, and macular degeneration admitted for general surgery for management of duodenal performation s/o laparotomy with omental patching of a perforated ulcer, now complicated by gina on ckd IV and acute metbaolic acidosis Perforated duodenal ulcer s/p li patch management per primary team gina on ckd IV baseline creatinine around 2-2.5, now 3.98 complicated by acute non anion gap metabolic hyperchloremic acidosis continue to hold amlodipine and lisinopril (bp borderline low) changed ns to d5w with 3 amp bicarb at 80cc/hr, monitor bmp will request nephro eval as not improving on IV fluids HTN holding bp meds for low normal bps and gina Hx lung cancer s/p RLL resection, chemotherapy follows with [facility] onc. Recent PET scan showed multiple lymph nodes in neck, chest, and abd outpt follow up Quality Stroke Does the patient have a stroke diagnosis?: No VTE Prior VTE?: No VTE Risk Level:: Medical - moderate - high VTE Device Contraindication: N/A - Device Ordered VTE Drug Contraindication: Treatment Not Indicated
--- NOTE | 2023-06-02 10:25 | P.PNGS_ITS ---
Subjective Subjective Date of Service: 06/02/23 <Jena Ayala PA-C - Last Filed: 06/02/23 10:28> 06/03/23 <Saravanan Ken MD - Last Filed: 06/03/23 12:52> Interval history: Tolerating full liquids but not eating much. Pain is controlled. < Jena Ayala PA-C - Last Filed: 06/02/23 10:28> Physical Exam 2 Vital Signs: Vital Signs: Last Vital Signs Temp 98 F 06/02/23 07:02 Pulse 77 06/02/23 07:02 Resp 17 06/02/23 07:02 BP 106/52 L 06/02/23 07:02 Pulse Ox 99 06/02/23 07:02 O2 Del Method Room Air 06/02/23 07:02 O2 Flow Rate 2 05/25/23 17:10 BMI result Body Mass Index 21.4 <Jena Ayala PA-C - Last Filed: 06/02/23 10:28> Const: General: comfortable, no acute distress and alert <Jena Ayala PA-C - Last Filed: 06/02/23 10:28> Orientation/consciousness: patient oriented x3 <Jena Ayala PA-C - Last Filed: 06/02/23 10:28> Resp: Effort & Inspection: normal respiratory effort <Jena Ayala PA-C - Last Filed: 06/02/23 10:28> GI: Other: MACY serous output <Jena Ayala PA-C - Last Filed: 06/02/23 10:28> Inspection: Yes distended (mild) and Yes incision (clean) <Jena Ayala PA-C - Last Filed: 06/02/23 10:28> Skin: General skin exam: no rashes or lesions noted <NYDIA Antoine Last Filed: 06/02/23 10:28> Neuro: General: patient oriented x3 and moves all extremities <NYDIA Antoine Last Filed: 06/02/23 10:28> Objective Data Active Medications Amlodipine Besylate (Amlodipine Besylate 2.5 Mg Tablet) 2.5 mg PO DAILY [facility]; Protocol Last Admin: 05/31/23 08:28 Dose: Not Given Atenolol (Atenolol 25 Mg Tablet) 25 mg PO DAILY [facility]; Protocol Last Admin: 06/02/23 08:22 Dose: 25 mg Documented By: BERNIE Heparin Sodium (Porcine) (Heparin Sodium,Porcine 5,000 Unit/Ml Vial) 5,000 unit SUBCUT Q8H [facility] Last Admin: 06/02/23 05:52 Dose: 5,000 unit Documented By: RUBEN Hydromorphone HCl (Hydromorphone Hcl 0.5 Mg/0.5 Ml Syringe) 0.5 mg IVPUSH Q5M PRN; Protocol PRN Reason: Pain, Severe (Pain Scale 7-10) Last Admin: 05/25/23 14:50 Dose: 0.5 mg Documented By: JUAN Hydromorphone HCl (Hydromorphone Hcl 0.5 Mg/0.5 Ml Syringe) 0.25 mg IVPUSH Q5M PRN; Protocol PRN Reason: Pain, Severe (Pain Scale 7-10) Hydromorphone HCl (Hydromorphone Hcl 0.5 Mg/0.5 Ml Syringe) 0.5 mg IVPUSH Q3H PRN; Protocol PRN Reason: Pain, Severe (Pain Scale 7-10) Last Admin: 06/02/23 09:31 Dose: 0.5 mg Documented By: BERNIE Piperacillin Sod/Tazobactam (Sod 3.375 gm/ Sodium Chloride) 50 mls @ 100 mls/hr IV Q6H [facility] Last Infusion: 06/02/23 05:25 Dose: Infused Documented By: RUBEN Sodium Bicarbonate 150 meq/ (Dextrose) 1,000 mls @ 80 mls/hr IV .[id number] [facility] Last Admin: 06/02/23 04:47 Dose: 80 mls/hr Documented By: RUBEN Lisinopril (Lisinopril 10 Mg Tablet) 10 mg PO DAILY [facility] Last Admin: 05/31/23 08:30 Dose: 10 mg Lorazepam (Lorazepam 1 Mg Tablet) 1 mg PO BEDTIME PRN PRN Reason: Sleep Last Admin: 06/01/23 22:40 Dose: 1 mg Documented By: RUBEN Ondansetron HCl (Ondansetron Hcl 4 Mg/2 Ml Vial) 4 mg IVPUSH Q8H PRN PRN Reason: Nausea and Vomiting Ondansetron HCl (Ondansetron Hcl 4 Mg/2 Ml Vial) 4 mg IVPUSH ONCE PRN PRN Reason: Nausea and Vomiting Pantoprazole Sodium (Pantoprazole Sodium 40 Mg/10 Ml Vial) 40 mg IVPUSH BID@0630,1630 [facility] Last Admin: 06/02/23 05:52 Dose: 40 mg Documented By: RUBEN Sodium Chloride (0.9 % Sodium Chloride Flush 3 Ml Syringe) 3 ml IVFLUSH QSHIFT [facility] Last Admin: 06/02/23 08:15 Dose: Not Given Documented By: BERNIE Non-Admin Reason: IV Running Thiamine HCl (Thiamine Hcl 100 Mg Tablet) 100 mg PO DAILY [facility] Last Admin: 06/02/23 08:21 Dose: 100 mg Documented By: BERNIE <Jena Ayala PA-C - Last Filed: 06/02/23 10:28> Labs CBC & Chem 7: 06/03/23 05:56 06/03/23 05:56 <Jena Ayala PA-C - Last Filed: 06/02/23 10:28> Labs: Laboratory Results - last 24 hr 06/02/23 04:56 MCV 92.1 MCH 29.1 MCHC 31.6 RDW 16.8 H Plt Count 396 MPV 9.7 Absolute Nucleated RBC 0.000 Nucleated RBC % (auto) 0.0 Anion Gap 20 Estim Creat Clear Calc 17.9 Estimated GFR 15 Fasting Glucose 124 H Calcium 8.0 L <Jena Ayala PA-C - Last Filed: 06/02/23 10:28> Procedures Date of Service Date of Service: 06/02/23 <Jena Ayala PA-C - Last Filed: 06/02/23 10:28> 06/03/23 <Saravanan Ken MD - Last Filed: 06/03/23 12:52> Progress Note: A&P Assessment and plan (1) Perforated duodenal bulb ulcer: Status: Acute <Jena Ayala PA-C - Last Filed: 06/02/23 10:28> Assessment and Plan: Says he still has periodic pain of his abdomen Tolerated full liquids Has BMs and flatus has been ambulating Incision clean MACY drain -remains clear, appears consistent with ascites Creatinine worsening Renal consult - he has chronic kidney disease Appreciate hospitalist follow-up Seen and examined independently Family updated <Saravanan Ken MD - Last Filed: 06/03/23 12:52> (2) GINA (acute kidney injury): Status: Acute <Jena Ayala PA-C - Last Filed: 06/02/23 10:28> (3) CKD (chronic kidney disease): Status: Acute <Jena Ayala PA-C - Last Filed: 06/02/23 10:28> Assessment and Plan: s/p repair GINA on CKD- hospitalists following, Cr worsening. Nephrology consulted Advance to solid diet PT, OOB/abmulation Will remove MACY if tolerating solid diet. <Jena Ayala PA-C - Last Filed: 06/02/23 10:28> Time Spent With Patient Time: Total time managing care of this patient today ____ minutes. <Jena Ayala PA-C - Last Filed: 06/02/23 10:28> Quality Stroke Does the patient have a stroke diagnosis?: No <Jena Ayala PA-C - Last Filed: 06/02/23 10:28> VTE Prior VTE?: No <Jena Ayala PA-C - Last Filed: 06/02/23 10:28> VTE Risk Level:: Medical - moderate - high <Jena Ayala PA-C - Last Filed: 06/02/23 10:28> VTE Device Contraindication: N/A - Device Ordered <Jena Ayala PA-C - Last Filed: 06/02/23 10:28> VTE Drug Contraindication: Treatment Not Indicated <Jena Ayala PA-C - Last Filed: 06/02/23 10:28>
--- NOTE | 2023-06-02 11:45 | MHC.CM.PN ---
Addendum entered by Laura Cobian RN 06/02/23 12:03: Per EMR patient is scheduled for chemotherapy next week. Will need oncologist input, as patient will not be able to receive tx while in STR. MD aware. Awaiting response. Original Note: EMR REVIEWED. PHYSICAL THERAPY IS RECOMMENDING STR FOR PATIENT. DISCUSSED WITH PATIENT WHO IS AGREEABLE TO PLAN. CHOICES ARE 1) [facility] 2) [facility] 3) [facility] 4) [facility]. REFERRALS SENT VIA [facility].
[2023-06-02] MEDS: Omeprazole 40 MG CAPSULE.DR PO (16:36)
[2023-06-02] MEDS: LORazepam 1 MG TABLET PO (22:09)
--- NOTE | 2023-06-02 23:50 | PM.EVENT ---
Event Note Date of Service: 06/02/23 Event Note: Pt seen and examined Full consult to follow 72M PMH Right sided lung cancer s/p RLL resection and chemotherapy, ckd stage 4, htn, hld, hx cva, and macular degeneration admitted for general surgery for management of duodenal performation s/o laparotomy with omental patching of a perforated ulcer 1. GINA - due to multifactorial GINA Prerenal/ ? ATN acute tubular injury/ Low BP/ Surgical insult No Obstruction Doubt Acute GN. AIN Pt was on an GRACIA 2. CKD stage 4 - F/u by Dr. Carlos 3. Non AG Met acidosis 4. HTN Now BP is low 5. Perforated duodenal ulcer s/p li patch baseline creatinine around 2-2.5, now 3.98 continue to hold amlodipine and lisinopril (bp borderline low) Agree with d5w with 3 amp bicarb- will increase rate to 125 ml/ hr Avodi Nephrotoxins Transfuse as needed Urine Studies ordered \Thx Will follow Dr. Spence Time Spent With Patient Time: Total time managing care of this patient today ____ minutes.
[2023-06-03 03:08] VITALS: BP 100/51; PULSE 75; RESP 18; TEMP 36.9; O2SAT 96
[2023-06-03] MEDS: Piperacillin Sodium/Tazobactam 3.375 GM in 0.9 % Sodium Chloride 50 ML IV ×2 (04:39→11:07)
[2023-06-03] MEDS: Omeprazole 40 MG CAPSULE.DR PO ×2 (04:40→16:38)
[2023-06-03] MEDS: Heparin Sodium,Porcine 5,000 UNIT/ML VIAL 5000 UNIT SUBCUT ×3 (04:41→22:35)
[2023-06-03 06:31] LABS: Anion Gap 19 (12-20); Blood Urea Nitrogen 41 mg/dL (9-16); Calcium 7.8 mg/dL (8.4-10.2); Carbon Dioxide 16 mmol/L (22-29); Chloride 104 mmol/L (96-108); Creatinine Clr Calc Pharmacy 17.9; Estimated Glomerular Filt Rate 15; Glucose Fasting 110 mg/dL (60-99); Potassium 3.9 mmol/L (3.3-5.1); Sodium 135 mmol/L (135-145)
[2023-06-03 06:40] LABS: Hematocrit 25.9 % (42.0-52.0); Hemoglobin 8.4 g/dl (14.0-18.0); Mean Corpuscular HGB Conc 32.4 g/dl (31.0-36.0); Mean Corpuscular Volume 89.3 fL (80.0-98.0); Mean Platelet Volume 9.8 fL (9.4-12.4); NRBC Pct Auto 0.2 /100WBC (0.0-0.2); Platelet Count 251 X10*3/uL (160-400); Red Cell Distribution Width 16.2 % (11.0-16.0)
[2023-06-03] MEDS: HYDROmorphone HCl 0.5 MG/0.5 ML SYRINGE IVPUSH ×4 (06:41→21:10)
[2023-06-03 07:09] VITALS: BP 107/51; PULSE 78; RESP 16; TEMP 36.9; O2SAT 94
[2023-06-03] MEDS: Thiamine HCL 100 MG TABLET PO (07:43)
[2023-06-03] MEDS: Sodium Bicarbonate 8.4% 150 MEQ in Dextrose 5 % 850 ML 125 MEQ IV ×2 (10:57→19:26)
[2023-06-03 11:52] VITALS: BP 112/54; PULSE 84; RESP 16; TEMP 36.7; O2SAT 96
--- NOTE | 2023-06-03 12:33 | P.PNGS_ITS ---
Subjective Subjective Date of Service: 06/03/23 <Jena Ayala PA-C - Last Filed: 06/03/23 12:35> 06/04/23 <Saravanan Ken MD - Last Filed: 06/04/23 10:46> Interval history: Did not have much solid food to eat but denies nausea or vomiting. Participating with PT. <Jena Ayala PA-C - Last Filed: 06/03/23 12:35> Physical Exam 2 Vital Signs: Vital Signs: Last Vital Signs Temp 98.1 F 06/03/23 11:52 Pulse 84 06/03/23 11:52 Resp 16 06/03/23 11:52 BP 112/54 L 06/03/23 11:52 Pulse Ox 96 06/03/23 11:52 O2 Del Method Room Air 06/03/23 11:52 O2 Flow Rate 2 05/25/23 17:10 BMI result Body Mass Index 21.4 <Jena Ayala PA-C - Last Filed: 06/03/23 12:35> Const: General: comfortable, no acute distress and alert <Jena Ayala PA-C - Last Filed: 06/03/23 12:35> Orientation/consciousness: patient oriented x3 <NYDIA Antoine Last Filed: 06/03/23 12:35> Resp: Effort & Inspection: normal respiratory effort <Jena Ayala PA-C - Last Filed: 06/03/23 12:35> GI: Other: MACY serous <Jena Ayala PA-C - Last Filed: 06/03/23 12:35> Inspection: No distended and Yes incision (clean) <NYDIA Antoine Last Filed: 06/03/23 12:35> Palpation (GI): Soft to palpation, Tenderness to palpation present (GI) (mild incisional), no guarding and not rigid <NYDIA Antoine Last Filed: 06/03/23 12:35> Skin: General skin exam: no rashes or lesions noted <NYDIA Antoine Last Filed: 06/03/23 12:35> Neuro: General: patient oriented x3 <Jena Ayala PA-C - Last Filed: 06/03/23 12:35> Objective Data Active Medications Amlodipine Besylate (Amlodipine Besylate 2.5 Mg Tablet) 2.5 mg PO DAILY [facility]; Protocol Last Admin: 05/31/23 08:28 Dose: Not Given Atenolol (Atenolol 25 Mg Tablet) 25 mg PO DAILY [facility]; Protocol Last Admin: 06/02/23 08:22 Dose: 25 mg Documented By: BERNIE Heparin Sodium (Porcine) (Heparin Sodium,Porcine 5,000 Unit/Ml Vial) 5,000 unit SUBCUT Q8H [facility] Last Admin: 06/03/23 04:41 Dose: 5,000 unit Documented By: RUBEN Hydromorphone HCl (Hydromorphone Hcl 0.5 Mg/0.5 Ml Syringe) 0.5 mg IVPUSH Q5M PRN; Protocol PRN Reason: Pain, Severe (Pain Scale 7-10) Last Admin: 05/25/23 14:50 Dose: 0.5 mg Documented By: JUAN Hydromorphone HCl (Hydromorphone Hcl 0.5 Mg/0.5 Ml Syringe) 0.25 mg IVPUSH Q5M PRN; Protocol PRN Reason: Pain, Severe (Pain Scale 7-10) Hydromorphone HCl (Hydromorphone Hcl 0.5 Mg/0.5 Ml Syringe) 0.5 mg IVPUSH Q3H PRN; Protocol PRN Reason: Pain, Severe (Pain Scale 7-10) Last Admin: 06/03/23 11:02 Dose: 0.5 mg Documented By: ABRAHAN Sodium Bicarbonate 150 meq/ (Dextrose) 1,000 mls @ 125 mls/hr IV .Q8H [facility] Last Admin: 06/03/23 10:57 Dose: 125 mls/hr Documented By: ABRAHAN Piperacillin Sod/Tazobactam (Sod 2.25 gm/ Sodium Chloride) 50 mls @ 100 mls/hr IV Q8H [facility] Lisinopril (Lisinopril 10 Mg Tablet) 10 mg PO DAILY [facility] Last Admin: 05/31/23 08:30 Dose: 10 mg Lorazepam (Lorazepam 1 Mg Tablet) 1 mg PO BEDTIME PRN PRN Reason: Sleep Last Admin: 06/02/23 22:09 Dose: 1 mg Documented By: RUBEN Omeprazole (Omeprazole 40 Mg Ean.) 40 mg PO BID@0630,1630 [facility] Last Admin: 06/03/23 04:40 Dose: 40 mg Documented By: RUBEN Ondansetron HCl (Ondansetron Hcl 4 Mg/2 Ml Vial) 4 mg IVPUSH Q8H PRN PRN Reason: Nausea and Vomiting Ondansetron HCl (Ondansetron Hcl 4 Mg/2 Ml Vial) 4 mg IVPUSH ONCE PRN PRN Reason: Nausea and Vomiting Sodium Chloride (0.9 % Sodium Chloride Flush 3 Ml Syringe) 3 ml IVFLUSH QSHIFT [facility] Last Admin: 06/03/23 07:54 Dose: Not Given Documented By: ABRAHAN Non-Admin Reason: IV Running Thiamine HCl (Thiamine Hcl 100 Mg Tablet) 100 mg PO DAILY [facility] Last Admin: 06/03/23 07:43 Dose: 100 mg Documented By: ABRAHAN <Jena Ayala PA-C - Last Filed: 06/03/23 12:35> Labs CBC & Chem 7: 06/04/23 05:08 06/04/23 05:08 <Jena Ayala PA-C - Last Filed: 06/03/23 12:35> Labs: Laboratory Results - last 24 hr 06/02/23 06/03/23 14:45 05:56 MCV 89.3 MCH 29.0 MCHC 32.4 RDW 16.2 H Plt Count 251 D MPV 9.8 Absolute Nucleated RBC 0.030 H Nucleated RBC % (auto) 0.2 Anion Gap 19 Estim Creat Clear Calc 17.9 Estimated GFR 15 Fasting Glucose 110 H Calcium 7.8 L Blood Type A Positive Antibody Screen NEGATIVE Crossmatch See Detail <Jena Ayala PA-C - Last Filed: 06/03/23 12:35> Procedures Date of Service Date of Service: 06/03/23 <Jena Ayala PA-C - Last Filed: 06/03/23 12:35> 06/04/23 <Saravanan Ken MD - Last Filed: 06/04/23 10:46> Progress Note: A&P Assessment and plan (1) GINA (acute kidney injury): Status: Acute <Jena Ayala PA-C - Last Filed: 06/03/23 12:35> (2) Perforated duodenal bulb ulcer: Status: Acute <Jena Ayala PA-C - Last Filed: 06/03/23 12:35> Assessment and Plan: tolerating diet passing flatus crea holding Drain with large amounts of output, clear, consistent with ascites followed by Renal exam benign <Saravanan Ken MD - Last Filed: 06/04/23 10:46> Assessment and Plan: Doing well from surgical standpoint. On solid diet, MACY drain nonbilious. Will remove. GINA on CKD- hospitalists following, Cr unchanged from yesterday. Nephrology following. PT, OOB/abmulation. <Jena Ayala PA-C - Last Filed: 06/03/23 12:35> Time Spent With Patient Time: Total time managing care of this patient today ____ minutes. <Jena Ayala PA-C - Last Filed: 06/03/23 12:35> Quality Stroke Does the patient have a stroke diagnosis?: No <Jena Ayala PA-C - Last Filed: 06/03/23 12:35> VTE Prior VTE?: No <Jena Ayala PA-C - Last Filed: 06/03/23 12:35> VTE Risk Level:: Medical - moderate - high <Jena Ayala PA-C - Last Filed: 06/03/23 12:35> VTE Device Contraindication: N/A - Device Ordered <Jena Ayala PA-C - Last Filed: 06/03/23 12:35> VTE Drug Contraindication: Treatment Not Indicated <Jena Ayala PA-C - Last Filed: 06/03/23 12:35>
--- NOTE | 2023-06-03 14:30 | MHC.CM.PN ---
PT recommends STR. [facility] are following for discharge. Patient is surgically clear. GINA/CKD are being followed by Nephrology. DP STR via BLS.
[2023-06-03] MEDS: Piperacillin Sodium/Tazobactam 2.25 GM in 0.9 % Sodium Chloride 50 ML IV ×2 (14:36→20:44)
[2023-06-03 14:57] VITALS: BP 109/52; PULSE 83; RESP 18; TEMP 36.8; O2SAT 97
[2023-06-03 19:23] VITALS: BP 113/56; PULSE 85; RESP 17; TEMP 37.2; O2SAT 95
[2023-06-03 21:06] LABS: Basophils Percent Auto 0.2 % (0-2); Eosinophils Absolute Auto 0.2 X10*3/uL (0.0-0.4); Eosinophils Percent Auto 0.9 % (0-4); Hematocrit 24.8 % (42.0-52.0); Hemoglobin 8.1 g/dl (14.0-18.0); Imm Gran Pct Auto 1.8 % (0.0-0.4); Lymphocytes Absolute Auto 1.9 X10*3/uL (1.2-4.9); Lymphocytes Percent Auto 11.6 % (20-40); MANUAL DIFF FLAG SCAN; Mean Corpuscular HGB Conc 32.7 g/dl (31.0-36.0); Mean Corpuscular Hemoglobin 28.7 pg (27.0-33.0); Mean Corpuscular Volume 87.9 fL (80.0-98.0); Mean Platelet Volume 9.7 fL (9.4-12.4); Monocytes Absolute Auto 2.2 X10*3/uL (0.1-1.2); Monocytes Percent Auto 13.5 % (2-11); NRBC Pct Auto 0.1 /100WBC (0.0-0.2); Neutrophils Absolute Auto 11.8 x10*3/uL (2.0-8.3); Platelet Count 261 X10*3/uL (160-400); Red Blood Count 2.82 X10*6/uL (4.60-5.80); Red Cell Distribution Width 16.2 % (11.0-16.0); SCAN SMEAR FLAG 1; White Blood Count 16.4 X10*3/uL (4.8-10.8)
[2023-06-03 21:07] LABS: VBG Base Excess 1.8 mmol/L; VBG HCO3 23 mmol/L (22-26); VBG pCO2 25 mmHg; VBG pH 7.56 (7.32-7.43); VBG pO2 63 mmHg
[2023-06-03 21:08] LABS: Venous Blood Gas Refer to POC result
[2023-06-03 21:17] LABS: Lactic Acid 1.8 mmol/L (0.5-2.0)
[2023-06-03 21:22] LABS: Alanine Aminotransferase 24 U/L (0-40); Albumin Level 2.4 g/dL (3.5-5.0); Alkaline Phosphatase 736 U/L (39-117); Anion Gap 18 (12-20); Aspartate Amino Transferase 44 U/L (5-37); Bilirubin Total 0.5 mg/dL (0.0-1.0); Blood Urea Nitrogen 41 mg/dL (9-16); Calcium 7.7 mg/dL (8.4-10.2); Carbon Dioxide 20 mmol/L (22-29); Chloride 100 mmol/L (96-108); Estimated Glomerular Filt Rate 17; Glucose Random 131 mg/dL (60-115); Potassium 4.1 mmol/L (3.3-5.1); Sodium 134 mmol/L (135-145); Total Protein 5.7 g/dL (6.5-8.0)
[2023-06-03 21:35] LABS: SLIDE REVIEW VERIFIED
[2023-06-03] MEDS: LORazepam 1 MG TABLET PO (22:35)
--- NOTE | 2023-06-03 22:38 | PC.NURSE ---
pt abd incision site is leaking and RLQ MACY drainage out put since [id number]; 370 mL, abd to thighs edematous and WOB RR24, O2 sat 97% RA. pt states that lately he has been WOB. dr. Ken and hospitalist notified aware of leaking, WOB. new order received. dressing applied and given meds by eMAR. WOB improved to RR 16 and pain controlled to 5/10. will continue to monitor.
[2023-06-03 22:49] LABS: Appearance Urine Cloudy; Color Urine Yellow; Glucose Urine UA Negative (Negative); Leukocyte Esterase Urine Negative (Negative); Nitrite Urine Negative (Negative); PH 5.5 (5.0-9.0); Specific Gravity - Urine 1.025 (1.005-1.025); UMIC TRIGGER UA YES; UMIC TRIGGER UACC YES; Urine Blood Negative (Negative); Urine Ketones Negative (Negative); Urine Protein 30 (1+) mg/dL (Neg-Trace)
[2023-06-03 22:53] LABS: Bacteria Urine None Seen (None Seen); Hyaline Casts Urine 0-2 /LPF (0-2); RBC Urine 0-2 /HPF (0-2); WBC Urine 0-5 /HPF (0-5)
[2023-06-03 23:17] VITALS: BP 108/54; PULSE 70; RESP 17; TEMP 36.9; O2SAT 97
[2023-06-03 23:56] LABS: Creatinine Urine 142.02 mg/dL; Total Protein Urine Random 84 mg/dL (<12)
--- NOTE | 2023-06-03 23:58 | PM.PNNEP ---
Subjective Subjective Date of Service: 06/03/23 Interval history: Feels better Physical Exam Vital Signs: Vital Signs: Last Vital Signs Temp 98.4 F 06/03/23 23:17 Pulse 70 06/03/23 23:17 Resp 17 06/03/23 23:17 BP 108/54 L 06/03/23 23:17 Pulse Ox 97 06/03/23 23:17 O2 Del Method Room Air 06/03/23 23:17 O2 Flow Rate 2 05/25/23 17:10 BMI result Body Mass Index 21.4 Const: General: comfortable, no acute distress and alert Orientation/consciousness: patient oriented x3 Resp: Effort & Inspection: normal respiratory effort GI: Other: MACY serous Inspection: No distended and Yes incision (clean) Palpation (GI): Soft to palpation, Tenderness to palpation present (GI) (mild incisional), no guarding and not rigid Skin: General skin exam: no rashes or lesions noted Neuro: General: patient oriented x3 Objective Data Labs 06/03/23 20:54 06/03/23 20:54 Labs: Laboratory Results - last 24 hr 06/03/23 06/03/23 06/03/23 05:56 20:54 21:01 WBC 15.0 H 16.4 H RBC 2.90 L 2.82 L Hgb 8.4 L 8.1 L Hct 25.9 L 24.8 L MCV 89.3 87.9 MCH 29.0 28.7 MCHC 32.4 32.7 RDW 16.2 H 16.2 H Plt Count 251 D 261 MPV 9.8 9.7 Immature Gran % (Auto) 1.8 H Neut % (Auto) 72.0 Lymph % (Auto) 11.6 L [place] % (Auto) 13.5 H Eos % (Auto) 0.9 Baso % (Auto) 0.2 Lymph # (Auto) 1.9 [place] # (Auto) 2.2 H Eos # (Auto) 0.2 Baso # (Auto) 0.0 Abs Immat Gran (auto) 0.30 H Absolute Neuts (auto) 11.8 H Absolute Nucleated RBC 0.030 H 0.020 H Nucleated RBC % (auto) 0.2 0.1 Smear Tech's Comments VERIFIED VBG pH 7.56 H VBG pCO2 25 VBG pO2 63 VBG HCO3 23 VBG O2 Saturation 95.0 VBG Base Excess 1.8 Sodium 135 134 L Potassium 3.9 4.1 Chloride 104 100 Carbon Dioxide 16 L 20 L Anion Gap 19 18 BUN 41 H 41 H Creatinine 3.99 H 3.57 H Estim Creat Clear Calc 17.9 20.0 Estimated GFR 15 17 Random Glucose 131 H Fasting Glucose 110 H Lactic Acid 1.8 Calcium 7.8 L 7.7 L Total Bilirubin 0.5 AST 44 H ALT 24 Alkaline Phosphatase 736 H Total Protein 5.7 L Albumin 2.4 L Urine Color Urine Appearance Urine pH Ur Specific [place] Urine Protein Urine Glucose (UA) Urine Ketones Urine Blood Urine Nitrite Ur Leukocyte Esterase Urine RBC Urine WBC Ur Squamous Epith Cells Urine Bacteria Hyaline Casts U Random Total Protein Ur Random Sodium Urine Creatinine 06/03/23 Unknown WBC RBC Hgb Hct MCV MCH MCHC RDW Plt Count MPV Immature Gran % (Auto) Neut % (Auto) Lymph % (Auto) [place] % (Auto) Eos % (Auto) Baso % (Auto) Lymph # (Auto) [place] # (Auto) Eos # (Auto) Baso # (Auto) Abs Immat Gran (auto) Absolute Neuts (auto) Absolute Nucleated RBC Nucleated RBC % (auto) Smear Tech's Comments VBG pH VBG pCO2 VBG pO2 VBG HCO3 VBG O2 Saturation VBG Base Excess Sodium Potassium Chloride Carbon Dioxide Anion Gap BUN Creatinine Estim Creat Clear Calc Estimated GFR Random Glucose Fasting Glucose Lactic Acid Calcium Total Bilirubin AST ALT Alkaline Phosphatase Total Protein Albumin Urine Color Yellow Urine Appearance Cloudy Urine pH 5.5 Ur Specific [place] 1.025 Urine Protein 30 (1+) H Urine Glucose (UA) Negative Urine Ketones Negative Urine Blood Negative Urine Nitrite Negative Ur Leukocyte Esterase Negative Urine RBC 0-2 Urine WBC 0-5 Ur Squamous Epith Cells 3-5 Urine Bacteria None Seen Hyaline Casts 0-2 U Random Total Protein 84 H Ur Random Sodium 36.0 Urine Creatinine 142.02 Microbiology Microbiology Results: Microbiology 05/25/23 10:27 Blood - Venous Blood Culture - Final No growth after 5 days. 05/25/23 10:02 Blood - Venous Blood Culture - Final No growth after 5 days. Procedures Date of Service Date of Service: 06/03/23 Assessment & Plan Assessment and plan (1) GINA (acute kidney injury): Status: Acute Assessment and Plan: 72M PMH Right sided lung cancer s/p RLL resection and chemotherapy, ckd stage 4, htn, hld, hx cva, and macular degeneration admitted for general surgery for management of duodenal performation s/o laparotomy with omental patching of a perforated ulcer 1. GINA - due to multifactorial GINA Prerenal/ ? ATN acute tubular injury/ Low BP/ Surgical insult No Obstruction Doubt Acute GN. AIN Pt was on an GRACIA 2. CKD stage 4 - F/u by Dr. Carlos 3. Non AG Met acidosis 4. HTN Now BP is low 5. Perforated duodenal ulcer s/p li patch baseline creatinine around 2-2.5, now Cr unchanged continue to hold amlodipine and lisinopril (bp borderline low) Agree with d5w with 3 amp bicarb- 125 ml/ hr Avodi Nephrotoxins Transfuse as needed Urine Studies noted \Thx Will follow Dr. Spence (2) CKD (chronic kidney disease): Status: Acute (3) Perforated abdominal viscus: Status: Acute Time Spent With Patient Time: Total time managing care of this patient today ____ minutes. Progress Note: Quality Stroke Does the patient have a stroke diagnosis?: No
[2023-06-04] VITALS (7 sets, daily range): BP systolic 96–122; BP diastolic 51–56; PULSE 80–96; RESP 17–18; TEMP 36.9–37.4; O2SAT 92–98
[2023-06-04] MEDS: HYDROmorphone HCl 0.5 MG/0.5 ML SYRINGE IVPUSH ×5 (01:25→23:47)
[2023-06-04] MEDS: Sodium Bicarbonate 8.4% 150 MEQ in Dextrose 5 % 850 ML 125 MEQ IV (03:50)
[2023-06-04] MEDS: Piperacillin Sodium/Tazobactam 2.25 GM in 0.9 % Sodium Chloride 50 ML IV ×3 (05:37→20:16)
[2023-06-04] MEDS: Omeprazole 40 MG CAPSULE.DR PO ×2 (05:38→16:36)
[2023-06-04 05:39] LABS: Hematocrit 23.4 % (42.0-52.0); Hemoglobin 7.8 g/dl (14.0-18.0); Mean Corpuscular HGB Conc 33.3 g/dl (31.0-36.0); Mean Platelet Volume 9.7 fL (9.4-12.4); Platelet Count 254 X10*3/uL (160-400); Red Blood Count 2.69 X10*6/uL (4.60-5.80); Red Cell Distribution Width 16.2 % (11.0-16.0); White Blood Count 17.2 X10*3/uL (4.8-10.8)
[2023-06-04 05:51] LABS: Anion Gap 19 (12-20); Blood Urea Nitrogen 42 mg/dL (9-16); Calcium 7.7 mg/dL (8.4-10.2); Carbon Dioxide 23 mmol/L (22-29); Chloride 97 mmol/L (96-108); Creatinine Clr Calc Pharmacy 19.6; Estimated Glomerular Filt Rate 17; Glucose Random 119 mg/dL (60-115); Potassium 3.4 mmol/L (3.3-5.1); Sodium 136 mmol/L (135-145)
[2023-06-04] MEDS: Heparin Sodium,Porcine 5,000 UNIT/ML VIAL 5000 UNIT SUBCUT ×3 (06:43→22:34)
[2023-06-04] MEDS: Dextrose 5 % and 0.9 % NaCl 1,000 ML 100 ML IVCONT ×2 (07:52→18:17)
[2023-06-04] MEDS: Thiamine HCL 100 MG TABLET PO (07:53)
--- NOTE | 2023-06-04 10:47 | PM.PNGS ---
Subjective Subjective Date of Service: 06/05/23 Interval history: Ascitic fluid leaking from upper part of the incision last night Patient otherwise tolerating diet MACY drain with large amount of clear fluid Has BMs and flatus Physical Exam Vital Signs: Vital Signs: Last Vital Signs Temp 98.9 F 06/04/23 07:39 Pulse 89 06/04/23 09:59 Resp 17 06/04/23 07:39 BP 112/54 L 06/04/23 09:59 Pulse Ox 93 06/04/23 09:59 O2 Del Method Room Air 06/04/23 07:39 O2 Flow Rate 2 05/25/23 17:10 BMI result Body Mass Index 21.4 Const: General: no acute distress Resp: Effort & Inspection: normal respiratory effort Cardio: Rate: regular rate GI: Other: Incision clean, nicholas intact, MACY drain with large amounts of ascites Palpation (GI): Soft to palpation and not firm Objective Data Active Medications Amlodipine Besylate (Amlodipine Besylate 2.5 Mg Tablet) 2.5 mg PO DAILY [facility]; Protocol Last Admin: 05/31/23 08:28 Dose: Not Given Atenolol (Atenolol 25 Mg Tablet) 25 mg PO DAILY [facility]; Protocol Last Admin: 06/02/23 08:22 Dose: 25 mg Documented By: BERNIE Heparin Sodium (Porcine) (Heparin Sodium,Porcine 5,000 Unit/Ml Vial) 5,000 unit SUBCUT Q8H [facility] Last Admin: 06/04/23 06:43 Dose: 5,000 unit Documented By: CHEN Hydromorphone HCl (Hydromorphone Hcl 0.5 Mg/0.5 Ml Syringe) 0.5 mg IVPUSH Q5M PRN; Protocol PRN Reason: Pain, Severe (Pain Scale 7-10) Last Admin: 05/25/23 14:50 Dose: 0.5 mg Documented By: JUAN Hydromorphone HCl (Hydromorphone Hcl 0.5 Mg/0.5 Ml Syringe) 0.25 mg IVPUSH Q5M PRN; Protocol PRN Reason: Pain, Severe (Pain Scale 7-10) Hydromorphone HCl (Hydromorphone Hcl 0.5 Mg/0.5 Ml Syringe) 0.5 mg IVPUSH Q3H PRN; Protocol PRN Reason: Pain, Severe (Pain Scale 7-10) Last Admin: 06/04/23 05:35 Dose: 0.5 mg Documented By: CHEN Piperacillin Sod/Tazobactam (Sod 2.25 gm/ Sodium Chloride) 50 mls @ 100 mls/hr IV Q8H [facility] Last Infusion: 06/04/23 06:09 Dose: Infused Documented By: CHEN Dextrose/Sodium Chloride (D5ns) 1,000 mls @ 100 mls/hr IVCONT .Q10H [facility] Last Admin: 06/04/23 07:52 Dose: 100 mls/hr Documented By: ROSELINE Lisinopril (Lisinopril 10 Mg Tablet) 10 mg PO DAILY [facility] Last Admin: 05/31/23 08:30 Dose: 10 mg Lorazepam (Lorazepam 1 Mg Tablet) 1 mg PO BEDTIME PRN PRN Reason: Sleep Last Admin: 06/03/23 22:35 Dose: 1 mg Documented By: CHEN Omeprazole (Omeprazole 40 Mg Capsule.) 40 mg PO BID@0630,1630 [facility] Last Admin: 06/04/23 05:38 Dose: 40 mg Documented By: CHEN Ondansetron HCl (Ondansetron Hcl 4 Mg/2 Ml Vial) 4 mg IVPUSH Q8H PRN PRN Reason: Nausea and Vomiting Ondansetron HCl (Ondansetron Hcl 4 Mg/2 Ml Vial) 4 mg IVPUSH ONCE PRN PRN Reason: Nausea and Vomiting Sodium Chloride (0.9 % Sodium Chloride Flush 3 Ml Syringe) 3 ml IVFLUSH QSHIFT [facility] Last Admin: 06/04/23 07:32 Dose: Not Given Documented By: ROSELINE Non-Admin Reason: IV Running Thiamine HCl (Thiamine Hcl 100 Mg Tablet) 100 mg PO DAILY [facility] Last Admin: 06/04/23 07:53 Dose: 100 mg Documented By: ROSELINE Labs 06/05/23 05:58 06/05/23 05:58 Labs: Laboratory Results - last 24 hr 06/03/23 06/03/23 06/03/23 20:54 21:01 Unknown MCV 87.9 MCH 28.7 MCHC 32.7 RDW 16.2 H Plt Count 261 MPV 9.7 Immature Gran % (Auto) 1.8 H Neut % (Auto) 72.0 Lymph % (Auto) 11.6 L [place] % (Auto) 13.5 H Eos % (Auto) 0.9 Baso % (Auto) 0.2 Lymph # (Auto) 1.9 [place] # (Auto) 2.2 H Eos # (Auto) 0.2 Baso # (Auto) 0.0 Abs Immat Gran (auto) 0.30 H Absolute Neuts (auto) 11.8 H Absolute Nucleated RBC 0.020 H Nucleated RBC % (auto) 0.1 Smear Tech's Comments VERIFIED VBG pH 7.56 H VBG pCO2 25 VBG pO2 63 VBG HCO3 23 VBG O2 Saturation 95.0 VBG Base Excess 1.8 Anion Gap 18 Estim Creat Clear Calc 20.0 Estimated GFR 17 Random Glucose 131 H Lactic Acid 1.8 Calcium 7.7 L Total Bilirubin 0.5 AST 44 H ALT 24 Alkaline Phosphatase 736 H Total Protein 5.7 L Albumin 2.4 L Urine Color Yellow Urine Appearance Cloudy Urine pH 5.5 Ur Specific [place] 1.025 Urine Protein 30 (1+) H Urine Glucose (UA) Negative Urine Ketones Negative Urine Blood Negative Urine Nitrite Negative Ur Leukocyte Esterase Negative Urine RBC 0-2 Urine WBC 0-5 Ur Squamous Epith Cells 3-5 Urine Bacteria None Seen Hyaline Casts 0-2 U Random Total Protein 84 H Ur Random Sodium 36.0 Urine Creatinine 142.02 06/04/23 05:08 MCV 87.0 MCH 29.0 MCHC 33.3 RDW 16.2 H Plt Count 254 MPV 9.7 Immature Gran % (Auto) Neut % (Auto) Lymph % (Auto) [place] % (Auto) Eos % (Auto) Baso % (Auto) Lymph # (Auto) [place] # (Auto) Eos # (Auto) Baso # (Auto) Abs Immat Gran (auto) Absolute Neuts (auto) Absolute Nucleated RBC 0.000 Nucleated RBC % (auto) 0.0 Smear Tech's Comments VBG pH VBG pCO2 VBG pO2 VBG HCO3 VBG O2 Saturation VBG Base Excess Anion Gap 19 Estim Creat Clear Calc 19.6 Estimated GFR 17 Random Glucose 119 H Lactic Acid Calcium 7.7 L Total Bilirubin AST ALT Alkaline Phosphatase Total Protein Albumin Urine Color Urine Appearance Urine pH Ur Specific [place] Urine Protein Urine Glucose (UA) Urine Ketones Urine Blood Urine Nitrite Ur Leukocyte Esterase Urine RBC Urine WBC Ur Squamous Epith Cells Urine Bacteria Hyaline Casts U Random Total Protein Ur Random Sodium Urine Creatinine Procedures Date of Service Date of Service: 06/05/23 Progress Note: A&P Assessment and plan (1) Perforated duodenal bulb ulcer: Status: Acute Assessment and Plan: Status post repair with omental patch Now with large amounts of ascites seen on his MACY drain, incision His CAT scan does show a mass in the liver He has lymphadenopathy the chest and the abdomen as well with known history of lung cancer with likely metastasis Otherwise good GI function Creatinine steady although elevated at 3.65 Discussed with hospitalist service Time Spent With Patient Time: Total time managing care of this patient today ____ minutes. Quality Stroke Does the patient have a stroke diagnosis?: No VTE Prior VTE?: No VTE Risk Level:: Medical - moderate - high VTE Device Contraindication: N/A - Device Ordered VTE Drug Contraindication: Treatment Not Indicated
--- NOTE | 2023-06-04 13:55 | P.PNIM_ITS ---
Subjective Subjective Date of Service: 06/04/23 Interval History: Seen and evaluated Feels better overall denies any fever or chills WBCs increasing, Hb trending down Review of Systems Review of Systems: Yes all other systems are reviewed and are negative Physical Exam 2 Vital Signs: Vital Signs: Last Vital Signs Temp 99.3 F 06/04/23 12:03 Pulse 80 06/04/23 12:03 Resp 17 06/04/23 12:03 BP 109/56 L 06/04/23 12:03 Pulse Ox 92 06/04/23 12:03 O2 Del Method Room Air 06/04/23 12:03 O2 Flow Rate 2 05/25/23 17:10 BMI result Body Mass Index 21.4 Const: Other: Constitutional : Awake, interactive, not in distress Neck : Normal inspection, Supple Cardiovascular : RRR, no JVP, no lower extremity edema Respiratory : good bilateral air entry, no crackles, wheezes or rhonchi Gastrointestinal: soft, lax, Normal bowel sounds, Non tender, distended with mild-mod ascites, MACY drain in place Skin : Warm, Dry Neurological : Alert & oriented x3, No focal deficit Objective Data Active Medications Amlodipine Besylate (Amlodipine Besylate 2.5 Mg Tablet) 2.5 mg PO DAILY [facility]; Protocol Last Admin: 05/31/23 08:28 Dose: Not Given Atenolol (Atenolol 25 Mg Tablet) 25 mg PO DAILY [facility]; Protocol Last Admin: 06/02/23 08:22 Dose: 25 mg Documented By: BERNIE Heparin Sodium (Porcine) (Heparin Sodium,Porcine 5,000 Unit/Ml Vial) 5,000 unit SUBCUT Q8H [facility] Last Admin: 06/04/23 06:43 Dose: 5,000 unit Documented By: CHEN Hydromorphone HCl (Hydromorphone Hcl 0.5 Mg/0.5 Ml Syringe) 0.5 mg IVPUSH Q5M PRN; Protocol PRN Reason: Pain, Severe (Pain Scale 7-10) Last Admin: 05/25/23 14:50 Dose: 0.5 mg Documented By: JUAN Hydromorphone HCl (Hydromorphone Hcl 0.5 Mg/0.5 Ml Syringe) 0.25 mg IVPUSH Q5M PRN; Protocol PRN Reason: Pain, Severe (Pain Scale 7-10) Hydromorphone HCl (Hydromorphone Hcl 0.5 Mg/0.5 Ml Syringe) 0.5 mg IVPUSH Q3H PRN; Protocol PRN Reason: Pain, Severe (Pain Scale 7-10) Last Admin: 06/04/23 05:35 Dose: 0.5 mg Documented By: CHEN Piperacillin Sod/Tazobactam (Sod 2.25 gm/ Sodium Chloride) 50 mls @ 100 mls/hr IV Q8H [facility] Last Admin: 06/04/23 13:13 Dose: 100 mls/hr Documented By: ROSELINE Dextrose/Sodium Chloride (D5ns) 1,000 mls @ 100 mls/hr IVCONT .Q10H [facility] Last Admin: 06/04/23 07:52 Dose: 100 mls/hr Documented By: ROSELINE Lisinopril (Lisinopril 10 Mg Tablet) 10 mg PO DAILY [facility] Last Admin: 05/31/23 08:30 Dose: 10 mg Lorazepam (Lorazepam 1 Mg Tablet) 1 mg PO BEDTIME PRN PRN Reason: Sleep Last Admin: 06/03/23 22:35 Dose: 1 mg Documented By: CHEN Omeprazole (Omeprazole 40 Mg Capsule.Dr) 40 mg PO BID@0630,1630 [facility] Last Admin: 06/04/23 05:38 Dose: 40 mg Documented By: CHEN Ondansetron HCl (Ondansetron Hcl 4 Mg/2 Ml Vial) 4 mg IVPUSH Q8H PRN PRN Reason: Nausea and Vomiting Ondansetron HCl (Ondansetron Hcl 4 Mg/2 Ml Vial) 4 mg IVPUSH ONCE PRN PRN Reason: Nausea and Vomiting Sodium Chloride (0.9 % Sodium Chloride Flush 3 Ml Syringe) 3 ml IVFLUSH QSHIFT [facility] Last Admin: 06/04/23 07:32 Dose: Not Given Documented By: ROSELINE Non-Admin Reason: IV Running Thiamine HCl (Thiamine Hcl 100 Mg Tablet) 100 mg PO DAILY [facility] Last Admin: 06/04/23 07:53 Dose: 100 mg Documented By: ROSELINE Labs 06/04/23 05:08 06/04/23 05:08 Labs: Laboratory Results - last 24 hr 0106/03/23 06/03/23 20:54 21:01 Unknown MCV 87.9 MCH 28.7 MCHC 32.7 RDW 16.2 H Plt Count 261 MPV 9.7 Immature Gran % (Auto) 1.8 H Neut % (Auto) 72.0 Lymph % (Auto) 11.6 L [place] % (Auto) 13.5 H Eos % (Auto) 0.9 Baso % (Auto) 0.2 Lymph # (Auto) 1.9 [place] # (Auto) 2.2 H Eos # (Auto) 0.2 Baso # (Auto) 0.0 Abs Immat Gran (auto) 0.30 H Absolute Neuts (auto) 11.8 H Absolute Nucleated RBC 0.020 H Nucleated RBC % (auto) 0.1 Smear Tech's Comments VERIFIED VBG pH 7.56 H VBG pCO2 25 VBG pO2 63 VBG HCO3 23 VBG O2 Saturation 95.0 VBG Base Excess 1.8 Anion Gap 18 Estim Creat Clear Calc 20.0 Estimated GFR 17 Random Glucose 131 H Lactic Acid 1.8 Calcium 7.7 L Total Bilirubin 0.5 AST 44 H ALT 24 Alkaline Phosphatase 736 H Total Protein 5.7 L Albumin 2.4 L Urine Color Yellow Urine Appearance Cloudy Urine pH 5.5 Ur Specific [place] 1.025 Urine Protein 30 (1+) H Urine Glucose (UA) Negative Urine Ketones Negative Urine Blood Negative Urine Nitrite Negative Ur Leukocyte Esterase Negative Urine RBC 0-2 Urine WBC 0-5 Ur Squamous Epith Cells 3-5 Urine Bacteria None Seen Hyaline Casts 0-2 U Random Total Protein 84 H Ur Random Sodium 36.0 Urine Creatinine 142.02 06/04/23 05:08 MCV 87.0 MCH 29.0 MCHC 33.3 RDW 16.2 H Plt Count 254 MPV 9.7 Immature Gran % (Auto) Neut % (Auto) Lymph % (Auto) [place] % (Auto) Eos % (Auto) Baso % (Auto) Lymph # (Auto) [place] # (Auto) Eos # (Auto) Baso # (Auto) Abs Immat Gran (auto) Absolute Neuts (auto) Absolute Nucleated RBC 0.000 Nucleated RBC % (auto) 0.0 Smear Tech's Comments VBG pH VBG pCO2 VBG pO2 VBG HCO3 VBG O2 Saturation VBG Base Excess Anion Gap 19 Estim Creat Clear Calc 19.6 Estimated GFR 17 Random Glucose 119 H Lactic Acid Calcium 7.7 L Total Bilirubin AST ALT Alkaline Phosphatase Total Protein Albumin Urine Color Urine Appearance Urine pH Ur Specific [place] Urine Protein Urine Glucose (UA) Urine Ketones Urine Blood Urine Nitrite Ur Leukocyte Esterase Urine RBC Urine WBC Ur Squamous Epith Cells Urine Bacteria Hyaline Casts U Random Total Protein Ur Random Sodium Urine Creatinine Assessment and Plan (1) GINA (acute kidney injury): Status: Acute (2) Perforated duodenal bulb ulcer: Status: Acute Plan 72M PMH Right sided lung cancer s/p RLL resection and chemotherapy, ckd stage 4, htn, hld, hx cva, and macular degeneration admitted for general surgery for management of duodenal performation s/o laparotomy with omental patching of a perforated ulcer, now complicated by gina on ckd IV and acute metbaolic acidosis GINA on ckd IV complicated by acute non anion gap metabolic hyperchloremic acidosis baseline creatinine around 2-2.5, up to 4 now trending down to 3.6 seems like ATN picture from low BP and surgery hold amlodipine, Atenolol and lisinopril for low BP change IVF to D5NS nephro input appreciated Perforated duodenal ulcer s/p li patch management per primary team HTN holding bp meds for low normal bps and gina Hx lung cancer s/p RLL resection, chemotherapy follows with [facility]. Recent PET scan showed multiple lymph nodes in neck, chest, and abd outpt follow up Thank you for the consult. will continue to follow with you. Quality Stroke Does the patient have a stroke diagnosis?: No VTE Prior VTE?: No VTE Risk Level:: Medical - moderate - high VTE Device Contraindication: N/A - Device Ordered VTE Drug Contraindication: Treatment Not Indicated
[2023-06-04 18:40] LABS: Lactate Dehydrogenase 930 U/L (118-273)
--- NOTE | 2023-06-04 20:11 | PM.PNNEP ---
Subjective Subjective Date of Service: 06/04/23 Interval history: Seen and evaluated Feels better overall denies any fever or chills WBCs increasing C/o abd distention Physical Exam Vital Signs: Vital Signs: Last Vital Signs Temp 99.2 F 06/04/23 19:12 Pulse 96 06/04/23 19:12 Resp 17 06/04/23 19:12 BP 96/51 L 06/04/23 19:12 Pulse Ox 94 06/04/23 19:12 O2 Del Method Room Air 06/04/23 19:12 O2 Flow Rate 2 05/25/23 17:10 BMI result Body Mass Index 21.4 Const: Other: Constitutional : Awake, interactive, not in distress Neck : Normal inspection, Supple Cardiovascular : RRR, no JVP, no lower extremity edema Respiratory : good bilateral air entry, no crackles, wheezes or rhonchi Gastrointestinal: soft, lax, Normal bowel sounds, Non tender, distended with mild-mod ascites, MACY drain in place Skin : Warm, Dry Neurological : Alert & oriented x3, No focal deficit Objective Data Labs 06/04/23 05:08 06/04/23 05:08 Labs: Laboratory Results - last 24 hr 06/03/23 06/03/23 06/03/23 20:54 21:01 Unknown WBC 16.4 H RBC 2.82 L Hgb 8.1 L Hct 24.8 L MCV 87.9 MCH 28.7 MCHC 32.7 RDW 16.2 H Plt Count 261 MPV 9.7 Immature Gran % (Auto) 1.8 H Neut % (Auto) 72.0 Lymph % (Auto) 11.6 L [place] % (Auto) 13.5 H Eos % (Auto) 0.9 Baso % (Auto) 0.2 Lymph # (Auto) 1.9 [place] # (Auto) 2.2 H Eos # (Auto) 0.2 Baso # (Auto) 0.0 Abs Immat Gran (auto) 0.30 H Absolute Neuts (auto) 11.8 H Absolute Nucleated RBC 0.020 H Nucleated RBC % (auto) 0.1 Smear Tech's Comments VERIFIED VBG pH 7.56 H VBG pCO2 25 VBG pO2 63 VBG HCO3 23 VBG O2 Saturation 95.0 VBG Base Excess 1.8 Sodium 134 L Potassium 4.1 Chloride 100 Carbon Dioxide 20 L Anion Gap 18 BUN 41 H Creatinine 3.57 H Estim Creat Clear Calc 20.0 Estimated GFR 17 Random Glucose 131 H Lactic Acid 1.8 Calcium 7.7 L Total Bilirubin 0.5 AST 44 H ALT 24 Alkaline Phosphatase 736 H Lactate Dehydrogenase Total Protein 5.7 L Albumin 2.4 L Urine Color Yellow Urine Appearance Cloudy Urine pH 5.5 Ur Specific [place] 1.025 Urine Protein 30 (1+) H Urine Glucose (UA) Negative Urine Ketones Negative Urine Blood Negative Urine Nitrite Negative Ur Leukocyte Esterase Negative Urine RBC 0-2 Urine WBC 0-5 Ur Squamous Epith Cells 3-5 Urine Bacteria None Seen Hyaline Casts 0-2 U Random Total Protein 84 H Ur Random Sodium 36.0 Urine Creatinine 142.02 06/04/23 05:08 WBC 17.2 H RBC 2.69 L Hgb 7.8 L Hct 23.4 L MCV 87.0 MCH 29.0 MCHC 33.3 RDW 16.2 H Plt Count 254 MPV 9.7 Immature Gran % (Auto) Neut % (Auto) Lymph % (Auto) [place] % (Auto) Eos % (Auto) Baso % (Auto) Lymph # (Auto) [place] # (Auto) Eos # (Auto) Baso # (Auto) Abs Immat Gran (auto) Absolute Neuts (auto) Absolute Nucleated RBC 0.000 Nucleated RBC % (auto) 0.0 Smear Tech's Comments VBG pH VBG pCO2 VBG pO2 VBG HCO3 VBG O2 Saturation VBG Base Excess Sodium 136 Potassium 3.4 Chloride 97 Carbon Dioxide 23 Anion Gap 19 BUN 42 H Creatinine 3.65 H Estim Creat Clear Calc 19.6 Estimated GFR 17 Random Glucose 119 H Lactic Acid Calcium 7.7 L Total Bilirubin AST ALT Alkaline Phosphatase Lactate Dehydrogenase 930 H Total Protein Albumin Urine Color Urine Appearance Urine pH Ur Specific [place] Urine Protein Urine Glucose (UA) Urine Ketones Urine Blood Urine Nitrite Ur Leukocyte Esterase Urine RBC Urine WBC Ur Squamous Epith Cells Urine Bacteria Hyaline Casts U Random Total Protein Ur Random Sodium Urine Creatinine Microbiology Microbiology Results: Microbiology 05/25/23 10:27 Blood - Venous Blood Culture - Final No growth after 5 days. 05/25/23 10:02 Blood - Venous Blood Culture - Final No growth after 5 days. Procedures Date of Service Date of Service: 06/04/23 Assessment & Plan Assessment and plan (1) GINA (acute kidney injury): Status: Acute Assessment and Plan: 72M PMH Right sided lung cancer s/p RLL resection and chemotherapy, ckd stage 4, htn, hld, hx cva, and macular degeneration admitted for general surgery for management of duodenal performation s/o laparotomy with omental patching of a perforated ulcer 1. GINA - due to multifactorial GINA Now in ATN/ Low BP/ Surgical insult No Obstruction Doubt Acute GN. AIN Pt was on an GRACIA - now off 2. CKD stage 4 - F/u by Dr. Carlos 3. Non AG Met acidosis 4. HTN Now BP is low 5. Perforated duodenal ulcer s/p li patch baseline creatinine around 2-2.5, now Cr better but slow to improve ( ? delusional effect ) continue to hold amlodipine and lisinopril (bp borderline low) D/c'd d5w with 3 amp bicarb- started D5 NS @ 100 ml/ hr Avoid i Nephrotoxins Transfuse if Hb < 7.0 Urine Studies noted Thx Will follow Dr. Spence (2) CKD (chronic kidney disease): Status: Acute (3) Perforated abdominal viscus: Status: Acute Time Spent With Patient Time: Total time managing care of this patient today ____ minutes. Progress Note: Quality Stroke Does the patient have a stroke diagnosis?: No
[2023-06-04] MEDS: 0.9 % Sodium Chloride Flush 3 ML SYRINGE IVFLUSH (20:17)
[2023-06-04] MEDS: LORazepam 1 MG TABLET PO (22:34)
[2023-06-05] VITALS (9 sets, daily range): BP systolic 103–125; BP diastolic 51–57; PULSE 84–95; RESP 15–18; TEMP 36.9–37.2; O2SAT 90–95
--- NOTE | 2023-06-05 03:56 | CONS_ITS ---
DATE OF SERVICE: 06/02/2023 REASON FOR CONSULTATION: Consult requested by Medical Team to evaluate and help in management of the patient with acute kidney injury. HISTORY OF PRESENT ILLNESS: The patient is a 72-year-old male with history of lung CA status post right lower lobe resection, history of chemotherapy, stage [address] Carlos, hypertension, who was admitted by General Surgery for management of duodenal perforation. The patient is status post laparotomy with omental patching of the perforated ulcer. The patient overall is resting in the bed and is slightly better. He is passing urine. There is no NSAID use. MEDICATION: As an outpatient and inpatient were reviewed. ALLERGIES: THE PATIENT HAS NO KNOWN DRUG ALLERGIES. PAST MEDICAL HISTORY: History of stage 4 CKD, history of hypertension, hypercholesterolemia, macular degeneration, history of lung CA status post surgery and chemo/radiation as mentioned before. PAST SURGICAL HISTORY: Right lower lobectomy as mentioned before. FAMILY HISTORY: Father and mother . No history of kidney issues. SOCIAL HISTORY: The patient is a smoker. Does not drink alcohol. REVIEW OF SYSTEMS: As noted above. Other system review negative. PHYSICAL EXAMINATION: GENERAL: The patient is resting in the bed. Awake, alert, oriented x3. VITAL SIGNS: Blood pressure was 106/52, pulse 77, afebrile. HEENT: Shows pupils equal and reactive bilaterally to light. NECK: No jugular venous distention noted. Supple. No thyromegaly is noted. CARDIOVASCULAR SYSTEM: S1, S2 without rub. RESPIRATORY SYSTEM: Mild decreased in bases. ABDOMEN: Distended, soft. Tenderness generalized. Bowel sounds are sluggish. EXTREMITIES: Showed no edema. LABORATORY DATA: Done today. WBC is 15.5, hemoglobin 7.7, hematocrit 25, platelets 396. Sodium 136, potassium 4.2, chloride 107, CO2 is 13, BUN 38, creatinine 3.98. IMPRESSION: 1. A 72-year-old male with acute kidney injury. Acute kidney injury in this patient likely due to multifactorial reasons. The patient clinically could be prerenal, but that could be a possibility of acute tubular injury in the setting of hypotension and surgical insult. There is no obstruction. He was on an GRAICA inhibitor, which could have contributed to his worsening renal function. I doubt the patient has acute glomerulonephritis/interstitial disease based on the presentation. 2. Chronic kidney disease stage 4, followed by Dr. 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 3. [id number] metabolic acidosis. 4. Hypertension at baseline with hypotension at the present time. 5. Perforated urinalysis, status post surgeries. RECOMMENDATIONS: At this juncture, I recommend checking spot urine for electrolytes, protein, and creatinine. The baseline creatinine has been ranging around 2 to 2.5. I will discontinue amlodipine and lisinopril given hypotension. I agree using IV fluids with bicarb, D5 water with 3 amps of sodium bicarb but we will increase the rate to 125 mL/h. I would avoid using nephrotoxic agents. Transfuse to keep hemoglobin above 7. Thank you for allowing me to participate in medical management of the patient. There is no indication for renal replacement therapy at this juncture. MD TIP Man/GARTH / [id number]
[2023-06-05] MEDS: Dextrose 5 % and 0.9 % NaCl 1,000 ML 100 ML IVCONT ×2 (04:15→15:55)
[2023-06-05] MEDS: Piperacillin Sodium/Tazobactam 2.25 GM in 0.9 % Sodium Chloride 50 ML IV ×3 (05:15→22:06)
[2023-06-05] MEDS: Omeprazole 40 MG CAPSULE.DR PO ×2 (05:15→15:55)
[2023-06-05] MEDS: HYDROmorphone HCl 0.5 MG/0.5 ML SYRINGE IVPUSH ×4 (05:15→22:05)
[2023-06-05] MEDS: Heparin Sodium,Porcine 5,000 UNIT/ML VIAL 5000 UNIT SUBCUT ×2 (05:56→14:47)
[2023-06-05 06:18] LABS: INTERNATIONAL NORM RATIO 1.2 (0.9-1.1); Prothrombin Time 14.5 SEC (11.1-13.3)
[2023-06-05 06:24] LABS: Anion Gap 17 (12-20); Blood Urea Nitrogen 37 mg/dL (9-16); Calcium 7.3 mg/dL (8.4-10.2); Carbon Dioxide 22 mmol/L (22-29); Chloride 102 mmol/L (96-108); Creatinine Clr Calc Pharmacy 18.9; Estimated Glomerular Filt Rate 16; Glucose Random 113 mg/dL (60-115); Iron 12 mcg/dL (45-160); Percent Iron Saturation 11 % (15-50); Potassium 3.6 mmol/L (3.3-5.1); Sodium 137 mmol/L (135-145); Total Iron Binding Capacity 111 mcg/dL (228-428); Unsaturated Iron Binding 99 ug/dL
[2023-06-05 06:27] LABS: Hematocrit 21.7 % (42.0-52.0); Hemoglobin 7.2 g/dl (14.0-18.0); Mean Corpuscular HGB Conc 33.2 g/dl (31.0-36.0); Mean Corpuscular Hemoglobin 29.4 pg (27.0-33.0); Mean Corpuscular Volume 88.6 fL (80.0-98.0); Mean Platelet Volume 10.2 fL (9.4-12.4); Platelet Count 264 X10*3/uL (160-400); Red Blood Count 2.45 X10*6/uL (4.60-5.80); Red Cell Distribution Width 16.4 % (11.0-16.0); White Blood Count 15.5 X10*3/uL (4.8-10.8)
[2023-06-05] MEDS: Thiamine HCL 100 MG TABLET PO (09:15)
--- NOTE | 2023-06-05 09:40 | P.PNGS_ITS ---
Subjective Subjective Date of Service: 06/05/23 <Jena Ayala PA-C - Last Filed: 06/05/23 09:45> 06/05/23 <Saravanan Ken MD - Last Filed: 06/05/23 12:07> Interval history: Lack of appetite, poor PO intake. Continues to have incisional pain and some crampy gas pains. BM last night. <Jena Ayala PA-C - Last Filed: 06/05/23 09:45> Physical Exam 2 Vital Signs: Vital Signs: Last Vital Signs Temp 98.9 F 06/05/23 08:15 Pulse 85 06/05/23 08:15 Resp 16 06/05/23 08:15 BP 112/54 L 06/05/23 08:15 Pulse Ox 92 06/05/23 07:19 O2 Del Method Room Air 06/05/23 07:19 O2 Flow Rate 2 05/25/23 17:10 BMI result Body Mass Index 21.4 <Jena Ayala PA-C - Last Filed: 06/05/23 09:45> Const: General: no acute distress and alert <Jena Ayala PA-C - Last Filed: 06/05/23 09:45> Resp: Effort & Inspection: normal respiratory effort <Jena Ayala PA-C - Last Filed: 06/05/23 09:45> GI: Other: MCAY with ascitic fluid <Jena Ayala PA-C - Last Filed: 06/05/23 09:45> Inspection: No distended and Yes incision (clean) <NYDIA Antoine Last Filed: 06/05/23 09:45> Palpation (GI): Soft to palpation, Tenderness to palpation present (GI) (mild incisional, at drain site), no guarding and not rigid <NYDIA Antoine Last Filed: 06/05/23 09:45> Skin: General skin exam: no rashes or lesions noted and no jaundice < NYDIA Antoine Last Filed: 06/05/23 09:45> Objective Data Active Medications Acetaminophen (Acetaminophen 325 Mg Tablet) 650 mg PO Q6H PRN PRN Reason: Fever Amlodipine Besylate (Amlodipine Besylate 2.5 Mg Tablet) 2.5 mg PO DAILY [facility]; Protocol Last Admin: 05/31/23 08:28 Dose: Not Given Atenolol (Atenolol 25 Mg Tablet) 25 mg PO DAILY [facility]; Protocol Last Admin: 06/02/23 08:22 Dose: 25 mg Documented By: BERNIE Heparin Sodium (Porcine) (Heparin Sodium,Porcine 5,000 Unit/Ml Vial) 5,000 unit SUBCUT Q8H [facility] Last Admin: 06/05/23 05:56 Dose: 5,000 unit Documented By: CHEN Hydromorphone HCl (Hydromorphone Hcl 0.5 Mg/0.5 Ml Syringe) 0.5 mg IVPUSH Q5M PRN; Protocol PRN Reason: Pain, Severe (Pain Scale 7-10) Last Admin: 05/25/23 14:50 Dose: 0.5 mg Documented By: JUAN Hydromorphone HCl (Hydromorphone Hcl 0.5 Mg/0.5 Ml Syringe) 0.25 mg IVPUSH Q5M PRN; Protocol PRN Reason: Pain, Severe (Pain Scale 7-10) Hydromorphone HCl (Hydromorphone Hcl 0.5 Mg/0.5 Ml Syringe) 0.5 mg IVPUSH Q3H PRN; Protocol PRN Reason: Pain, Severe (Pain Scale 7-10) Last Admin: 06/05/23 05:15 Dose: 0.5 mg Documented By: CHEN Piperacillin Sod/Tazobactam (Sod 2.25 gm/ Sodium Chloride) 50 mls @ 100 mls/hr IV Q8H [facility] Last Infusion: 06/05/23 05:55 Dose: Infused Documented By: CHEN Dextrose/Sodium Chloride (D5ns) 1,000 mls @ 100 mls/hr IVCONT .Q10H [facility] Last Admin: 06/05/23 04:15 Dose: 100 mls/hr Documented By: CHEN Iron Sucrose 200 mg/ Sodium (Chloride) 110 mls @ 440 mls/hr IV DAILY [facility] Stop: 06/07/23 09:14 Lisinopril (Lisinopril 10 Mg Tablet) 10 mg PO DAILY [facility] Last Admin: 05/31/23 08:30 Dose: 10 mg Lorazepam (Lorazepam 1 Mg Tablet) 1 mg PO BEDTIME PRN PRN Reason: Sleep Last Admin: 06/04/23 22:34 Dose: 1 mg Documented By: CHEN Omeprazole (Omeprazole 40 Mg Capsule.Dr) 40 mg PO BID@0630,1630 [facility] Last Admin: 06/05/23 05:15 Dose: 40 mg Documented By: CHEN Ondansetron HCl (Ondansetron Hcl 4 Mg/2 Ml Vial) 4 mg IVPUSH Q8H PRN PRN Reason: Nausea and Vomiting Ondansetron HCl (Ondansetron Hcl 4 Mg/2 Ml Vial) 4 mg IVPUSH ONCE PRN PRN Reason: Nausea and Vomiting Sodium Chloride (0.9 % Sodium Chloride Flush 3 Ml Syringe) 3 ml IVFLUSH QSHIFT [facility] Last Admin: 06/05/23 07:03 Dose: Not Given Documented By: ROSELINE Non-Admin Reason: IV Running Thiamine HCl (Thiamine Hcl 100 Mg Tablet) 100 mg PO DAILY [facility] Last Admin: 06/05/23 09:15 Dose: 100 mg Documented By: ROSELINE <Jena Ayala PA-C - Last Filed: 06/05/23 09:45> Labs CBC & Chem 7: 06/05/23 05:58 06/05/23 05:58 <Jena Ayala PA-C - Last Filed: 06/05/23 09:45> Labs: Laboratory Results - last 24 hr 06/02/23 06/04/23 06/05/23 14:45 05:08 05:58 MCV 88.6 MCH 29.4 MCHC 33.2 RDW 16.4 H Plt Count 264 MPV 10.2 Absolute Nucleated RBC 0.000 Nucleated RBC % (auto) 0.0 PT 14.5 H INR 1.2 H Anion Gap 17 Estim Creat Clear Calc 18.9 Estimated GFR 16 Random Glucose 113 Calcium 7.3 L Iron 12 L TIBC 111 L % Saturation 11 L Unsat Iron Binding 99 Lactate Dehydrogenase 930 H Blood Type A Positive Antibody Screen NEGATIVE Crossmatch See Detail <Jena Ayala PA-C - Last Filed: 06/05/23 09:45> Procedures Date of Service Date of Service: 06/05/23 <Jena Ayala PA-C - Last Filed: 06/05/23 09:45> 06/05/23 <Saravanan Ken MD - Last Filed: 06/05/23 12:07> Progress Note: A&P Assessment and plan (1) Perforated duodenal bulb ulcer: Status: Acute <Jena Ayala PA-C - Last Filed: 06/05/23 09:45> Assessment and Plan: tolerating diet continues to have large amounts of ascites - drained by current MACY anemia likely from chronic illness ongoing transfusion Crea stable has known metastatic ds from lung cancer(?) was supposed to be undergoing chemotx in [facility] Hospitalist folowing closely seen and examined independently <Saravanan Ken MD - Last Filed: 06/05/23 12:07> (2) GINA (acute kidney injury): Status: Acute <Jena Ayala PA-C - Last Filed: 06/05/23 09:45> (3) History of lung cancer: Status: Acute <Jena Ayala PA-C - Last Filed: 06/05/23 09:45> Assessment and Plan: Status post repair with omental patch for perforated ulcer Renal function remains elevated. Hospitalists, nephrology. Receiving blood transfusion this AM as H/H continues to drift down. WBC improved this am. Continues with large amounts of ascites seen on his MACY drain, incision. Keep drain in place. His CAT scan does show a mass in the liver, lymphadenopathy the chest and the abdomen as well with known history of lung cancer with likely metastasis. Will add ensure to diet. <Jena Ayala PA-C - Last Filed: 06/05/23 09:45> Time Spent With Patient Time: Total time managing care of this patient today ____ minutes. <Jena Ayala PA-C - Last Filed: 06/05/23 09:45> Quality Stroke Does the patient have a stroke diagnosis?: No <NYDIA Antoine Last Filed: 06/05/23 09:45> VTE Prior VTE?: No <NYDIA Antoine Last Filed: 06/05/23 09:45> VTE Risk Level:: Medical - moderate - high <NYDIA Antoine Last Filed: 06/05/23 09:45> VTE Device Contraindication: N/A - Device Ordered <Jena Ayala PA-C - Last Filed: 06/05/23 09:45> VTE Drug Contraindication: Treatment Not Indicated <Jena Ayala PA-C - Last Filed: 06/05/23 09:45>
--- NOTE | 2023-06-05 11:29 | MHC.CM.PN ---
Per MD rounds no discharge today. Patient is receiving a blood transfusion today. DP STR via BLS . [facility] are following.
[2023-06-05] MEDS: Iron Sucrose Complex 200 MG in 0.9 % Sodium Chloride 100 ML 440 MG IV (11:45)
--- NOTE | 2023-06-05 11:46 | HO.PM.IMPN ---
Subjective Subjective Date of Service: 06/05/23 Interval History: Seen and evaluated Feels better overall denies any fever or chills WBCs and Hb trending down ascites improved Review of Systems Review of Systems: Yes all other systems are reviewed and are negative Physical Exam Vital Signs: Vital Signs: Last Vital Signs Temp 98.9 F 06/05/23 08:15 Pulse 85 06/05/23 08:15 Resp 16 06/05/23 08:15 BP 112/54 L 06/05/23 08:15 Pulse Ox 92 06/05/23 07:19 O2 Del Method Room Air 06/05/23 07:19 O2 Flow Rate 2 05/25/23 17:10 BMI result Body Mass Index 21.4 Const: Other: Constitutional : Awake, interactive, not in distress Neck : Normal inspection, Supple Cardiovascular : RRR, no JVP, no lower extremity edema Respiratory : good bilateral air entry, no crackles, wheezes or rhonchi Gastrointestinal: soft, lax, Normal bowel sounds, Non tender, distended with very mild ascites, MACY drain in place and filled with serous material Skin : Warm, Dry Neurological : Alert & oriented x3, No focal deficit Objective Data Active Medications Acetaminophen (Acetaminophen 325 Mg Tablet) 650 mg PO Q6H PRN PRN Reason: Fever Amlodipine Besylate (Amlodipine Besylate 2.5 Mg Tablet) 2.5 mg PO DAILY [facility]; Protocol Last Admin: 05/31/23 08:28 Dose: Not Given Atenolol (Atenolol 25 Mg Tablet) 25 mg PO DAILY [facility]; Protocol Last Admin: 06/02/23 08:22 Dose: 25 mg Documented By: BERNIE Heparin Sodium (Porcine) (Heparin Sodium,Porcine 5,000 Unit/Ml Vial) 5,000 unit SUBCUT Q8H [facility] Last Admin: 06/05/23 05:56 Dose: 5,000 unit Documented By: CHEN Hydromorphone HCl (Hydromorphone Hcl 0.5 Mg/0.5 Ml Syringe) 0.5 mg IVPUSH Q5M PRN; Protocol PRN Reason: Pain, Severe (Pain Scale 7-10) Last Admin: 05/25/23 14:50 Dose: 0.5 mg Documented By: JUAN Hydromorphone HCl (Hydromorphone Hcl 0.5 Mg/0.5 Ml Syringe) 0.25 mg IVPUSH Q5M PRN; Protocol PRN Reason: Pain, Severe (Pain Scale 7-10) Hydromorphone HCl (Hydromorphone Hcl 0.5 Mg/0.5 Ml Syringe) 0.5 mg IVPUSH Q3H PRN; Protocol PRN Reason: Pain, Severe (Pain Scale 7-10) Last Admin: 06/05/23 05:15 Dose: 0.5 mg Documented By: CHEN Piperacillin Sod/Tazobactam (Sod 2.25 gm/ Sodium Chloride) 50 mls @ 100 mls/hr IV Q8H [facility] Last Infusion: 06/05/23 05:55 Dose: Infused Documented By: CHEN Dextrose/Sodium Chloride (D5ns) 1,000 mls @ 100 mls/hr IVCONT .Q10H [facility] Last Admin: 06/05/23 04:15 Dose: 100 mls/hr Documented By: CHEN Iron Sucrose 200 mg/ Sodium (Chloride) 110 mls @ 440 mls/hr IV DAILY [facility] Stop: 06/07/23 09:14 Lisinopril (Lisinopril 10 Mg Tablet) 10 mg PO DAILY [facility] Last Admin: 05/31/23 08:30 Dose: 10 mg Lorazepam (Lorazepam 1 Mg Tablet) 1 mg PO BEDTIME PRN PRN Reason: Sleep Last Admin: 06/04/23 22:34 Dose: 1 mg Documented By: CHEN Omeprazole (Omeprazole 40 Mg Capsule.Dr) 40 mg PO BID@0630,1630 [facility] Last Admin: 06/05/23 05:15 Dose: 40 mg Documented By: CHEN Ondansetron HCl (Ondansetron Hcl 4 Mg/2 Ml Vial) 4 mg IVPUSH Q8H PRN PRN Reason: Nausea and Vomiting Ondansetron HCl (Ondansetron Hcl 4 Mg/2 Ml Vial) 4 mg IVPUSH ONCE PRN PRN Reason: Nausea and Vomiting Sodium Chloride (0.9 % Sodium Chloride Flush 3 Ml Syringe) 3 ml IVFLUSH QSHIFT [facility] Last Admin: 06/05/23 07:03 Dose: Not Given Documented By: ROSELINE Non-Admin Reason: IV Running Thiamine HCl (Thiamine Hcl 100 Mg Tablet) 100 mg PO DAILY [facility] Last Admin: 06/05/23 09:15 Dose: 100 mg Documented By: ROSELINE Labs 06/05/23 05:58 06/05/23 05:58 Labs: Laboratory Results - last 24 hr 06/02/23 06/04/23 06/05/23 14:45 05:08 05:58 MCV 88.6 MCH 29.4 MCHC 33.2 RDW 16.4 H Plt Count 264 MPV 10.2 Absolute Nucleated RBC 0.000 Nucleated RBC % (auto) 0.0 PT 14.5 H INR 1.2 H Anion Gap 17 Estim Creat Clear Calc 18.9 Estimated GFR 16 Random Glucose 113 Calcium 7.3 L Iron 12 L TIBC 111 L % Saturation 11 L Unsat Iron Binding 99 Lactate Dehydrogenase 930 H Blood Type A Positive Antibody Screen NEGATIVE Crossmatch See Detail Assessment and Plan (1) GINA (acute kidney injury): Status: Acute (2) Perforated duodenal bulb ulcer: Status: Acute Plan 72M PMH Right sided lung cancer s/p RLL resection and chemotherapy, ckd stage 4, htn, hld, hx cva, and macular degeneration admitted for general surgery for management of duodenal performation s/o laparotomy with omental patching of a perforated ulcer, now complicated by gina on ckd IV and acute metbaolic acidosis GINA on ckd IV baseline creatinine around 2-2.5, up to 4 now trending down to 3.7 ATN picture from low BP and surgery hold amlodipine, Atenolol and lisinopril for low BP IVF D5NS nephro input appreciated Perforated duodenal ulcer s/p li patch management per primary team Acute on chronic anemia Hb of 7.2 this morning, partially dilutional and related to chronic illness transfuse blood unit Start IV iron for low iron stores follow H&H HTN holding bp meds for low normal bps and gina Hx lung cancer s/p RLL resection, chemotherapy follows with [facility] onc. 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 will continue to follow with you. Quality Stroke Does the patient have a stroke diagnosis?: No VTE Prior VTE?: No VTE Risk Level:: Medical - moderate - high VTE Device Contraindication: N/A - Device Ordered VTE Drug Contraindication: Treatment Not Indicated
--- NOTE | 2023-06-05 14:13 | PC.NURSE ---
Spoke with Dr Ken and Dr Stratton about large amount of output from MACY drain. Per overnight nurse, 1090 total output for overnight shift. Abdominal ultrasound ordered by .
[2023-06-05] MEDS: LORazepam 1 MG TABLET PO (22:06)
[2023-06-06] MEDS: Heparin Sodium,Porcine 5,000 UNIT/ML VIAL 5000 UNIT SUBCUT ×4 (00:19→21:46)
[2023-06-06] MEDS: Dextrose 5 % and 0.9 % NaCl 1,000 ML 100 ML IVCONT ×3 (01:19→19:49)
[2023-06-06] MEDS: HYDROmorphone HCl 0.5 MG/0.5 ML SYRINGE IVPUSH ×5 (03:19→19:49)
[2023-06-06 03:36] VITALS: BP 114/56; PULSE 93; RESP 17; TEMP 37.2; O2SAT 94
[2023-06-06] MEDS: Piperacillin Sodium/Tazobactam 2.25 GM in 0.9 % Sodium Chloride 50 ML IV ×3 (05:45→19:50)
[2023-06-06] MEDS: Omeprazole 40 MG CAPSULE.DR PO ×2 (06:16→15:53)
[2023-06-06 06:34] LABS: Anion Gap 17 (12-20); Blood Urea Nitrogen 32 mg/dL (9-16); Calcium 7.6 mg/dL (8.4-10.2); Carbon Dioxide 21 mmol/L (22-29); Chloride 102 mmol/L (96-108); Creatinine Clr Calc Pharmacy 20.5; Estimated Glomerular Filt Rate 17; Glucose Random 109 mg/dL (60-115); Hematocrit 24.9 % (42.0-52.0); Hemoglobin 8.3 g/dl (14.0-18.0); Mean Corpuscular HGB Conc 33.3 g/dl (31.0-36.0); Mean Corpuscular Hemoglobin 29.9 pg (27.0-33.0); Mean Corpuscular Volume 89.6 fL (80.0-98.0); Mean Platelet Volume 9.8 fL (9.4-12.4); Platelet Count 307 X10*3/uL (160-400); Potassium 3.9 mmol/L (3.3-5.1); Red Blood Count 2.78 X10*6/uL (4.60-5.80); Red Cell Distribution Width 16.1 % (11.0-16.0); Sodium 136 mmol/L (135-145); White Blood Count 17.7 X10*3/uL (4.8-10.8)
[2023-06-06 07:48] VITALS: BP 114/56; PULSE 95; RESP 16; TEMP 37.1; O2SAT 91
[2023-06-06] MEDS: Iron Sucrose Complex 200 MG in 0.9 % Sodium Chloride 100 ML 440 MG IV (08:37)
[2023-06-06] MEDS: Thiamine HCL 100 MG TABLET PO (09:05)
[2023-06-06 12:00] VITALS: BP 111/55; PULSE 103; RESP 16; TEMP 37.1; O2SAT 93
--- NOTE | 2023-06-06 14:34 | PM.PNGS ---
Subjective Subjective Date of Service: 06/06/23 Interval history: No acute surgical issues or complaints. Minimal incisional discomfort. Patient is tolerating his diet. He is passing some stool. MACY output serous and voluminous. Physical Exam Vital Signs: Vital Signs: Last Vital Signs Temp 98.7 F 06/06/23 12:00 Pulse 103 H 06/06/23 12:00 Resp 16 06/06/23 12:00 BP 111/55 L 06/06/23 12:00 Pulse Ox 93 06/06/23 12:00 O2 Del Method Room Air 06/06/23 12:00 O2 Flow Rate 2 05/25/23 17:10 BMI result Body Mass Index 21.4 GI: Other: Abdomen is soft. MACY as noted above. Incision clean dry and intact. Objective Data Active Medications Acetaminophen (Acetaminophen 325 Mg Tablet) 650 mg PO Q6H PRN PRN Reason: Fever Amlodipine Besylate (Amlodipine Besylate 2.5 Mg Tablet) 2.5 mg PO DAILY [facility]; Protocol Last Admin: 05/31/23 08:28 Dose: Not Given Atenolol (Atenolol 25 Mg Tablet) 25 mg PO DAILY [facility]; Protocol Last Admin: 06/02/23 08:22 Dose: 25 mg Documented By: BERNIE Heparin Sodium (Porcine) (Heparin Sodium,Porcine 5,000 Unit/Ml Vial) 5,000 unit SUBCUT Q8H [facility] Last Admin: 06/06/23 06:17 Dose: 5,000 unit Documented By: RUBEN Hydromorphone HCl (Hydromorphone Hcl 0.5 Mg/0.5 Ml Syringe) 0.5 mg IVPUSH Q5M PRN; Protocol PRN Reason: Pain, Severe (Pain Scale 7-10) Last Admin: 05/25/23 14:50 Dose: 0.5 mg Documented By: JUAN Hydromorphone HCl (Hydromorphone Hcl 0.5 Mg/0.5 Ml Syringe) 0.25 mg IVPUSH Q5M PRN; Protocol PRN Reason: Pain, Severe (Pain Scale 7-10) Hydromorphone HCl (Hydromorphone Hcl 0.5 Mg/0.5 Ml Syringe) 0.5 mg IVPUSH Q3H PRN; Protocol PRN Reason: Pain, Severe (Pain Scale 7-10) Last Admin: 06/06/23 12:29 Dose: 0.5 mg Documented By: MICHELLE Piperacillin Sod/Tazobactam (Sod 2.25 gm/ Sodium Chloride) 50 mls @ 100 mls/hr IV Q8H [facility] Last Infusion: 06/06/23 13:08 Dose: Infused Documented By: MICHELLE Dextrose/Sodium Chloride (D5ns) 1,000 mls @ 100 mls/hr IVCONT .Q10H [facility] Last Infusion: 06/06/23 13:08 Dose: 100 mls/hr Documented By: MICHELLE Iron Sucrose 200 mg/ Sodium (Chloride) 110 mls @ 440 mls/hr IV DAILY [facility] Stop: 06/07/23 09:14 Last Infusion: 06/06/23 09:06 Dose: Infused Documented By: MICHELLE Lisinopril (Lisinopril 10 Mg Tablet) 10 mg PO DAILY [facility] Last Admin: 05/31/23 08:30 Dose: 10 mg Lorazepam (Lorazepam 1 Mg Tablet) 1 mg PO BEDTIME PRN PRN Reason: Sleep Last Admin: 06/05/23 22:06 Dose: 1 mg Documented By: RUBEN Omeprazole (Omeprazole 40 Mg Capsule.) 40 mg PO BID@0630,1630 [facility] Last Admin: 06/06/23 06:16 Dose: 40 mg Documented By: RUBEN Ondansetron HCl (Ondansetron Hcl 4 Mg/2 Ml Vial) 4 mg IVPUSH Q8H PRN PRN Reason: Nausea and Vomiting Ondansetron HCl (Ondansetron Hcl 4 Mg/2 Ml Vial) 4 mg IVPUSH ONCE PRN PRN Reason: Nausea and Vomiting Sodium Chloride (0.9 % Sodium Chloride Flush 3 Ml Syringe) 3 ml IVFLUSH QSHIFT [facility] Last Admin: 06/06/23 08:25 Dose: Not Given Documented By: MICHELLE Non-Admin Reason: IV Running Thiamine HCl (Thiamine Hcl 100 Mg Tablet) 100 mg PO DAILY [facility] Last Admin: 06/06/23 09:05 Dose: 100 mg Documented By: MICHELLE Labs 06/06/23 06:01 06/06/23 06:01 Labs: Laboratory Results - last 24 hr 06/06/23 06:01 MCV 89.6 MCH 29.9 MCHC 33.3 RDW 16.1 H Plt Count 307 MPV 9.8 Absolute Nucleated RBC 0.000 Nucleated RBC % (auto) 0.0 Anion Gap 17 Estim Creat Clear Calc 20.5 Estimated GFR 17 Random Glucose 109 Calcium 7.6 L Procedures Date of Service Date of Service: 06/06/23 Progress Note: A&P Assessment and plan (1) Perforated duodenal bulb ulcer: Status: Acute Plan Current plan is to arrange for ECF placement when bed is available. In the meantime, patient should continue ambulating, incentive spirometry, and diet as tolerated. All questions answered. Time Spent With Patient Time: Total time managing care of this patient today ____ minutes. Quality Stroke Does the patient have a stroke diagnosis?: No VTE Prior VTE?: No VTE Risk Level:: Medical - moderate - high VTE Device Contraindication: N/A - Device Ordered VTE Drug Contraindication: Treatment Not Indicated
[2023-06-06 15:19] VITALS: BP 107/52; PULSE 101; RESP 16; TEMP 37.1; O2SAT 93
[2023-06-06] MEDS: 0.9 % Sodium Chloride Flush 3 ML SYRINGE IVFLUSH (15:53)
[2023-06-06 19:57] VITALS: BP 107/57; PULSE 104; RESP 18; TEMP 36.7; O2SAT 92
[2023-06-06] MEDS: LORazepam 1 MG TABLET PO (21:46)
[2023-06-07] VITALS (7 sets, daily range): BP systolic 107–133; BP diastolic 52–63; PULSE 95–103; RESP 17–20; TEMP 36.7–37.3; O2SAT 92–97
[2023-06-07] MEDS: HYDROmorphone HCl 0.5 MG/0.5 ML SYRINGE IVPUSH ×3 (00:06→08:28)
[2023-06-07] MEDS: Heparin Sodium,Porcine 5,000 UNIT/ML VIAL 5000 UNIT SUBCUT ×3 (04:52→22:01)
[2023-06-07] MEDS: Omeprazole 40 MG CAPSULE.DR PO ×2 (04:52→15:38)
[2023-06-07] MEDS: Piperacillin Sodium/Tazobactam 2.25 GM in 0.9 % Sodium Chloride 50 ML IV ×3 (04:53→21:19)
[2023-06-07] MEDS: Dextrose 5 % and 0.9 % NaCl 1,000 ML 100 ML IVCONT (04:57)
[2023-06-07 06:28] LABS: Anion Gap 15 (12-20); Blood Urea Nitrogen 34 mg/dL (9-16); Carbon Dioxide 20 mmol/L (22-29); Chloride 104 mmol/L (96-108); Creatinine Clr Calc Pharmacy 22.4; Estimated Glomerular Filt Rate 19; Glucose Random 111 mg/dL (60-115); Potassium 4.1 mmol/L (3.3-5.1); Sodium 135 mmol/L (135-145)
[2023-06-07 06:30] LABS: Hematocrit 25.2 % (42.0-52.0); Hemoglobin 8.3 g/dl (14.0-18.0); Mean Corpuscular HGB Conc 32.9 g/dl (31.0-36.0); Mean Corpuscular Hemoglobin 29.7 pg (27.0-33.0); Mean Corpuscular Volume 90.3 fL (80.0-98.0); Mean Platelet Volume 9.8 fL (9.4-12.4); Platelet Count 318 X10*3/uL (160-400); Red Blood Count 2.79 X10*6/uL (4.60-5.80); Red Cell Distribution Width 16.5 % (11.0-16.0); White Blood Count 17.3 X10*3/uL (4.8-10.8)
[2023-06-07] MEDS: Thiamine HCL 100 MG TABLET PO (08:28)
[2023-06-07] MEDS: Iron Sucrose Complex 200 MG in 0.9 % Sodium Chloride 100 ML 440 MG IV (08:29)
[2023-06-07] MEDS: 0.9 % Sodium Chloride Flush 3 ML SYRINGE IVFLUSH ×2 (08:31→15:38)
--- NOTE | 2023-06-07 10:19 | P.PNGS_ITS ---
Subjective Subjective Date of Service: 06/07/23 Interval history: Uneventful evening. MACY drain was having very high output. We have put in ostomy appliance on this and appears to be accommodating the excess ascitic drainage. In the meantime, patient is tolerating his diet. No other GI issues or complaints. Physical Exam 2 Vital Signs: Vital Signs: Last Vital Signs Temp 98.9 F 06/07/23 07:54 Pulse 103 H 06/07/23 07:54 Resp 18 06/07/23 08:28 BP 133/63 06/07/23 07:54 Pulse Ox 96 06/07/23 07:54 O2 Del Method Room Air 06/07/23 07:54 O2 Flow Rate 2 05/25/23 17:10 BMI result Body Mass Index 21.4 GI: Other: Abdomen is soft. Wounds clean dry and intact. Objective Data Active Medications Acetaminophen (Acetaminophen 325 Mg Tablet) 650 mg PO Q6H PRN PRN Reason: Fever Amlodipine Besylate (Amlodipine Besylate 2.5 Mg Tablet) 2.5 mg PO DAILY [facility]; Protocol Last Admin: 05/31/23 08:28 Dose: Not Given Atenolol (Atenolol 25 Mg Tablet) 25 mg PO DAILY [facility]; Protocol Last Admin: 06/02/23 08:22 Dose: 25 mg Documented By: BERNIE Ferrous Sulfate (Ferrous Sulfate 324 Mg Tablet.Dr) 324 mg PO BIDWM [facility] Heparin Sodium (Porcine) (Heparin Sodium,Porcine 5,000 Unit/Ml Vial) 5,000 unit SUBCUT Q8H [facility] Last Admin: 06/07/23 04:52 Dose: 5,000 unit Documented By: RUBEN Hydromorphone HCl (Hydromorphone Hcl 0.5 Mg/0.5 Ml Syringe) 0.5 mg IVPUSH Q5M PRN; Protocol PRN Reason: Pain, Severe (Pain Scale 7-10) Last Admin: 05/25/23 14:50 Dose: 0.5 mg Documented By: JUAN Hydromorphone HCl (Hydromorphone Hcl 0.5 Mg/0.5 Ml Syringe) 0.25 mg IVPUSH Q5M PRN; Protocol PRN Reason: Pain, Severe (Pain Scale 7-10) Hydromorphone HCl (Hydromorphone Hcl 0.5 Mg/0.5 Ml Syringe) 0.5 mg IVPUSH Q3H PRN; Protocol PRN Reason: Pain, Severe (Pain Scale 7-10) Last Admin: 06/07/23 08:28 Dose: 0.5 mg Documented By: MICHELLE Piperacillin Sod/Tazobactam (Sod 2.25 gm/ Sodium Chloride) 50 mls @ 100 mls/hr IV Q8H [facility] Last Infusion: 06/07/23 05:24 Dose: Infused Documented By: RUBEN Lactated Ringer's (Lr) 1,000 mls @ 100 mls/hr IVCONT .Q10H [facility] Lisinopril (Lisinopril 10 Mg Tablet) 10 mg PO DAILY [facility] Last Admin: 05/31/23 08:30 Dose: 10 mg Lorazepam (Lorazepam 1 Mg Tablet) 1 mg PO BEDTIME PRN PRN Reason: Sleep Last Admin: 06/06/23 21:46 Dose: 1 mg Documented By: RUBEN Omeprazole (Omeprazole 40 Mg Capsule.Dr) 40 mg PO BID@0630,1630 [facility] Last Admin: 06/07/23 04:52 Dose: 40 mg Documented By: RUBEN Ondansetron HCl (Ondansetron Hcl 4 Mg/2 Ml Vial) 4 mg IVPUSH Q8H PRN PRN Reason: Nausea and Vomiting Ondansetron HCl (Ondansetron Hcl 4 Mg/2 Ml Vial) 4 mg IVPUSH ONCE PRN PRN Reason: Nausea and Vomiting Oxycodone HCl (Oxycodone Hcl Immed Release 5 Mg Tablet) 5 mg PO Q4H PRN PRN Reason: Pain, Moderate(Pain Scale 4-6) Sodium Chloride (0.9 % Sodium Chloride Flush 3 Ml Syringe) 3 ml IVFLUSH QSHIFT [facility] Last Admin: 06/07/23 08:31 Dose: 3 ml Documented By: MICHELLE Thiamine HCl (Thiamine Hcl 100 Mg Tablet) 100 mg PO DAILY [facility] Last Admin: 06/07/23 08:28 Dose: 100 mg Documented By: MICHELLE Labs 06/07/23 05:51 06/07/23 05:51 Labs: Laboratory Results - last 24 hr 06/07/23 05:51 MCV 90.3 MCH 29.7 MCHC 32.9 RDW 16.5 H Plt Count 318 MPV 9.8 Absolute Nucleated RBC 0.000 Nucleated RBC % (auto) 0.0 Anion Gap 15 Estim Creat Clear Calc 22.4 Estimated GFR 19 Random Glucose 111 Calcium 8.0 L Procedures Date of Service Date of Service: 06/07/23 Progress Note: A&P Assessment and plan (1) Perforated duodenal bulb ulcer: Status: Acute Plan Continue current plan. Patient awaiting ECF placement. Time Spent With Patient Time: Total time managing care of this patient today ____ minutes. Quality Stroke Does the patient have a stroke diagnosis?: No VTE Prior VTE?: No VTE Risk Level:: Medical - moderate - high VTE Device Contraindication: N/A - Device Ordered VTE Drug Contraindication: Treatment Not Indicated
[2023-06-07] MEDS: Lactated Ringers 1,000 ML 100 ML IVCONT (10:21)
--- NOTE | 2023-06-07 10:54 | P.PNIM_ITS ---
Subjective Subjective Date of Service: 06/07/23 Interval History: Seen and evaluated Feels better overall but still reporting pain at surgical site denies any fever or chills draining ascites fluids Review of Systems Review of Systems: Yes all other systems are reviewed and are negative Physical Exam 2 Vital Signs: Vital Signs: Last Vital Signs Temp 98.9 F 06/07/23 07:54 Pulse 103 H 06/07/23 07:54 Resp 18 06/07/23 08:28 BP 133/63 06/07/23 07:54 Pulse Ox 96 06/07/23 07:54 O2 Del Method Room Air 06/07/23 07:54 O2 Flow Rate 2 05/25/23 17:10 BMI result Body Mass Index 21.4 Const: Other: Constitutional : Awake, interactive, not in distress Neck : Normal inspection, Supple Cardiovascular : RRR, no JVP, no lower extremity edema Respiratory : good bilateral air entry, no crackles, wheezes or rhonchi Gastrointestinal: soft, lax, Normal bowel sounds, Non tender, distended with very mild ascites, MACY drain in place and filled with serous material Skin : Warm, Dry Neurological : Alert & oriented x3, No focal deficit Objective Data Active Medications Acetaminophen (Acetaminophen 325 Mg Tablet) 650 mg PO Q6H PRN PRN Reason: Fever Amlodipine Besylate (Amlodipine Besylate 2.5 Mg Tablet) 2.5 mg PO DAILY [facility]; Protocol Last Admin: 05/31/23 08:28 Dose: Not Given Atenolol (Atenolol 25 Mg Tablet) 25 mg PO DAILY [facility]; Protocol Last Admin: 06/02/23 08:22 Dose: 25 mg Documented By: BERNIE Ferrous Sulfate (Ferrous Sulfate 324 Mg Tablet.Dr) 324 mg PO BIDWM [facility] Heparin Sodium (Porcine) (Heparin Sodium,Porcine 5,000 Unit/Ml Vial) 5,000 unit SUBCUT Q8H [facility] Last Admin: 06/07/23 04:52 Dose: 5,000 unit Documented By: RUBEN Hydromorphone HCl (Hydromorphone Hcl 0.5 Mg/0.5 Ml Syringe) 0.5 mg IVPUSH Q5M PRN; Protocol PRN Reason: Pain, Severe (Pain Scale 7-10) Last Admin: 05/25/23 14:50 Dose: 0.5 mg Documented By: JUAN Hydromorphone HCl (Hydromorphone Hcl 0.5 Mg/0.5 Ml Syringe) 0.25 mg IVPUSH Q5M PRN; Protocol PRN Reason: Pain, Severe (Pain Scale 7-10) Hydromorphone HCl (Hydromorphone Hcl 0.5 Mg/0.5 Ml Syringe) 0.5 mg IVPUSH Q3H PRN; Protocol PRN Reason: Pain, Severe (Pain Scale 7-10) Last Admin: 06/07/23 08:28 Dose: 0.5 mg Documented By: MICHELLE Piperacillin Sod/Tazobactam (Sod 2.25 gm/ Sodium Chloride) 50 mls @ 100 mls/hr IV Q8H [facility] Last Infusion: 06/07/23 05:24 Dose: Infused Documented By: RUBEN Lactated Ringer's (Lr) 1,000 mls @ 100 mls/hr IVCONT .Q10H [facility] Last Admin: 06/07/23 10:21 Dose: 100 mls/hr Documented By: MICHELLE Lisinopril (Lisinopril 10 Mg Tablet) 10 mg PO DAILY [facility] Last Admin: 05/31/23 08:30 Dose: 10 mg Lorazepam (Lorazepam 1 Mg Tablet) 1 mg PO BEDTIME PRN PRN Reason: Sleep Last Admin: 06/06/23 21:46 Dose: 1 mg Documented By: RUBEN Omeprazole (Omeprazole 40 Mg Capsule.Dr) 40 mg PO BID@0630,1630 [facility] Last Admin: 06/07/23 04:52 Dose: 40 mg Documented By: RUBEN Ondansetron HCl (Ondansetron Hcl 4 Mg/2 Ml Vial) 4 mg IVPUSH Q8H PRN PRN Reason: Nausea and Vomiting Ondansetron HCl (Ondansetron Hcl 4 Mg/2 Ml Vial) 4 mg IVPUSH ONCE PRN PRN Reason: Nausea and Vomiting Oxycodone HCl (Oxycodone Hcl Immed Release 5 Mg Tablet) 5 mg PO Q4H PRN PRN Reason: Pain, Moderate(Pain Scale 4-6) Sodium Chloride (0.9 % Sodium Chloride Flush 3 Ml Syringe) 3 ml IVFLUSH QSHIFT [facility] Last Admin: 06/07/23 08:31 Dose: 3 ml Documented By: MICHELLE Thiamine HCl (Thiamine Hcl 100 Mg Tablet) 100 mg PO DAILY [facility] Last Admin: 06/07/23 08:28 Dose: 100 mg Documented By: MICHELLE Labs 06/07/23 05:51 06/07/23 05:51 Labs: Laboratory Results - last 24 hr 06/07/23 05:51 MCV 90.3 MCH 29.7 MCHC 32.9 RDW 16.5 H Plt Count 318 MPV 9.8 Absolute Nucleated RBC 0.000 Nucleated RBC % (auto) 0.0 Anion Gap 15 Estim Creat Clear Calc 22.4 Estimated GFR 19 Random Glucose 111 Calcium 8.0 L Assessment and Plan (1) GINA (acute kidney injury): Status: Acute (2) Acute on chronic blood loss anemia: Status: Acute Plan 72M PMH Right sided lung cancer s/p RLL resection and chemotherapy, ckd stage 4, htn, hld, hx cva, and macular degeneration admitted for general surgery for management of duodenal performation s/o laparotomy with omental patching of a perforated ulcer, now complicated by gina on ckd IV and acute metbaolic acidosis GINA on ckd IV baseline creatinine around 2-2.5, up to 4 now trending down to 3.2 ATN picture from low BP and surgery hold amlodipine, Atenolol and lisinopril for low BP IVF LR nephro input appreciated Perforated duodenal ulcer s/p li patch management per primary team Acute on chronic anemia Hb improved to 8.3 after 1 unit transfusion on IV iron for low iron stores, start PO supplement follow H&H HTN holding bp meds for low normal bps and gina Hx lung cancer s/p RLL resection, chemotherapy follows with [facility] onc. 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 will continue to follow with you. Quality Stroke Does the patient have a stroke diagnosis?: No VTE Prior VTE?: No VTE Risk Level:: Medical - moderate - high VTE Device Contraindication: N/A - Device Ordered VTE Drug Contraindication: Treatment Not Indicated
[2023-06-07] MEDS: oxyCODONE HCl Immed Release 5 MG TABLET PO ×3 (13:32→23:10)
[2023-06-07] MEDS: Acetaminophen 325 MG TABLET 650 MG PO (16:03)
[2023-06-07] MEDS: Ferrous Sulfate 324 MG TABLET.DR PO (16:03)
[2023-06-07] MEDS: LORazepam 1 MG TABLET PO (23:10)
[2023-06-08] VITALS (7 sets, daily range): BP systolic 103–127; BP diastolic 54–58; PULSE 93–105; RESP 18; TEMP 36.4–37.4; O2SAT 92–95
[2023-06-08] MEDS: Lactated Ringers 1,000 ML 100 ML IVCONT ×3 (00:26→23:00)
[2023-06-08] MEDS: oxyCODONE HCl Immed Release 5 MG TABLET PO ×4 (04:38→19:58)
[2023-06-08] MEDS: Piperacillin Sodium/Tazobactam 2.25 GM in 0.9 % Sodium Chloride 50 ML IV ×3 (04:39→20:54)
[2023-06-08 05:46] LABS: Hematocrit 26.4 % (42.0-52.0); Hemoglobin 8.6 g/dl (14.0-18.0); Mean Corpuscular HGB Conc 32.6 g/dl (31.0-36.0); Mean Corpuscular Hemoglobin 30.1 pg (27.0-33.0); Mean Corpuscular Volume 92.3 fL (80.0-98.0); Mean Platelet Volume 9.6 fL (9.4-12.4); Platelet Count 352 X10*3/uL (160-400); Red Blood Count 2.86 X10*6/uL (4.60-5.80); Red Cell Distribution Width 16.6 % (11.0-16.0); White Blood Count 14.1 X10*3/uL (4.8-10.8)
[2023-06-08 06:01] LABS: Anion Gap 17 (12-20); Blood Urea Nitrogen 32 mg/dL (9-16); Calcium 8.4 mg/dL (8.4-10.2); Carbon Dioxide 18 mmol/L (22-29); Chloride 103 mmol/L (96-108); Creatinine Clr Calc Pharmacy 23.4; Estimated Glomerular Filt Rate 20; Glucose Random 101 mg/dL (60-115); Potassium 4.4 mmol/L (3.3-5.1); Sodium 134 mmol/L (135-145)
[2023-06-08] MEDS: Omeprazole 40 MG CAPSULE.DR PO ×2 (06:13→15:42)
[2023-06-08] MEDS: Heparin Sodium,Porcine 5,000 UNIT/ML VIAL 5000 UNIT SUBCUT ×2 (06:14→23:00)
--- NOTE | 2023-06-08 08:23 | PM.PNGS ---
Subjective Subjective Date of Service: 06/09/23 Interval history: no events over the weekend feels well tolerating diet Physical Exam Vital Signs: Vital Signs: Last Vital Signs Temp 99.3 F 06/08/23 07:53 Pulse 105 H 06/08/23 07:53 Resp 18 06/08/23 07:53 BP 103/54 L 06/08/23 07:53 Pulse Ox 92 06/08/23 07:53 O2 Del Method Room Air 06/08/23 07:53 O2 Flow Rate 2 05/25/23 17:10 BMI result Body Mass Index 21.4 Const: General: comfortable and no acute distress Resp: Effort & Inspection: normal respiratory effort GI: Other: incision clean, with ascites leaking on upper part; drain allso with ascitic fluid Palpation (GI): Soft to palpation Objective Data Active Medications Acetaminophen (Acetaminophen 325 Mg Tablet) 650 mg PO Q6H PRN PRN Reason: Fever Last Admin: 06/07/23 16:03 Dose: 650 mg Documented By: MICHELLE Amlodipine Besylate (Amlodipine Besylate 2.5 Mg Tablet) 2.5 mg PO DAILY [facility]; Protocol Last Admin: 05/31/23 08:28 Dose: Not Given Atenolol (Atenolol 25 Mg Tablet) 25 mg PO DAILY [facility]; Protocol Last Admin: 06/02/23 08:22 Dose: 25 mg Documented By: BERNIE Ferrous Sulfate (Ferrous Sulfate 324 Mg Tablet.) 324 mg PO BIDWM [facility] Last Admin: 06/07/23 16:03 Dose: 324 mg Documented By: MICHELLE Heparin Sodium (Porcine) (Heparin Sodium,Porcine 5,000 Unit/Ml Vial) 5,000 unit SUBCUT Q8H [facility] Last Admin: 06/08/23 06:14 Dose: 5,000 unit Documented By: KLARISSA Hydromorphone HCl (Hydromorphone Hcl 0.5 Mg/0.5 Ml Syringe) 0.5 mg IVPUSH Q5M PRN; Protocol PRN Reason: Pain, Severe (Pain Scale 7-10) Last Admin: 05/25/23 14:50 Dose: 0.5 mg Documented By: JUAN Hydromorphone HCl (Hydromorphone Hcl 0.5 Mg/0.5 Ml Syringe) 0.25 mg IVPUSH Q5M PRN; Protocol PRN Reason: Pain, Severe (Pain Scale 7-10) Hydromorphone HCl (Hydromorphone Hcl 0.5 Mg/0.5 Ml Syringe) 0.5 mg IVPUSH Q3H PRN; Protocol PRN Reason: Pain, Severe (Pain Scale 7-10) Last Admin: 06/07/23 08:28 Dose: 0.5 mg Documented By: MICHELLE Piperacillin Sod/Tazobactam (Sod 2.25 gm/ Sodium Chloride) 50 mls @ 100 mls/hr IV Q8H [facility] Last Infusion: 06/08/23 05:44 Dose: Infused Documented By: KLARISSA Lactated Ringer's (Lr) 1,000 mls @ 100 mls/hr IVCONT .Q10H [facility] Last Admin: 06/08/23 00:26 Dose: 100 mls/hr Documented By: KLARISSA Lisinopril (Lisinopril 10 Mg Tablet) 10 mg PO DAILY [facility] Last Admin: 05/31/23 08:30 Dose: 10 mg Lorazepam (Lorazepam 1 Mg Tablet) 1 mg PO BEDTIME PRN PRN Reason: Sleep Last Admin: 06/07/23 23:10 Dose: 1 mg Documented By: KLARISSA Omeprazole (Omeprazole 40 Mg Capsule.Dr) 40 mg PO BID@0630,1630 [facility] Last Admin: 06/08/23 06:13 Dose: 40 mg Documented By: KLARISSA Ondansetron HCl (Ondansetron Hcl 4 Mg/2 Ml Vial) 4 mg IVPUSH Q8H PRN PRN Reason: Nausea and Vomiting Ondansetron HCl (Ondansetron Hcl 4 Mg/2 Ml Vial) 4 mg IVPUSH ONCE PRN PRN Reason: Nausea and Vomiting Oxycodone HCl (Oxycodone Hcl Immed Release 5 Mg Tablet) 5 mg PO Q4H PRN PRN Reason: Pain, Moderate(Pain Scale 4-6) Last Admin: 06/08/23 04:38 Dose: 5 mg Documented By: KLARISSA Sodium Chloride (0.9 % Sodium Chloride Flush 3 Ml Syringe) 3 ml IVFLUSH QSHIFT [facility] Last Admin: 06/08/23 00:28 Dose: Not Given Documented By: KLARISSA Non-Admin Reason: IV Running Thiamine HCl (Thiamine Hcl 100 Mg Tablet) 100 mg PO DAILY [facility] Last Admin: 06/07/23 08:28 Dose: 100 mg Documented By: MICHELLE Labs 06/08/23 05:20 06/09/23 05:00 Labs: Laboratory Results - last 24 hr 06/08/23 05:20 MCV 92.3 MCH 30.1 MCHC 32.6 RDW 16.6 H Plt Count 352 MPV 9.6 Absolute Nucleated RBC 0.000 Nucleated RBC % (auto) 0.0 Anion Gap 17 Estim Creat Clear Calc 23.4 Estimated GFR 20 Random Glucose 101 Calcium 8.4 Procedures Date of Service Date of Service: 06/09/23 Progress Note: A&P Assessment and plan (1) Perforated abdominal viscus: Status: Acute Assessment and Plan: s/p omental patch repair creatinine much improved still with ascites - has known metastatic disease good GI function as per Hospitalist - seems ready for Rehab placement will dw family review with employment case manager Time Spent With Patient Time: Total time managing care of this patient today ____ minutes. Quality Stroke Does the patient have a stroke diagnosis?: No VTE Prior VTE?: No VTE Risk Level:: Medical - moderate - high VTE Device Contraindication: N/A - Device Ordered VTE Drug Contraindication: Treatment Not Indicated
[2023-06-08] MEDS: Thiamine HCL 100 MG TABLET PO (08:32)
[2023-06-08] MEDS: Ferrous Sulfate 324 MG TABLET.DR PO ×2 (08:32→17:22)
[2023-06-08] MEDS: Acetaminophen 325 MG TABLET 650 MG PO (08:36)
--- NOTE | 2023-06-08 09:03 | MHC.CM.PN ---
Addendum entered by Deepika Avilez 06/08/23 11:11: Patient has a bed tomorrow at [facility] He will transport via BLS. Original Note: CM spoke with patient and his sister re discharge. [facility]st choice is [facility]. The liason is checking availability. DC is anticipated today or tomorrow pending bed offer. Patient will transport via BLS.
--- NOTE | 2023-06-08 11:44 | MHC.CLN ---
NUTRITION ENSURE TID ADDED BY PROVIDER 06/05 DUE TO REPORTED POOR APPETITE. SUPPLEMENT CHANGED TO MAGIC CUP BID. PROVIDES 580 KCALS, 18 G PROTEIN. LOWER PROTEIN SUPPLEMENT DUE TO CKD STAGE 4. MOST RECENT INTAKE APPEARS TO BE 75-100%.
--- NOTE | 2023-06-08 12:26 | P.PNNP_ITS ---
Subjective Subjective Date of Service: 06/08/23 Interval history: s and examined no complaints Physical Exam 2 Vital Signs: Vital Signs: Last Vital Signs Temp 98.1 F 06/08/23 11:41 Pulse 100 06/08/23 11:41 Resp 18 06/08/23 11:41 BP 107/57 L 06/08/23 11:41 Pulse Ox 95 06/08/23 11:41 O2 Del Method Room Air 06/08/23 11:41 O2 Flow Rate 2 05/25/23 17:10 BMI result Body Mass Index 21.4 Const: General: alert and awake Neck: Neck: Yes supple Resp: Auscultation: diminished lung sounds Cardio: Heart sounds: S1 normal heart sound present and S2 normal heart sound present GI: Palpation (GI): Soft to palpation and nontender Extrem: General: No pedal edema Objective Data Labs 06/08/23 05:20 06/08/23 05:20 Labs: Laboratory Results - last 24 hr 06/08/23 05:20 WBC 14.1 H RBC 2.86 L Hgb 8.6 L Hct 26.4 L MCV 92.3 MCH 30.1 MCHC 32.6 RDW 16.6 H Plt Count 352 MPV 9.6 Absolute Nucleated RBC 0.000 Nucleated RBC % (auto) 0.0 Sodium 134 L Potassium 4.4 Chloride 103 Carbon Dioxide 18 L Anion Gap 17 BUN 32 H Creatinine 3.05 H Estim Creat Clear Calc 23.4 Estimated GFR 20 Random Glucose 101 Calcium 8.4 Microbiology Microbiology Results: Microbiology 05/25/23 10:27 Blood - Venous Blood Culture - Final No growth after 5 days. 05/25/23 10:02 Blood - Venous Blood Culture - Final No growth after 5 days. 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 Progress Note: Quality Stroke Does the patient have a stroke diagnosis?: No
--- NOTE | 2023-06-08 12:32 | P.PNIM_ITS ---
Subjective Subjective Date of Service: 06/08/23 Interval History: Seen and evaluated Feels better overall Cr improving to 3 denies any fever or chills draining less ascites fluids Review of Systems Review of Systems: Yes all other systems are reviewed and are negative Physical Exam 2 Vital Signs: Vital Signs: Last Vital Signs Temp 98.1 F 06/08/23 11:41 Pulse 100 06/08/23 11:41 Resp 18 06/08/23 11:41 BP 107/57 L 06/08/23 11:41 Pulse Ox 95 06/08/23 11:41 O2 Del Method Room Air 06/08/23 11:41 O2 Flow Rate 2 05/25/23 17:10 BMI result Body Mass Index 21.4 Const: Other: Constitutional : Awake, interactive, not in distress Neck : Normal inspection, Supple Cardiovascular : RRR, no JVP, no lower extremity edema Respiratory : good bilateral air entry, no crackles, wheezes or rhonchi Gastrointestinal: soft, lax, Normal bowel sounds, Non tender, distended with very mild ascites, MACY drain in place and filled with serous material Skin : Warm, Dry Neurological : Alert & oriented x3, No focal deficit Objective Data Active Medications Acetaminophen (Acetaminophen 325 Mg Tablet) 650 mg PO Q6H PRN PRN Reason: Fever Last Admin: 06/08/23 08:36 Dose: 650 mg Documented By: LISBETH Amlodipine Besylate (Amlodipine Besylate 2.5 Mg Tablet) 2.5 mg PO DAILY [facility]; Protocol Last Admin: 05/31/23 08:28 Dose: Not Given Atenolol (Atenolol 25 Mg Tablet) 25 mg PO DAILY [facility]; Protocol Last Admin: 06/02/23 08:22 Dose: 25 mg Documented By: BERNIE Ferrous Sulfate (Ferrous Sulfate 324 Mg Tablet.) 324 mg PO BIDWM [facility] Last Admin: 06/08/23 08:32 Dose: 324 mg Documented By: LISBETH Heparin Sodium (Porcine) (Heparin Sodium,Porcine 5,000 Unit/Ml Vial) 5,000 unit SUBCUT Q8H [facility] Last Admin: 06/08/23 06:14 Dose: 5,000 unit Documented By: KLARISSA Hydromorphone HCl (Hydromorphone Hcl 0.5 Mg/0.5 Ml Syringe) 0.5 mg IVPUSH Q5M PRN; Protocol PRN Reason: Pain, Severe (Pain Scale 7-10) Last Admin: 05/25/23 14:50 Dose: 0.5 mg Documented By: JUAN Hydromorphone HCl (Hydromorphone Hcl 0.5 Mg/0.5 Ml Syringe) 0.25 mg IVPUSH Q5M PRN; Protocol PRN Reason: Pain, Severe (Pain Scale 7-10) Hydromorphone HCl (Hydromorphone Hcl 0.5 Mg/0.5 Ml Syringe) 0.5 mg IVPUSH Q3H PRN; Protocol PRN Reason: Pain, Severe (Pain Scale 7-10) Last Admin: 06/07/23 08:28 Dose: 0.5 mg Documented By: MICHELLE Piperacillin Sod/Tazobactam (Sod 2.25 gm/ Sodium Chloride) 50 mls @ 100 mls/hr IV Q8H [facility] Last Admin: 06/08/23 12:16 Dose: 100 mls/hr Documented By: LISBETH Lactated Ringer's (Lr) 1,000 mls @ 100 mls/hr IVCONT .Q10H [facility] Last Admin: 06/08/23 12:19 Dose: 100 mls/hr Documented By: LISBETH Lisinopril (Lisinopril 10 Mg Tablet) 10 mg PO DAILY [facility] Last Admin: 05/31/23 08:30 Dose: 10 mg Lorazepam (Lorazepam 1 Mg Tablet) 1 mg PO BEDTIME PRN PRN Reason: Sleep Last Admin: 06/07/23 23:10 Dose: 1 mg Documented By: KLARISSA Omeprazole (Omeprazole 40 Mg Capsule.Dr) 40 mg PO BID@0630,1630 [facility] Last Admin: 06/08/23 06:13 Dose: 40 mg Documented By: KLARISSA Ondansetron HCl (Ondansetron Hcl 4 Mg/2 Ml Vial) 4 mg IVPUSH Q8H PRN PRN Reason: Nausea and Vomiting Ondansetron HCl (Ondansetron Hcl 4 Mg/2 Ml Vial) 4 mg IVPUSH ONCE PRN PRN Reason: Nausea and Vomiting Oxycodone HCl (Oxycodone Hcl Immed Release 5 Mg Tablet) 5 mg PO Q4H PRN PRN Reason: Pain, Moderate(Pain Scale 4-6) Last Admin: 06/08/23 08:35 Dose: 5 mg Documented By: LISBETH Sodium Chloride (0.9 % Sodium Chloride Flush 3 Ml Syringe) 3 ml IVFLUSH QSHIFT [facility] Last Admin: 06/08/23 08:32 Dose: Not Given Documented By: LISBETH Non-Admin Reason: IV Running Thiamine HCl (Thiamine Hcl 100 Mg Tablet) 100 mg PO DAILY [facility] Last Admin: 06/08/23 08:32 Dose: 100 mg Documented By: LISBETH Labs 06/08/23 05:20 06/08/23 05:20 Labs: Laboratory Results - last 24 hr 06/08/23 05:20 MCV 92.3 MCH 30.1 MCHC 32.6 RDW 16.6 H Plt Count 352 MPV 9.6 Absolute Nucleated RBC 0.000 Nucleated RBC % (auto) 0.0 Anion Gap 17 Estim Creat Clear Calc 23.4 Estimated GFR 20 Random Glucose 101 Calcium 8.4 Assessment and Plan (1) Metabolic acidosis: Status: Acute (2) Acute on chronic blood loss anemia: Status: Acute (3) GINA (acute kidney injury): Status: Acute Plan 72M PMH Right sided lung cancer s/p RLL resection and chemotherapy, ckd stage 4, htn, hld, hx cva, and macular degeneration admitted for general surgery for management of duodenal performation s/o laparotomy with omental patching of a perforated ulcer, now complicated by gina on ckd IV and acute metbaolic acidosis GINA on ckd IV Cr trending down to 3 hold amlodipine, Atenolol and lisinopril for low BP IVF LR nephro input appreciated Perforated duodenal ulcer s/p li patch management per primary team Acute on chronic anemia Hb improved to 8.6 after 1 unit transfusion Finished 3 days of IV iron for low iron stores, start PO supplement follow H&H HTN holding bp meds for low normal bps and gina Hx lung cancer s/p RLL resection, chemotherapy follows with [facility] onc. 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 will continue to follow with you. Quality Stroke Does the patient have a stroke diagnosis?: No VTE Prior VTE?: No VTE Risk Level:: Medical - moderate - high VTE Device Contraindication: N/A - Device Ordered VTE Drug Contraindication: Treatment Not Indicated
--- NOTE | 2023-06-08 14:38 | HO.WOUND ---
Wound Consult: Initial 72yr old?M admitted to [facility] on 05/25/23 11:03- See progress notes and H&P for detailed history.? Wound consult called by direct car nurse for MACY drain site leaking.? Patient agreeable to assessment.? Arrival to bedside - Urostomy Pouch in place with Drain tubing (sutured in place) threaded through to pouch for fluid collection connected to a leg bag for fluid collection. The wafer was noted to have pooling liquid on the lateral side - unclear of reason as appears to be appropriate fit. Pouch removed for assessment posterior adhesive back noted to have covering in place. It appears when the pouch was placed only a portion of the adhesive backing was removed which would explain the poor adherence and pooling behind the wafer. Pouch removed and skin cleansed - skin is noted to be red pink blanchable intact tissue - on the lateral abdomen wear leaking likely sits on his skin. Pt denies pain and tenderness but reports irritation with leaking. Skin barrier wipe applied - do not use ointments or creams to this area as that will likely impact pouch adherence since it so close to pouch location. Skin barrier wipe will protect the skin from moisture and friction. The same pouch Convatec Natura Lore-Fit 57mm # [id number] - placed over MACY tube site with tubing threaded through. No new interventions needed at this time. Re-consult wound care Nurse if further assistance is needed.
[2023-06-09] MEDS: oxyCODONE HCl Immed Release 5 MG TABLET PO ×5 (02:22→21:10)
[2023-06-09 03:47] VITALS: BP 123/59; PULSE 88; RESP 17; TEMP 37.2; O2SAT 93
[2023-06-09] MEDS: Piperacillin Sodium/Tazobactam 2.25 GM in 0.9 % Sodium Chloride 50 ML IV ×3 (05:28→20:32)
[2023-06-09] MEDS: Omeprazole 40 MG CAPSULE.DR PO ×2 (05:28→16:17)
[2023-06-09 05:37] LABS: Anion Gap 14 (12-20); Blood Urea Nitrogen 35 mg/dL (9-16); Carbon Dioxide 19 mmol/L (22-29); Chloride 105 mmol/L (96-108); Creatinine Clr Calc Pharmacy 21.7; Estimated Glomerular Filt Rate 19; Glucose Random 91 mg/dL (60-115); Potassium 4.7 mmol/L (3.3-5.1); Sodium 133 mmol/L (135-145)
[2023-06-09 07:19] VITALS: BP 116/57; PULSE 101; RESP 17; TEMP 37.4; O2SAT 92
[2023-06-09] MEDS: Ferrous Sulfate 324 MG TABLET.DR PO ×2 (08:07→16:17)
[2023-06-09] MEDS: Thiamine HCL 100 MG TABLET PO (08:07)
[2023-06-09] MEDS: Heparin Sodium,Porcine 5,000 UNIT/ML VIAL 5000 UNIT SUBCUT ×3 (08:08→23:17)
--- NOTE | 2023-06-09 08:57 | P.PNGS_ITS ---
Subjective Subjective Date of Service: 06/09/23 <Jena Ayala PA-C - Last Filed: 06/09/23 09:04> 06/09/23 <Saravanan Ken MD - Last Filed: 06/09/23 14:53> Interval history: Urostomy bag at MACY drain site leaked overnight and was replaced. Has had significant output overnight (>1L). <Jena Ayala PA-C - Last Filed: 06/09/23 09:04> Physical Exam 2 Vital Signs: Vital Signs: Last Vital Signs Temp 99.3 F 06/09/23 07:19 Pulse 101 H 06/09/23 07:19 Resp 17 06/09/23 07:19 BP 116/57 L 06/09/23 07:19 Pulse Ox 92 06/09/23 07:19 O2 Del Method Room Air 06/09/23 07:19 O2 Flow Rate 2 05/25/23 17:10 BMI result Body Mass Index 21.4 <Jena Ayala PA-C - Last Filed: 06/09/23 09:04> Const: General: comfortable, no acute distress and alert <Jena Ayala PA-C - Last Filed: 06/09/23 09:04> Orientation/consciousness: patient oriented x3 <Jena Ayala PA-C - Last Filed: 06/09/23 09:04> Resp: Effort & Inspection: normal respiratory effort <Jena Ayala PA-C - Last Filed: 06/09/23 09:04> GI: Other: incision clean, nicholas removed yesterday and urostomy bag placed over superior aspect of incision due to ascites drainage urostomy bag leaking over MACY drain site significant pitting edema of flanks with erythema of right flank ?irritation from ascites <Jena Ayala PA-C - Last Filed: 06/09/23 09:04> Inspection: No distended <NYDIA Antoine Last Filed: 06/09/23 09:04> Palpation (GI): Soft to palpation, Tenderness to palpation present (GI) (mild incisional), no guarding and not rigid <NYDIA Antoine Last Filed: 06/09/23 09:04> Skin: General skin exam: no rashes or lesions noted and no jaundice < Jena Ayala PA-C - Last Filed: 06/09/23 09:04> Neuro: General: patient oriented x3 <Jena Ayala PA-C - Last Filed: 06/09/23 09:04> Objective Data Active Medications Acetaminophen (Acetaminophen 325 Mg Tablet) 650 mg PO Q6H PRN PRN Reason: Fever Last Admin: 06/08/23 08:36 Dose: 650 mg Documented By: LISBETH Ferrous Sulfate (Ferrous Sulfate 324 Mg Tablet.) 324 mg PO BIDWM [facility] Last Admin: 06/09/23 08:07 Dose: 324 mg Documented By: LISBETH Heparin Sodium (Porcine) (Heparin Sodium,Porcine 5,000 Unit/Ml Vial) 5,000 unit SUBCUT Q8H [facility] Last Admin: 06/09/23 08:08 Dose: 5,000 unit Documented By: LISBETH Hydromorphone HCl (Hydromorphone Hcl 0.5 Mg/0.5 Ml Syringe) 0.5 mg IVPUSH Q5M PRN; Protocol PRN Reason: Pain, Severe (Pain Scale 7-10) Last Admin: 05/25/23 14:50 Dose: 0.5 mg Documented By: JUAN Hydromorphone HCl (Hydromorphone Hcl 0.5 Mg/0.5 Ml Syringe) 0.25 mg IVPUSH Q5M PRN; Protocol PRN Reason: Pain, Severe (Pain Scale 7-10) Hydromorphone HCl (Hydromorphone Hcl 0.5 Mg/0.5 Ml Syringe) 0.5 mg IVPUSH Q3H PRN; Protocol PRN Reason: Pain, Severe (Pain Scale 7-10) Last Admin: 06/07/23 08:28 Dose: 0.5 mg Documented By: MICHELLE Piperacillin Sod/Tazobactam (Sod 2.25 gm/ Sodium Chloride) 50 mls @ 100 mls/hr IV Q8H [facility] Last Infusion: 06/09/23 05:59 Dose: Infused Documented By: JORY Albumin Human (Kedbumin 25 %) 100 mls @ 100 mls/hr IV Q6H [facility] Stop: 06/10/23 03:59 Lisinopril (Lisinopril 10 Mg Tablet) 10 mg PO DAILY [facility] Last Admin: 05/31/23 08:30 Dose: 10 mg Lorazepam (Lorazepam 1 Mg Tablet) 1 mg PO BEDTIME PRN PRN Reason: Sleep Last Admin: 06/07/23 23:10 Dose: 1 mg Documented By: KLARISSA Omeprazole (Omeprazole 40 Mg Capsule.Dr) 40 mg PO BID@0630,1630 [facility] Last Admin: 06/09/23 05:28 Dose: 40 mg Documented By: JORY Ondansetron HCl (Ondansetron Hcl 4 Mg/2 Ml Vial) 4 mg IVPUSH Q8H PRN PRN Reason: Nausea and Vomiting Ondansetron HCl (Ondansetron Hcl 4 Mg/2 Ml Vial) 4 mg IVPUSH ONCE PRN PRN Reason: Nausea and Vomiting Oxycodone HCl (Oxycodone Hcl Immed Release 5 Mg Tablet) 5 mg PO Q4H PRN PRN Reason: Pain, Moderate(Pain Scale 4-6) Last Admin: 06/09/23 08:06 Dose: 5 mg Documented By: LISBETH Sodium Chloride (0.9 % Sodium Chloride Flush 3 Ml Syringe) 3 ml IVFLUSH QSHIFT [facility] Last Admin: 06/09/23 08:08 Dose: Not Given Documented By: LISBETH Non-Admin Reason: IV Running Thiamine HCl (Thiamine Hcl 100 Mg Tablet) 100 mg PO DAILY [facility] Last Admin: 06/09/23 08:07 Dose: 100 mg Documented By: LISBETH <Jena Ayala PA-C - Last Filed: 06/09/23 09:04> Labs CBC & Chem 7: 06/08/23 05:20 06/09/23 05:00 <Jena Ayala PA-C - Last Filed: 06/09/23 09:04> Labs: Laboratory Results - last 24 hr 06/09/23 05:00 Anion Gap 14 Estim Creat Clear Calc 21.7 Estimated GFR 19 Random Glucose 91 Calcium 8.0 L <Jena Ayala PA-C - Last Filed: 06/09/23 09:04> Procedures Date of Service Date of Service: 06/09/23 <Jena Ayala PA-C - Last Filed: 06/09/23 09:04> 06/09/23 <Saravanan Ken MD - Last Filed: 06/09/23 14:53> Progress Note: A&P Assessment and plan (1) CKD (chronic kidney disease) stage 4, GFR 15-29 ml/min: Status: Acute <Jena Ayala PA-C - Last Filed: 06/09/23 09:04> Assessment and Plan: new appliance around drain seems to achieve better control a lot of ascites draining abd soft he has been ambulating push PO intake albumin for ascities dependent edema on torso as well possible transfer to Rehab tomorrow seen and examined multiple times today <Saravanan Ken MD - Last Filed: 06/09/23 14:53> (2) GINA (acute kidney injury): Status: Acute <Jena Ayala PA-C - Last Filed: 06/09/23 09:04> (3) Perforated duodenal bulb ulcer: Status: Acute <Jena Ayala PA-C - Last Filed: 06/09/23 09:04> Assessment and Plan: Continue to have difficulty with control of ascites drainage and is having significant output that may be contributing to GINA. ?Start Albumin. Will discuss with hospitalist. Plan to remove MACY drain and place stitch, may need periodic paracentesis for ascites. Hold off on dc today. <Jena Ayala PA-C - Last Filed: 06/09/23 09:04> Time Spent With Patient Time: Total time managing care of this patient today ____ minutes. <eJna Ayala PA-C - Last Filed: 06/09/23 09:04> Quality Stroke Does the patient have a stroke diagnosis?: No <NYDIA Antoine Last Filed: 06/09/23 09:04> VTE Prior VTE?: No <NYDIA Antoine Last Filed: 06/09/23 09:04> VTE Risk Level:: Medical - moderate - high <NYDIA Antoine Last Filed: 06/09/23 09:04> VTE Device Contraindication: N/A - Device Ordered <Jena Ayala PA-C - Last Filed: 06/09/23 09:04> VTE Drug Contraindication: Treatment Not Indicated <Jena Ayala PA-C - Last Filed: 06/09/23 09:04>
--- NOTE | 2023-06-09 09:05 | MHC.CM.PN ---
IMM 06/08/23 Per surgeon dc on hold r/t amount of drainage from drain site. [facility] has been notified that DC is on hold. [facility] via BLS.
[2023-06-09] MEDS: Albumin Human 25 % 100 ML IV ×3 (09:20→21:03)
--- NOTE | 2023-06-09 10:30 | P.PNIM_ITS ---
Subjective Subjective Date of Service: 06/09/23 Interval History: ongoing ascites drainage Physical Exam 2 Vital Signs: Vital Signs: Last Vital Signs Temp 99.3 F 06/09/23 07:19 Pulse 101 H 06/09/23 07:19 Resp 17 06/09/23 07:19 BP 116/57 L 06/09/23 07:19 Pulse Ox 92 06/09/23 07:19 O2 Del Method Room Air 06/09/23 07:19 O2 Flow Rate 2 05/25/23 17:10 BMI result Body Mass Index 21.4 Const: General: comfortable, no acute distress and alert O rientation/consciousness: patient oriented x3 Resp: Effort & Inspection: normal respiratory effort GI: Other: incision clean, nicholas removed yesterday and urostomy bag placed over superior aspect of incision due to ascites drainage urostomy bag leaking over MACY drain site significant pitting edema of flanks with erythema of right flank ?irritation from ascites Inspection: No distended Palpation (GI): Soft to palpation, Tenderness to palpation present (GI) (mild incisional), no guarding and not rigid Skin: General skin exam: no rashes or lesions noted and no jaundice Neuro: General: patient oriented x3 Objective Data Active Medications Acetaminophen (Acetaminophen 325 Mg Tablet) 650 mg PO Q6H PRN PRN Reason: Fever Last Admin: 06/08/23 08:36 Dose: 650 mg Documented By: LISBETH Ferrous Sulfate (Ferrous Sulfate 324 Mg Tablet.) 324 mg PO BIDWM [facility] Last Admin: 06/09/23 08:07 Dose: 324 mg Documented By: LISBETH Heparin Sodium (Porcine) (Heparin Sodium,Porcine 5,000 Unit/Ml Vial) 5,000 unit SUBCUT Q8H [facility] Last Admin: 06/09/23 08:08 Dose: 5,000 unit Documented By: LISBETH Hydromorphone HCl (Hydromorphone Hcl 0.5 Mg/0.5 Ml Syringe) 0.5 mg IVPUSH Q5M PRN; Protocol PRN Reason: Pain, Severe (Pain Scale 7-10) Last Admin: 05/25/23 14:50 Dose: 0.5 mg Documented By: JUAN Hydromorphone HCl (Hydromorphone Hcl 0.5 Mg/0.5 Ml Syringe) 0.25 mg IVPUSH Q5M PRN; Protocol PRN Reason: Pain, Severe (Pain Scale 7-10) Hydromorphone HCl (Hydromorphone Hcl 0.5 Mg/0.5 Ml Syringe) 0.5 mg IVPUSH Q3H PRN; Protocol PRN Reason: Pain, Severe (Pain Scale 7-10) Last Admin: 06/07/23 08:28 Dose: 0.5 mg Documented By: MICHELLE Piperacillin Sod/Tazobactam (Sod 2.25 gm/ Sodium Chloride) 50 mls @ 100 mls/hr IV Q8H [facility] Last Infusion: 06/09/23 05:59 Dose: Infused Documented By: JORY Albumin Human (Kedbumin 25 %) 100 mls @ 100 mls/hr IV Q6H [facility] Stop: 06/10/23 03:59 Last Admin: 06/09/23 09:20 Dose: 100 mls/hr Documented By: LISBETH Lisinopril (Lisinopril 10 Mg Tablet) 10 mg PO DAILY [facility] Last Admin: 05/31/23 08:30 Dose: 10 mg Lorazepam (Lorazepam 1 Mg Tablet) 1 mg PO BEDTIME PRN PRN Reason: Sleep Last Admin: 06/07/23 23:10 Dose: 1 mg Documented By: KLARISSA Omeprazole (Omeprazole 40 Mg Capsule.Dr) 40 mg PO BID@0630,1630 [facility] Last Admin: 06/09/23 05:28 Dose: 40 mg Documented By: JORY Ondansetron HCl (Ondansetron Hcl 4 Mg/2 Ml Vial) 4 mg IVPUSH Q8H PRN PRN Reason: Nausea and Vomiting Ondansetron HCl (Ondansetron Hcl 4 Mg/2 Ml Vial) 4 mg IVPUSH ONCE PRN PRN Reason: Nausea and Vomiting Oxycodone HCl (Oxycodone Hcl Immed Release 5 Mg Tablet) 5 mg PO Q4H PRN PRN Reason: Pain, Moderate(Pain Scale 4-6) Last Admin: 06/09/23 08:06 Dose: 5 mg Documented By: LISBETH Sodium Chloride (0.9 % Sodium Chloride Flush 3 Ml Syringe) [facility] Last Admin: 06/09/23 08:08 Dose: Not Given Documented By: LISBETH Non-Admin Reason: IV Running Thiamine HCl (Thiamine Hcl 100 Mg Tablet) 100 mg PO DAILY [facility] Last Admin: 06/09/23 08:07 Dose: 100 mg Documented By: LISBETH Labs 06/08/23 05:20 06/09/23 05:00 Labs: Laboratory Results - last 24 hr 06/09/23 05:00 Anion Gap 14 Estim Creat Clear Calc 21.7 Estimated GFR 19 Random Glucose 91 Calcium 8.0 L Assessment and Plan (1) Metabolic acidosis: Status: Acute (2) Acute on chronic blood loss anemia: Status: Acute (3) GINA (acute kidney injury): Status: Acute Plan 72M PMH Right sided lung cancer s/p RLL resection and chemotherapy, ckd stage 4, htn, hld, hx cva, and macular degeneration admitted for general surgery for management of duodenal performation s/o laparotomy with omental patching of a perforated ulcer, now complicated by gina on ckd IV and acute metbaolic acidosis GINA on ckd IV Cr trending down holding amlodipine, Atenolol and lisinopril for low BP nephro input appreciated ascites possibly due to 3rd spacing trial of albumin Perforated duodenal ulcer s/p li patch management per primary team Acute on chronic anemia Hb improved to 8.6 after 1 unit transfusion Finished 3 days of IV iron for low iron stores, start PO supplement follow H&H HTN holding bp meds for low normal bps and gina Hx lung cancer s/p RLL resection, chemotherapy follows with [facility] onc. 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 will continue to follow with you. Quality Stroke Does the patient have a stroke diagnosis?: No VTE Prior VTE?: No VTE Risk Level:: Medical - moderate - high VTE Device Contraindication: N/A - Device Ordered VTE Drug Contraindication: Treatment Not Indicated
--- NOTE | 2023-06-09 10:49 | HO.WOUND ---
Wound Consult: Follow up 72yr old?M admitted to [facility] on 05/25/23 11:03- See progress notes and H&P for detailed history.? Wound consult called by direct care nurse for MACY drain site leaking and poor pouch adherence.? Arrival to bedside patient is agreeable to assessment.? 2 Urostomy Pouchs are in place at midline and MACY drain. Direct care nurse reports Midline nicholas were removed and pouch applied for drainage containment by Dr. Ken yesterday. Pouches removed and noted to be leaking at 3 and 9 o'clock along the midline incision - pt in sitting position noted to have crease in corresponding location. The leaking from the midline with copious amounts of clear drainage observed is likely impacting the MACY pouch site. The pouch in place is a two piece pouch and the firm tupperwear like seal likely impacting the adherence due to abdominal creases noted. Recommend switching to one piece Coloplast Sensura #[id number]. Skin cleansed with warm water no soaps or lotions and dried well. Skin barrier wipe applied. Midline assessed - small 0.5cm area of leaking noted - no erythema no induration noted. Copious amounts noted with intra-abdominal pressure increases such as moving and or coughing. The area of dehiscence was treated with Stoma paste to the periwound followed by pouch - template opening left at bedside. The MACY drain remains sutured in place - no erythema at the insertion site. The precut opening in the Coloplast Sensura 1 piece was appropriate for threading the tube though - template left at bedside. The pouch was placed slightly on top of midline pouch not likely to impact adherence. Given the patients loose skin with creases - Hydrocooloid was cut to extend the edges of the pouch to prevent lifting and rolling. At the end of consult pouches were in place and no leaking noted. Will monitor for pouch adherence - direct care team will notify for pouch leaking if with in todays day shift. Inpatient wound care nurse will continue to follow.
--- NOTE | 2023-06-09 10:59 | P.PNNP_ITS ---
Subjective Subjective Date of Service: 06/09/23 Interval history: seen and examined no complaints Physical Exam 2 Vital Signs: Vital Signs: Last Vital Signs Temp 99.3 F 06/09/23 07:19 Pulse 101 H 06/09/23 07:19 Resp 17 06/09/23 07:19 BP 116/57 L 06/09/23 07:19 Pulse Ox 92 06/09/23 07:19 O2 Del Method Room Air 06/09/23 07:19 O2 Flow Rate 2 05/25/23 17:10 BMI result Body Mass Index 21.4 Const: General: alert and awake Neck: Neck: Yes supple Resp: Auscultation: diminished lung sounds Cardio: Heart sounds: S1 normal heart sound present and S2 normal heart sound present GI: Palpation (GI): Soft to palpation and nontender Extrem: General: No pedal edema Objective Data Labs 06/08/23 05:20 06/09/23 05:00 Labs: Laboratory Results - last 24 hr 06/09/23 05:00 Sodium 133 L Potassium 4.7 Chloride 105 Carbon Dioxide 19 L Anion Gap 14 BUN 35 H Creatinine 3.29 H Estim Creat Clear Calc 21.7 Estimated GFR 19 Random Glucose 91 Calcium 8.0 L Microbiology Microbiology Results: Microbiology 05/25/23 10:27 Blood - Venous Blood Culture - Final No growth after 5 days. 05/25/23 10:02 Blood - Venous Blood Culture - Final No growth after 5 days. 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 Progress Note: Quality Stroke Does the patient have a stroke diagnosis?: No
[2023-06-09 12:00] VITALS: BP 106/56; PULSE 102; RESP 18; TEMP 37.7; O2SAT 92
[2023-06-09] MEDS: Acetaminophen 325 MG TABLET 650 MG PO (12:04)
[2023-06-09 16:00] VITALS: BP 116/56; PULSE 95; RESP 18; TEMP 37.4; O2SAT 92
[2023-06-09 19:09] VITALS: BP 100/55; PULSE 100; RESP 17; TEMP 37.3; O2SAT 94
[2023-06-09 23:14] VITALS: BP 119/56; PULSE 100; RESP 17; TEMP 37.5; O2SAT 96
[2023-06-09] MEDS: 0.9 % Sodium Chloride Flush 3 ML SYRINGE IVFLUSH (23:17)
[2023-06-10] VITALS (8 sets, daily range): BP systolic 105–130; BP diastolic 53–61; PULSE 89–98; RESP 14–18; TEMP 36.7–37.5; O2SAT 93–96
[2023-06-10] MEDS: oxyCODONE HCl Immed Release 5 MG TABLET PO ×4 (01:38→20:26)
[2023-06-10] MEDS: Albumin Human 25 % 100 ML IV (02:58)
[2023-06-10] MEDS: Piperacillin Sodium/Tazobactam 2.25 GM in 0.9 % Sodium Chloride 50 ML IV ×3 (05:29→20:25)
[2023-06-10] MEDS: Omeprazole 40 MG CAPSULE.DR PO ×2 (05:29→17:00)
[2023-06-10 06:08] LABS: Hematocrit 22.9 % (42.0-52.0); Hemoglobin 7.3 g/dl (14.0-18.0); Mean Corpuscular HGB Conc 31.9 g/dl (31.0-36.0); Mean Corpuscular Hemoglobin 29.3 pg (27.0-33.0); Mean Platelet Volume 9.2 fL (9.4-12.4); Platelet Count 277 X10*3/uL (160-400); Red Blood Count 2.49 X10*6/uL (4.60-5.80); Red Cell Distribution Width 17.3 % (11.0-16.0); White Blood Count 13.7 X10*3/uL (4.8-10.8)
[2023-06-10 06:47] LABS: Alanine Aminotransferase 60 U/L (0-40); Albumin Level 2.9 g/dL (3.5-5.0); Alkaline Phosphatase 507 U/L (39-117); Anion Gap 18 (12-20); Aspartate Amino Transferase 132 U/L (5-37); Bilirubin Direct 0.7 mg/dL (0.0-0.5); Blood Urea Nitrogen 35 mg/dL (9-16); Calcium 8.5 mg/dL (8.4-10.2); Carbon Dioxide 17 mmol/L (22-29); Chloride 104 mmol/L (96-108); Creatinine Clr Calc Pharmacy 20.9; Estimated Glomerular Filt Rate 18; Glucose Fasting 92 mg/dL (60-99); Magnesium 1.5 mg/dL (1.6-2.6); Potassium 4.6 mmol/L (3.3-5.1); Sodium 134 mmol/L (135-145); Total Protein 5.8 g/dL (6.5-8.0)
[2023-06-10] MEDS: Thiamine HCL 100 MG TABLET PO (07:25)
[2023-06-10] MEDS: Ferrous Sulfate 324 MG TABLET.DR PO ×2 (07:25→17:00)
[2023-06-10] MEDS: Heparin Sodium,Porcine 5,000 UNIT/ML VIAL 5000 UNIT SUBCUT ×3 (07:26→23:23)
[2023-06-10] MEDS: 0.9 % Sodium Chloride Flush 3 ML SYRINGE IVFLUSH ×3 (07:27→23:23)
--- NOTE | 2023-06-10 08:44 | HO.PM.IMPN ---
Subjective Subjective Date of Service: 06/10/23 Interval History: ongoing drainage Physical Exam Vital Signs: Vital Signs: Last Vital Signs Temp 99.0 F 06/10/23 07:30 Pulse 96 06/10/23 07:30 Resp 14 06/10/23 07:30 BP 127/59 L 06/10/23 07:30 Pulse Ox 95 06/10/23 07:30 O2 Del Method Room Air 06/10/23 07:30 O2 Flow Rate 2 05/25/23 17:10 BMI result Body Mass Index 21.4 Const: General: alert and awake Neck: Neck: Yes supple Resp: Auscultation: diminished lung sounds Cardio: Heart sounds: S1 normal heart sound present and S2 normal heart sound present GI: Palpation (GI): Soft to palpation and nontender Extrem: General: No pedal edema Objective Data Active Medications Acetaminophen (Acetaminophen 325 Mg Tablet) 650 mg PO Q6H PRN PRN Reason: Fever Last Admin: 06/09/23 12:04 Dose: 650 mg Documented By: LISBETH Ferrous Sulfate (Ferrous Sulfate 324 Mg Tablet.) 324 mg PO BIDWM [facility] Last Admin: 06/10/23 07:25 Dose: 324 mg Documented By: CARRIE Heparin Sodium (Porcine) (Heparin Sodium,Porcine 5,000 Unit/Ml Vial) 5,000 unit SUBCUT Q8H [facility] Last Admin: 06/10/23 07:26 Dose: 5,000 unit Documented By: CARRIE Hydromorphone HCl (Hydromorphone Hcl 0.5 Mg/0.5 Ml Syringe) 0.5 mg IVPUSH Q5M PRN; Protocol PRN Reason: Pain, Severe (Pain Scale 7-10) Last Admin: 05/25/23 14:50 Dose: 0.5 mg Documented By: JUAN Hydromorphone HCl (Hydromorphone Hcl 0.5 Mg/0.5 Ml Syringe) 0.25 mg IVPUSH Q5M PRN; Protocol PRN Reason: Pain, Severe (Pain Scale 7-10) Hydromorphone HCl (Hydromorphone Hcl 0.5 Mg/0.5 Ml Syringe) 0.5 mg IVPUSH Q3H PRN; Protocol PRN Reason: Pain, Severe (Pain Scale 7-10) Last Admin: 06/07/23 08:28 Dose: 0.5 mg Documented By: MICHELLE Piperacillin Sod/Tazobactam (Sod 2.25 gm/ Sodium Chloride) 50 mls @ 100 mls/hr IV Q8H [facility] Last Infusion: 06/10/23 05:59 Dose: Infused Documented By: JORY Lisinopril (Lisinopril 10 Mg Tablet) 10 mg PO DAILY [facility] Last Admin: 05/31/23 08:30 Dose: 10 mg Omeprazole (Omeprazole 40 Mg Capsule.Dr) 40 mg PO BID@0630,1630 [facility] Last Admin: 06/10/23 05:29 Dose: 40 mg Documented By: JORY Ondansetron HCl (Ondansetron Hcl 4 Mg/2 Ml Vial) 4 mg IVPUSH Q8H PRN PRN Reason: Nausea and Vomiting Ondansetron HCl (Ondansetron Hcl 4 Mg/2 Ml Vial) 4 mg IVPUSH ONCE PRN PRN Reason: Nausea and Vomiting Oxycodone HCl (Oxycodone Hcl Immed Release 5 Mg Tablet) 5 mg PO Q4H PRN PRN Reason: Pain, Moderate(Pain Scale 4-6) Last Admin: 06/10/23 07:25 Dose: 5 mg Documented By: CARRIE Sodium Chloride (0.9 % Sodium Chloride Flush 3 Ml Syringe) 3 ml IVFLUSH QSHIFT [facility] Last Admin: 06/10/23 07:27 Dose: 3 ml Documented By: CARRIE Thiamine HCl (Thiamine Hcl 100 Mg Tablet) 100 mg PO DAILY [facility] Last Admin: 06/10/23 07:25 Dose: 100 mg Documented By: CARRIE Labs 06/10/23 05:40 06/10/23 05:40 Labs: Laboratory Results - last 24 hr 06/10/23 05:40 MCV 92.0 MCH 29.3 MCHC 31.9 RDW 17.3 H Plt Count 277 MPV 9.2 L Absolute Nucleated RBC 0.000 Nucleated RBC % (auto) 0.0 Anion Gap 18 Estim Creat Clear Calc 20.9 Estimated GFR 18 Fasting Glucose 92 Calcium 8.5 D Magnesium 1.5 L Total Bilirubin 1.0 Direct Bilirubin 0.7 H AST 132 H ALT 60 H Alkaline Phosphatase 507 H Total Protein 5.8 L Albumin 2.9 L Assessment and Plan (1) Metabolic acidosis: Status: Acute (2) Acute on chronic blood loss anemia: Status: Acute (3) GINA (acute kidney injury): Status: Acute Plan 72M PMH Right sided lung cancer s/p RLL resection and chemotherapy, ckd stage 4, htn, hld, hx cva, and macular degeneration admitted for general surgery for management of duodenal performation s/o laparotomy with omental patching of a perforated ulcer, now complicated by gina on ckd IV and acute metbaolic acidosis GINA on ckd IV holding amlodipine, Atenolol and lisinopril for low BP nephro input appreciated ascites possibly due to 3rd spacing s/p 4 units albumin Perforated duodenal ulcer s/p li patch management per primary team Acute on chronic anemia s/p 1 unit prbc, will transfuse 1 more unit Finished 3 days of IV iron for low iron stores, start PO supplement HTN holding bp meds for low normal bps and gina Hx lung cancer s/p RLL resection, chemotherapy follows with [facility] onc. 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
--- NOTE | 2023-06-10 09:22 | P.PNGS_ITS ---
Subjective Subjective Date of Service: 06/10/23 Interval history: Still having a lot of ascites still having a lot of ascites through drain and around Ascites controlled with current appliance Tolerating diet Physical Exam 2 Vital Signs: Vital Signs: Last Vital Signs Temp 99.0 F 06/10/23 07:30 Pulse 96 06/10/23 07:30 Resp 14 06/10/23 07:30 BP 127/59 L 06/10/23 07:30 Pulse Ox 95 06/10/23 07:30 O2 Del Method Room Air 06/10/23 07:30 O2 Flow Rate 2 05/25/23 17:10 BMI result Body Mass Index 21.4 Const: General: comfortable and no acute distress Resp: Effort & Inspection: normal respiratory effort Cardio: Rate: regular rate GI: Other: Baseline Stoma appliance to catch ascites on the right side, with drain in place Midline incision well healed, no active ascitic leak at this time Objective Data Active Medications Acetaminophen (Acetaminophen 325 Mg Tablet) 650 mg PO Q6H PRN PRN Reason: Fever Last Admin: 06/09/23 12:04 Dose: 650 mg Documented By: LISBETH Ferrous Sulfate (Ferrous Sulfate 324 Mg Tablet.) 324 mg PO BIDWM [facility] Last Admin: 06/10/23 07:25 Dose: 324 mg Documented By: CARRIE Heparin Sodium (Porcine) (Heparin Sodium,Porcine 5,000 Unit/Ml Vial) 5,000 unit SUBCUT Q8H [facility] Last Admin: 06/10/23 07:26 Dose: 5,000 unit Documented By: CARRIE Hydromorphone HCl (Hydromorphone Hcl 0.5 Mg/0.5 Ml Syringe) 0.5 mg IVPUSH Q5M PRN; Protocol PRN Reason: Pain, Severe (Pain Scale 7-10) Last Admin: 05/25/23 14:50 Dose: 0.5 mg Documented By: JUAN Hydromorphone HCl (Hydromorphone Hcl 0.5 Mg/0.5 Ml Syringe) 0.25 mg IVPUSH Q5M PRN; Protocol PRN Reason: Pain, Severe (Pain Scale 7-10) Hydromorphone HCl (Hydromorphone Hcl 0.5 Mg/0.5 Ml Syringe) 0.5 mg IVPUSH Q3H PRN; Protocol PRN Reason: Pain, Severe (Pain Scale 7-10) Last Admin: 06/07/23 08:28 Dose: 0.5 mg Documented By: MICHELLE Piperacillin Sod/Tazobactam (Sod 2.25 gm/ Sodium Chloride) 50 mls @ 100 mls/hr IV Q8H [facility] Last Infusion: 06/10/23 05:59 Dose: Infused Documented By: JORY Lisinopril (Lisinopril 10 Mg Tablet) 10 mg PO DAILY [facility] Last Admin: 05/31/23 08:30 Dose: 10 mg Omeprazole (Omeprazole 40 Mg Capsule.Dr) 40 mg PO BID@0630,1630 [facility] Last Admin: 06/10/23 05:29 Dose: 40 mg Documented By: JORY Ondansetron HCl (Ondansetron Hcl 4 Mg/2 Ml Vial) 4 mg IVPUSH Q8H PRN PRN Reason: Nausea and Vomiting Ondansetron HCl (Ondansetron Hcl 4 Mg/2 Ml Vial) 4 mg IVPUSH ONCE PRN PRN Reason: Nausea and Vomiting Oxycodone HCl (Oxycodone Hcl Immed Release 5 Mg Tablet) 5 mg PO Q4H PRN PRN Reason: Pain, Moderate(Pain Scale 4-6) Last Admin: 06/10/23 07:25 Dose: 5 mg Documented By: CARRIE Sodium Chloride (0.9 % Sodium Chloride Flush 3 Ml Syringe) 3 ml IVFLUSH QSHIFT [facility] Last Admin: 06/10/23 07:27 Dose: 3 ml Documented By: CARRIE Thiamine HCl (Thiamine Hcl 100 Mg Tablet) 100 mg PO DAILY [facility] Last Admin: 06/10/23 07:25 Dose: 100 mg Documented By: CARRIE Labs 06/10/23 05:40 06/10/23 05:40 Labs: Laboratory Results - last 24 hr 06/10/23 05:40 MCV 92.0 MCH 29.3 MCHC 31.9 RDW 17.3 H Plt Count 277 MPV 9.2 L Absolute Nucleated RBC 0.000 Nucleated RBC % (auto) 0.0 Anion Gap 18 Estim Creat Clear Calc 20.9 Estimated GFR 18 Fasting Glucose 92 Calcium 8.5 D Magnesium 1.5 L Total Bilirubin 1.0 Direct Bilirubin 0.7 H AST 132 H ALT 60 H Alkaline Phosphatase 507 H Total Protein 5.8 L Albumin 2.9 L Procedures Date of Service Date of Service: 06/10/23 Progress Note: A&P Assessment and plan (1) Perforated abdominal viscus: Status: Acute Assessment and Plan: Status post omental patch Continues to have ascites, clear We plan to remove MACY drain as this becomes a pathway for infection for the ascites To be transfused for low hemoglobin He will need follow-up with his oncologist Poor oral intake Pain management Also with chronic kidney disease, elevated creatinine, low bicarb Hospitalist, Nephrology following closely Time Spent With Patient Time: Total time managing care of this patient today ____ minutes. Quality Stroke Does the patient have a stroke diagnosis?: No VTE Prior VTE?: No VTE Risk Level:: Medical - moderate - high VTE Device Contraindication: N/A - Device Ordered VTE Drug Contraindication: Treatment Not Indicated
--- NOTE | 2023-06-10 12:21 | PM.EVENT ---
Event Note Date of Service: 06/11/23 Event Note: I removed his MACY drain I applied a figure of 8 stitch to close the site and hopefully create a seal transfusion ongoing he looks well hopefully he can be transferred to Rehab tomorrow he will need to be seen by his Oncologist for his metastatic disease he may need periodic paracentesis Sister updated by phone Time Spent With Patient Time: Total time managing care of this patient today ____ minutes.
--- NOTE | 2023-06-10 12:54 | MHC.CM.PN ---
Per MD rounds no discharge today. Patient requires a blood transfusion today. The surgeon sutured the drain site today. [facility] notified that the discharge is on hold again today. A clinical update has been sent to the facilities. [facility] via BLS.
--- NOTE | 2023-06-10 13:06 | HO.WOUND ---
Wound Consult: Follow up 72yr old?M admitted to [facility] on 05/25/23 11:03- See progress notes and H&P for detailed history.? Wound consult called by direct care nurse for MACY drain site leaking and poor pouch adherence.? Today was for follow up - arrival to bedside patient and direct care nurse report no leaking since pouch application yesterday. Midline incision does not appear to be leaking or oozing fluid - pt denies pouch needing to be emptied since application yesterday. The Macy drain pouch has apparently had a significant amount of drainage noted see chart for details - pouch is intact and not leaking. Direct care nurse to work with provider regarding output volume. Of note the patient is noted to have a red raised papular rash in various areas - bilateral flank sites, right arm, and bilateral groin - direct care nurse to notify the provider. No new pouching recommendations needed at this time. Inpatient wound care nurse will continue to follow.
[2023-06-10] MEDS: Acetaminophen 325 MG TABLET 650 MG PO (14:40)
[2023-06-10] MEDS: Sodium Bicarbonate 650 MG TABLET PO ×2 (14:40→20:25)
[2023-06-11] MEDS: oxyCODONE HCl Immed Release 5 MG TABLET PO ×3 (01:09→11:06)
[2023-06-11 03:54] VITALS: BP 134/59; PULSE 99; RESP 18; TEMP 36.7; O2SAT 94
[2023-06-11] MEDS: Piperacillin Sodium/Tazobactam 2.25 GM in 0.9 % Sodium Chloride 50 ML IV (05:37)
[2023-06-11] MEDS: Omeprazole 40 MG CAPSULE.DR PO (05:37)
[2023-06-11] MEDS: Heparin Sodium,Porcine 5,000 UNIT/ML VIAL 5000 UNIT SUBCUT (05:38)
[2023-06-11 06:26] LABS: Hematocrit 27.2 % (42.0-52.0); Hemoglobin 8.9 g/dl (14.0-18.0); Mean Corpuscular HGB Conc 32.7 g/dl (31.0-36.0); Mean Corpuscular Hemoglobin 30.3 pg (27.0-33.0); Mean Corpuscular Volume 92.5 fL (80.0-98.0); Mean Platelet Volume 9.2 fL (9.4-12.4); Platelet Count 233 X10*3/uL (160-400); Red Blood Count 2.94 X10*6/uL (4.60-5.80); Red Cell Distribution Width 17.3 % (11.0-16.0); White Blood Count 12.3 X10*3/uL (4.8-10.8)
[2023-06-11 06:31] LABS: Anion Gap 17 (12-20); Blood Urea Nitrogen 34 mg/dL (9-16); Calcium 8.3 mg/dL (8.4-10.2); Carbon Dioxide 17 mmol/L (22-29); Chloride 104 mmol/L (96-108); Estimated Glomerular Filt Rate 17; Glucose Fasting 120 mg/dL (60-99); Potassium 4.5 mmol/L (3.3-5.1); Sodium 133 mmol/L (135-145)
[2023-06-11 07:28] VITALS: BP 118/56; PULSE 96; RESP 18; TEMP 37.3; O2SAT 95
--- NOTE | 2023-06-11 07:55 | P.PNGS_ITS ---
Subjective Subjective Date of Service: 06/11/23 <Jena Ayala PA-C - Last Filed: 06/11/23 08:00> 06/11/23 <Saravanan Ken MD - Last Filed: 06/11/23 08:09> Interval history: Feels better this morning. MACY removed yesterday afternoon. No drainage from MACY drain site. <Jena Ayala PA-C - Last Filed: 06/11/23 08:00> Physical Exam 2 Vital Signs: Vital Signs: Last Vital Signs Temp 99.2 F 06/11/23 07:28 Pulse 96 06/11/23 07:28 Resp 18 06/11/23 07:28 BP 118/56 L 06/11/23 07:28 Pulse Ox 95 06/11/23 07:28 O2 Del Method Room Air 06/11/23 07:28 O2 Flow Rate 2 05/25/23 17:10 BMI result Body Mass Index 21.4 <Jena Ayala PA-C - Last Filed: 06/11/23 08:00> Const: General: comfortable, no acute distress and alert <Jena Ayala PA-C - Last Filed: 06/11/23 08:00> Orientation/consciousness: patient oriented x3 <NYDIA Antoine Last Filed: 06/11/23 08:00> Resp: Effort & Inspection: normal respiratory effort <Jena Ayala PA-C - Last Filed: 06/11/23 08:00> GI: Other: MACY drain removal site dry flank edema persists with erythema of right side urostomy appliance to incision without output <Jena Ayala PA-C - Last Filed: 06/11/23 08:00> Inspection: Yes incision (clean ) <NYDIA Antoine Last Filed: 06/11/23 08:00> Palpation (GI): Soft to palpation, Tenderness to palpation present (GI) (mild incisional), no guarding and not rigid <NYDIA Antoine Last Filed: 06/11/23 08:00> Skin: General skin exam: no rashes or lesions noted and no jaundice < NYDIA Antoine Last Filed: 06/11/23 08:00> Neuro: General: patient oriented x3 <Jena Ayala PA-C - Last Filed: 06/11/23 08:00> Objective Data Active Medications Acetaminophen (Acetaminophen 325 Mg Tablet) 650 mg PO Q6H PRN PRN Reason: Fever Last Admin: 06/10/23 14:40 Dose: 650 mg Documented By: CARRIE Ferrous Sulfate (Ferrous Sulfate 324 Mg Tablet.) 324 mg PO BIDWM [facility] Last Admin: 06/10/23 17:00 Dose: 324 mg Documented By: CARRIE Heparin Sodium (Porcine) (Heparin Sodium,Porcine 5,000 Unit/Ml Vial) 5,000 unit SUBCUT Q8H [facility] Last Admin: 06/11/23 05:38 Dose: 5,000 unit Documented By: LAUREN Hydromorphone HCl (Hydromorphone Hcl 0.5 Mg/0.5 Ml Syringe) 0.5 mg IVPUSH Q5M PRN; Protocol PRN Reason: Pain, Severe (Pain Scale 7-10) Last Admin: 05/25/23 14:50 Dose: 0.5 mg Documented By: JUAN Hydromorphone HCl (Hydromorphone Hcl 0.5 Mg/0.5 Ml Syringe) 0.25 mg IVPUSH Q5M PRN; Protocol PRN Reason: Pain, Severe (Pain Scale 7-10) Hydromorphone HCl (Hydromorphone Hcl 0.5 Mg/0.5 Ml Syringe) 0.5 mg IVPUSH Q3H PRN; Protocol PRN Reason: Pain, Severe (Pain Scale 7-10) Last Admin: 06/07/23 08:28 Dose: 0.5 mg Documented By: MICHELLE Piperacillin Sod/Tazobactam (Sod 2.25 gm/ Sodium Chloride) 50 mls @ 100 mls/hr IV Q8H [facility] Last Infusion: 06/11/23 06:18 Dose: Infused Documented By: LAUREN Lisinopril (Lisinopril 10 Mg Tablet) 10 mg PO DAILY [facility] Last Admin: 05/31/23 08:30 Dose: 10 mg Omeprazole (Omeprazole 40 Mg Capsule.) 40 mg PO BID@0630,1630 [facility] Last Admin: 06/11/23 05:37 Dose: 40 mg Documented By: LAUREN Ondansetron HCl (Ondansetron Hcl 4 Mg/2 Ml Vial) 4 mg IVPUSH Q8H PRN PRN Reason: Nausea and Vomiting Ondansetron HCl (Ondansetron Hcl 4 Mg/2 Ml Vial) 4 mg IVPUSH ONCE PRN PRN Reason: Nausea and Vomiting Oxycodone HCl (Oxycodone Hcl Immed Release 5 Mg Tablet) 5 mg PO Q4H PRN PRN Reason: Pain, Moderate(Pain Scale 4-6) Last Admin: 06/11/23 05:37 Dose: 5 mg Documented By: LAUREN Sodium Bicarbonate (Sodium Bicarbonate 650 Mg Tablet) 650 mg PO TID [facility] Last Admin: 06/10/23 20:25 Dose: 650 mg Documented By: LAUREN Sodium Chloride (0.9 % Sodium Chloride Flush 3 Ml Syringe) 3 ml IVFLUSH QSHIFT [facility] Last Admin: 06/10/23 23:23 Dose: 3 ml Documented By: LAUREN Thiamine HCl (Thiamine Hcl 100 Mg Tablet) 100 mg PO DAILY [facility] Last Admin: 06/10/23 07:25 Dose: 100 mg Documented By: CARRIE <Jena Ayala PA-C - Last Filed: 06/11/23 08:00> Labs CBC & Chem 7: 06/11/23 06:04 06/11/23 06:04 <Jena Ayala PA-C - Last Filed: 06/11/23 08:00> Labs: Laboratory Results - last 24 hr 06/10/23 06/11/23 09:24 06:04 MCV 92.5 MCH 30.3 MCHC 32.7 RDW 17.3 H Plt Count 233 MPV 9.2 L Absolute Nucleated RBC 0.000 Nucleated RBC % (auto) 0.0 Anion Gap 17 Estim Creat Clear Calc 20.0 Estimated GFR 17 Fasting Glucose 120 H Calcium 8.3 L Blood Type A Positive Antibody Screen NEGATIVE Crossmatch See Detail <Jena Ayala PA-C - Last Filed: 06/11/23 08:00> Procedures Date of Service Date of Service: 06/11/23 <Jena Ayala PA-C - Last Filed: 06/11/23 08:00> 06/11/23 <Saravanan Ken MD - Last Filed: 06/11/23 08:09> Progress Note: A&P Assessment and plan (1) CKD (chronic kidney disease) stage 4, GFR 15-29 ml/min: Status: Acute <Jena Ayala PA-C - Last Filed: 06/11/23 08:00> (2) Metabolic acidosis: Status: Acute <Jena Ayala PA-C - Last Filed: 06/11/23 08:00> (3) Acute on chronic blood loss anemia: Status: Acute <Jena Ayala PA-C - Last Filed: 06/11/23 08:00> (4) Perforated duodenal bulb ulcer: Status: Acute <Jena Ayala PA-C - Last Filed: 06/11/23 08:00> Assessment and Plan: I removed his MACY drain yesterday, stitch placed to seal the skin - site remains dry Midline incision remains dry as well He feels well Hemoglobin better after transfusion No signs of acute blood loss, no GI bleed Acute on chronic kidney disease Has metastatic disease from lung cancer, liver mass Patient is following Oncology in [facility] and is supposed to have started chemotherapy 2 weeks ago Will discuss with please service with regards to transferred to rehab We will need close follow-up with his oncologist Will likely need periodic paracentesis for ascites Abdomen soft and benign Explained plan to patient and sister <Saravanan Ken MD - Last Filed: 06/11/23 08:09> (5) GINA (acute kidney injury): Status: Acute <Jena Ayala PA-C - Last Filed: 06/11/23 08:00> Assessment and Plan: Status post omental patch No drainage from MACY drain removal site, urostomy appliance on incision without drainage- can remove and apply dressing and change daily and PRN. H/H increased this AM s/p transfusion yesterday Will discuss possible transfer today with hospitalist service if medially stable <Jena Ayala PA-C - Last Filed: 06/11/23 08:00> Time Spent With Patient Time: Total time managing care of this patient today ____ minutes. <Jena Ayala PA-C - Last Filed: 06/11/23 08:00> Quality Stroke Does the patient have a stroke diagnosis?: No <Jena Ayala PA-C - Last Filed: 06/11/23 08:00> VTE Prior VTE?: No <Jena Ayala PA-C - Last Filed: 06/11/23 08:00> VTE Risk Level:: Medical - moderate - high <Jena Ayala PA-C - Last Filed: 06/11/23 08:00> VTE Device Contraindication: N/A - Device Ordered <Jena Ayala PA-C - Last Filed: 06/11/23 08:00> VTE Drug Contraindication: Treatment Not Indicated <Jena Ayala PA-C - Last Filed: 06/11/23 08:00>
[2023-06-11] MEDS: Sodium Bicarbonate 650 MG TABLET PO (08:25)
[2023-06-11] MEDS: Thiamine HCL 100 MG TABLET PO (08:25)
[2023-06-11] MEDS: 0.9 % Sodium Chloride Flush 3 ML SYRINGE IVFLUSH (08:25)
[2023-06-11] MEDS: Ferrous Sulfate 324 MG TABLET.DR PO (08:25)
--- NOTE | 2023-06-11 08:41 | P.PNIM_ITS ---
Subjective Subjective Date of Service: 06/11/23 Interval History: stable Physical Exam 2 Vital Signs: Vital Signs: Last Vital Signs Temp 99.2 F 06/11/23 07:28 Pulse 96 06/11/23 07:28 Resp 18 06/11/23 07:28 BP 118/56 L 06/11/23 07:28 Pulse Ox 95 06/11/23 07:28 O2 Del Method Room Air 06/11/23 07:28 O2 Flow Rate 2 05/25/23 17:10 BMI result Body Mass Index 21.4 Const: General: comfortable, no acute distress and alert O rientation/consciousness: patient oriented x3 Resp: Effort & Inspection: normal respiratory effort GI: Other: MACY drain removal site dry flank edema persists with erythema of right side urostomy appliance to incision without output Inspection: Yes incision (clean ) Palpation (GI): Soft to palpation, Tenderness to palpation present (GI) (mild incisional), no guarding and not rigid Skin: General skin exam: no rashes or lesions noted and no jaundice Neuro: General: patient oriented x3 Objective Data Active Medications Acetaminophen (Acetaminophen 325 Mg Tablet) 650 mg PO Q6H PRN PRN Reason: Fever Last Admin: 06/10/23 14:40 Dose: 650 mg Documented By: CARRIE Ferrous Sulfate (Ferrous Sulfate 324 Mg Tablet.) 324 mg PO BIDWM [facility] Last Admin: 06/11/23 08:25 Dose: 324 mg Documented By: COTEMA Heparin Sodium (Porcine) (Heparin Sodium,Porcine 5,000 Unit/Ml Vial) 5,000 unit SUBCUT Q8H [facility] Last Admin: 06/11/23 05:38 Dose: 5,000 unit Documented By: LAUREN Hydromorphone HCl (Hydromorphone Hcl 0.5 Mg/0.5 Ml Syringe) 0.5 mg IVPUSH Q5M PRN; Protocol PRN Reason: Pain, Severe (Pain Scale 7-10) Last Admin: 05/25/23 14:50 Dose: 0.5 mg Documented By: JUAN Hydromorphone HCl (Hydromorphone Hcl 0.5 Mg/0.5 Ml Syringe) 0.25 mg IVPUSH Q5M PRN; Protocol PRN Reason: Pain, Severe (Pain Scale 7-10) Hydromorphone HCl (Hydromorphone Hcl 0.5 Mg/0.5 Ml Syringe) 0.5 mg IVPUSH Q3H PRN; Protocol PRN Reason: Pain, Severe (Pain Scale 7-10) Last Admin: 06/07/23 08:28 Dose: 0.5 mg Documented By: MICHELLE Piperacillin Sod/Tazobactam (Sod 2.25 gm/ Sodium Chloride) 50 mls @ 100 mls/hr IV Q8H [facility] Last Infusion: 06/11/23 06:18 Dose: Infused Documented By: LAUREN Lisinopril (Lisinopril 10 Mg Tablet) 10 mg PO DAILY [facility] Last Admin: 05/31/23 08:30 Dose: 10 mg Omeprazole (Omeprazole 40 Mg Capsule.Dr) 40 mg PO BID@0630,1630 [facility] Last Admin: 06/11/23 05:37 Dose: 40 mg Documented By: LAUREN Ondansetron HCl (Ondansetron Hcl 4 Mg/2 Ml Vial) 4 mg IVPUSH Q8H PRN PRN Reason: Nausea and Vomiting Ondansetron HCl (Ondansetron Hcl 4 Mg/2 Ml Vial) 4 mg IVPUSH ONCE PRN PRN Reason: Nausea and Vomiting Oxycodone HCl (Oxycodone Hcl Immed Release 5 Mg Tablet) 5 mg PO Q4H PRN PRN Reason: Pain, Moderate(Pain Scale 4-6) Last Admin: 06/11/23 05:37 Dose: 5 mg Documented By: LAUREN Sodium Bicarbonate (Sodium Bicarbonate 650 Mg Tablet) 650 mg PO TID [facility] Last Admin: 06/11/23 08:25 Dose: 650 mg Documented By: GEORGE Sodium Chloride (0.9 % Sodium Chloride Flush 3 Ml Syringe) 3 ml IVFLUSH QSHIFT [facility] Last Admin: 06/11/23 08:25 Dose: 3 ml Documented By: GEORGE Thiamine HCl (Thiamine Hcl 100 Mg Tablet) 100 mg PO DAILY [facility] Last Admin: 06/11/23 08:25 Dose: 100 mg Documented By: GEORGE Labs 06/11/23 06:04 06/11/23 06:04 Labs: Laboratory Results - last 24 hr 06/10/23 06/11/23 09:24 06:04 MCV 92.5 MCH 30.3 MCHC 32.7 RDW 17.3 H Plt Count 233 MPV 9.2 L Absolute Nucleated RBC 0.000 Nucleated RBC % (auto) 0.0 Anion Gap 17 Estim Creat Clear Calc 20.0 Estimated GFR 17 Fasting Glucose 120 H Calcium 8.3 L Blood Type A Positive Antibody Screen NEGATIVE Crossmatch See Detail Assessment and Plan (1) Metabolic acidosis: Status: Acute (2) Acute on chronic blood loss anemia: Status: Acute (3) GINA (acute kidney injury): Status: Acute Plan 72M PMH Right sided lung cancer s/p RLL resection and chemotherapy, ckd stage 4, htn, hld, hx cva, and macular degeneration admitted for general surgery for management of duodenal performation s/o laparotomy with omental patching of a perforated ulcer, now complicated by gina on ckd IV and acute metbaolic acidosis GINA on ckd IV holding amlodipine, Atenolol and lisinopril for low BP nephro input appreciated ascites possibly due to 3rd spacing s/p 4 units albumin, improved Perforated duodenal ulcer s/p li patch management per primary team Acute on chronic anemia s/p 2 units prbc total Finished 3 days of IV iron for low iron stores, start PO supplement HTN holding bp meds for low normal bps and gina Hx lung cancer s/p RLL resection, chemotherapy follows with [facility] onc. 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
--- NOTE | 2023-06-11 10:41 | MHC.CM.PN ---
Addendum entered by Deepika Avilez 06/11/23 12:04: The patienr has a bed today at [facility]. He is discharged today. He will transport to [facility] via S at 1pm today. Original Note: IMM 06/11/23 Patient is ready to discharge today. Notified [facility] of discharge. The liason is checking bed availability for today. DP STR via S.
--- NOTE | 2023-06-11 11:08 | PM.DS ---
DS: Providers Provider Date of Service: 06/11/23 Date of admission: 05/25/23 11:03 Date of discharge: 06/11/23 Primary care physician: Luis Tierney MD Attending physician on admission: Saravanan Ken Consults: 05/25/23 14:24 Consult to Hospitalist Routine Comment: Consulting Provider: Hospitalist Reason For Exam: perforated ulcer s/p li patch, CKD, lung CA 06/02/23 07:00 Consult to Nephrology Routine Consulting Provider: Gene Carlos Reason for consultation: lori Attending physician on discharge: Saravanan Ken DS: Diagnosis Discharge Diagnosis (1) Metabolic acidosis: Status: Acute (2) Acute on chronic blood loss anemia: Status: Acute (3) LORI (acute kidney injury): Status: Acute DS: Summary Hospital Course Hospital Course: HPI AT ADMISSION: Oleksandr Martell is a 72 year old male here in the ED severe abdominal pain. He said this started about 06:00 o'clock in the morning. This persisted so he went to the emergency room. He did mention that he has had some low grade epigastric pain for severeal weeks now on and off. He continues to have severe pain although this to have eased up a little bit with pain medications. He has a history of lung cancer and had undergone right lower lobe lobectomy about 16 years ago in [facility]. He said he had been doing well since then. He is being followed in [facility] and apparently had a PET scan recently showing multiple lymph nodes in the neck, chest and abdomen. He describes some constipation as well. He denies any diarrhea. He denies any nausea or vomiting. He mentions that he is supposed to start chemotherapy in [facility] this week. HOSPITAL COURSE: CAT scan shows free air mostly on this area as well with note of inflammatory changes in the right colon. It appears he may have a mass as well in the liver and the into the kelli hepatis, possibly representing lymph nodes from metastatic disease or a neoplastic process. He does have a history of lung cancer and a recent PET scan from [facility] she suggest metastatic disease in the lungs as well as the abdomen. Given the imaging and his exam it was recommended to proceed with laparotomy, likely bowel resection and stoma creation depending on intraop findings. He was added onto the OR schedule for that day. He was given 1U packed RBC as well because of anemia. He has been anemic on previous blood tests as well. His anemia may be secondary to his chronic illness as there was no evidence of acute blood loss at that time. On 05/25/23, laparotomy, mobilization of the hepatic flexure, omental patching of a perforated ulcer was performed by Dr. Ken without complication. The patient tolerated the procedure well. An NGT was inserted in the OR. IV Protonix, IV zosyn were started post operatively. Hospitalist consult was obtained for management of his medical comorbidites. He had a slow but initially uneventful post operative course. His NGT had scant output and MACY drain had serous output. His aleman was removed on POD #1 and he was encouraged to ambulate. UGI series was obtained which showed no extravasation of contrast. MACY output remained serous. NGT was therefore removed. His diet was very slowly advanced following this. His activity was increased. He continued to need IV analgesics. Repeat labs were obtained which demonstrated an LORI on CKD complicated by acute non anion gap metabolic hyperchloremic acidosis. Hospitalists were reconsulted. His antihypertensives were held. His fluids were changed from d5w with 3 amp bicarb. He however had worsening of his renal function and nephrology was consulted. It was thought to be multifactorial and due to prerenal/ ? ATN acute tubular injury/ Low BP/ Surgical insult. His renal function improved slightly with treatment however remained elevated around 3.4 and was thought to be his new baseline due to delayed recovery. He was occasionally transfused when his Hgb was <7 as his H/H slowly drifted down likely from anemia of chronic disease. He finished 3 days of IV iron for low iron stores and restarted on a PO supplement. He had significant amount of ascites fluid via his MACY drain and it was therefore left in place. He however developed drainage around this and his output remained significantly high possibly from liver disease versus third spacing and he received 4 units of albumin. The MACY was removed as it seen as a possible pathway for infection. He may need periodic paracentesis in the future. He was deemed medically stable for transfer to [facility] on 06/11/23 in stable condition. He can f/u with Dr. Ken in office in 2 weeks. 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 At the time of discharge he had a small amount of purulent drainage from the superior aspect of his incision with a small wound opening. This was all expressed. There were no cellulitic changes. The wound opening was gently packed with the corner of a fluff followed by abd dressing. To be changed daily while draining. The MACY drain site remains clean, stitch intact. Can apply dry sterile dressing as needed. Status at Discharge Overall status at discharge: patient is not back to baseline Time Attestation Discharge coordination time: Greater than 30 minutes Quality: Safe Use of Opioids Does Pt have an Active Cancer Diagnosis on the Problem List?: No Quality: Stroke Does the patient have a stroke diagnosis?: No Physical Exam Vital Signs: Vital Signs: Last Vital Signs Temp 98.1 F 06/08/23 11:41 Pulse 100 06/08/23 11:41 Resp 18 06/08/23 11:41 BP 107/57 L 06/08/23 11:41 Pulse Ox 95 06/08/23 11:41 O2 Del Method Room Air 06/08/23 11:41 O2 Flow Rate 2 05/25/23 17:10 BMI result Body Mass Index 21.4 Const: General: comfortable, no acute distress and alert Nutritional Appearance: thin Orientation/consciousness: patient oriented x3 Resp: Effort & Inspection: normal respiratory effort GI: Other: old MACY site dry, stitch intact at RUQ incision with nicholas removed, small wound opening of superior aspect with small amount of purulence expressed, no surrounding erythema or edema to suggest cellulitis significant third spacing and edema of b/l flanks with erythema of flanks due to the third spacing and ascites Inspection: No distended Palpation (GI): Soft to palpation and Tenderness to palpation present (GI) (mild incisional) Percussion: Yes normal to percussion Skin: General skin exam: no jaundice Neuro: General: patient oriented x3 and moves all extremities DS: Data Data Completed and Pending Labs on day of discharge: Laboratory Results - last 24 hr 06/08/23 05:20 WBC 14.1 H RBC 2.86 L Hgb 8.6 L Hct 26.4 L MCV 92.3 MCH 30.1 MCHC 32.6 RDW 16.6 H Plt Count 352 MPV 9.6 Absolute Nucleated RBC 0.000 Nucleated RBC % (auto) 0.0 Sodium 134 L Potassium 4.4 Chloride 103 Carbon Dioxide 18 L Anion Gap 17 BUN 32 H Creatinine 3.05 H Estim Creat Clear Calc 23.4 Estimated GFR 20 Random Glucose 101 Calcium 8.4 Discharge Plan Discharge Anticipated Discharge Date/Time: 06/09/23 14:28 Patient Disposition: Xfer SNF Discharge Diagnosis: perforated ulcer, ascites, LORI on CKD, acute on chronic anemia Referrals: [facility] [Outside] - 1 Week Saravanan Ken MD [Physician] - 2 Weeks Luis Tierney MD [Primary Care Provider] - 1 Week Discharge Medications: New omeprazole 20 mg capsule,delayed release(DR/EC) 40 mg PO BID Qty: 90 0RF Continued prochlorperazine maleate 5 mg Tablet 5 mg PO QID PRN (Reason: nasuea) lidocaine-prilocaine 2.5-2.5 % Cream 1 appl topical DAILY PRN (Reason: Pain) multivitamin Tablet 1 tab PO DAILY atorvastatin 40 mg Tablet 20 mg PO BEDTIME triamcinolone acetonide 0.5 % Cream 1 appl TOPICAL TID PRN (Reason: Rash) thiamine HCl (vitamin B1) 100 mg Tablet 100 mg PO DAILY cyanocobalamin (vitamin B-12) 500 mcg Tablet 500 mcg PO DAILY calcium carbonate 500 mg calcium (1,250 mg) Tablet 1,000 mg PO DAILY ferrous sulfate 325 mg (65 mg iron) Tablet 325 mg PO DAILY ondansetron 4 mg Tablet,Disintegrating 4 mg PO Q8H PRN (Reason: Nausea) cholecalciferol (vitamin D3) 25 mcg (1,000 unit) Tablet 12.5 mcg PO DAILY Held atenolol 25 mg Tablet 25 mg PO DAILY Hold Instructions: Monitor blood pressure for next week and check with PCP before restarting it if needed. Discontinued fosinopril 10 mg Tablet 10 mg PO DAILY amlodipine 2.5 mg Tablet 2.5 mg PO DAILY Discharge Orders: Discharge Order (Routine); Ordered 06/11/23 Ordered By: Saravanan Ken Diet: Advance to usual diet Activity on Discharge: No heavy lifting Stand Alone Forms: Patient Portal Discharge page Activity Restrictions/Additional Instructions: You will need to follow-up with your oncologist You will need to follow-up with your kidney specialist as well as your primary care physician. Apply dry sterile dressing to incision while it drains. Apply dry sterile dressing to old MACY site as needed. Follow up in office with Dr. Ken in 2 weeks. ([phone]) No heavy lifting (>10-20lbs) or strenuous activity! Call Your Doctor If: -Your temperature exceeds 101.5? F -You experience excessive pain or swelling -You have an unexpected reaction to medication -You have excessive bleeding -You experience continued vomiting/nausea -Your incision begins to separate -Your incision shows signs of infection such as increased redness, swelling, excessive pain, drainage (light blood or clear fluid is normal) or heat Care Plan Goals: Return to baseline health and resume normal activities following recovery period. Health Concerns: perforated ulcer acute on chronic blood loss anemia ascites LORI on CKD metastatic lung CA Plan of Treatment: s/p ex lap, omental li patch PO omeprazole f/u with Dr. 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
== END 2023-06-11 13:30 | disposition skilled nursing facility (03) | DRG 329 ==
LOC: HO.ED 11:08 → HO.EDOVER 11:47 → HO.S3 16:57
PROVIDERS: Internal Medicine; Internal Medicine Nephrology; Physician Assistant Surgical; Student in an Organized Health Care Education/Training Program; Admitting Provider Surgery; Emergency Provider Emergency Medicine; PCP Internal Medicine; Visit Provider Surgery
PROC: 0DU907Z Supplement Duodenum with Autologous Tissue Substitute, Open Approach (ICD-10-PCS; CPT 49000; principal; 2023-05-25 12:40)
DX: K26.5 Chronic or unspecified duodenal ulcer with perforation (principal); N17.0 Acute kidney failure with tubular necrosis; C77.8 Secondary and unspecified malignant neoplasm of lymph nodes of multiple regions; D62 Acute posthemorrhagic anemia; E87.21 Acute metabolic acidosis; C78.7 Secondary malignant neoplasm of liver and intrahepatic bile duct; C68.0 Malignant neoplasm of urethra; R18.8 Other ascites; I12.9 Hypertensive chronic kidney disease with stage 1 through stage 4 chronic kidney disease, or unspecified chronic kidney disease; D63.1 Anemia in chronic kidney disease; G89.18 Other acute postprocedural pain; E87.5 Hyperkalemia; K59.00 Constipation, unspecified; Z90.2 Acquired absence of lung [part of]; Z20.822 Contact with and (suspected) exposure to COVID-19; Z85.118 Personal history of other malignant neoplasm of bronchus and lung; Z87.891 Personal history of nicotine dependence; Z79.899 Other long term (current) drug therapy
CPT/HCPCS: 36415; 71045; 74176; 74240; 76705; 80048; 80053; 80076; 81001; 82570; 82803; 83540; 83605; 83615; 83690; 83735; 83880; 84156; 84300; 84484; 85025; 85027; 85610; 86850; 86900; 86901; 86923; 87040; 87635; 97116; 97162; 97530; 99024; 99283; C1758; C9113; J0131; J0665; J1100; J1170; J1644; J1756; J2250; J2270; J2405; J2543; J2704; J2795; J3010; J7120; P9016; P9047

== ENCOUNTER 2023-05-25 11:03 | Outpatient (BNV) | payer MEDICARE, MEDICAID, SELFPAY | END 2023-05-28 09:00 | PROVIDERS: Admitting Provider Surgery; Emergency Provider Emergency Medicine; PCP Internal Medicine; Visit Provider Radiology Diagnostic Radiology | DX: K57.11 Diverticulosis of small intestine without perforation or abscess with bleeding (principal) | CPT/HCPCS: 74240 ==

== ENCOUNTER → 2023-05-25 11:03 | Outpatient (BNV) | payer MEDICARE, MEDICAID, SELFPAY | PROVIDERS: Admitting Provider Surgery; Emergency Provider Emergency Medicine; Visit Provider Physician Assistant | DX: N17.9 Acute kidney failure, unspecified (principal); N18.4 Chronic kidney disease, stage 4 (severe); D62 Acute posthemorrhagic anemia; E87.20 Acidosis, unspecified | CPT/HCPCS: 99222; 99231; 99232; 99233 ==

== ENCOUNTER → 2023-05-25 11:03 | Outpatient (BNV) | payer MEDICARE, MEDICAID, SELFPAY | PROVIDERS: Admitting Provider Surgery; Emergency Provider Emergency Medicine; Visit Provider Surgery | DX: N18.4 Chronic kidney disease, stage 4 (severe) (principal); E87.20 Acidosis, unspecified; D62 Acute posthemorrhagic anemia; K26.5 Chronic or unspecified duodenal ulcer with perforation; N17.9 Acute kidney failure, unspecified | CPT/HCPCS: 43840; 99024; 99223; 99499 ==

== ENCOUNTER 2023-06-12 05:59 | Outpatient (REF) | payer MEDICARE, MEDICAID, SELFPAY ==
[2023-06-12 06:02] LABS: MANUAL DIFF FLAG NO
[2023-06-12 06:57] LABS: Alanine Aminotransferase 82 U/L (0-40); Albumin Level 2.6 g/dL (3.5-5.0); Alkaline Phosphatase 559 U/L (39-117); Anion Gap 18 (12-20); Aspartate Amino Transferase 199 U/L (5-37); Bilirubin Total 0.9 mg/dL (0.0-1.0); Blood Urea Nitrogen 35 mg/dL (9-16); Calcium 8.3 mg/dL (8.4-10.2); Carbon Dioxide 18 mmol/L (22-29); Chloride 102 mmol/L (96-108); Estimated Glomerular Filt Rate 17; Glucose Random 86 mg/dL (60-115); Potassium 5.1 mmol/L (3.3-5.1); Sodium 133 mmol/L (135-145); Total Protein 5.9 g/dL (6.5-8.0)
[2023-06-12 07:12] LABS: Basophils Absolute Auto 0.1 X10*3/uL (0.0-0.2); Basophils Percent Auto 0.4 % (0-2); Eosinophils Absolute Auto 0.3 X10*3/uL (0.0-0.4); Hematocrit 27.5 % (42.0-52.0); Hemoglobin 9.1 g/dl (14.0-18.0); Imm Gran Abs Auto 0.15 X10*3/uL (0.00-0.03); Imm Gran Pct Auto 1.1 % (0.0-0.4); Lymphocytes Absolute Auto 1.3 X10*3/uL (1.2-4.9); Lymphocytes Percent Auto 9.6 % (20-40); Mean Corpuscular HGB Conc 33.1 g/dl (31.0-36.0); Mean Corpuscular Hemoglobin 31.2 pg (27.0-33.0); Mean Corpuscular Volume 94.2 fL (80.0-98.0); Mean Platelet Volume 9.7 fL (9.4-12.4); Monocytes Absolute Auto 1.2 X10*3/uL (0.1-1.2); Monocytes Percent Auto 8.8 % (2-11); Neutrophils Absolute Auto 10.6 x10*3/uL (2.0-8.3); Neutrophils Percent Auto 78.1 % (45-73); Platelet Count 266 X10*3/uL (160-400); Red Blood Count 2.92 X10*6/uL (4.60-5.80); Red Cell Distribution Width 17.6 % (11.0-16.0); White Blood Count 13.6 X10*3/uL (4.8-10.8)
== END 2023-06-12 06:00 | disposition home or self-care (01) ==
LOC: HO.MMNH1L 05:59
PROVIDERS: Visit Provider Family Medicine
DX: N17.9 Acute kidney failure, unspecified (principal); I10 Essential (primary) hypertension
CPT/HCPCS: 36415; 80053; 85025

== ENCOUNTER 2023-06-15 06:30 | Outpatient (REF) | payer MEDICARE, MEDICAID, SELFPAY ==
[2023-06-15 06:46] LABS: Hematocrit 27.8 % (42.0-52.0); Mean Corpuscular HGB Conc 32.4 g/dl (31.0-36.0); Mean Corpuscular Hemoglobin 30.8 pg (27.0-33.0); Mean Corpuscular Volume 95.2 fL (80.0-98.0); Platelet Count 370 X10*3/uL (160-400); Red Blood Count 2.92 X10*6/uL (4.60-5.80); Red Cell Distribution Width 18.4 % (11.0-16.0)
[2023-06-15 06:47] LABS: WBC ABN SCTR FOR CBC 1; White Blood Count 13.4 X10*3/uL (4.8-10.8)
[2023-06-15 07:20] LABS: Anion Gap 21 (12-20); Blood Urea Nitrogen 49 mg/dL (9-16); Calcium 8.3 mg/dL (8.4-10.2); Carbon Dioxide 15 mmol/L (22-29); Chloride 99 mmol/L (96-108); Glucose Random 79 mg/dL (60-115); Potassium 5.3 mmol/L (3.3-5.1); Sodium 130 mmol/L (135-145)
[2023-06-15 07:41] LABS: Estimated Glomerular Filt Rate 12
[2023-06-15 08:32] LABS: Band Neutrophils Percent 39 % (3-5); Lymphocytes Absolute Manual 1.3 X10*3/uL (1.2-4.9); Lymphocytes Percent Manual 10 % (20-40); Monocytes Absolute Manual 0.5 X10*3/uL (0.1-1.2); Monocytes Percent Manual 4 % (2-11); Neutrophils Absolute Manual 11.5 X10*3/uL (2.0-8.3); Neutrophils Percent Manual 47 % (45-73)
[2023-06-15 08:33] LABS: RBC Morphology NOTED
[2023-06-15 08:34] LABS: Macrocytosis 1+ (5-14) /OIF
[2023-06-15 08:35] LABS: Burr Cells 1+ (0-2) /OIF; Platelet Estimate NORMAL (NORMAL); Polychromasia 1+ (0-2) /OIF
[2023-06-15 08:36] LABS: Large Platelet PRESENT; Platelet Morphology Comment NOTED
== END 2023-06-15 06:31 | disposition home or self-care (01) ==
LOC: HO.MMNH1L 06:30
PROVIDERS: Visit Provider Family Medicine
DX: I10 Essential (primary) hypertension (principal); N17.9 Acute kidney failure, unspecified
CPT/HCPCS: 36415; 80048; 85007; 85027

== ENCOUNTER 2023-06-16 05:52 | Outpatient (REF) | payer MEDICARE, MEDICAID, SELFPAY ==
[2023-06-16 06:50] LABS: Anion Gap 21 (12-20); Blood Urea Nitrogen 55 mg/dL (9-16); Calcium 7.8 mg/dL (8.4-10.2); Carbon Dioxide 16 mmol/L (22-29); Chloride 101 mmol/L (96-108); Estimated Glomerular Filt Rate 9; Glucose Random 67 mg/dL (60-115); Potassium 5.6 mmol/L (3.3-5.1); Sodium 132 mmol/L (135-145)
== END 2023-06-16 05:53 | disposition home or self-care (01) ==
LOC: HO.MMNH1L 05:52
PROVIDERS: Visit Provider Family Medicine
DX: R27.8 Other lack of coordination (principal); K26.2 Acute duodenal ulcer with both hemorrhage and perforation
CPT/HCPCS: 36415; 80048

== ENCOUNTER 2023-06-16 11:30 | Inpatient (IN) | payer OTHER, SELFPAY ==
--- NOTE | 2023-06-16 | ECG_ITS ---
Test Reason : ABNORMAL LAB Blood Pressure : / mmHG Vent. Rate : 107 BPM Atrial Rate : 107 BPM P-R Int : 138 ms QRS Dur : 078 ms QT Int : 328 ms P-R-T Axes : 047 040 043 degrees QTc Int : 437 ms Sinus tachycardia Otherwise normal ECG When compared with ECG of 03-NOV-2016 16:40, Nonspecific T wave abnormality now evident in Inferior leads T wave amplitude has decreased in Anterolateral leads Referred By: Generic ED Physician Electronically Signed By:HAYES CAMPOS
--- NOTE | ~2023-06-16 | US_ITS ---
EXAMINATION: US RETROPERITONEAL LIMITED (RENAL ONLY) CLINICAL INFORMATION: Acute renal failure, rule out obstructive uropathy. COMPARISON: Abdominal ultrasound 06/05/2023, CT scan abdomen and pelvis 05/27/2023 and 05/25/2023 TECHNIQUE: Real-time ultrasound of the kidneys FINDINGS: RIGHT KIDNEY: 10.7 x 5.3 x 4.9 cm (SAG x AP x TRV). The kidney is normal in size, contour, and echogenicity. Renal cortical thickness is normal. No calculi. No hydronephrosis. There are multiple renal cysts, including the largest cyst measuring 1.9 x 1.9 x 1.9 cm in the midpole. No imaging follow-up is recommended. LEFT KIDNEY: 9.8 x 5.8 x 4.1 cm (SAG x AP x TRV). The kidney is normal in size, contour, and echogenicity. Renal cortical thickness is normal. No calculi. No hydronephrosis. There are multiple renal cysts, the largest is in the mid kidney measuring 1.5 x 1.6 x 1.6 cm. No imaging follow-up is recommended. Incidental note is made of a 1.3 x 1.0 x 1.0 cm echogenic focus in the right lobe of the liver which may represent a hemangioma. Also noted is a 3.8 x 3.5 x 3.2 cm heterogeneous ill-defined mass in the? Right lobe. The liver has been extensively evaluated on prior recent CT scans. US/US renal BI IMPRESSION: 1. No hydronephrosis nor renal calculi. 2. Incidental note is made of a 1.3 cm echogenic focus in the right lobe of the liver which may represent a hemangioma. 3.8 cm heterogeneous ill-defined mass in the ? Right lobe of the liver. The liver has been extensively evaluated by recent CT scans.
--- NOTE | ~2023-06-16 | XR_ITS ---
EXAMINATION: XR CHEST CLINICAL INFORMATION: Cough COMPARISON: None available. TECHNIQUE: Frontal view of the chest was obtained. FINDINGS: There is a right-sided port with its tip at the cavoatrial junction. The lungs are grossly clear given AP portable technique with a point story effort. Size borderline with normal caliber pulmonary vessels. XR/XR chest 1V IMPRESSION: Limited study. No active disease.
--- NOTE | ~2023-06-16 | CT_ITS ---
EXAMINATION: CT ABDOMEN AND PELVIS WITHOUT CONTRAST CLINICAL INFORMATION: Recently perforated duodenal ulcer. Rule out abscess. COMPARISON: Previous CT of the abdomen and pelvis was recent May TECHNIQUE: Multidetector volumetric imaging was performed from the superior aspect of the liver through the pubic symphysis. Sagittal and coronal reformatted images were obtained on the technologist's workstation. This CT examination was performed using dose optimization techniques as appropriate, variously including the following: *Automated exposure control *Adjustment of mA and/or kV according to patient size (this includes techniques or standardized protocols for targeted exams where dose is matched to indication/reason for exam; i.e. extremities or head) *Use of iterative reconstruction technique DLP: 626 mGy-cm FINDINGS: LUNG BASES: Small bilateral pleural effusions and lower lobe atelectasis. Gynecomastia. LIVER, GALLBLADDER, AND BILIARY TREE: The liver is enlarged. There are multiple low-attenuation liver lesions. These appear increased in size prior exam. Largest lesion is located left lobe and caudate lobe liver 10 x 16 cm. No biliary duct dilatation. Gallstones in the gallbladder. PANCREAS: Not well evaluated due to lack of IV contrast and adjacent liver mass. There may be small calcifications in the head of the pancreas. SPLEEN: Unremarkable. ADRENAL GLANDS: Unremarkable. KIDNEYS AND URETERS: Small bilateral renal cysts. No imaging follow-up recommended. BLADDER: Unremarkable. GASTROINTESTINAL TRACT: There is free peritoneal air. There is a small amount of ascites in the abdomen and pelvis. Both these findings are increased from 05/27/2023. There is diverticulosis of the colon. There is diffuse mesenteric and peritoneal fat stranding. Source of free air is not certain ABDOMINAL WALL: Umbilical hernia containing fat, fluid and air. [. LYMPH NODES: There are enlarged upper abdominal retroperitoneal lymph nodes. VASCULAR: Atherosclerotic disease. No aneurysm. PELVIC VISCERA: Unremarkable. OSSEOUS STRUCTURES: Lower thoracic and L1 vertebral body mild compression fractures versus Schmorl's's nodes. Degenerative disc disease at L5-S1. CT/CT abdomen pelvis wo IV con IMPRESSION: Free peritoneal air. Small amount of ascites in the abdomen and pelvis. Source of free air is not certain. Diverticulosis of the colon. Enlarged liver with multiple low-attenuation liver lesions. These appear increased in size from prior exam. Differential would include metastatic disease and abscesses. Enlarged upper abdominal retroperitoneal lymph nodes. Gallstones. Small bilateral pleural effusions and lower lobe atelectasis. Umbilical hernia containing fat, fluid and air. Fleischner guidelines were followed. Findings were communicated to Dr. George by telephone on 06/16/2021 at 5:40 PM
[2023-06-16 11:27] VITALS: BP 116/54; PULSE 116; O2SAT 97
[2023-06-16 11:34] VITALS: PULSE 116; RESP 20; O2SAT 95; BMI 22.2
[2023-06-16 11:40] VITALS: BP 97/50; TEMP 37.1
[2023-06-16] MEDS: 0.9 % Sodium Chloride 1,000 ML 999 ML IV (12:35)
--- NOTE | 2023-06-16 12:37 | ED_ITS ---
HPI - General Adult General Chief complaint: Recheck/Abnormal Lab/Rx Stated complaint: ABN LABS FROM SNF PER EMS Source: patient, family, EMS, RN notes reviewed and old records reviewed Mode of arrival: EMS Limitations: no limitations History of Present Illness HPI narrative: a 72-year-old male history of lung cancer s/p right lumpectomy with metastases involving multiple lymph nodes in the neck, chest, and abdomen patient has a port a cath in the right chest and impending start of chemotherapy treatments that is managed at [facility]. s/p duodenal ulcer perforation that require an emergent laparotomy, patient needed a mental patching there is no bowel resection was needed according to OR report. Patient went to rehab after surgery. Patient was recent to the ED for evaluation of deterioration of his renal function test and decreased urine output for the past 2 days. Related Data Home Medications Medication Instructions Recorded Confirmed atenolol 25 mg tablet 25 mg PO DAILY 05/25/23 05/25/23 atorvastatin 40 mg tablet 20 mg PO BEDTIME 05/25/23 05/25/23 calcium carbonate 500 mg calcium 1,000 mg PO DAILY 05/25/23 05/25/23 (1,250 mg) tablet cholecalciferol (vitamin D3) 25 12.5 mcg PO DAILY 05/25/23 05/25/23 mcg (1,000 unit) tablet cyanocobalamin (vitamin B-12) 500 500 mcg PO DAILY 05/25/23 05/25/23 mcg tablet ferrous sulfate 325 mg (65 mg 325 mg PO DAILY 05/25/23 05/25/23 iron) tablet lidocaine-prilocaine 2.5 %-2.5 % 1 appl topical DAILY PRN Pain 05/25/23 05/25/23 topical cream multivitamin 1 tab PO DAILY 05/25/23 05/25/23 ondansetron 4 mg disintegrating 4 mg PO Q8H PRN Nausea 05/25/23 05/25/23 tablet prochlorperazine maleate 5 mg 5 mg PO QID PRN nasuea 05/25/23 05/25/23 tablet thiamine HCl (vitamin B1) 100 mg 100 mg PO DAILY 05/25/23 05/25/23 tablet triamcinolone acetonide 0.5 % 1 appl topical TID PRN Rash 05/25/23 05/25/23 topical cream Previous Rx's Medication Instructions Recorded omeprazole 20 mg capsule,delayed 40 mg (2 x 20 mg) PO BID #90 caps 06/10/23 release Allergies Allergy/AdvReac Type Severity Reaction Status Date / Time No Known Allergies Allergy Unverified 01/20/23 10:11 Review of Systems 2 Review of Systems: all other systems are reviewed and are negative Constitutional: Reports as per HPI and Reports no additional constitutional complaints Eyes: Reports as per HPI and Reports no additional eye complaints Reports system reviewed and no additional complaints, except as documented Cardiovascular: Reports as per HPI and Reports no additional cardiovascular complaints Respiratory: Reports as per HPI and Reports no additional respiratory complaints Gastrointestinal: Reports as per HPI and Reports no additional gastrointestinal complaints Genitourinary: Reports no additional female genitourinary complaints Musculoskeletal: Reports no additional musculoskeletal complaints Skin/Breast: Reports system reviewed and no additional complaints, except as docu Psychiatric: Reports no additional psychiatric complaints Endocrine: Reports no additional endocrine complaints Hematologic/Lymphatic: Reports no additional hematologic/lymphatic complaints Allergic/Immunologic: Reports no additional allergic/immunologic complaints Reports system reviewed and no additional complaints, except as documented and Reports Abnormal speech present [facility] Past Medical History Medical History History of lung cancer Kidney disease Stroke Macular degeneration High cholesterol HTN (hypertension) Surgical History History of lobectomy of lung History of lung surgery Social History Social History Household Members: None Housing: House Are you a primary child care education coordinator to a significant other at home: No Do you presently have visiting nurse or other home services: No Alcohol intake: former Comment: Pt rings appropriately to make needs known. 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 Blood pressure elevated. Heart rate elevated. Respiratory rate normal. Temperature normal. Oxygen saturation normal. Appearance: Alert. Oriented X3. No acute distress. Head: Normal external exam. Normocephalic. Atraumatic. No Gama signs noted. No raccoon eyes noted Eyes: PERRLA. EOMI. Conjunctiva and sclera normal. Eyelids normal. ENT: TM's Normal. Pharynx normal. Uvula midline. Moist mucous membranes. No trismus noted. No drooling noted. No muffled voice noted. Neck: Normal inspection. Neck supple. FROM. No adenopathy. Thyroid Normal. No meningeal signs. No neck mass noted. CVS: Normal heart rate and rhythm. Heart sound normal. No murmurs noted. Pulses normal throughout. Respiratory: No respiratory distress. Painless inspiration. Breath sounds normal. No wheezes/rales/rhonchi noted. Chest nontender. No accessory muscle usage noted or decreased air movement noted. Abdomen: Soft and nontender. Bowel sounds normal in all 4 quadrants. No distention noted. No organomegaly noted. No visible injury noted. Back: No CVA tenderness. Full range of motion noted. Skin: Skin warm and dry. Normal skin color. Normal skin turgor. No rashes/lesions/lacerations noted. Extremities: No lower extremity edema. Extremities exhibit normal range of motion. Extremities nontender. Neuro: Oriented X 3. Cranial nerve exam: II-XII are grossly intact No motor deficit. No sensory deficit. Reflexes normal. Course Reevaluation(s) Reevaluation #1: 72-year-old male came in for evaluation of acute on chronic renal failure / dehydration case discussed with who will evaluate the patient tomorrow, patient unable to give urine to check for UA, surgical wound was seen and examined by Dr. Ken in the ED think the wound is clean. As per Dr. Ken note concern of intra-abdominal abscess will consider CT scan of the abdomen and pelvis. Leukocytosis with left shift will cover with empirical Zosyn. Ultrasound showed no obstructive uropathy. Case signed out to Dr. Gilmore. Discussed with Dr. Walton to be admitted Time: 15:54 Medications Administered Discontinued Medications Generic Name Dose Route Start Last Admin Trade Name Demarco PRN Reason Stop Dose Admin Sodium Chloride 1,000 mls @ 999 mls/hr 06/16/23 12:22 06/16/23 15:42 Ns IV 06/16/23 13:22 Infused .Q1H1M ONE Infusion Medical Decision Making Differential Diagnosis Differential Diagnoses: The differential diagnosis associated with the presentation includes ( sepsis, intra-abdominal abscess, acute on chronic renal failure, electrolyte abnormality, dehydration, severe anemia.) Admission/Observation Consideration of admission/observation: Escalation of care including admission/observation considered Consult Healthcare Provider Management of the patient was discussed with: Hospitalist (Enrique Walton) and Administrator Health Care Facility ( Dr. Ken) Lab Data MDM Lab Attestation statement: I reviewed the patient's lab results. 06/16/23 13:37 06/16/23 13:37 Labs: Lab Results 06/16/23 06/16/23 Range/Units 13:37 15:12 WBC 21.4 H (4.8-10.8) X10*3/uL RBC 2.74 L (4.60-5.80) X10*6/uL Hgb 8.4 L (14.0-18.0) g/dl Hct 25.4 L (42.0-52.0) % MCV 92.7 (80.0-98.0) fL MCH 30.7 (27.0-33.0) pg MCHC 33.1 (31.0-36.0) g/dl RDW 18.6 H (11.0-16.0) % Plt Count 370 (160-400) X10*3/uL MPV 9.4 (9.4-12.4) fL Immature Gran % (Auto) Cancelled Neut % (Auto) Cancelled Lymph % (Auto) Cancelled [place] % (Auto) Cancelled Eos % (Auto) Cancelled Baso % (Auto) Cancelled Lymph # (Auto) Cancelled [place] # (Auto) Cancelled Eos # (Auto) Cancelled Baso # (Auto) Cancelled Abs Immat Gran (auto) Cancelled Absolute Neuts (auto) Cancelled Absolute Nucleated RBC 0.030 H (0.0-0.012) X10*3/uL Nucleated RBC % (auto) 0.1 (0.0-0.2) /100WBC Neutrophils % (Manual) 38 L (45-73) % Band Neutrophils % 47 H (3-5) % Lymphocytes % (Manual) 9 L (20-40) % Monocytes % (Manual) 3 (2-11) % Metamyelocytes % 2 % Myelocytes % 1 % Abs Neuts (Manual) 18.2 H (2.0-8.3) X10*3/uL Lymphocytes # (Manual) 1.9 (1.2-4.9) X10*3/uL Monocytes # (Manual) 0.6 (0.1-1.2) X10*3/uL Metamyelocytes # 0.4 X10*3/uL Myelocytes # 0.2 X10*/uL Toxic Vacuolation PRESENT Platelet Estimate NORMAL (NORMAL) Large Platelets PRESENT Plt Morphology Comment NOTED RBC Morphology NOTED Hypochromasia 1+ (5-14) /OIF [place] Cells 2+ (3-5) /OIF Schistocytes 1+ (0-2) /OIF Sodium 133 L (135-145) mmol/L Potassium 5.4 H (3.3-5.1) mmol/L Chloride 103 (96-108) mmol/L Carbon Dioxide 16 L (22-29) mmol/L Anion Gap 19 (12-20) BUN 62 H (9-16) mg/dL Creatinine 5.97 H* (0.5-1.4) mg/dL Estim Creat Clear Calc 12.4 Estimated GFR 9 Random Glucose 86 (60-115) mg/dL Lactic Acid 1.9 (0.5-2.0) mmol/L Calcium 7.4 L (8.4-10.2) mg/dL Total Bilirubin 0.8 (0.0-1.0) mg/dL Direct Bilirubin 0.6 H (0.0-0.5) mg/dL AST 505 H (5-37) U/L ALT 145 H (0-40) U/L Alkaline Phosphatase 537 H (39-117) U/L Total Protein 5.8 L (6.5-8.0) g/dL Albumin 2.2 L (3.5-5.0) g/dL Lipase 13 (8-78) U/L Independent Interpretation I performed an independent interpretation of an: Ultrasound (1. No hydronephrosis nor renal calculi. 2. Incidental note is made of a 1.3 cm echogenic focus in the right lobe of the liver which may represent a hemangioma. 3.8 cm heterogeneous ill-defined mass in the ? Right lobe of the liver. The liver has been extensively evaluated by recent CT scans.) Discharge Plan Discharge Clinical Impression: Leukocytosis, Acute on chronic renal failure Patient Disposition: Admitted As Inpatient
--- OUTSIDE RECORDS SUMMARY | 2023-06-16 12:47 | XMS_ITS | Continuity of Care Document ---
Author Name Unknown Organization [facility] ter Address [address] [place] [address]- Care Team Providers Care Boat Buffer Plastic Name Role Phone Rashid VALIENTE, Lorena Baez Primary Care Physic cole [facility] [id number] Date(s): 04/20/23 - 04/20/[address] [address] Discharge Disposition: A-D/C Home Attending Physician: Allen Merino MD Admitting Physician: Allen Merino MD Referring Physician: Allen Merino MD Allergies, Adverse Reactions, Alerts No Known Medication Allergies Medications Atenolol See Instructions, By Mouth Daily, 0 Refills, Maintenance, 04/20/23 6:46:00 EST, Partial fill upon patient request if the prescription is for a schedule II opioid drug. Start Date: 04/20/23 Status: Ordered ferrous sulfate 325 mg oral tablet 1 tablet = 325 mg, By Mouth, 3 times a day, 0 Refills, Maintenance, 04/20/23 6:48:00 EST, Partial fill upon patient request if the prescription is for a schedule II opioid drug. Start Date: 04/20/23 Status: Ordered folic acid 1 mg oral tablet 1 tablet = 1 mg, By Mouth, Daily, 0 Refills, Maintenance, 06/29/15 11:05:11 Start Date: 06/29/15 Status: Ordered lisinopril 10 mg oral tablet 1 tablet = 10 mg, By Mouth, Daily, 0 Refills, Maintenance, 06/29/15 11:04:52 Start Date: 06/29/15 Status: Ordered NuLYTELY Lemon [place] oral powder for reconstitution 240 mL, By Mouth, Every 15 minutes, # 4,000 mL, 0 Refills, Maintenance, 06/29/15 11:24:08, 240 mL By Mouth Every 15 minutes Start Date: 06/29/15 Status: Ordered simvastatin 20 mg oral tablet 1 tablet = 20 mg, By Mouth, Daily at bedtime, 0 Refills, Maintenance, 06/29/15 11:04:37 Start Date: 06/29/15 Status: Ordered Vitamin B1 100 mg oral tablet 1 tablet = 100 mg, By Mouth, Daily, 0 Refills, Maintenance, 06/29/15 11:05:48 Start Date: 06/29/15 Status: Ordered Vitamin B12 1000 mcg oral tablet 1 tablet = 1,000 mcg, By Mouth, Daily, 0 Refills, Maintenance, 06/29/15 11:06:03 Start Date: 06/29/15 Status: Ordered Vitamin D3 1000 intl units oral capsule 1 capsule = 1,000 International_Units, By Mouth, Daily, 0 Refills, Maintenance, 06/29/15 11:05:31 Start Date: 06/29/15 Status: Ordered Problem List Condition Confirmation Course Effective Dates Status Health St atus Informant Carcinoid tumor of right lung 1, 2 Confirmed Active Hypertension Confirmed Active 05017 50909 ? Results Radiology Reports * Exam Date Time Procedure Performing Provider Status 04/20/23 7:40 AM IR End of Case Report Au th (Verified) IR End of Case Report * Exam Date Time Procedure Performing Provider Status 04/20/23 7:[address] Guidance Needle Biopsy Maylin Hopper ly; Auth (Verified) Notes: (CT Guidance Needle Biopsy) Reason For Exam: RETROPERITONEAL LYMPHADENOPATHY CT Guidance Needle Biopsy Patient: ARCELIA GRUBER Study Date: 04/20/2023 Performing: Sue Rosario MD Referring: : 1950 Age: 72 Gender: MALE PROCEDURE: CT Guided Biopsy of left para-aortic (retroperitoneal) lymph node INDICATION: 72 yo patient with remote h/o lung cancer and 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 IR consulted for percutaneous sampling for histopathologic diagnosis. DEFECT REPAIRER GLASSWARE(S): Sue Rosario MD ANESTHESIA: 1% Lidocaine SQ was administered for local anesthesia. Versed 0.5 mg IV, Fentanyl 25 mcg IV. I, Sue Rosario MD, was present throughout the procedure and directly supervised the administration of moderate sedation, and the patient was independently monitored by Ana M Ng RN Sedation start time: 08:28:00 Sedation end time: 08:40:00 RADIATION DOSE: Total Exam DLP: 470.26 mGy-cm TECHNIQUE: Informed consent for the procedure was obtained from the patient after discussion of the risks, benefits and alternatives of the procedure. A pre-procedure timeout was performed per protocol, confirming patient identity, planned procedure, laterality and additional relevant details. The patient was positioned prone on the procedure table. A limited CT scan of the retroperitoneum was performed using automatic tube current modulation to optimize exposure parameters. A suitable access site in the left back was identified, marked, prepped, and draped in sterile fashion. Maximum sterile barrier technique was used throughout the procedure. 1% lidocaine SQ was used for local analgesia. After administering local anesthetic, a 17-gauge needle was advanced to the periphery of the target lesion under intermittent CT fluoroscopic guidance. Once needle position within the lesion was confirmed, an 18-gauge biopsy device was coaxially advanced through the introducer needle and device position within the target mass was confirmed with repeat imaging. The needle was slightly retracted to ensure adequate positioning across the target lesion with needle tip away from adjacent visceral and vascular structures. 7 core specimens were obtained (4 submitted in formalin and 3 submitted in Rc's solution). The needle was removed and hemostasis at the skin was obtained with gentle manual compression. Post-biopsy imaging demonstrated expected post-biopsy changes, no hematoma was visualized. A dressing was applied. Estimated blood loss: Minimal COMPLICATIONS: The patient tolerated the procedure well and in stable condition. There were no immediate complications. IMPRESSION: CT-guided biopsy of left para-aortic (retroperitoneal) adenopathy, specimen submitted for gross pathology and flow cytometry. PLAN: Routine post-procedure monitoring. Patient may discharge home once nursing criteria is met. Signed By Sue Rosario MD On 04/20/2023 16:00:37 Sue Rosario MD SUPPLIES : [employer] [facility] 18 X 20 Dictated By: Sue Rosario MD Dictated Date/Time: 04/20/23 7:40 am Reviewed By: Sue Rosario MD Signed By: Sue Rosario MD Signed Date/Time: 04/20/23 7:40 am Transcribed By: SP Transcribed Date/Time: 04/20/23 7:40 am Vital Signs Most recent to oldest [Reference Range]: 1 Height 180 cm (04/20/23 6:45 AM) Weight 74.5 kg (04/20/23 6:45 AM) Oxygen Saturation [94-100 %] 100 % (04/20/23 6:42 AM) Pulse Rate [55-90 bpm] 60 bpm (04/20/23 6:42 AM) Blood Pressure [90-138/55-84 mm Hg] 135/ 54mm Hg (04/20/23 6:42 AM) Respiratory Rate [16-30 br/min] 18 br/mi n (04/20/23 6:42 AM) Temperature [96.8-100.4 DegF] 97.2 DegF (04/20/23 6:42 AM) Mode of Delivery (Oxygen) Room air (04/20/23 6:42 AM) Blood pressure sites Arm, left (04/20/23 6:42 AM) Temperature Route Oral (04/20/23 6:42 AM) Dry Weight 74.5 kg (04/20/23 6:45 AM) Hospital Progress note * Katina Kim: SIGN, MODIFY, SIGN, MODIFY, PERFORM, SIGN, VERIFY Event Display: Progress Note Hospital Authored Date: Patient: ARCELIA GRUBER Age: 72 years Sex: Male : 1950 Associated Diagnoses: None Author: Katina Kim Findings Nursing Data IV Lines. : IV Lines. 04/20/2023 6:00 EST Right Forearm 22 gauge Peripheral IV Activity: Start Peripheral IV Insertion Date/Time: 04/20/2023 7:00 Peripheral IV Number of Attempts: 1 Peripheral IV Site Assessment: Flushes Well, Good Blood return Peripheral IV Dressing: Semi-permeable membrane . Vital Signs : VITAL SIGNS SECTION 04/20/2023 6:42 EST Temperature 97.2 DegF Temperature Route Oral Pulse Rate 60 bpm Respiratory Rate 18 br/min Systolic Blood Pressure 135 mm Hg Diastolic Blood Pressure 54 mm Hg L Blood pressure sites Arm, left Mean Arterial Pressure 81 mm Hg Pulse Pressure 81 mm Hg Oxygen Saturation 100 % Mode of Delivery (Oxygen) Room air . Narrative/Incidental Biopsy Pt arrived on unit at 630 NPO status confirmed Labs sent . Patient aware of planned procedure. Call hernandez within . * Katina Kim: PERFORM Event Display: Progress Note Hospital Authored Date: patient returned from planned procedure VSS site is clean and dry patient has no complaints of painat this time is eager to go home * Katina Kim: PERFORM Event Display: Progress Note Hospital Authored Date: patient demonstrates good knowledge regarding discharge instructions Note * Katina Kim: PERFORM Event Display: Discharge/Transfer Note Hospital Authored Date: Nursing Discharge Note Entered On: 04/20/2023 15:04 EST Performed On: 04/20/2023 15:03 EST by Katina Kim Nursing Discharge Note 2 Discharge Time : 04/20/2023 11:19 EST Discharge Level of Care at Discharge : Home/Jail/Foster Care Patient Left Unit Via : Wheelchair Patient Accompanied Off Unit with : Significant other DC Instructions Provided & Signed by Pt : Yes Patient Understands D/C Instructions : Yes Patient Instructions Discharge Signed : Yes Did Pt have Specialty Bed or Wound Vac : No Katina Kim - 04/20/2023 15:03 EST Patient Care team information Care Team Personnel Name: Ana M Ng RN Position: [facility] Rad RN Member Role: Primary Care Nurse Name: Gene Carlos MD Position: [facility] Renal MD Member Role: Lifetime Consulting Physician Address: Address: [address] [place] [address] [facility] [place] [address]- Name: Lorena Mike NP Position: [facility] Associate Professional Member Role: PCP Address: Address: [address] [place] [address] Care Team Related Persons Name: GILSON GRADY Address: [facility]
--- OUTSIDE RECORDS SUMMARY | 2023-06-16 12:47 | XMS_ITS | Continuity of Care Document ---
Author Name Unknown Organization [facility] Care Address [address] [place] [address]- Care Team Providers Care Guest Services Manager Name Role Phone Riki Pal MD, Luis Dawson Primary Care Physician Encounter [facility] Date(s): 01/28/23 - 02/27/23 [facility] [address] [place] [address] Attending Physician: Quinton Kennedy Admitting Physician: Quinton Kennedy Referring Physician: AdmtrQuinton Allergies, Adverse Reactions, Alerts No Known Medication Allergies Medications folic acid 1 mg oral tablet 1 tablet = 1 mg, By Mouth, Daily, 0 Refills, Maintenance, 06/29/15 11:05:11 Start Date: 06/29/15 Status: Ordered lisinopril 10 mg oral tablet 1 tablet = 10 mg, By Mouth, Daily, 0 Refills, Maintenance, 06/29/15 11:04:52 Start Date: 06/29/15 Status: Ordered NuLYTELY Lemon [place] oral powder for reconstitution 240 mL, By [...] 1, 2 Confirmed Active Hypertension Confirmed Active 51869 00577 ? Patient Care team information Care Team Personnel Name: Riki Pal MD, Luis Dawson Position: Reference Physician Member Role: PCP Address: Address: [address] [place] [address]- Name: Gene Carlos MD Position: [facility] Renal MD Member Role: Lifetime Consulting Physician Address: Address: [address] [place] [address] [facility] [address] Care Team Related Persons Name: GILSON GRADY
--- OUTSIDE RECORDS SUMMARY | 2023-06-16 12:47 | XMS_ITS | Patient Health Record ---
Author Name Unknown Organization [facility] Address [address] [place] [address] Care Team Providers Care Family Day Care Provider Name Role Phone Randy Pal M.D. Primary Care Provider Un available Rose Narciso Unavailable [phone] ALLERGIES No Known Allergies RESULTS Component Value Reference Range Notes Pathology (Not yet reviewed by provider) Interpretation: Performing Lab:[facility], [address] [place] [phone] Notes/Report: Prothrombin Time INR Reviewed date:01/02/2023 04:32:10 PM Interpretation: Performing Lab:[facility], [address] [place] [phone] Notes/Report: Prothrombin Time 13.2 11.1-13.3 SEC INTERNATIONAL NORM RATIO 1.1 0.9-1.1 INTERNATIONAL NORMALIZED RATIO (INR) REFERENCE RANGES Reference Range For patients not on anticoagulant therapy: 0.9 - 1.1 INR ranges for oral anticoagulant therapy: For prevention and treatment of venous thrombosis and pulmonary embolism: 2.0 - 3.0 For acute myocardial infarction with aspirin therapy: 2.0 - 3.0 For acute myocardial infarction without aspirin therapy: 3.0 - 4.0 For patients with mechanical prosthetic heart valves: 2.5 - 3.5 Blood Urea Nitrogen Reviewed date:01/02/2023 04:32:16 PM Interpretation: Performing Lab:[facility], [address] [place] [phone] Notes/Report: Blood Urea Nitrogen 29 9-16 mg/dL Creatinine Reviewed date:01/02/2023 04:32:30 PM Interpretation: Performing Lab:[facility], [address] [place] [phone] Notes/Report: Creatinine 2.31 0.5-1.4 mg/dL Creatinine Clr Calc Pharmacy 33.2 eGFR (calculated from the MDRD study equation) and eCrCl (calculated from the Cockcroft-Gault equation) are based on different parameters and may not yield comparable results. If eCrCl result is absurd, please check patient's height/weight. Estimated Glomerular Filt Rate 28 NOTE: For -Niue[place] individuals, multiply the result by 1.210. Chronic Kidney Disease: Estimated GFR < 60 mL/min/1.73m2 Severe Kidney Disease: Estimated GFR < 15 mL/min/1.73m2 REASON FOR REFERRAL Referring Provider First Name Randy Referring Provider Last Name Kae Referred Organization [facility] Referred Provider Narciso Rose Referred Address [address] [place] [address],[place] [address],[place], [place],[address], Referred Provider Specialty Gastroentero logy Referral Priority Routine MEDICATIONS Medication SIG (Take, Route, Frequency, Duration) Notes Start Date End Date Status Vitamin D3 25 MCG (1000 UT) 1 capsule Or ally Once a day for 30 day(s) Active Folic Acid 1 MG 1 tablet Orally Once a day for 30 day(s) Active Cyanocobalamin 500 MCG 1 tablet Orally O nce a day for 30 day(s) Active Thiamine HCl 100 MG 1 tablet Orally Once a day for 30 day(s) Active Atorvastatin Calcium 20 MG 1 tablet Oral ly Once a day for 30 day(s) Active MiraLax (colon prep) 17 GM/SCOOP 1 238 Gm bottle mixed with Gatorade or Crystal Light Orally begin at 5:00 p.m. the day before the procedure for 1 day 10/21/2022 Active Fosinopril Sodium 10 MG 1 tablet Orally Once a day for 30 day(s) Active Dulcolax (colon prep) 5 MG take at 3:00 p.m and 7:00p.m. Orally two tablets twice a day for one day for 1 day 10/21/2022 Active Atenolol 25 MG 1 tablet Orally Once a day for 30 day(s) Active amLODIPine Besylate 2.5 MG 1 tablet Oral ly Once a day for 30 day(s) Active Calcium 500 MG 1 tablet with meals Orally Twice a day for 30 day(s) Active PreserVision AREDS - as directed Orally Active SOCIAL HISTORY Tobacco Use: Social History Observation Description Date Details (start date - stop date) Current Smoker NA - NA Sex Assigned At : Social History Observation Description Sex Assigned At Unknown Tobacco Use/Smoking Question Answer Notes Patient is a current smoker How often do you smoke cigarettes? every day How many cigarettes a day do you smoke? 5 or les s Alcohol Screen Question Answer Notes Did you have a drink containing alcohol in the p ast year? No Points 0 Interpretation Negative PROBLEMS Problem Type ICD Code Onset Dates Problem Status W/U Status Risk SNOMED Code Notes Problem History of adenomatous polyp of colon (Z86.010) Active confirmed 577764895 Problem Colon cancer screening (Z12.11) Active confirmed 777469043 Problem Preprocedural examination (Z01.818) Active confirmed [id number] Problem Diverticulosis of colon (K57.30) Active confirmed Diverticulosi s of colon (328092554) Encounters Encounter Location Date Provider Diagnosis [facility] [place] Outpatient [address] [place] [id number] 01/02/2023 Narciso Rose Colon cancer screeni ng Z12.11 ; Colon polyp K63.5 ; Diverticulosis of colon K57.30 and Internal hemorrhoids K64.8 [facility] [address] [place] [phone] 10/17/2022 Narciso Rose History of adenomato us polyp of colon Z86.010 ; Preprocedural examination Z01.818 and Colon cancer screening Z12.11 [facility] [address] [place] [phone] 10/17/2022 Narciso Rose ASSESSMENTS Encounter Date Diagnosis Assessment Notes Treatment Notes Treatment Clinical Notes 01/02/2023 Colon cancer screening (ICD-10 - Z12.11) 01/02/2023 Colon polyp (ICD-10 - K63.5) 10/17/2022 History of adenomatous polyp of colon (ICD-10 - Z86.010) Stop aspirin for 1 week before the colonoscopy 10/17/2022 Preprocedural examination (ICD-10 - Z01.818) 01/02/2023 Diverticulosis of colon (ICD-10 - K57.30) 10/17/2022 Colon cancer screening (ICD-10 - Z12.11) 01/02/2023 Internal hemorrhoids (ICD-10 - K64.8) PLAN OF TREATMENT Pending Test Test Name Order Date Pathology 01/02/2023 Future Test Test Name Order Date COLONOSCOPY 10/17/2022 Insurance Providers Payer Name Payer Address Payer Phone Subscriber Number Group Number Insured Name Patient Relationship to Insured Coverage Start Date Coverage End Date [facility] [employer] [id number] TANIYA DELANEY [id number] ARCELIA GRUBER Self - patient is the insured MEDICAL (GENERAL) HISTORY Medical History History ICD Code Hypertension Stroke-no residual- Kidney disease stage 3 - Dr. Carlos Hx of carcinoma of lung in 2 007 with subsequent surgery as described below, and chemotherapy Colon polyps. He describes a history of at least 2 previous colonoscopies in [place]. The first procedure did reveal polyps but the second one in 2016, done by , was negative for polyps. That procedure note recommended he undergo another colonoscopy in 5 years for followup Denies DE,DM,Lung disease,renal disease Hyperlipidemia Surgical History Surgery Date(Month/Year) Right lower lobectomy for cancer, then c hemo 06/2006
--- OUTSIDE RECORDS SUMMARY | 2023-06-16 12:47 | XMS_ITS | Continuity of Care Document ---
Author Name Unknown Organization [facility] ancer Care Address [address] [place] [address]- Care Team Providers Care Conductor Orchestra Name Role Phone Rashid VALIENTE, Lorena Baez Primary Care Physic cole Encounter [facility] Date(s): 05/13/23 - 06/12/[address] [address]- Allergies, Adverse Reactions, Alerts No Known Medication Allergies Immunizations Given and Recorded Vaccine Date Status Refusal Reason SARS-CoV-2(COVID-19)mRNA-LNP vac([id number]) 05/02/23 Recorded Influenza Virus Vaccine (oldterm) 1 03/11/23 Recor ded [id number] 12y+ bivalent booster vax 03/17/22 Recorded influenza virus vaccine, inactivated 01/22/22 Kiel rded influenza virus vaccine, inactivated 02/21/21 Kiel rded influenza virus vaccine, inactivated 02/13/20 Kiel rded influenza virus vaccine, inactivated 02/11/19 Kiel rded influenza virus vaccine, inactivated 01/24/16 Kiel rded influenza virus vaccine, inactivated 01/29/15 Kiel rded SARS-CoV-2 (COVID-19) mRNA-1273 vaccine 04/27/21 R ecorded SARS-CoV-2 (COVID-19) mRNA-1273 vaccine 07/17/20 R ecorded SARS-CoV-2 (COVID-19) mRNA-1273 vaccine 06/19/20 R ecorded pneumococcal 23-valent vaccine 03/07/21 Recorded pneumococcal 23-valent vaccine 01/24/16 Recorded tetanus/diphtheria/pertussis, acel(Tdap) 03/07/21 Recorded tetanus/diphtheria/pertussis, acel(Tdap) 02/16/15 Recorded pneumococcal 13-valent vaccine 05/24/15 Recorded 1Result Comment: reports given in March at [facility] Medications Atenolol See Instructions, By Mouth Daily, [...] 06/29/15 11:05:11 Start Date: 06/29/15 Status: Ordered lidocaine-prilocaine 2.5%-2.5% topical cream See Instructions, Apply dime sized amount over port and cover with plastic, 1 hour prior to port use., # 30 Gm, 2 Refills, Maintenance, 05/06/23 12:43:00 EST, [facility], Partial fill upon patient request if the prescription is for a... Start Date: 05/06/23 Status: Ordered lisinopril 10 mg oral tablet 1 tablet = 10 mg, By Mouth, Daily, 0 Refills, Maintenance, 06/29/15 11:04:52 Start Date: 06/29/15 Status: Ordered NuLYTELY Lemon [place] oral powder for reconstitution 240 mL, By Mouth, Every 15 minutes, # 4,000 mL, 0 Refills, Maintenance, 06/29/15 11:24:08, 240 mL By Mouth Every 15 minutes Start Date: 06/29/15 Status: Ordered ondansetron 4 mg oral tablet, disintegrating 1 tablet = 4 mg, By Mouth, Every 8 hours, PRN as needed for nausea/vomiting, # 30 tablet, 0 Refills, Maintenance, 05/06/23 12:43:00 EST, DIS Tablet, [facility], Partial fill upon patient request if the prescription is for a schedule... Start Date: 05/06/23 Status: Ordered prochlorperazine 5 mg oral tablet 1 tablet = 5 mg, By Mouth, Every 6 hours, PRN Nausea & Vomiting, # 30 tablet, 0 Refills, Maintenance, 05/06/23 12:43:00 EST, Tablet, [facility], Partial fill upon patient request if the prescription is for a schedule II opioid drug.,... Start Date: 05/06/23 Status: Ordered simvastatin 20 mg oral tablet [...] 1, 2 Confirmed Active Hypertension Confirmed Active 68964 [id number] ? Social History Social History Type Response Smoking Status Former smoker, quit more than 30 days ago entered on: 04/30/23 Sex Patient Care team information Care Team Personnel Name: Ana M Ng RN Position: [facility] Rad RN Member Role: Primary Care Nurse Name: Gene Carlos MD Position: [facility] Renal MD Member Role: Lifetime Consulting Physician Address: Address: [address] [place] [address] [facility] [place] [address]- Name: Lorena Mike NP Position: Reference Physician Member Role: PCP Address: Address: [address] [place] [address] Care Team Related Persons Name: GILSON GRADY Address: [facility]
--- NOTE | 2023-06-16 13:31 | PM.CNNEP ---
History of Present Illness Reason for Consult Consult date: 06/17/23 Chief Complaint Chief complaint: Acute on chronic kidney disease stage 4 History of Present Illness Narrative: 72/m with significant for metastatic lung cancer, with liver Mets, patient recently discharged from [facility] after undergoing omental patching for a perforated ulcer postoperative stay was complicated by acute on chronic kidney disease, postoperative anemia, patient was discharged to rehab facility where renal function was monitored and was noted to have worsening creatinine, decreased urinary output therefore patient was sent to [place] ER for evaluation, c/o abd pain he has decreased appetite he had 4 loose bowels movements he complains of lightheadedness with sitting in ambulation, he denies nausea, no vomiting, CT abdomen and pelvis shows free peritoneal air, small amount of ascites, source of free air not certain enlarged liver with multiple low-attenuation liver lesions increased in size from prior exam differential includes metastatic disease and abscesses, and enlarged retroperitoneal lymph nodes.? . PMFSH Past Medical History Medical History History of lung cancer Kidney disease Stroke Macular degeneration High cholesterol HTN (hypertension) Surgical History Surgical History History of lobectomy of lung History of lung surgery Social History Social History Household Members: None Housing: House Are you a primary caregiver services home to a significant other at home: No Do you presently have visiting nurse or other home services: No Alcohol intake: former Comment: Pt rings appropriately to make needs known. Verbalizes call before gettinup Patient Tobacco Use Status: Former Tobacco user Quit Date: 1 month ago Tobacco use type: Cigarette Cigarettes Per Day: 2 Years Smoked: 40 Smoked in Last 30 Days: No Use of substances other than those prescribed or required for medical reasons: No Currently Displaying Signs/Symptoms of Drug Intoxication Withdrawal: No Advance Directives: No Advance Directives Information Provided: No Advance Directives on File: No Do you have thoughts of harming others: None Do you have a plan to hurt others: No Plan Recently lost weight without trying: No Nutrition Risks: No Nutritional Risk service: Yes Current occupational status: 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 Meds Allergies Allergy/AdvReac Type Severity Reaction Status Date / Time No Known Allergies Allergy Unverified 01/20/23 10:11 Home Medications Medication Instructions Recorded Confirmed Last Taken Type atorvastatin 40 mg tablet 20 mg PO BEDTIME 05/25/23 06/16/23 Unknown History calcium carbonate 500 mg calcium 1,000 mg PO DAILY 05/25/23 06/16/23 Unknown History (1,250 mg) tablet cholecalciferol (vitamin D3) 25 12.5 mcg PO DAILY 05/25/23 06/16/23 Unknown History mcg (1,000 unit) tablet cyanocobalamin (vitamin B-12) 500 500 mcg PO DAILY 05/25/23 06/16/23 Unknown History mcg tablet ferrous sulfate 325 mg (65 mg 325 mg PO DAILY 05/25/23 06/16/23 Unknown History iron) tablet lidocaine-prilocaine 2.5 %-2.5 % 1 appl topical DAILY PRN Pain 05/25/23 06/16/23 Unknown History topical cream multivitamin 1 tab PO DAILY 05/25/23 06/16/23 Unknown History ondansetron 4 mg disintegrating 4 mg PO Q8H PRN Nausea 05/25/23 06/16/23 Unknown History tablet prochlorperazine maleate 5 mg 5 mg PO QID PRN nasuea 05/25/23 06/16/23 Unknown History tablet thiamine HCl (vitamin B1) 100 mg 100 mg PO DAILY 05/25/23 06/16/23 Unknown History tablet triamcinolone acetonide 0.5 % 1 appl topical TID PRN Rash 05/25/23 06/16/23 Unknown History topical cream acetaminophen 325 mg tablet 650 mg PO Q8H PRN Pain (Scale 06/16/23 06/16/23 Unknown History Score 1-3) docusate sodium 100 mg tablet 100 mg PO DAILY 06/16/23 06/16/23 Unknown History oxycodone 5 mg tablet 5 mg PO Q4H PRN Pain 06/16/23 06/16/23 Unknown History Physical Exam Vital Signs: Last Vital Signs Temp 98.8 F 06/16/23 11:40 Pulse 116 H 06/16/23 11:34 Resp 20 06/16/23 11:34 BP 97/50 L 06/16/23 11:40 Pulse Ox 95 06/16/23 11:34 BMI result Body Mass Index 22.2 cachectic , jvp+ R chest port cvs: s1s2 Abd; disternded with umbilical eversion aleman draining some urine Results Lab Results 06/17/23 08:21 06/17/23 08:21 Assessment and Plan (1) CKD (chronic kidney disease) stage 4, GFR 15-29 ml/min: Status: Acute (2) GINA (acute kidney injury): Status: Acute Plan 72-year-old gentleman with right-sided lung cancer s/p RLL resection and chemotherapy, ckd stage 4, htn, hld, hx cva, and macular degeneration recently underwent surgery for duodenal perforation , required laparotomy with omental patching of a perforated ulcer, postoperative course complicated by gina on ckd IV and acute metabolic acidosis.? Patient sent to [place] ED today from rehab facility due to worsening renal function. Acute on chronic kidney disease stage 4 Poorly differentiated urothelial ca - h/o lung ca s/p resection in the past- yet to start chemo Free peritoneal air on imaging No obstruction on abdominal ultrasound s/p Aleman pt declined surgery for the supected perf cachectic and ? candidate for chemo now with declining renal fucntion Recommend pt is not a candidate for Renal replacement therapy due to overall poor prognosis palliative vs hospice care ok for ivf and lokelma prn for K > 5.3 Procedures Date of Service Date of Service: 06/17/23
[2023-06-16 13:44] LABS: Hematocrit 25.4 % (42.0-52.0); Hemoglobin 8.4 g/dl (14.0-18.0); Mean Corpuscular HGB Conc 33.1 g/dl (31.0-36.0); Mean Corpuscular Hemoglobin 30.7 pg (27.0-33.0); Mean Corpuscular Volume 92.7 fL (80.0-98.0); Mean Platelet Volume 9.4 fL (9.4-12.4); NRBC Pct Auto 0.1 /100WBC (0.0-0.2); Platelet Count 370 X10*3/uL (160-400); Red Blood Count 2.74 X10*6/uL (4.60-5.80); Red Cell Distribution Width 18.6 % (11.0-16.0); White Blood Count 21.4 X10*3/uL (4.8-10.8)
[2023-06-16 14:22] LABS: Alanine Aminotransferase 145 U/L (0-40); Albumin Level 2.2 g/dL (3.5-5.0); Alkaline Phosphatase 537 U/L (39-117); Anion Gap 19 (12-20); Aspartate Amino Transferase 505 U/L (5-37); Bilirubin Direct 0.6 mg/dL (0.0-0.5); Bilirubin Total 0.8 mg/dL (0.0-1.0); Blood Urea Nitrogen 62 mg/dL (9-16); Calcium 7.4 mg/dL (8.4-10.2); Carbon Dioxide 16 mmol/L (22-29); Chloride 103 mmol/L (96-108); Creatinine Clr Calc Pharmacy 12.4; Estimated Glomerular Filt Rate 9; Glucose Random 86 mg/dL (60-115); Lipase 13 U/L (8-78); Potassium 5.4 mmol/L (3.3-5.1); Sodium 133 mmol/L (135-145); Total Protein 5.8 g/dL (6.5-8.0)
[2023-06-16 14:27] VITALS: BP 116/53; PULSE 113; RESP 20; O2SAT 96
--- NOTE | 2023-06-16 14:28 | P.CONGS_ITS ---
History of Present Illness Consult details Consult date: 06/16/23 Narrative: 72-year-old male with advanced, metastatic lung cancer, status post laparotomy, omental patch for perforated duodenal ulcer on May 25, 2023, here in the ER for worsening chronic kidney disease He was actually just discharged from the hospita to rehab on 06/11/2023l after his laparotomy. He has known ascites, with significant dependent edema of the torso likely from his metastatic disease in the abdomen along with chronic kidney disease. He also has chronic anemia and had been transfused in the hospital with packed RBCs His creatinine has gone up to 6 while at the rehab. I was asked to follow. He has a small open wound on the upper part of his midline incision. This had been draining ascitic fluid from before. Review of Systems 2 Constitutional: Constitutional: Denies chills and Denies fever(s) Cardiovascular: Cardiovascular: Denies chest pain, Reports dyspnea and Reports dyspnea on exertion Respiratory: Respiratory: Denies cough, Reports dyspnea and Reports dyspnea on exertion Gastrointestinal: Gastrointestinal: Denies hematochezia and Denies change in bowel habits Genitourinary: Genitourinary: Denies hematuria and Denies difficulty urinating Musculoskeletal: Musculoskeletal: Denies back pain and Denies limited range of motion Neurologic: Denies focal weakness and Denies convulsions Psychiatric: Psychiatric: Denies depression and Denies mood swings PMFSH Past Medical History Medical History History of lung cancer Kidney disease Stroke Macular degeneration High cholesterol HTN (hypertension) Surgical History Surgical History History of lobectomy of lung History of lung surgery Social History Social History Household Members: None Housing: House Are you a primary care program director to a significant other at home: No Do you presently have visiting nurse or other home services: No Alcohol intake: former Comment: Pt rings appropriately to make needs known. 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 Meds Allergies Allergy/AdvReac Type Severity Reaction Status Date / Time No Known Allergies Allergy Unverified 01/20/23 10:11 Home Medications Medication Instructions Recorded Confirmed Last Taken Type lidocaine-prilocaine 2.5 %-2.5 % 1 appl topical DAILY PRN Pain 05/25/23 06/16/23 Unknown History topical cream ondansetron 4 mg disintegrating 4 mg PO Q8H PRN Nausea 05/25/23 06/16/23 Unknown History tablet prochlorperazine maleate 5 mg 5 mg PO QID PRN nasuea 05/25/23 06/16/23 Unknown History tablet triamcinolone acetonide 0.5 % 1 appl topical TID PRN Rash 05/25/23 06/16/23 Unknown History topical cream acetaminophen 325 mg tablet 650 mg PO Q8H PRN Pain (Scale 06/16/23 06/16/23 Unknown History Score 1-3) docusate sodium 100 mg tablet 100 mg PO DAILY 06/16/23 06/16/23 Unknown History Physical Exam 2 Vital Signs: Vital Signs: Last Vital Signs Temp 98.8 F 06/16/23 11:40 Pulse 116 H 06/16/23 11:34 Resp 20 06/16/23 11:34 BP 97/50 L 06/16/23 11:40 Pulse Ox 95 06/16/23 11:34 BMI result Body Mass Index 22.2 Const: General: comfortable and no acute distress Resp: Other: Mildly short of breath Cardio: Rate: tachycardic GI: Other: Soft, with ascites, soft, dependent edema on the posterior aspect of the torso, small open wound on the superior part of the midline clean, granulating well Results Labs 06/18/23 06:30 06/18/23 06:30 Labs: Abnormal lab results 06/16/23 Range/Units 13:37 WBC 21.4 H (4.8-10.8) X10*3/uL RBC 2.74 L (4.60-5.80) X10*6/uL Hgb 8.4 L (14.0-18.0) g/dl Hct 25.4 L (42.0-52.0) % RDW 18.6 H (11.0-16.0) % Absolute Nucleated RBC 0.030 H (0.0-0.012) X10*3/uL Sodium 133 L (135-145) mmol/L Potassium 5.4 H (3.3-5.1) mmol/L Carbon Dioxide 16 L (22-29) mmol/L BUN 62 H (9-16) mg/dL Creatinine 5.97 H* (0.5-1.4) mg/dL Calcium 7.4 L (8.4-10.2) mg/dL Direct Bilirubin 0.6 H (0.0-0.5) mg/dL AST 505 H (5-37) U/L ALT 145 H (0-40) U/L Alkaline Phosphatase 537 H (39-117) U/L Total Protein 5.8 L (6.5-8.0) g/dL Albumin 2.2 L (3.5-5.0) g/dL Short CBC 06/16/23 Range/Units 13:37 WBC 21.4 H (4.8-10.8) X10*3/uL Hgb 8.4 L (14.0-18.0) g/dl Hct 25.4 L (42.0-52.0) % Plt Count 370 (160-400) X10*3/uL BMP 06/16/23 13:37 Sodium 133 L Potassium 5.4 H Chloride 103 Carbon Dioxide 16 L BUN 62 H Creatinine 5.97 H* Calcium 7.4 L Liver Function 06/16/23 Range/Units 13:37 Total Bilirubin 0.8 (0.0-1.0) mg/dL Direct Bilirubin 0.6 H (0.0-0.5) mg/dL AST 505 H (5-37) U/L ALT 145 H (0-40) U/L Alkaline Phosphatase 537 H (39-117) U/L Albumin 2.2 L (3.5-5.0) g/dL All other labs normal. Assessment and Plan (1) CKD (chronic kidney disease) stage 4, GFR 15-29 ml/min: Status: Acute He had recent laparotomy and omental patching of perforated duodenal ulcer 05/25/2023. He has worsening kidney disease with a creatinine up to 6.13. He is being followed by Dr. Carlos of Nephrology He does have known advanced metastatic lung cancer and has lymphadenopathy in both the chest and the abdomen. His ascites is likely secondary to his static disease. He has a small open wound in the upper midline from his previous laparotomy. This is clean and granulating well. This would just require daily dressing changes He also has leukocytosis. He appears comfortable but should be worked up for an intra-abdominal abscess considering he had a perforated ulcer recently We will follow along while he is in the hospital. I have discussed the above with his sister Haylee at bedside. The family is aware of overall grim long-term prognosis. He was supposed to start chemotherapy 3 weeks ago in [facility] for palliation. He may be too frail to undergo chemotherapy at this time. Procedures Date of Service Date of Service: 06/30/23
[2023-06-16 14:47] LABS: Neutrophils Percent Manual 38 % (45-73)
[2023-06-16 14:49] LABS: Band Neutrophils Percent 47 % (3-5); Lymphocytes Absolute Manual 1.9 X10*3/uL (1.2-4.9); Lymphocytes Percent Manual 9 % (20-40); Metamyelocytes Absolute 0.4 X10*3/uL; Metamyelocytes Percent 2 %; Monocytes Absolute Manual 0.6 X10*3/uL (0.1-1.2); Monocytes Percent Manual 3 % (2-11); Myelocytes Absolute 0.2 X10*/uL; Myelocytes Percent 1 %; Neutrophils Absolute Manual 18.2 X10*3/uL (2.0-8.3)
[2023-06-16 14:50] LABS: Burr Cells 2+ (3-5) /OIF; Hypochromasia 1+ (5-14) /OIF; Large Platelet PRESENT; Platelet Estimate NORMAL (NORMAL); Platelet Morphology Comment NOTED; RBC Morphology NOTED; Schistocytes 1+ (0-2) /OIF; Toxic Vacuolation PRESENT
[2023-06-16 15:30] LABS: Lactic Acid 1.9 mmol/L (0.5-2.0)
[2023-06-16] MEDS: Piperacillin Sodium/Tazobactam 2.25 GM in 0.9 % Sodium Chloride 50 ML IV (16:41)
[2023-06-16] MEDS: Sodium Zirconium Cyclosilicate 10 GM POWD.PACK PO (16:41)
--- NOTE | 2023-06-16 17:10 | PHA.MEDREC ---
Pharmacy Consult ? Medication Reconciliation Pharmacy has completed the medication reconciliation. Patient came from [facility] with medication list. Sheila Haynes, ChelseyD
[2023-06-16 17:23] VITALS: BP 105/48; PULSE 115; RESP 20; TEMP 36.6; O2SAT 92
[2023-06-16 17:42] LABS: Appearance Urine Cloudy; Color Urine Dark Yellow; Glucose Urine UA Negative (Negative); Leukocyte Esterase Urine Negative (Negative); Nitrite Urine Negative (Negative); UMIC TRIGGER UACC YES; Urine Blood Negative (Negative); Urine Ketones Trace mg/dL (Negative); Urine Protein 30 (1+) mg/dL (Neg-Trace)
[2023-06-16] MEDS: Albumin Human 25 % 100 ML IV (17:47)
--- NOTE | 2023-06-16 17:57 | PM.IMHP ---
History of Present Illness Date of Service: 06/16/23 Chief Complaint: Abnormal labs 72-year-old gentleman with past medical history significant for metastatic lung cancer, with liver Mets, patient recently discharged from [facility] on 06 11 2023 after undergoing omental patching for a perforated ulcer postoperative stay was complicated by acute on chronic kidney disease, postoperative anemia, patient was discharged to rehab facility where renal function was monitored and was noted to have worsening creatinine, decreased urinary output therefore patient was sent to [facility] ER for evaluation, as per patient he has decreased urinary output of couple days, he denies urinary burning or urgency, he has decreased appetite he had 4 loose bowels movements yesterday he complains of lightheadedness with sitting in ambulation, he has been walking with a walker the rehab facility he denies nausea, no vomiting, complaining of abdominal pain localized to mid abdomen from right to left side worse with transfers and activity,, had no bowel movement today, denies fever, no chills, has chronic cough not worsening, in the emergency room he was noted to have creatinine of 5.97 that worsened from 3.5 on 06/12, bicarb of 16, potassium 5.4, [place] 133[place] [id number], hematocrit 25.4 dropped from 27.8 since discharge, Renal ultrasound showed no hydronephrosis, chest x-ray limited study showed no active disease, CT abdomen and pelvis shows free peritoneal air, small amount of ascites, source of free air not certain enlarged liver with multiple low-attenuation liver lesions increased in size from prior exam differential includes metastatic disease and abscesses, and enlarged retroperitoneal lymph nodes. Patient seen by General surgery Dr. Ken in the emergency room he recommend NPO fluids and will follow patient closely. Review of Systems Review of Systems: General mild lightheadedness with activity, no headache, no dizziness, no fever chills. CVS no chest pain, no palpitation. Respiratory ch cough unchanged, no sputum production Gastrointestinal no nausea no vomiting, abdominal pain, decreased appetite Musculoskeletal no pain Skin chronic rash lower extremity decreased urine output PMFSH Medical History History of lung cancer Kidney disease Stroke Macular degeneration High cholesterol HTN (hypertension) Surgical History History of lobectomy of lung History of lung surgery Social History Household Members: None Housing: House Are you a primary career technical counselor to a significant other at home: No Do you presently have visiting nurse or other home services: No Alcohol intake: former Comment: Pt rings appropriately to make needs known. Verbalizes call before gettinup Patient Tobacco Use Status: Former Tobacco user Quit Date: 1 month ago Tobacco use type: Cigarette Cigarettes Per Day: 2 Years Smoked: 40 Smoked in Last 30 Days: No Use of substances other than those prescribed or required for medical reasons: No Currently Displaying Signs/Symptoms of Drug Intoxication Withdrawal: No Advance Directives: No Advance Directives Information Provided: No Advance Directives on File: No Do you have thoughts of harming others: None Do you have a plan to hurt others: No Plan Recently lost weight without trying: No Nutrition Risks: No Nutritional Risk service: Yes Current occupational status: 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 Meds Allergies Allergy/AdvReac Type Severity Reaction Status Date / Time No Known Allergies Allergy Unverified 01/20/23 10:11 Active Medications: Current Medications Acetaminophen (Acetaminophen 325 Mg Tablet) 650 mg PO Q6H PRN PRN Reason: Pain, Mild (Pain Scale 1-3) Atorvastatin Calcium (Atorvastatin Calcium 20 Mg Tablet) 20 mg PO BEDTIME [facility]O Cyanocobalamin (Cyanocobalamin (Vitamin B-12) 500 Mcg Tablet) 500 mcg PO DAILY [facility] Hydromorphone HCl (Hydromorphone Hcl 0.5 Mg/0.5 Ml Syringe) 0.25 mg IVPUSH Q4H PRN; Protocol PRN Reason: Pain, Severe (Pain Scale 7-10) Albumin Human (Kedbumin 25 %) 100 mls @ 100 mls/hr IV Q6H CHEO Stop: 06/17/23 12:44 Last Admin: 06/16/23 17:47 Dose: 100 mls/hr Piperacillin Sod/Tazobactam (Sod 2.25 gm/ Sodium Chloride) 50 mls @ 100 mls/hr IV Q8H CHEO Multivitamins/Vitamin C (Multivitamin Tablet) 1 tab PO DAILY CHEO Ondansetron HCl (Ondansetron Hcl 4 Mg/2 Ml Vial) 4 mg IVPUSH Q8H PRN PRN Reason: Nausea and Vomiting Sodium Chloride (0.9 % Sodium Chloride Flush 3 Ml Syringe) 3 ml IVFLUSH QSHIFT [facility] Thiamine HCl (Thiamine Hcl 100 Mg Tablet) 100 mg PO DAILY [facility] Vitamin D (Cholecalciferol (Vitamin D3) 25 Mcg Tablet) 12.5 mcg PO DAILY [facility] Home Medications Medication Instructions Recorded Confirmed Last Taken Type atorvastatin 40 mg tablet 20 mg PO BEDTIME 05/25/23 06/16/23 Unknown History calcium carbonate 500 mg calcium 1,000 mg PO DAILY 05/25/23 06/16/23 Unknown History (1,250 mg) tablet cholecalciferol (vitamin D3) 25 12.5 mcg PO DAILY 05/25/23 06/16/23 Unknown History mcg (1,000 unit) tablet cyanocobalamin (vitamin B-12) 500 500 mcg PO DAILY 05/25/23 06/16/23 Unknown History mcg tablet ferrous sulfate 325 mg (65 mg 325 mg PO DAILY 05/25/23 06/16/23 Unknown History iron) tablet lidocaine-prilocaine 2.5 %-2.5 % 1 appl topical DAILY PRN Pain 05/25/23 06/16/23 Unknown History topical cream multivitamin 1 tab PO DAILY 05/25/23 06/16/23 Unknown History ondansetron 4 mg disintegrating 4 mg PO Q8H PRN Nausea 05/25/23 06/16/23 Unknown History tablet prochlorperazine maleate 5 mg 5 mg PO QID PRN nasuea 05/25/23 06/16/23 Unknown History tablet thiamine HCl (vitamin B1) 100 mg 100 mg PO DAILY 05/25/23 06/16/23 Unknown History tablet triamcinolone acetonide 0.5 % 1 appl topical TID PRN Rash 05/25/23 06/16/23 Unknown History topical cream acetaminophen 325 mg tablet 650 mg PO Q8H PRN Pain (Scale 06/16/23 06/16/23 Unknown History Score 1-3) docusate sodium 100 mg tablet 100 mg PO DAILY 06/16/23 06/16/23 Unknown History oxycodone 5 mg tablet 5 mg PO Q4H PRN Pain 06/16/23 06/16/23 Unknown History Physical Exam Vital Signs and Narrative: Vital Signs: Last Vital Signs Temp 97.8 F 06/16/23 17:23 Pulse 115 H 06/16/23 17:23 Resp 20 06/16/23 17:23 BP 105/48 L 06/16/23 17:23 Pulse Ox 92 06/16/23 17:23 O2 Del Method Room Air 06/16/23 17:23 BMI result Body Mass Index 22.2 Const: Other: General resting comfortably in no acute distress. Anicteric sclera Neck supple no JVD. CVS regular rate rhythm, Respiratory lungs clear to auscultation, no respiratory distress, no wheeze, no rhonchi. Gastrointestinal abdomen mild tenderness mid abd, mild distention, bowel sounds audible, dressing in place small open wound on superior part of midline incision, bowel sounds audible, no guarding , no rigidity. Extremities no edema. Neuro non focal Skin hyperemic rash bilateral shins Psych appropriate affect Results Labs 06/17/23 08:21 06/17/23 08:21 Labs: Laboratory Results - last 24 hr 06/16/23 06/16/23 06/16/23 13:37 15:12 17:25 MCV 92.7 MCH 30.7 MCHC 33.1 RDW 18.6 H Plt Count 370 MPV 9.4 Immature Gran % (Auto) Cancelled Neut % (Auto) Cancelled Lymph % (Auto) Cancelled [place] % (Auto) Cancelled Eos % (Auto) Cancelled Baso % (Auto) Cancelled Lymph # (Auto) Cancelled [place] # (Auto) Cancelled Eos # (Auto) Cancelled Baso # (Auto) Cancelled Abs Immat Gran (auto) Cancelled Absolute Neuts (auto) Cancelled Absolute Nucleated RBC 0.030 H Nucleated RBC % (auto) 0.1 Neutrophils % (Manual) 38 L Band Neutrophils % 47 H Lymphocytes % (Manual) 9 L Monocytes % (Manual) 3 Metamyelocytes % 2 Myelocytes % 1 Abs Neuts (Manual) 18.2 H Lymphocytes # (Manual) 1.9 Monocytes # (Manual) 0.6 Metamyelocytes # 0.4 Myelocytes # 0.2 Toxic Vacuolation PRESENT Platelet Estimate NORMAL Large Platelets PRESENT Plt Morphology Comment NOTED RBC Morphology NOTED Hypochromasia 1+ (5-14) Cardinal Cells 2+ (3-5) Schistocytes 1+ (0-2) Anion Gap 19 Estim Creat Clear Calc 12.4 Estimated GFR 9 Random Glucose 86 Lactic Acid 1.9 Calcium 7.4 L Total Bilirubin 0.8 Direct Bilirubin 0.6 H AST 505 H ALT 145 H Alkaline Phosphatase 537 H Total Protein 5.8 L Albumin 2.2 L Lipase 13 Urine Color Dark Yellow Urine Appearance Cloudy Urine pH 5.0 Ur Specific [place] 1.020 Urine Protein 30 (1+) H Urine Glucose (UA) Negative Urine Ketones Trace Urine Blood Negative Urine Nitrite Negative Ur Leukocyte Esterase Negative Imaging Radiologist's Impressions: Impressions Renal Ultrasound 06/16/23 14:44 IMPRESSION: 1. No hydronephrosis nor renal calculi. 2. Incidental note is made of a 1.3 cm echogenic focus in the right lobe of the liver which may represent a hemangioma. 3.8 cm heterogeneous ill-defined mass in the ? Right lobe of the liver. The liver has been extensively evaluated by recent CT scans. Abdomen/Pelvis CT 06/16/23 16:17 IMPRESSION: Free peritoneal air. Small amount of ascites in the abdomen and pelvis. Source of free air is not certain. Diverticulosis of the colon. Enlarged liver with multiple low-attenuation liver lesions. These appear increased in size from prior exam. Differential would include metastatic disease and abscesses. Enlarged upper abdominal retroperitoneal lymph nodes. Gallstones. Small bilateral pleural effusions and lower lobe atelectasis. Umbilical hernia containing fat, fluid and air. Fleischner guidelines were followed. Findings were communicated to Dr. George by telephone on 06/16/2021 at 5:40 PM Chest X-Ray 06/16/23 16:26 IMPRESSION: Limited study. No active disease. Assessment and Plan (1) Acute on chronic renal failure: Status: Acute (2) Leukocytosis: Status: Acute (3) CKD (chronic kidney disease) stage 4, GFR 15-29 ml/min: Status: Acute (4) Metabolic acidosis: Status: Acute Plan 72-year-old gentleman with right-sided lung cancer s/p RLL resection and chemotherapy, ckd stage 4, htn, hld, hx cva, and macular degeneration recently underwent surgery for duodenal perforation , required laparotomy with omental patching of a perforated ulcer, postoperative course complicated by lori on ckd IV and acute metbaolic acidosis. Patient sent to [place] ED today from rehab facility due to worsening renal function. New free intraperitoneal air Seen by General surgery patient declined surgery Continue conservative treatment NPO, IV fluids, IV antibiotics and pain medications Question hospice patient will discuss with family Acute on chronic kidney disease stage 4 with metabolic acidosis No obstruction on abdominal ultrasound Will place [place] for fluid management IV albumin, IV fluid, monitor BMP, avoid nephrotoxins Renal consult Leukocytosis had 4 loose stools yesterday will check C diff, question related to intra-abdominal infection will place on renally dose IV Zosyn. Hypertension soft blood pressures not on antihypertensives, follow BP History of lung cancer status post right lower lobe resection and chemotherapy Follows with [facility], recent PET scan showed multiple lymph nodes in neck, chest and abdomen Poorly differentiated carcinoma Concern for urothelial origin Followed by [facility], had the port placed for chemo but did not start yet because of recurrent hospitalization Code status full code DVT prophylaxis compression boots In my clinical judgment patient patient require 2 night inpatient stay for treatment of acute on chronic kidney disease and new free intraperitoneal air requires expert consultation IV fluids and close renal and electrolyte monitoring. Quality Stroke Does the patient have a stroke diagnosis?: No VTE Prior VTE?: No VTE Risk Level:: Medical - moderate - high VTE Device Contraindication: N/A - Device Ordered VTE Drug Contraindication: Treatment Not Indicated
[2023-06-16 18:08] LABS: Bacteria Urine None Seen (None Seen); RBC Urine 0-2 /HPF (0-2); WBC Urine 0-5 /HPF (0-5)
--- NOTE | 2023-06-16 18:12 | PM.EVENT ---
Event Note Date of Service: 06/17/23 Event Note: CT reviewed - new free intraperitoneal, multiple large liver masses, increased from before explained above to pt uncertain as to etiol of free air, but could be from previously repaired ulcer or new perforation he says another surgery not an option for him at this time he understands his overall prognosis, terminal disease, multiple health issues his exam is actually benign he has SOB from baseline IV abx fo now will discuss options with family including hospice - pt says he will talk to his sisters about this Time Spent With Patient Time: Total time managing care of this patient today ____ minutes.
[2023-06-16 18:32] VITALS: RESP 20
[2023-06-16] MEDS: HYDROmorphone HCl 0.5 MG/0.5 ML SYRINGE 0.25 MG IVPUSH ×2 (18:32→22:43)
--- NOTE | 2023-06-16 18:44 | PC.NURSE ---
Alert and oriented, medicated per mar, reports feeling better, vss, nsr on monitor.
[2023-06-16] MEDS: Dextrose 5 % and Lactated Ring 1,000 ML 80 ML IVCONT (20:00)
[2023-06-16] MEDS: Atorvastatin Calcium 20 MG TABLET PO (22:44)
[2023-06-17] MEDS: Albumin Human 25 % 100 ML IV ×3 (00:30→15:10)
[2023-06-17] MEDS: Piperacillin Sodium/Tazobactam 2.25 GM in 0.9 % Sodium Chloride 50 ML IV ×3 (02:39→16:33)
[2023-06-17 03:25] VITALS: BP 106/49; PULSE 107; RESP 20; TEMP 37.1; O2SAT 94
[2023-06-17 07:06] VITALS: BP 124/51; PULSE 105; RESP 20; TEMP 37.1; O2SAT 95
--- NOTE | 2023-06-17 08:09 | MHC.CM.PN ---
CM met with Patient at bedside. Patient lives alone in a house and uses a cane to assist with mobility. 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 CM has initiated and will follow for dc planning. Patient's Sister/Lubna is the HCP and the PCP is from the [place] in [place], Dr. Sanchez.
[2023-06-17] MEDS: Cholecalciferol (Vitamin D3) 25 MCG TABLET 12.5 MCG PO (08:13)
[2023-06-17] MEDS: Multivitamin TABLET 1 TAB PO (08:13)
[2023-06-17] MEDS: Thiamine HCL 100 MG TABLET PO (08:13)
[2023-06-17] MEDS: Cyanocobalamin (Vitamin B-12) 500 MCG TABLET PO (08:13)
--- NOTE | 2023-06-17 08:18 | P.PNGS_ITS ---
Subjective Subjective Date of Service: 06/18/23 Interval history: no new complaints has occasional sharp abdl pain no appetite states he is always thirsty Physical Exam 2 Vital Signs: Vital Signs: Last Vital Signs Temp 98.8 F 06/17/23 07:06 Pulse 105 H 06/17/23 07:06 Resp 20 06/17/23 07:06 BP 124/51 L 06/17/23 07:06 Pulse Ox 95 06/17/23 07:06 O2 Del Method Room Air 06/17/23 07:06 BMI result Body Mass Index 22.2 Const: Other: very frail looking, some shortness of breath with exertion Resp: Other: some SOB Cardio: Rate: tachycardic GI: Other: distended, soft, no guarding or rebound, mildly tender Objective Data Active Medications Acetaminophen (Acetaminophen 325 Mg Tablet) 650 mg PO Q6H PRN PRN Reason: Pain, Mild (Pain Scale 1-3) Albuterol/Ipratropium (Albuterol/Iprat 2.5/0.5mg 3 Ml Ampul.Neb) 3 ml INHALE Q4H PRN PRN Reason: sob Atorvastatin Calcium (Atorvastatin Calcium 20 Mg Tablet) 20 mg PO BEDTIME [facility] Last Admin: 06/16/23 22:44 Dose: 20 mg Documented By: PAULINE Cyanocobalamin (Cyanocobalamin (Vitamin B-12) 500 Mcg Tablet) 500 mcg PO DAILY [facility] Last Admin: 06/17/23 08:13 Dose: 500 mcg Documented By: BRIAN Hydromorphone HCl (Hydromorphone Hcl 0.5 Mg/0.5 Ml Syringe) 0.25 mg IVPUSH Q4H PRN; Protocol PRN Reason: Pain, Severe (Pain Scale 7-10) Last Admin: 06/16/23 22:43 Dose: 0.25 mg Documented By: PAULINE Piperacillin Sod/Tazobactam (Sod 2.25 gm/ Sodium Chloride) 50 mls @ 100 mls/hr IV Q8H [facility] Last Infusion: 06/17/23 03:30 Dose: Infused Documented By: BRIAN Dextrose/Lactated Ringer's (D5lr) 1,000 mls @ 80 mls/hr IVCONT .[id number] [facility] Last Infusion: 06/17/23 08:10 Dose: 0 mls/hr Documented By: BRIAN Albumin Human (Kedbumin 25 %) 100 mls @ 100 mls/hr IV Q6H [facility] Stop: 06/17/23 13:59 Last Admin: 06/17/23 08:09 Dose: 100 mls/hr Documented By: BRIAN Multivitamins/Vitamin C (Multivitamin Tablet) 1 tab PO DAILY [facility] Last Admin: 06/17/23 08:13 Dose: 1 tab Documented By: BRIAN Ondansetron HCl (Ondansetron Hcl 4 Mg/2 Ml Vial) 4 mg IVPUSH Q8H PRN PRN Reason: Nausea and Vomiting Sodium Chloride (0.9 % Sodium Chloride Flush 3 Ml Syringe) 3 ml IVFLUSH QSHIFT [facility] Last Admin: 06/17/23 01:43 Dose: Not Given Documented By: PAULINE Non-Admin Reason: Previously Administered Thiamine HCl (Thiamine Hcl 100 Mg Tablet) 100 mg PO DAILY [facility] Last Admin: 06/17/23 08:13 Dose: 100 mg Documented By: BRIAN Vitamin D (Cholecalciferol (Vitamin D3) 25 Mcg Tablet) 12.5 mcg PO DAILY [facility] Last Admin: 06/17/23 08:13 Dose: 12.5 mcg Documented By: BRIAN Labs 06/18/23 06:30 06/18/23 06:30 Labs: Laboratory Results - last 24 hr 06/16/23 06/16/23 06/16/23 13:37 15:12 17:25 MCV 92.7 MCH 30.7 MCHC 33.1 RDW 18.6 H Plt Count 370 MPV 9.4 Immature Gran % (Auto) Cancelled Neut % (Auto) Cancelled Lymph % (Auto) Cancelled [place] % (Auto) Cancelled Eos % (Auto) Cancelled Baso % (Auto) Cancelled Lymph # (Auto) Cancelled [place] # (Auto) Cancelled Eos # (Auto) Cancelled Baso # (Auto) Cancelled Abs Immat Gran (auto) Cancelled Absolute Neuts (auto) Cancelled Absolute Nucleated RBC 0.030 H Nucleated RBC % (auto) 0.1 Neutrophils % (Manual) 38 L Band Neutrophils % 47 H Lymphocytes % (Manual) 9 L Monocytes % (Manual) 3 Metamyelocytes % 2 Myelocytes % 1 Abs Neuts (Manual) 18.2 H Lymphocytes # (Manual) 1.9 Monocytes # (Manual) 0.6 Metamyelocytes # 0.4 Myelocytes # 0.2 Toxic Vacuolation PRESENT Platelet Estimate NORMAL Large Platelets PRESENT Plt Morphology Comment NOTED RBC Morphology NOTED Hypochromasia 1+ (5-14) Tiffani Cells 2+ (3-5) Schistocytes 1+ (0-2) Anion Gap 19 Estim Creat Clear Calc 12.4 Estimated GFR 9 Random Glucose 86 Lactic Acid 1.9 Calcium 7.4 L Total Bilirubin 0.8 Direct Bilirubin 0.6 H AST 505 H ALT 145 H Alkaline Phosphatase 537 H Total Protein 5.8 L Albumin 2.2 L Lipase 13 Urine Color Dark Yellow Urine Appearance Cloudy Urine pH 5.0 Ur Specific [place] 1.020 Urine Protein 30 (1+) H Urine Glucose (UA) Negative Urine Ketones Trace Urine Blood Negative Urine Nitrite Negative Ur Leukocyte Esterase Negative Urine RBC 0-2 Urine WBC 0-5 Ur Squamous Epith Cells 3-5 Urine Bacteria None Seen Hyaline Casts 11-20 Procedures Date of Service Date of Service: 06/18/23 Progress Note: A&P Assessment and plan (1) Acute on chronic renal failure: Status: Acute Assessment and Plan: CT shows some free air, large liver lesions, ascites, retroperitoneal LN, diffuse mesenteric stranding abdl exam otherwise benign pt with mutiple medical issues incl advanced metastatic disease, worsening, acute and chronic kidney disease 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 Quality Stroke Does the patient have a stroke diagnosis?: No VTE Prior VTE?: No VTE Risk Level:: Medical - moderate - high VTE Device Contraindication: N/A - Device Ordered VTE Drug Contraindication: Treatment Not Indicated
[2023-06-17] MEDS: oxyCODONE HCl Immed Release 5 MG TABLET PO ×2 (09:21→20:18)
[2023-06-17 09:59] LABS: Hematocrit 25.1 % (42.0-52.0); Hemoglobin 8.2 g/dl (14.0-18.0); Mean Corpuscular HGB Conc 32.7 g/dl (31.0-36.0); Mean Corpuscular Hemoglobin 30.8 pg (27.0-33.0); Mean Corpuscular Volume 94.4 fL (80.0-98.0); Mean Platelet Volume 9.6 fL (9.4-12.4); NRBC Pct Auto 0.2 /100WBC (0.0-0.2); Platelet Count 359 X10*3/uL (160-400); Red Blood Count 2.66 X10*6/uL (4.60-5.80); White Blood Count 17.9 X10*3/uL (4.8-10.8)
[2023-06-17 10:19] LABS: Anion Gap 21 (12-20); Blood Urea Nitrogen 69 mg/dL (9-16); Calcium 8.8 mg/dL (8.4-10.2); Carbon Dioxide 18 mmol/L (22-29); Chloride 102 mmol/L (96-108); Creatinine Clr Calc Pharmacy 11.9; Estimated Glomerular Filt Rate 9; Glucose Random 86 mg/dL (60-115); Sodium 136 mmol/L (135-145)
--- NOTE | 2023-06-17 10:47 | MHC.CM.PN ---
CM met with Patient and his Sister/HCP/Lubna ([phone]). Patient came to [facility] from [facility], where he was for STR ([facility] bed hold). Returning to [facility] (STR VS HOSPICE)is the goal and CM will follow. Sister/Mary @ [phone] handles the finances.
[2023-06-17 11:08] VITALS: BP 100/47; PULSE 102; RESP 18; TEMP 37.1; O2SAT 96
[2023-06-17] MEDS: Dextrose 5 % and Lactated Ring 1,000 ML 80 ML IVCONT (15:32)
[2023-06-17] MEDS: 0.9 % Sodium Chloride Flush 3 ML SYRINGE IVFLUSH (15:32)
[2023-06-17 16:00] VITALS: BP 94/52; PULSE 90; RESP 18; TEMP 36.9; O2SAT 94
--- NOTE | 2023-06-17 17:16 | HO.PM.IMPN ---
Subjective Subjective Date of Service: 06/17/23 Interval History: Complaining of abdominal pain, worse with movement no nausea, no vomiting, no bowel movement,c/o shortness of breath, no other acute issues decreased appetite, no urinary symptoms no headache no dizziness Staton catheter with dark urine. Review of Systems All other system reviewed and negative. Physical Exam Vital Signs: Vital Signs: Last Vital Signs Temp 98.4 F 06/17/23 16:00 Pulse 90 06/17/23 16:00 Resp 18 06/17/23 16:00 BP 94/52 L 06/17/23 16:00 Pulse Ox 94 06/17/23 16:00 O2 Del Method Room Air 06/17/23 16:00 BMI result Body Mass Index 22.2 Const: Other: General resting comfortably in no acute distress. Anicteric sclera Neck supple no JVD. CVS regular rate rhythm, Respiratory lungs coarse bs, no respiratory distress, no wheeze, no rhonchi. Gastrointestinal abdomen mild tenderness , mild distention worse since yesterday,, bowel sounds audible, dressing in place small open wound on superior part of midline incision, bowel sounds audible, no guarding , no rigidity. Extremities no edema. Neuro non focal Skin hyperemic rash bilateral shins Psych appropriate affect Objective Data Active Medications Acetaminophen (Acetaminophen 325 Mg Tablet) 650 mg PO Q6H PRN PRN Reason: Pain, Mild (Pain Scale 1-3) Albuterol/Ipratropium (Albuterol/Iprat 2.5/0.5mg 3 Ml Ampul.Neb) 3 ml INHALE Q4H PRN PRN Reason: sob Atorvastatin Calcium (Atorvastatin Calcium 20 Mg Tablet) 20 mg PO BEDTIME [facility] Last Admin: 06/16/23 22:44 Dose: 20 mg Documented By: PAULINE Cyanocobalamin (Cyanocobalamin (Vitamin B-12) 500 Mcg Tablet) 500 mcg PO DAILY [facility] Last Admin: 06/17/23 08:13 Dose: 500 mcg Documented By: BRIAN Piperacillin Sod/Tazobactam (Sod 2.25 gm/ Sodium Chloride) 50 mls @ 100 mls/hr IV Q8H [facility] Last Admin: 06/17/23 16:33 Dose: 100 mls/hr Documented By: CLIVE Sodium Bicarbonate 150 meq/ (Dextrose) 1,000 mls @ 50 mls/hr IV .Q20H [facility] Multivitamins/Vitamin C (Multivitamin Tablet) 1 tab PO DAILY [facility] Last Admin: 06/17/23 08:13 Dose: 1 tab Documented By: BRIAN Ondansetron HCl (Ondansetron Hcl 4 Mg/2 Ml Vial) 4 mg IVPUSH Q8H PRN PRN Reason: Nausea and Vomiting Oxycodone HCl (Oxycodone Hcl Immed Release 5 Mg Tablet) 5 mg PO Q6H PRN PRN Reason: Pain, Moderate(Pain Scale 4-6) Last Admin: 06/17/23 09:21 Dose: 5 mg Documented By: BRIAN Sodium Chloride (0.9 % Sodium Chloride Flush 3 Ml Syringe) 3 ml IVFLUSH QSHIFT [facility] Last Admin: 06/17/23 15:32 Dose: 3 ml Documented By: CLIVE Thiamine HCl (Thiamine Hcl 100 Mg Tablet) 100 mg PO DAILY [facility] Last Admin: 06/17/23 08:13 Dose: 100 mg Documented By: BRIAN Vitamin D (Cholecalciferol (Vitamin D3) 25 Mcg Tablet) 12.5 mcg PO DAILY [facility] Last Admin: 06/17/23 08:13 Dose: 12.5 mcg Documented By: BRIAN Labs 06/18/23 06:30 06/18/23 06:30 Labs: Laboratory Results - last 24 hr 06/16/23 06/17/23 17:25 08:21 MCV 94.4 MCH 30.8 MCHC 32.7 RDW 19.0 H Plt Count 359 MPV 9.6 Absolute Nucleated RBC 0.040 H Nucleated RBC % (auto) 0.2 Anion Gap 21 H Estim Creat Clear Calc 11.9 Estimated GFR 9 Random Glucose 86 Calcium 8.8 D Urine Color Dark Yellow Urine Appearance Cloudy Urine pH 5.0 Ur Specific [place] 1.020 Urine Protein 30 (1+) H Urine Glucose (UA) Negative Urine Ketones Trace Urine Blood Negative Urine Nitrite Negative Ur Leukocyte Esterase Negative Urine RBC 0-2 Urine WBC 0-5 Ur Squamous Epith Cells 3-5 Urine Bacteria None Seen Hyaline Casts 11-20 Assessment and Plan (1) Acute on chronic renal failure: Status: Acute (2) Leukocytosis: Status: Acute (3) CKD (chronic kidney disease) stage 4, GFR 15-29 ml/min: Status: Acute (4) Metabolic acidosis: Status: Acute Plan 72-year-old gentleman with right-sided lung cancer s/p RLL resection and chemotherapy, ckd stage 4, htn, hld, hx cva, and macular degeneration recently underwent surgery for duodenal perforation , required laparotomy with omental patching of a perforated ulcer, postoperative course complicated by lori on ckd IV and acute metbaolic acidosis. Patient sent to [facility] ED today from rehab facility due to worsening renal function. New free intraperitoneal air Seen by General surgery patient declined surgery, question source of free air Continue conservative treatment IV fluids, IV antibiotics and pain medications Place on clear liquid diet Question hospice patient will discuss with family Acute on chronic kidney disease stage 4 with metabolic acidosis No obstruction on abdominal ultrasound Continue Stat[place] for fluid management on IV albumin, IV fluid, monitor BMP, avoid nephrotoxins Patient declining hemodialysis, he will discuss with family for final decision, case discussed with Nephrology, will change IV fluids to soda bicarb/d5w Leukocytosis had 4 loose stools the day before no bowel movement since, C diff not collected, question related to intra-abdominal infection ,on renally dose IV Zosyn. Hypertension soft blood pressures not on antihypertensives, follow BP History of lung cancer status post right lower lobe resection and chemotherapy Follows with [facility], recent PET scan showed multiple lymph nodes in neck, chest and abdomen, worsening liver lesions. Poorly differentiated carcinoma Concern for urothelial origin Followed by [facility], had the port placed for chemo but did not start yet because of recurrent hospitalization Code status patient wishes to be DNR DNI, will sign MOLST form DVT prophylaxis compression boots In my clinical judgment patient patient require continued inpatient stay for treatment of acute on chronic kidney disease and new free intraperitoneal air continue current conservative management till patient decides regarding hospice care. Quality Stroke Does the patient have a stroke diagnosis?: No VTE Prior VTE?: No VTE Risk Level:: Medical - moderate - high VTE Device Contraindication: N/A - Device Ordered VTE Drug Contraindication: Treatment Not Indicated
[2023-06-17] MEDS: Sodium Bicarbonate 8.4% 150 MEQ in Dextrose 5 % 850 ML 50 MEQ IV (19:24)
[2023-06-17 19:27] VITALS: BP 103/49; PULSE 104; RESP 21; TEMP 37.4; O2SAT 92
[2023-06-17] MEDS: Atorvastatin Calcium 20 MG TABLET PO (20:18)
[2023-06-18] VITALS: BP 103/53; PULSE 101; RESP 20; TEMP 36.2; O2SAT 93
[2023-06-18] MEDS: Piperacillin Sodium/Tazobactam 2.25 GM in 0.9 % Sodium Chloride 50 ML IV ×2 (00:52→08:22)
[2023-06-18] MEDS: 0.9 % Sodium Chloride Flush 3 ML SYRINGE IVFLUSH (00:55)
[2023-06-18 03:36] VITALS: PULSE 84; RESP 20; TEMP 36.5; O2SAT 96
[2023-06-18 04:00] VITALS: BP 100/56
[2023-06-18] MEDS: oxyCODONE HCl Immed Release 5 MG TABLET PO (06:40)
[2023-06-18 07:08] LABS: Hematocrit 23.9 % (42.0-52.0); Hemoglobin 7.8 g/dl (14.0-18.0); Mean Corpuscular HGB Conc 32.6 g/dl (31.0-36.0); Mean Corpuscular Hemoglobin 31.1 pg (27.0-33.0); Mean Corpuscular Volume 95.2 fL (80.0-98.0); Mean Platelet Volume 9.7 fL (9.4-12.4); NRBC Pct Auto 0.2 /100WBC (0.0-0.2); Platelet Count 298 X10*3/uL (160-400); Red Blood Count 2.51 X10*6/uL (4.60-5.80); Red Cell Distribution Width 19.2 % (11.0-16.0); White Blood Count 17.7 X10*3/uL (4.8-10.8)
[2023-06-18 07:27] VITALS: BP 90/53; PULSE 99; RESP 20; TEMP 36.8; O2SAT 95
[2023-06-18 07:35] LABS: Anion Gap 18 (12-20); Blood Urea Nitrogen 72 mg/dL (9-16); Calcium 7.9 mg/dL (8.4-10.2); Carbon Dioxide 19 mmol/L (22-29); Chloride 102 mmol/L (96-108); Estimated Glomerular Filt Rate 9; Glucose Random 116 mg/dL (60-115); Potassium 4.6 mmol/L (3.3-5.1); Sodium 134 mmol/L (135-145)
[2023-06-18] MEDS: Multivitamin TABLET 1 TAB PO (08:06)
[2023-06-18] MEDS: Cholecalciferol (Vitamin D3) 25 MCG TABLET 12.5 MCG PO (08:06)
[2023-06-18] MEDS: Cyanocobalamin (Vitamin B-12) 500 MCG TABLET PO (08:06)
[2023-06-18] MEDS: Thiamine HCL 100 MG TABLET PO (08:06)
--- NOTE | 2023-06-18 09:13 | P.PNGS_ITS ---
Subjective Subjective Date of Service: 06/22/23 Interval history: Says he is weak Poor appetite Denies abdominal pain at this time Physical Exam 2 Vital Signs: Vital Signs: Last Vital Signs Temp 98.3 F 06/18/23 07:27 Pulse 99 06/18/23 07:27 Resp 20 06/18/23 07:27 BP 90/53 L 06/18/23 07:27 Pulse Ox 95 06/18/23 07:27 O2 Del Method Room Air 06/18/23 03:36 BMI result Body Mass Index 22.2 Const: Other: Very frail looking, some mild shortness of breath General: comfortable Resp: Other: Mild shortness of breath Cardio: Rate: regular rate GI: Other: Rounded, protuberant but soft, no guarding or rebound Objective Data Active Medications Acetaminophen (Acetaminophen 325 Mg Tablet) 650 mg PO Q6H PRN PRN Reason: Pain, Mild (Pain Scale 1-3) Albuterol/Ipratropium (Albuterol/Iprat 2.5/0.5mg 3 Ml Ampul.Neb) 3 ml INHALE Q4H PRN PRN Reason: sob Atorvastatin Calcium (Atorvastatin Calcium 20 Mg Tablet) 20 mg PO BEDTIME [facility] Last Admin: 06/17/23 20:18 Dose: 20 mg Documented By: CLIVE Cyanocobalamin (Cyanocobalamin (Vitamin B-12) 500 Mcg Tablet) 500 mcg PO DAILY [facility] Last Admin: 06/18/23 08:06 Dose: 500 mcg Documented By: NASRA Piperacillin Sod/Tazobactam (Sod 2.25 gm/ Sodium Chloride) 50 mls @ 100 mls/hr IV Q8H [facility] Last Infusion: 06/18/23 08:55 Dose: Infused Documented By: NASRA Sodium Bicarbonate 150 meq/ (Dextrose) 1,000 mls @ 75 mls/hr IV .[id number] [facility] Last Infusion: 06/18/23 09:11 Dose: 75 mls/hr Documented By: NASRA Multivitamins/Vitamin C (Multivitamin Tablet) 1 tab PO DAILY [facility] Last Admin: 06/18/23 08:06 Dose: 1 tab Documented By: NASRA Ondansetron HCl (Ondansetron Hcl 4 Mg/2 Ml Vial) 4 mg IVPUSH Q8H PRN PRN Reason: Nausea and Vomiting Oxycodone HCl (Oxycodone Hcl Immed Release 5 Mg Tablet) 5 mg PO Q6H PRN PRN Reason: Pain, Moderate(Pain Scale 4-6) Last Admin: 06/18/23 06:40 Dose: 5 mg Documented By: CAMRON Sodium Chloride (0.9 % Sodium Chloride Flush 3 Ml Syringe) 3 ml IVFLUSH QSHIFT [facility] Last Admin: 06/18/23 08:07 Dose: Not Given Documented By: NASRA Non-Admin Reason: IV Running Thiamine HCl (Thiamine Hcl 100 Mg Tablet) 100 mg PO DAILY [facility] Last Admin: 06/18/23 08:06 Dose: 100 mg Documented By: NASRA Vitamin D (Cholecalciferol (Vitamin D3) 25 Mcg Tablet) 12.5 mcg PO DAILY [facility] Last Admin: 06/18/23 08:06 Dose: 12.5 mcg Documented By: NASRA Labs 06/18/23 06:30 06/18/23 06:30 Labs: Laboratory Results - last 24 hr 06/17/23 06/18/23 08:21 06:30 MCV 94.4 95.2 MCH 30.8 31.1 MCHC 32.7 32.6 RDW 19.0 H 19.2 H Plt Count 359 298 MPV 9.6 9.7 Absolute Nucleated RBC 0.040 H 0.040 H Nucleated RBC % (auto) 0.2 0.2 Anion Gap 21 H 18 Estim Creat Clear Calc 11.9 12.0 Estimated GFR 9 9 Random Glucose 86 116 H Calcium 8.8 D 7.9 L D Microbiology Microbiology Results: Microbiology 06/16/23 15:28 Blood Culture - Preliminary Blood - Arterial No growth after 24 hours. 06/16/23 15:12 Blood Culture - Preliminary Blood - Arterial No growth after 24 hours. 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 Quality Stroke Does the patient have a stroke diagnosis?: No VTE Prior VTE?: No VTE Risk Level:: Medical - moderate - high VTE Device Contraindication: N/A - Device Ordered VTE Drug Contraindication: Treatment Not Indicated
--- NOTE | 2023-06-18 09:24 | MHC.CM.PN ---
CM met with Patient and his 2 Sisters (Mary(new Primary Agent) & Lubna(new secondary Agent))and assisted Patient with the completion of a new HCP. New HCP has been uploaded into [facility] and a copy has been placed on the chart
--- NOTE | 2023-06-18 10:58 | MHC.CM.PN ---
Per MD, Patient is medically cleared for dc to return to SNF/[facility] today. Per [facility] Liaison, Hospice will be arranged once Patient returns to the facility. Patient will return to [facility] today at 11:30, via [facility].Patient and family are in agreement with the dc plan.
--- NOTE | 2023-06-18 11:27 | P.DS_ITS ---
DS: Providers Provider Date of Service: 06/18/23 Date of admission: 06/16/23 17:35 Primary care physician: Luis Tierney MD Consults: 06/16/23 17:48 Consult to General Surgery Routine Consulting Provider: Saravanan Ken Reason for consultation: free air ct abd Has provider been notified: No 06/16/23 18:57 Consult to Nephrology Routine Consulting Provider: [facility] Reason for consultation: delfina Bernard Has provider been notified: No DS: Diagnosis Discharge Diagnosis (1) Acute on chronic renal failure: Status: Acute DS: Summary Hospital Course Hospital Course: History of presenting illness: Date of Service: 06/16/23 Chief Complaint: Abnormal labs 72-year-old gentleman with past medical history significant for metastatic lung cancer, with liver Mets, patient recently discharged from [facility] on 06 11 2023 after undergoing omental patching for a perforated ulcer postoperative stay was complicated by acute on chronic kidney disease, postoperative anemia, patient was discharged to rehab facility where renal function was monitored and was noted to have worsening creatinine, decreased urinary output therefore patient was sent to [place] [facility] for evaluation, as per patient he has decreased urinary output of couple days, he denies urinary burning or urgency, he has decreased appetite he had 4 loose bowels movements yesterday he complains of lightheadedness with sitting in ambulation, he has been walking with a walker the rehab facility he denies nausea, no vomiting, complaining of abdominal pain localized to mid abdomen from right to left side worse with transfers and activity,, had no bowel movement today, denies fever, no chills, has chronic cough not worsening, in the emergency room he was noted to have creatinine of 5.97 that worsened from 3.5 on 06/12, bicarb of 16, potassium 5.4, [place] 133[place] [id number], hematocrit 25.4 dropped from 27.8 since discharge, Renal ultrasound showed no hydronephrosis, chest x-ray limited study showed no active disease, CT abdomen and pelvis shows free peritoneal air, small amount of ascites, source of free air not certain enlarged liver with multiple low- attenuation liver lesions increased in size from prior exam differential includes metastatic disease and abscesses, and enlarged retroperitoneal lymph nodes. Patient seen by General surgery Dr. Ken in the emergency room he recommend NPO fluids and will follow patient closely. Hospital course: 72-year-old gentleman with right-sided lung cancer s/p RLL resection and chemotherapy, ckd stage 4, htn, hld, hx cva, and macular degeneration recently underwent surgery for duodenal perforation , required laparotomy with omental patching of a perforated ulcer, postoperative course complicated by lori on ckd IV and acute metbaolic acidosis. Patient sent to [place] ED today from rehab facility due to worsening renal function. Patient admitted to medical floor with a diagnosis of acute on chronic kidney disease stage 4 and free intraperitoneal air. New free intraperitoneal air admitted to medical floor place on IV fluids, NPO seen by General surgery etiology or free air uncertain but may be from previous omental patch, however patient declined surgery, therefore case was discussed with patient and his 2 sisters Haylee and Isela at bedside, discussed treatment options including surgery, and also significantly worsening renal failure, need for hemodialysis, and also informed them regarding progression of squamous cell carcinoma involving chest, liver and retroperitoneal lymphadenopathy, with this information patient declined surgery as well as hemodialysis and chose treatment more towards comfort, therefore will discontinue IV fluids, IV antibiotic feet patient for comfort MOLST form signed patient do not want intubation, no IV fluids no hemodialysis no readmission to hospital patient is being discharged to rehab facility with hospice, Patient has right anterior chest port. Discharge diagnosis: Free intraperitoneal air Acute on chronic kidney disease stage 4 with metabolic acidosis Leukocytosis Hypertension History of lung cancer status post right lower lobe resection and chemothera py,recent PET scan showed multiple lymph nodes in neck, chest and abdomen Poorly differentiated carcinoma concern for urothelial origin, Followed by [facility], had the port placed for chemo but did not start yet because of recurrent hospitalization Time Attestation Discharge coordination time: Greater than 30 minutes Quality: Safe Use of Opioids Does Pt have an Active Cancer Diagnosis on the Problem List?: No Quality: Stroke Does the patient have a stroke diagnosis?: No Physical Exam Vital Signs: Vital Signs: Last Vital Signs Temp 98.3 F 06/18/23 07:27 Pulse 99 06/18/23 07:27 Resp 20 06/18/23 07:27 BP 90/53 L 06/18/23 07:27 Pulse Ox 95 06/18/23 07:27 O2 Del Method Room Air 06/18/23 03:36 BMI result Body Mass Index 22.2 Const: Other: General awake alert x3 , mild shortness of breath,in acute distress. Anicteric sclera Neck supple no JVD. CVS regular rate rhythm, Respiratory lungs coarse breath sounds, no respiratory distress, no rales Gastrointestinal abdomen distended, tender to palpation bowel sounds audible, small open wound on superior part of midline incision, no guarding , no rigidity. Extremities no edema. Neuro non focal Skin hyperemic rash bilateral shins Psych appropriate affect DS: Data Data Completed and Pending Completed studies during hospitalization [Text1]: Procedures Introduction of Anesthetic Agent into Peripheral Nerves and Plexi, Percutaneous Approach (05/25/23) Supplement Duodenum with Autologous Tissue Substitute, Open Approach (05/25/23) Transfusion of Nonautologous Red Blood Cells into Peripheral Vein, Percutaneous Approach (05/25/23) Labs on day of discharge: Laboratory Results - last 24 hr 06/18/23 06:30 WBC 17.7 H RBC 2.51 L Hgb 7.8 L Hct 23.9 L MCV 95.2 MCH 31.1 MCHC 32.6 RDW 19.2 H Plt Count 298 MPV 9.7 Absolute Nucleated RBC 0.040 H Nucleated RBC % (auto) 0.2 Sodium 134 L Potassium 4.6 Chloride 102 Carbon Dioxide 19 L Anion Gap 18 BUN 72 H Creatinine 6.15 H* Estim Creat Clear Calc 12.0 Estimated GFR 9 Random Glucose 116 H Calcium 7.9 L D Preliminary micro results at discharge 06/16/23 15:28 Blood Culture - Preliminary Blood - Arterial No growth after 24 hours. 06/16/23 15:12 Blood Culture - Preliminary Blood - Arterial No growth after 24 hours. Discharge Plan Discharge Anticipated Discharge Date/Time: 06/18/23 11:40 Patient Disposition: Hospice - Medical Facility Discharge Diagnosis: Free intraperitoneal air Acute on chronic kidney disease stage 4 Referrals: [facility] [Outside] - 1 Week Luis Tierney MD [Primary Care Provider] - 1 Week Discharge Medications: New oxycodone 5 mg Tablet 5 mg PO Q6H PRN (Reason: Pain, Moderate(Pain Scale 4-6)) Qty: 14 0RF Rx Instructions: Partial Fill upon patient request. ipratropium-albuterol 0.5 mg-3 mg(2.5 mg base)/3 mL Solution For Nebulization 3 ml inhalation Q4H PRN (Reason: sob) Qty: 90 0RF Continued docusate sodium 100 mg Tablet 100 mg PO DAILY acetaminophen 325 mg Tablet 650 mg PO Q8H PRN (Reason: Pain (Scale Score 1-3)) prochlorperazine maleate 5 mg Tablet 5 mg PO QID PRN (Reason: nasuea) lidocaine-prilocaine 2.5-2.5 % Cream 1 appl topical DAILY PRN (Reason: Pain) triamcinolone acetonide 0.5 % Cream 1 appl TOPICAL TID PRN (Reason: Rash) ondansetron 4 mg Tablet,Disintegrating 4 mg PO Q8H PRN (Reason: Nausea) Discontinued oxycodone 5 mg Tablet 5 mg PO Q4H PRN (Reason: Pain) multivitamin Tablet 1 tab PO DAILY atorvastatin 40 mg Tablet 20 mg PO BEDTIME thiamine HCl (vitamin B1) 100 mg Tablet 100 mg PO DAILY cyanocobalamin (vitamin B-12) 500 mcg Tablet 500 mcg PO DAILY calcium carbonate 500 mg calcium (1,250 mg) Tablet 1,000 mg PO DAILY ferrous sulfate 325 mg (65 mg iron) Tablet 325 mg PO DAILY cholecalciferol (vitamin D3) 25 mcg (1,000 unit) Tablet 12.5 mcg PO DAILY Discharge Orders: Discharge Order (Routine); Ordered 06/18/23 Ordered By: Mitzi Walton Diet: feed for comfort Activity on Discharge: As tolerated Stand Alone Forms: Patient Portal Discharge page Care Plan Goals: Free intraperitoneal air/acute on chronic kidney disease Hospice consult at rehab facility Care towards comfort See MOLST form Feed for comfort Health Concerns: Metastatic cancer Plan of Treatment: Care towards comfort, follow-up with hospice and primary care physician Assessment: As above.
[2023-06-18] MEDS: Heparin Sodium,Porcine Flush 50 UNITS/5 ML SYRINGE IVFLUSH (11:36)
--- NOTE | 2023-06-18 16:01 | MHC.CM.PN ---
CM received a call from Patient's Sister/HCP/Mary, concerned because the Directory Assistance Operator @ [facility] was unaware of Patient's wishes to be on Hospice. PREMA has asked the Liaison/Corrine to speak with whoever will be setting up [facility].
--- NOTE | 2023-06-18 16:06 | MHC.CM.PN ---
CM left detailed messages for both CARLOS ENRIQUE @ [facility] (Laquita @ [phone] and Emelise @ [phone])requesting their assistance in getting Hospice in for Patient [place]..
--- NOTE | 2023-06-18 16:11 | MHC.CM.PN ---
Liaison from [facility]/Corrine has indicated that Stacia from [facility] is reaching out to Laquita/CARLOS ENRIQUE @ [facility] to assist with the implementation of Hospice services. CM spoke with Daughter/HCP/Mary @ [phone] and updated her on the plan.
== END 2023-06-18 12:07 | disposition hospice, inpatient (51) | DRG 394 ==
LOC: HO.ED 16:06 → HO.EDOVER 18:09 → HO.IMC 06-17 00:51
PROVIDERS: Admitting Provider Hospitalist; Emergency Provider Emergency Medicine; PCP Internal Medicine; Visit Provider Hospitalist
DX: K66.8 Other specified disorders of peritoneum (principal); C68.0 Malignant neoplasm of urethra; C77.8 Secondary and unspecified malignant neoplasm of lymph nodes of multiple regions; N18.4 Chronic kidney disease, stage 4 (severe); N17.9 Acute kidney failure, unspecified; C78.7 Secondary malignant neoplasm of liver and intrahepatic bile duct; I12.9 Hypertensive chronic kidney disease with stage 1 through stage 4 chronic kidney disease, or unspecified chronic kidney disease; E88.A Wasting disease (syndrome) due to underlying condition; D63.1 Anemia in chronic kidney disease; D63.0 Anemia in neoplastic disease; Z85.118 Personal history of other malignant neoplasm of bronchus and lung; Z92.21 Personal history of antineoplastic chemotherapy; Z90.2 Acquired absence of lung [part of]; Z87.891 Personal history of nicotine dependence; Z79.899 Other long term (current) drug therapy
CPT/HCPCS: 36415; 71045; 74176; 76775; 80048; 80076; 81001; 83605; 83690; 85007; 85027; 87040; 93005; 99285; C1758; J1170; J1642; J2543; P9047

== ENCOUNTER → 2023-06-16 11:36 | Outpatient (BNV) | payer OTHER, MEDICARE, MEDICAID, SELFPAY | PROVIDERS: Emergency Provider Emergency Medicine; Visit Provider Internal Medicine | DX: R00.0 Tachycardia, unspecified (principal) | CPT/HCPCS: 93010 ==

== ENCOUNTER → 2023-06-16 17:35 | Outpatient (BNV) | payer OTHER, MEDICARE, MEDICAID, SELFPAY | PROVIDERS: Admitting Provider Hospitalist; Emergency Provider Emergency Medicine; PCP Internal Medicine; Visit Provider Surgery | DX: N18.4 Chronic kidney disease, stage 4 (severe) (principal) | CPT/HCPCS: 99024; 99232; 99499 ==

== ENCOUNTER → 2023-06-16 17:35 | Outpatient (BNV) | payer OTHER, MEDICARE, MEDICAID, SELFPAY | PROVIDERS: Admitting Provider Hospitalist; Emergency Provider Emergency Medicine; PCP Internal Medicine; Visit Provider Hospitalist | DX: N17.9 Acute kidney failure, unspecified (principal); N18.4 Chronic kidney disease, stage 4 (severe); D72.829 Elevated white blood cell count, unspecified; E87.20 Acidosis, unspecified | CPT/HCPCS: 99223; 99233; 99239 ==